=== PATIENT | female | born 1950 | race Caucasian/White ===

== ENCOUNTER → 2018-03-14 09:32 | Outpatient (CLI) | payer OTHER, SELFPAY ==
[2018-03-14 10:21] LABS: Blood Urea Nitrogen 21 mg/dL (7-17); Estimated Glomerular Filt Rate > 60.0 mL/min (>60); Glucose 134 mg/dL (80-110)
[2018-03-14 10:44] LABS: Hemoglobin A1C% w Est Avg Glu 6.3 % (4.0-6.0)
== END ==
PROVIDERS: Family Provider Family Medicine; PCP Family Medicine; Visit Provider Family Medicine
DX: E11.9 Type 2 diabetes mellitus without complications (principal)
CPT/HCPCS: 36415; 82565; 82947; 83036; 84520

== ENCOUNTER → 2018-04-02 08:53 | Outpatient (CLI) | payer OTHER, SELFPAY ==
--- NOTE | 2018-04-02 08:58 | DI.RAD.S_ITS ---
PROCEDURE: XR KNEE LT 3V INDICATIONS: pain and instability TECHNIQUE: 3 views of the knee were acquired. COMPARISON: [facility], CR, KNEE SERIES LT, 01/16/2016, 10:55. [facility], CR, KNEE 3V LEFT, 11/16/2015, 16:20. FINDINGS: Bones: No fractures or dislocations. No suspicious bony lesions. Scattered degenerative spurring. There is severe narrowing of the patellofemoral joint space with near [id number] appearance, which is slightly progressed since 01/16/16. Chronic ossicle projects adjacent to the lateral aspect of the patella Soft tissues: No joint effusion. Possible loose body projecting in the suprapatellar recess as before. IMPRESSION: Slight interval progression of severe left knee joint degeneration primarily involving the patellofemoral compartment. Suprapatellar loose body. Dictated by: Boris Phan M.D. on 04/02/2018 at 9:51 Approved by: Boris Phan M.D. on 04/02/2018 at 10:01
== END ==
PROVIDERS: PCP Family Medicine; Visit Provider Family Medicine
DX: M17.12 Unilateral primary osteoarthritis, left knee (principal); G35 Multiple sclerosis; M23.42 Loose body in knee, left knee
CPT/HCPCS: 73562

== ENCOUNTER → 2018-06-02 17:41 | Outpatient (CLI) | payer OTHER, SELFPAY ==
--- NOTE | 2018-06-02 17:46 | DI.MRI.S_ITS ---
PROCEDURE: MR KNEE LT WO CON INDICATIONS: ACUTE PAIN OF LEFT KNEE TECHNIQUE: Noncontrast sagittal PD fast spin echo and T2 fast spin echo with fat saturation, sagittal 3-D FLASH with fat saturation; coronal T1 spin echo and PD fast spin echo with fat saturation, and axial PD fast spin echo with fat saturation through the knee. COMPARISON: None. FINDINGS: Image quality: Excellent. Menisci: The medial and lateral menisci demonstrate normal morphology and internal signal. The meniscal root ligaments appear intact. Cruciate ligaments: Anterior cruciate ligament appears at least partially intact although there is prominent thickening intrasubstance signal change with striated appearance. There are also intraosseous ganglion cyst seen at the tibial eminence. Posterior cruciate ligament appears intact. Medial structures: The medial collateral ligament appears intact. The posterior oblique ligament, semimembranosus tendon insertions, oblique popliteal ligament, and meniscocapsular junction appear intact. Visualized portions of the pes anserinus tendons appear normal. No abnormal bursal fluid. Lateral structures: The lateral collateral ligament, long and short heads of the biceps femoris tendon appear intact. The popliteus tendon appears normal; the popliteofibular ligament appears intact. The posterosuperior and anteroinferior popliteomeniscal fascicles appear intact. The arcuate and fabellofibular ligaments appear intact, on either side of the lateral inferior geniculate artery. Iliotibial band appears normal. Anterior structures: The quadriceps and patellar tendons appear intact. Superficialinfrapatellar subcutaneous edema. Patellar alignment is normal. No femoral trochlear dysplasia or ventral trochlear prominence. No edema in the infrapatellar fat pad. Bones and cartilage: No bone marrow contusions or fractures. Within the medial compartment, there is diffuse partial thickness loss in intrasubstance signal change involving the femoral articular cartilage. The tibia cartilage appears grossly intact. Within the lateral compartment, articular cartilage appears grossly intact. Within the patellofemoral compartment, there is near full-thickness loss of the cartilage overlying the lateral patellar facet and lateral femoral trochlear, with subchondral cystic change and marrow edema. Joint space: No pathologic joint effusion or discrete Torres's cyst. Possible loose bodies measuring up to 1.6 x 0.1 cm on sagittal pulse sequences, seen at the lateral aspect of the suprapatellar recess for example image 127, series 11, versus heterotopic ossification. Additional similar focus present within the intercondylar notch image 73 series 11, image 17 series 10 measuring 7 mm IMPRESSION: Intrasubstance signal change and striated appearance of the anterior cruciate ligament suggestive of mucoid degeneration (versus low-grade age-indeterminate partial rupture.) Please correlate to clinical exam findings. Superficial infrapatellar subcutaneous edema. Degenerative joint disease as above, most pronounced within the patellofemoral compartment. Prominent loose bodies versus heterotopic ossification at the lateral aspect of the suprapatellar recess and within the intercondylar notch. Dictated by: Boris Phan M.D. on 06/03/2018 at 9:23 Approved by: Boris Phan M.D. on 06/03/2018 at 9:33
== END ==
PROVIDERS: PCP Family Medicine; Visit Provider Physician Assistant
DX: M25.562 Pain in left knee (principal); M17.12 Unilateral primary osteoarthritis, left knee; R60.0 Localized edema
CPT/HCPCS: 73721

== ENCOUNTER → 2018-06-22 09:33 | Outpatient (CLI) | payer OTHER, SELFPAY ==
--- NOTE | 2018-06-22 | DI.MG.S_ITS ---
BILATERAL DIGITAL SCREENING MAMMOGRAM 3D/2D WITH CAD: 06/22/2018 CLINICAL: Routine screening. Family history of breast cancer. Comparison is made to exams dated: 04/30/2017 mammogram, 07/17/2015 mammogram, and 06/20/2014 mammogram - [facility]. There are scattered fibroglandular elements in both breasts. Current study was also evaluated with a Computer Aided Detection (CAD) system. There is a mole marker on the right breast. There is a linear scar marker on the right breast. No significant masses, calcifications, or other findings are seen in either breast. There has been no significant interval change. IMPRESSION: NEGATIVE There is no mammographic evidence of malignancy. A 1 year screening mammogram is recommended. This exam was interpreted at Station ID: [id number]. NOTE: For mammograms, a report in lay terms will be sent to the patient. Approximately 15% of breast malignancies will not be visualized mammographically. In the management of a palpable breast mass, a negative mammogram must not discourage biopsy of a clinically suspicious lesion. Electronically Signed By: Severino Conklin M.D. ecl/:06/22/2018 18:43:58 copy to: Isaac Farmer letter sent: Normal Exam ACR BI-RADS Category 1: Negative 3341F
== END ==
PROVIDERS: PCP Family Medicine; Visit Provider Obstetrics & Gynecology
DX: Z12.31 Encounter for screening mammogram for malignant neoplasm of breast (principal); Z80.3 Family history of malignant neoplasm of breast
CPT/HCPCS: 77063; 77067

== ENCOUNTER → 2018-08-21 16:15 | Outpatient (CLI) | payer OTHER, SELFPAY ==
[2018-08-21 17:28] LABS: Blood Urea Nitrogen 21 mg/dL (7-17); Calcium 9.8 mg/dL (8.4-10.2); Carbon Dioxide 31 mmol/L (22-32); Chloride 102 mmol/L (98-107); Estimated Glomerular Filt Rate > 60.0 mL/min (>60); Glucose 157 mg/dL (80-110); HEMOLYSIS < 15 (0-50); Potassium 4.2 mmol/L (3.4-5.1); Sodium 141 mmol/L (137-145)
== END ==
PROVIDERS: PCP Family Medicine; Visit Provider Physician Assistant
DX: G35 Multiple sclerosis (principal)
CPT/HCPCS: 36415; 80048

== ENCOUNTER → 2018-09-19 08:34 | Outpatient (CLI) | payer OTHER, SELFPAY ==
[2018-09-19 09:14] LABS: Hemoglobin A1C% w Est Avg Glu 7.1 % (4.0-6.0)
[2018-09-19 09:31] LABS: Creatinine Urine Random 78.1 mg/dL
[2018-09-19 09:35] LABS: Glucose 169 mg/dL (80-110)
[2018-09-19 09:37] LABS: Microalbumi Creatinin Ratio Ur 7.6 ug/mg CR (<30); Microalbumin Urine Random < 0.6 mg/dL (0-1.6)
== END ==
PROVIDERS: PCP Family Medicine; Visit Provider Family Medicine
DX: E11.9 Type 2 diabetes mellitus without complications (principal)
CPT/HCPCS: 36415; 82043; 82570; 82947; 83036

== ENCOUNTER → 2018-10-09 10:49 | Outpatient (CLI) | payer OTHER, SELFPAY ==
[2018-10-09 12:42] LABS: Appearance Urine UA CLOUDY; Bilirubin Urine UA NEGATIVE (NEGATIVE); Color Urine UA YELLOW; Glucose Urine UA NEGATIVE (Negative); Ketones Urine UA NEGATIVE (NEGATIVE); Leukocyte Esterase Urine UA 2+ (NEGATIVE); Nitrite Urine UA NEGATIVE (Negative); Occult Blood Urine UA TRACE-LYSED (Negative); Protein Urine UA NEGATIVE (Negative); Urobilinogen Urine UA 0.2 E.U./dL (0.2)
[2018-10-09 12:51] LABS: Amorphous Sediment Urine 3+; Bacteria Urine Moderate (10-30); Culture Indicated Urine Cult Not Indicated; RBC Urine 1-5/HPF (0-5/HPF); Squamous Epithelial Cell Urine 10-30 /HPF (0-5/HPF); WBC Urine >100/HPF (0-5/HPF)
== END ==
PROVIDERS: PCP Family Medicine; Visit Provider Family Medicine
DX: R30.0 Dysuria (principal); R39.15 Urgency of urination
CPT/HCPCS: 81001

== ENCOUNTER → 2019-02-11 17:08 | Outpatient (CLI) | payer OTHER, SELFPAY ==
[2019-02-11 18:27] LABS: Bilirubin Urine UA NEGATIVE (NEGATIVE); Color Urine UA YELLOW; Glucose Urine UA NEGATIVE (Negative); Ketones Urine UA NEGATIVE (NEGATIVE); Leukocyte Esterase Urine UA 2+ (NEGATIVE); Nitrite Urine UA NEGATIVE (Negative); Occult Blood Urine UA 3+ (Negative); Protein Urine UA NEGATIVE (Negative); Specific Gravity Urine UA <=1.005 (1.000-1.035); Urobilinogen Urine UA 0.2 E.U./dL (0.2); pH Urine UA 7.5 (4.5-8.0)
[2019-02-11 18:29] LABS: Appearance Urine UA Slightly Cloudy
[2019-02-11 18:44] LABS: Amorphous Sediment Urine 1+; Bacteria Urine Few (2-10); RBC Urine 1-5/HPF (0-5/HPF); Squamous Epithelial Cell Urine 0-1 /HPF (0-5/HPF); WBC Urine 30-100/HPF (0-5/HPF)
== END ==
PROVIDERS: PCP Family Medicine; Visit Provider Family Medicine
DX: R30.0 Dysuria (principal); R32 Unspecified urinary incontinence
CPT/HCPCS: 81001; 87086

== ENCOUNTER → 2019-02-24 14:48 | Outpatient (CLI) | payer OTHER, SELFPAY ==
[2019-02-24 15:24] LABS: Appearance Urine UA CLOUDY; Bilirubin Urine UA NEGATIVE (NEGATIVE); Color Urine UA ORANGE; Glucose Urine UA 1+ g/dL (Negative); Ketones Urine UA TRACE (NEGATIVE); Leukocyte Esterase Urine UA 3+ (NEGATIVE); Nitrite Urine UA POSITIVE (Negative); Occult Blood Urine UA 2+ (Negative); Protein Urine UA 3+ (Negative); Specific Gravity Urine UA 1.015 (1.000-1.035); Urobilinogen Urine UA >=8.0 E.U./dL (0.2); pH Urine UA 6.5 (4.5-8.0)
[2019-02-24 15:36] LABS: Bacteria Urine Many (>30); RBC Urine 10-30/HPF (0-5/HPF); Renal Epithelial Cells Urine 0-1/HPF (0-1/HPF); Squamous Epithelial Cell Urine 1-5 /HPF (0-5/HPF); WBC Urine >100/HPF (0-5/HPF)
[2019-02-24 15:37] LABS: Culture Indicated Urine Specimen Cultured
== END ==
PROVIDERS: PCP Family Medicine; Visit Provider Family Medicine
DX: R30.0 Dysuria (principal)
CPT/HCPCS: 81003; 81015; 87077; 87086; 87186

== ENCOUNTER → 2019-03-05 09:41 | Outpatient (CLI) | payer OTHER, SELFPAY | PROVIDERS: PCP Family Medicine; Visit Provider Physician Assistant | DX: R30.0 Dysuria (principal) | CPT/HCPCS: 87077; 87086; 87186 ==

== ENCOUNTER → 2019-04-24 08:28 | Outpatient (CLI) | payer OTHER, SELFPAY | PROVIDERS: PCP Family Medicine; Visit Provider Family Medicine | DX: E11.9 Type 2 diabetes mellitus without complications (principal) | CPT/HCPCS: 36415; 83036 ==

== ENCOUNTER → 2019-06-25 11:21 | Outpatient (CLI) | payer OTHER, SELFPAY ==
--- NOTE | 2019-06-25 | DI.MG.S_ITS ---
BILATERAL DIGITAL SCREENING MAMMOGRAM 3D/2D WITH CAD: 06/25/2019 CLINICAL: Routine screening. Family history of breast cancer. Comparison is made to exams dated: 06/22/2018 mammogram, 04/30/2017 mammogram, and 07/17/2015 mammogram - [facility]. There are scattered fibroglandular elements in both breasts. Current study was also evaluated with a Computer Aided Detection (CAD) system. There is a mole marker on the right breast. No significant masses, calcifications, or other findings are seen in either breast. There has been no significant interval change. IMPRESSION: NEGATIVE There is no mammographic evidence of malignancy. A 1 year screening mammogram is recommended. This exam was interpreted at Station ID: [id number]. NOTE: For mammograms, a report in lay terms will be sent to the patient. Approximately 15% of breast malignancies will not be visualized mammographically. In the management of a palpable breast mass, a negative mammogram must not discourage biopsy of a clinically suspicious lesion. Electronically Signed By: Raoul whittaker/shamir:06/25/2019 12:23:58 copy to: Staci Bowman letter sent: Normal Exam ACR BI-RADS Category 1: Negative 3341F
== END ==
PROVIDERS: PCP Family Medicine; Referring Provider Obstetrics & Gynecology; Visit Provider Family Medicine
DX: Z12.31 Encounter for screening mammogram for malignant neoplasm of breast (principal); Z80.3 Family history of malignant neoplasm of breast
CPT/HCPCS: 77063; 77067

== ENCOUNTER → 2019-12-11 07:57 | Outpatient (CLI) | payer OTHER, SELFPAY ==
[2019-12-11 09:27] LABS: Add Manual Diff / Slide Review NO; Basophils Absolute Auto 100 /uL (0-100); Basophils Percent Auto 1.1 % (0-2); Eosinophils Absolute Auto 300 /uL (0-450); Hematocrit 42.6 % (36-46); Hemoglobin 14.4 g/dL (12.0-16.0); Lymphocytes Absolute Auto 2400 /uL (1100-4500); Lymphocytes Percent Auto 37.8 % (25-40); Mean Corpuscular HGB Conc 33.9 % (30-36); Mean Corpuscular Hemoglobin 30.3 PG (26-34); Mean Corpuscular Volume 89.5 fL (80-100); Monocytes Absolute Auto 600 /uL (0-900); Monocytes Percent Auto 9.7 % (3-14); Neutrophils Absolute Auto 3000 /uL (1500-7000); Neutrophils Percent Auto 47.4 % (50-75); Platelet Count 257 X10^3/uL (150-400); Red Blood Cell Count 4.76 X10^6/uL (4.0-5.2); Red Cell Distribution Width 13.4 % (11.6-14.8); White Blood Cell Count 6.3 X10^3/uL (4.5-11.0)
[2019-12-11 09:41] LABS: Creatinine Urine Random 96.7 mg/dL
[2019-12-11 09:43] LABS: Cholesterol 245 mg/dL (140-199); HDL Cholesterol 45 mg/dL (40-60); LDL Cholesterol Calculated 163 mg/dL (<100); Triglycerides 184 mg/dL (35-150)
[2019-12-11 09:47] LABS: Microalbumi Creatinin Ratio Ur 6.2 ug/mg CR (<30); Microalbumin Urine Random < 0.6 mg/dL (0-1.6)
[2019-12-11 10:12] LABS: TSH w/ Reflex to FT4 2.24 uIU/mL (0.47-4.68)
[2019-12-11 10:30] LABS: Vitamin B12 897 pg/mL (239-931)
== END ==
PROVIDERS: PCP Family Medicine; Referring Provider Family Medicine; Visit Provider Family Medicine
DX: E11.9 Type 2 diabetes mellitus without complications (principal); G35 Multiple sclerosis
CPT/HCPCS: 36415; 80061; 82043; 82570; 82607; 84443; 85025

== ENCOUNTER → 2019-12-18 08:22 | Outpatient (CLI) | payer OTHER, SELFPAY ==
[2019-12-18 10:43] LABS: Vitamin D 25 Hydroxy (D3) 67.2 ng/mL (30.0-100.0)
== END ==
PROVIDERS: PCP Family Medicine; Referring Provider Family Medicine; Visit Provider Family Medicine
DX: E11.9 Type 2 diabetes mellitus without complications (principal); G35 Multiple sclerosis; M85.89 Other specified disorders of bone density and structure, multiple sites
CPT/HCPCS: 36415; 82306; 83036

== ENCOUNTER → 2020-02-29 16:27 | Outpatient (CLI) | payer OTHER, SELFPAY ==
[2020-02-29 17:00] LABS: Miscellaneous to LabCorp KIT TEST
== END ==
PROVIDERS: PCP Family Medicine; Referring Provider Obstetrics & Gynecology; Visit Provider Obstetrics & Gynecology
DX: Z80.0 Family history of malignant neoplasm of digestive organs (principal); Z80.3 Family history of malignant neoplasm of breast
CPT/HCPCS: 36415

== ENCOUNTER 2020-03-10 10:23 | Emergency (ER) | payer OTHER, SELFPAY ==
[2020-03-10 10:38] VITALS: BP 171/77; PULSE 93; RESP 18; TEMP 36.6; O2SAT 99; BMI 27.0
--- NOTE | 2020-03-10 11:21 | ED.FALL ---
HPI - Fall <Nathalie Iraheta [employer] - Last Filed: 03/10/20 13:03> General Chief Complaint: Fall Stated Complaint: fell twice this week and hit head both times Time Seen by Provider: 03/10/20 11:07 Source: patient Mode of arrival: Family Vehicle Limitations: no limitations History of Present Illness HPI Narrative: The patient is a very pleasant 69-year-old female history of multiple sclerosis who presents with a chief complaint of multiple falls this week. She states that she has had 2 mechanical falls, 1 yesterday when her chair slipped out and she fell back and hit her head. She also, when she turned around too quickly and fell back hit her head. She is adamant that they were both mechanical falls. She did not feel lightheaded or dizzy or have any chest pain prior to falls. She states she is prone to falling due to her multiple sclerosis. She does complain of some nausea, no vomiting. She does not feel lightheaded or dizzy at this point time. She does complain of pain at the top of her neck on her C-spine. She was concerned about a little bit of bleeding initially, as she was wearing Yamil when she hit her head on Friday. She states that her tetanus is up-to-date. She denies any specific new numbness or tingling, but states it is hard to evaluate due to her multiple sclerosis. Related Data Home Medications Medication Instructions Recorded Confirmed CHOLECALCIFEROL (VITAMIN D3) 2,000 iu PO Q DAY #0 02/19/11 02/29/20 (Vitamin D) Calcium Carbonate/Vitamin D 1 sgl PO Q DAY #0 02/19/11 02/29/20 (#CALCIUM 1200 W/VITAMIN D 600 MG-100 IU) Cranberry (#CRANBERRY) 2,000 mg PO Q DAY #0 02/19/11 02/29/20 Fish Oil (#SUPER EPA 2000) 2,000 mg PO Q DAY #0 02/19/11 02/29/20 polyethylene glycol 3350 [Miralax] 17 gm PO QDAY #0 02/14/12 02/29/20 [Tumeric] #0 09/07/17 02/29/20 vitamin B complex 1 tab PO DAILY 02/10/19 02/29/20 Previous Rx's Medication Instructions Recorded blood sugar diagnostic See Rx Instructions .ROUTE 03/24/19 .COMPLEX #300 each baclofen 10 mg tablet 20 mg PO Q8H #600 tab 05/03/19 triamcinolone acetonide 0.1 % 0.1 % TOPICAL BID PRN #30 gram 05/03/19 topical cream estradiol 10 mcg vaginal tablet 10 mcg VAG 2XW #24 tab 05/31/19 metformin 500 mg tablet,extended 500 mg PO BID #180 tab 01/11/20 release 24 hr trospium 20 mg tablet 20 mg PO BID #200 tab 02/10/20 hydrocodone 5 mg-acetaminophen 325 1 tab PO Q6HP PRN #30 tab 02/22/20 mg tablet Allergies Allergy/AdvReac Type Severity Reaction Status Date / Time Sulfa (Sulfonamide Allergy Severe ANAPHYLAXIS Verified 03/10/20 10:49 Antibiotics) [SULFA (SULFONAMIDE ANTIBIOTICS)] adhesive Allergy Mild TAPE; Verified 03/10/20 10:49 TOPICAL DERMATITIS FOR LONG PERIODS diphenhydramine Allergy Mild HIVES Verified 03/10/20 10:49 [DIPHENHYDRAMINE] Review of Systems <RENE Everett - Last Filed: 03/10/20 13:03> Review of Systems Narrative: GENERAL: Denies chills, fatigue, malaise, fever, sweats. HEENT: Denies sinus pain, ear pain, sore throat, difficulty swallowing, dizziness. RESPIRATORY: Denies dyspnea, cough, wheezing, hemoptysis, sputum. CARDIOVASCULAR: Denies chest pain, palpitations, orthopnea, edema, GASTROINTESTINAL: Denies nausea, vomiting, abdominal pain, diarrhea, constipation, melena. : Denies dysuria, frequency, incontinence, hematuria, urinary retention. MUSCULOSKELETAL: See HPI SKIN: See HPI NEUROLOGIC: See HPI PSYCHIATRIC: No concerning psychosocial issues. 12 point review of systems is negative except for those stated above Patient History <RENE Everett - Last Filed: 03/10/20 13:03> Medical History Chicken pox (Resolved) Colon polyps (Resolved 2009) Fractures (Resolved ~2005) Measles (Resolved) Multiple sclerosis (Chronic 1991) Osteopenia (Chronic) Plantar warts (Resolved 2004) Surgical History Anesthesia (Resolved) History of shoulder surgery (Resolved 1973) History of third molar tooth extraction (Resolved 1970) Status post rotator cuff repair (Resolved 2011) Status post tubal ligation (Resolved 1979) Family History Brother Age: 63 Diabetes mellitus Hypertension High cholesterol Child Age: 24 Adopted Mother Heart disease Hypertension Stroke Father Alzheimer's disease Grandmother No problems noted. Social History marital status: Smoking Status: Never smoker alcohol intake: current (ON OCCASION ) substance use type: does not use Smoking Status: Never smoker alcohol intake frequency: 0-2 drinks per day Substance Use Type: does not use Exam <RENE Everett - Last Filed: 03/10/20 13:03> Narrative Exam Narrative: GENERAL: This is a well-nourished, well-developed patient, no acute distress HEAD: Atraumatic. Normocephalic. No temporal or scalp tenderness. EYES: Pupils equal round and reactive. Extraocular motions intact. No scleral icterus. No injection or drainage. No nystagmus noted. ENT: Nose without bleeding, purulent drainage or septal hematoma. Throat without erythema, tonsillar hypertrophy or exudate. Uvula midline. Airway patent. NECK: Trachea midline. No JVD or lymphadenopathy. Supple, nontender, no meningeal signs. CARDIOVASCULAR: Regular rate and rhythm RESPIRATORY: Clear to auscultation. Breath sounds equal bilaterally. No wheezes, rales, or rhonchi. No cough. No increased respiratory effort. No accessory muscle use. GASTROINTESTINAL: Abdomen soft, non-tender, nondistended. No hepato-splenomegaly, or palpable masses. No guarding. EXTREMITIES: No clubbing, cyanosis, or edema. No joint tenderness, effusion, or edema noted. BACK: T and L-spine are Nontender without deformity or crepitance. No flank tenderness. Pain to palpation of midline C-spine. NEURO: AOx3. SKIN: No rash or erythema on visible skin. No visible laceration or abrasion noted on back of head. Initial Vital Signs Initial Vital Signs: Vital Signs Temperature 97.9 F 03/10/20 10:38 Pulse Rate 93 H 03/10/20 10:38 Respiratory Rate 18 03/10/20 10:38 Blood Pressure 171/77 H 03/10/20 10:38 Pulse Oximetry 99 03/10/20 10:38 <Jorge Mansfield MD - Last Filed: 03/10/20 18:21> Initial Vital Signs Initial Vital Signs: Vital Signs Temperature 97.9 F 03/10/20 10:38 Pulse Rate 93 H 03/10/20 10:38 Respiratory Rate 18 03/10/20 10:38 Blood Pressure 171/77 H 03/10/20 10:38 Pulse Oximetry 99 03/10/20 10:38 Scores <RENE Everett - Last Filed: 03/10/20 13:03> GCS Jessy coma scale eye opening: Spontaneous Jessy coma scale verbal response: Orientated [place] coma scale motor response: Obey commands Jessy coma scale total score: 15 Course <RENE Everett - Last Filed: 03/10/20 13:03> Orders Ordered: ED Orders 03/10/20 11:20 CT head/brain wo con Stat 03/10/20 11:44 CT cervical spine wo con Stat Vital Signs Vital signs: Vital Signs - 8 hr 03/10/20 10:38 03/10/20 12:39 Temperature 97.9 F Pulse Rate 93 H 88 Respiratory Rate 18 Blood Pressure 171/77 H 149/70 H Pulse Oximetry 99 97 <Jorge Mansfield MD - Last Filed: 03/10/20 18:21> Orders Ordered: ED Orders 03/10/20 11:20 CT head/brain wo con Stat 03/10/20 11:44 CT cervical spine wo con Stat Vital Signs Vital signs: Vital Signs - 8 hr 03/10/20 10:38 03/10/20 12:39 Temperature 97.9 F Pulse Rate 93 H 88 Respiratory Rate 18 Blood Pressure 171/77 H 149/70 H Pulse Oximetry 99 97 MDM - Fall <RENE Everett - Last Filed: 03/10/20 13:03> Imaging Data CT - cervical spine: Radiologist's Impression: [address] [place] [id number] Scan Report Signed Patient: Harmeet Finn KMR#: [id number] : [id number]:[id number] Age/Sex: 69 / FDate of Service: 03/10/20 Loc: ED Accession Number: [id number] Procedure: CT cervical spine wo con Ordering Provider: Nathalie Iraheta-KAROL PROCEDURE: CT CERVICAL SPINE WO CON INDICATIONS: glf, c spine pain TECHNIQUE: Noncontrast 3 mm thick sections acquired from the skull base to the T4 level. Sagittal and coronal reformats were then constructed. For radiation dose reduction, the following was used: automated exposure control, adjustment of mA and/or kV according to patient size. COMPARISON: [facility], CT, CT HEAD/BRAIN WO CON, 03/10/2020, 11:42. [facility], MR, C-SPINE W&WO CONTRAST, 08/15/2017, 9:46. FINDINGS: Image quality: This examination is somewhat limited by quantum mottle artifact. Bones: No fractures or dislocations. Visualized superior ribs are intact. Degenerative changes are seen, with moderate to severe disc space narrowing at C4-C5. Posteriorly projected endplate osteophytes are seen. At least moderate disc space narrowing is seen at C5-C6. Posteriorly directed endplate osteophytes are seen at this level. At C6-C7, there is moderate loss of disc height. Grade 1 anterolisthesis is seen at this level. Soft tissues: Prevertebral soft tissues are normal in thickness. No paravertebral hematomas. No apical pneumothoraces. IMPRESSION: No acute fractures are seen. Moderate to severe cervical spine degenerative changes are seen. Dictated by: Aron Manning M.D. on 03/10/2020 at 11:11 Approved by: Aron Manning M.D. on 03/10/2020 at 11:13 CT scan - head: Radiologist's Impression: [place] [address] CT Scan Report Signed Patient: Harmeet Finn KMR#: [id number] : 1950cct:[id number] Age/Sex: 69 / FDate of Service: 03/10/20 Loc: ED Accession Number: [id number] Procedure: CT head/brain wo con Ordering Provider: Nathalie Iraheta PROCEDURE: CT HEAD/BRAIN WO CON INDICATIONS: glf, hit head, dizzy TECHNIQUE: Noncontrast 4.5 mm thick angled axial sections acquired from the foramen magnum to the vertex, with coronal and sagittal reformats. For radiation dose reduction, the following was used: automated exposure control, adjustment of mA and/or kV according to patient size. COMPARISON: [facility], CT, CT CERVICAL SPINE WO CON, 03/10/2020, 11:42. [facility], MR, BRAIN W&WO CONTRAST, 08/15/2017, 9:26. FINDINGS: Image quality: Diagnostic, with note made of motion artifact. CSF spaces: Basal cisterns are patent. No extra-axial fluid collections. The ventricles are symmetric in size and shape. Brain: No intracranial bleeds or masses. There is cerebral volume loss for age, with resultant ventricular and sulcal prominence. There are periventricular and deep white matter chronic small vessel ischemic changes. There is intracranial internal carotid artery atherosclerosis. Skull and face: Calvarium and visualized facial bones appear intact, without suspicious lesions. Incidental note is made of hyperostosis frontalis. This is not considered to be pathologic in a woman of this age. Sinuses: Visualized sinuses and mastoids are clear. IMPRESSION: No acute intracranial hemorrhage is seen. No acute intracranial process is seen. Dictated by: Aron Manning M.D. on 03/10/2020 at 11:07 Approved by: Aron Manning M.D. on 03/10/2020 at 11:11 [facility] Narrative Medical decision making narrative: The patient is a 69-year-old female who presents after to ground level falls in the past week. They were both mechanical, no lightheadedness or dizziness etcetera. Given the C-spine tenderness on exam, we did obtain a CT of her C-spine which came back with no acute findings. Given her age, nausea, multiple falls difficulty to assess neurological changes given her multiple sclerosis come we did obtain a CT of her head which came back with no acute findings as well. The patient was able to ambulate with a steady gait. I discussed at length brain rest, follow-up with primary care provider in the next few days. The patient declined any medications for pain or nausea. Patient has no questions or concerns upon discharge and states understanding return precautions as well as follow-up care. She has been GCS 15, alert and oriented throughout her stay in the emergency department. Discharge Plan Departure Patient Disposition: Home Clinical Impression: Fall from ground level, Acute neck pain Concussion Qualifiers: Encounter type: initial encounter Loss of consciousness presence/duration: without LOC Qualified Code(s): S06.0X0A - Concussion without loss of consciousness, initial encounter Discharge Date/Time: 03/10/20 13:19 Instructions: DI for Concussion, How to Prevent Falls, DI for Neck Pain Activity Restrictions/Additional Instructions: Thank you for trusting us with your care today As discussed this scans of your head and C-spine came back well As discussed, please try to rest your brain over the next few days. I have given you a work note in case it is needed. Please follow-up with primary care provider the next few days. Please come back to the emergency department for any acute concerns such as neurological changes, chest pain shortness of breath etcetera Prescriptions: No Action Fish Oil (#SUPER EPA 2000) 2,000 mg PO Q DAY Qty: 0 RF: 0 CHOLECALCIFEROL (VITAMIN D3) (Vitamin D) 2,000 iu PO Q DAY Qty: 0 RF: 0 Calcium Carbonate/Vitamin D (#CALCIUM 1200 W/VITAMIN D 600 MG-100 IU) 1 sgl PO Q DAY Qty: 0 RF: 0 Cranberry (#CRANBERRY) 2,000 mg PO Q DAY Qty: 0 RF: 0 polyethylene glycol 3350 [Miralax] 119 GM powder 17 gm PO QDAY Qty: 0 RF: 0 [Tumeric] Qty: 0 RF: 0 blood sugar diagnostic [Contour Next Test Strips] Strip See Rx Instructions .ROUTE .COMPLEX Qty: 300 RF: 3 triamcinolone acetonide [Triderm] 0.1 % cream 0.1 % Topical BID PRN (Reason: rash) Qty: 30 RF: 1 baclofen 10 mg tablet 20 mg PO Q8H Qty: 600 RF: 3 estradiol [Vagifem] 10 mcg tablet 10 mcg VAG 2XW Qty: 24 RF: 3 metformin 500 mg tablet extended release 24 hr 500 mg PO BID Qty: 180 RF: 1 trospium 20 mg tablet 20 mg PO BID Qty: 200 RF: 3 hydrocodone-acetaminophen 5-325 mg tablet 1 tab PO Q6HP PRN (Reason: pain) Qty: 30 RF: 0 vitamin B complex tablet 1 tab PO DAILY RF: 0 Referrals: Isaac Farmer MD [Primary Care Provider] - Stand Alone Forms: Work Release Note <Jorge Mansfield MD - Last Filed: 03/10/20 18:21> Cosign ED Attending Cosignature Attestation: I was immediately available in the department for consultation. This documentation has been reviewed and I agree with assessment and plan. Supervised by Jorge Mansfield MD
--- NOTE | 2020-03-10 11:44 | DI.CT.S_ITS ---
PROCEDURE: CT CERVICAL SPINE WO CON INDICATIONS: glf, c spine pain TECHNIQUE: Noncontrast 3 mm thick sections acquired from the skull base to the T4 level. Sagittal and coronal reformats were then constructed. For radiation dose reduction, the following was used: automated exposure control, adjustment of mA and/or kV according to patient size. COMPARISON: [facility], CT, CT HEAD/BRAIN WO CON, 03/10/2020, 11:42. [facility], MR, C-SPINE W&WO CONTRAST, 08/15/2017, 9:46. FINDINGS: Image quality: This examination is somewhat limited by quantum mottle artifact. Bones: No fractures or dislocations. Visualized superior ribs are intact. Degenerative changes are seen, with moderate to severe disc space narrowing at C4-C5. Posteriorly projected endplate osteophytes are seen. At least moderate disc space narrowing is seen at C5-C6. Posteriorly directed endplate osteophytes are seen at this level. At C6-C7, there is moderate loss of disc height. Grade 1 anterolisthesis is seen at this level. Soft tissues: Prevertebral soft tissues are normal in thickness. No paravertebral hematomas. No apical pneumothoraces. IMPRESSION: No acute fractures are seen. Moderate to severe cervical spine degenerative changes are seen. Dictated by: Aron Manning M.D. on 03/10/2020 at 11:11 Approved by: Aron Manning M.D. on 03/10/2020 at 11:13
[2020-03-10 12:39] VITALS: BP 149/70; PULSE 88; O2SAT 97
== END 2020-03-10 13:19 | disposition home or self-care (01) ==
PROVIDERS: Emergency Provider Nurse Practitioner Family; PCP Family Medicine
DX: S06.0X0A Concussion without loss of consciousness, initial encounter (principal); M54.2 Cervicalgia; W18.30XA Fall on same level, unspecified, initial encounter; R29.6 Repeated falls
CPT/HCPCS: 70450; 72125; 99284

== ENCOUNTER → 2020-06-28 11:53 | Outpatient (CLI) | payer OTHER, SELFPAY ==
--- NOTE | 2020-06-28 | DI.MG.S_ITS ---
BILATERAL DIGITAL SCREENING MAMMOGRAM 3D/2D WITH CAD: 06/28/2020 CLINICAL: Routine screening. Family history of breast cancer. Comparison is made to exams dated: 06/25/2019 mammogram, 06/22/2018 mammogram, and 04/30/2017 mammogram - [facility]. There are scattered fibroglandular elements in both breasts. Current study was also evaluated with a Computer Aided Detection (CAD) system. No significant masses, calcifications, or other findings are seen in either breast. There has been no significant interval change. IMPRESSION: NEGATIVE There is no mammographic evidence of malignancy. A 1 year screening mammogram is recommended. This exam was interpreted at Station ID: [id number]. NOTE: For mammograms, a report in lay terms will be sent to the patient. Approximately 15% of breast malignancies will not be visualized mammographically. In the management of a palpable breast mass, a negative mammogram must not discourage biopsy of a clinically suspicious lesion. Electronically Signed By: Devika may/shamir:06/28/2020 12:20:24 copy to: Staci Bowman letter sent: Normal Exam ACR BI-RADS Category 1: Negative 3341F
== END ==
PROVIDERS: PCP Family Medicine; Referring Provider Family Medicine; Visit Provider Family Medicine
DX: Z12.31 Encounter for screening mammogram for malignant neoplasm of breast (principal)
CPT/HCPCS: 77063; 77067

== ENCOUNTER → 2020-07-29 08:36 | Outpatient (CLI) | payer OTHER, SELFPAY ==
[2020-07-29 09:18] LABS: COVID19 -Nasal RAPID Negative (Negative)
== END ==
PROVIDERS: PCP Family Medicine; Visit Provider Physician Assistant
DX: R05 Cough (principal); R09.81 Nasal congestion; Z20.822 Contact with and (suspected) exposure to COVID-19
CPT/HCPCS: 87635

== ENCOUNTER → 2020-08-15 17:11 | Outpatient (CLI) | payer OTHER, SELFPAY ==
[2020-08-15 17:42] LABS: Appearance Urine UA CLOUDY; Bilirubin Urine UA 1+ (NEGATIVE); Color Urine UA YELLOW; Glucose Urine UA NEGATIVE (Negative); Ketones Urine UA TRACE (NEGATIVE); Leukocyte Esterase Urine UA 2+ (NEGATIVE); Nitrite Urine UA NEGATIVE (Negative); Occult Blood Urine UA 2+ (Negative); Protein Urine UA 2+ (Negative); Specific Gravity Urine UA 1.015 (1.000-1.035); Urobilinogen Urine UA 0.2 E.U./dL (0.2)
[2020-08-15 17:56] LABS: Amorphous Sediment Urine 1+; Bacteria Urine Many (>30); Mucus Urine 2+ (Negative); RBC Urine 1-5/HPF (0-5/HPF); Squamous Epithelial Cell Urine 0-1 /HPF (0-5/HPF); WBC Urine >100/HPF (0-5/HPF)
[2020-08-15 17:58] LABS: Culture Indicated Urine Specimen Cultured; Ictotest Urine Negative (Negative)
== END ==
PROVIDERS: PCP Family Medicine; Referring Provider Family Medicine; Visit Provider Family Medicine
DX: R30.0 Dysuria (principal)
CPT/HCPCS: 81003; 81015; 87077; 87086; 87186

== ENCOUNTER → 2020-08-17 15:55 | Outpatient (CLI) | payer OTHER, SELFPAY ==
[2020-08-17 17:08] LABS: Add Manual Diff / Slide Review NO; Basophils Absolute Auto 0 /uL (0-100); Basophils Percent Auto 0.3 % (0-2); Eosinophils Absolute Auto 200 /uL (0-450); Eosinophils Percent Auto 2.2 % (2-4); Hematocrit 37.5 % (36-46); Hemoglobin 12.8 g/dL (12.0-16.0); Lymphocytes Absolute Auto 1500 /uL (1100-4500); Lymphocytes Percent Auto 19.8 % (25-40); Mean Corpuscular HGB Conc 34.3 % (30-36); Mean Corpuscular Hemoglobin 30.3 PG (26-34); Mean Corpuscular Volume 88.5 fL (80-100); Monocytes Absolute Auto 900 /uL (0-900); Monocytes Percent Auto 11.8 % (3-14); Neutrophils Absolute Auto 5000 /uL (1500-7000); Neutrophils Percent Auto 65.9 % (50-75); Platelet Count 252 X10^3/uL (150-400); Red Blood Cell Count 4.23 X10^6/uL (4.0-5.2); Red Cell Distribution Width 13.9 % (11.6-14.8); White Blood Cell Count 7.6 X10^3/uL (4.5-11.0)
[2020-08-17 17:36] LABS: Alanine Aminotransferase 181 IU/L (<35); Albumin Globulin Ratio 1.3 (1.0-2.8); Alkaline Phosphatase 137 U/L (38-126); Aspartate Aminotransferase 60 IU/L (14-36); BUN Creatinine Ratio 24.6 (6-22); Bilirubin Total 0.6 mg/dL (0.2-1.3); Blood Urea Nitrogen 14 mg/dL (7-17); Calcium 9.4 mg/dL (8.4-10.2); Carbon Dioxide 30 mmol/L (22-32); Chloride 102 mmol/L (98-107); Estimated Glomerular Filt Rate > 60.0 mL/min (>60); Globulin 3.2 g/dL (1.7-4.1); Glucose 135 mg/dL (80-110); HEMOLYSIS < 15 (0-50); Potassium 3.5 mmol/L (3.4-5.1); Sodium 137 mmol/L (137-145); Total Protein 7.2 g/dL (6.3-8.2)
[2020-08-17 17:45] LABS: Procalcitonin 0.42 ng/mL (<0.5)
[2020-08-17 17:50] LABS: C-Reactive Protein Quant 16.3 mg/dL (<1.0)
[2020-08-17 20:04] LABS: Erythrocyte Sedimentation Rate 45 MM/HR (0-20)
== END ==
PROVIDERS: PCP Family Medicine; Referring Provider Family Medicine; Visit Provider Family Medicine
DX: R50.9 Fever, unspecified (principal)
CPT/HCPCS: 36415; 80053; 84145; 85025; 85651; 86140

== ENCOUNTER → 2020-09-14 15:59 | Outpatient (CLI) | payer OTHER, SELFPAY ==
[2020-09-14 16:22] LABS: Appearance Urine UA CLEAR; Bilirubin Urine UA NEGATIVE (NEGATIVE); Color Urine UA YELLOW; Glucose Urine UA NEGATIVE (Negative); Ketones Urine UA NEGATIVE (NEGATIVE); Leukocyte Esterase Urine UA 3+ (NEGATIVE); Nitrite Urine UA NEGATIVE (Negative); Occult Blood Urine UA 2+ (Negative); Protein Urine UA NEGATIVE (Negative); Specific Gravity Urine UA 1.015 (1.000-1.035); Urobilinogen Urine UA 0.2 E.U./dL (0.2)
[2020-09-14 16:55] LABS: pH Urine UA 7.5 (4.5-8.0)
[2020-09-14 16:56] LABS: Bacteria Urine Many (>30); RBC Urine 10-30/HPF (0-5/HPF); Renal Epithelial Cells Urine 0-1/HPF (0-1/HPF); Squamous Epithelial Cell Urine 0-1 /HPF (0-5/HPF); Transitional Epi Cells Urine 0-1/HPF (0-5/HPF); WBC Urine >100/HPF (0-5/HPF)
[2020-09-14 16:57] LABS: Culture Indicated Urine Specimen Cultured
== END ==
PROVIDERS: PCP Family Medicine; Referring Provider Family Medicine; Visit Provider Family Medicine
DX: R30.0 Dysuria (principal)
CPT/HCPCS: 81003; 81015; 87077; 87086; 87186

== ENCOUNTER → 2020-10-02 14:15 | Outpatient (CLI) | payer OTHER, SELFPAY ==
[2020-10-02 14:47] LABS: Appearance Urine UA SL CLOUDY; Bilirubin Urine UA NEGATIVE (NEGATIVE); Color Urine UA YELLOW; Glucose Urine UA NEGATIVE (Negative); Ketones Urine UA NEGATIVE (NEGATIVE); Leukocyte Esterase Urine UA 1+ (NEGATIVE); Nitrite Urine UA NEGATIVE (Negative); Occult Blood Urine UA 3+ (Negative); Protein Urine UA TRACE (Negative); Specific Gravity Urine UA 1.015 (1.000-1.035); Urobilinogen Urine UA 0.2 E.U./dL (0.2)
[2020-10-02 14:51] LABS: pH Urine UA 5.5 (4.5-8.0)
[2020-10-02 15:08] LABS: RBC Urine 10-30/HPF (0-5/HPF); Squamous Epithelial Cell Urine 1-5 /HPF (0-5/HPF); Transitional Epi Cells Urine 1-5/HPF (0-5/HPF); WBC Urine 10-30/HPF (0-5/HPF)
[2020-10-02 15:09] LABS: Bacteria Urine Moderate (10-30); Culture Indicated Urine Specimen Cultured
== END ==
PROVIDERS: PCP Family Medicine; Referring Provider Family Medicine; Visit Provider Family Medicine
DX: R30.0 Dysuria (principal)
CPT/HCPCS: 81003; 81015; 87077; 87086; 87186

== ENCOUNTER → 2020-10-13 09:45 | Outpatient (CLI) | payer OTHER, SELFPAY ==
[2020-10-13 11:00] LABS: Appearance Urine UA SL CLOUDY; Bilirubin Urine UA NEGATIVE (NEGATIVE); Color Urine UA YELLOW; Glucose Urine UA NEGATIVE (Negative); Ketones Urine UA NEGATIVE (NEGATIVE); Leukocyte Esterase Urine UA 2+ (NEGATIVE); Nitrite Urine UA POSITIVE (Negative); Occult Blood Urine UA TRACE-INTACT (Negative); Protein Urine UA TRACE (Negative); Urobilinogen Urine UA 0.2 E.U./dL (0.2)
[2020-10-13 11:45] LABS: Bacteria Urine Many (>30); RBC Urine 1-5/HPF (0-5/HPF); Squamous Epithelial Cell Urine 1-5 /HPF (0-5/HPF); WBC Urine >100/HPF (0-5/HPF)
[2020-10-13 11:46] LABS: Culture Indicated Urine Specimen Cultured
== END ==
PROVIDERS: PCP Family Medicine; Referring Provider Family Medicine; Visit Provider Family Medicine
DX: R30.0 Dysuria (principal); R32 Unspecified urinary incontinence; R39.15 Urgency of urination
CPT/HCPCS: 81001; 87077; 87086; 87186

== ENCOUNTER → 2020-10-23 09:34 | Outpatient (CLI) | payer OTHER, SELFPAY ==
[2020-10-23 10:50] LABS: RBC Urine None Seen (0-5/HPF)
[2020-10-23 11:56] LABS: Appearance Urine UA SL CLOUDY; Bilirubin Urine UA NEGATIVE (NEGATIVE); Color Urine UA YELLOW; Glucose Urine UA NEGATIVE (Negative); Ketones Urine UA NEGATIVE (NEGATIVE); Leukocyte Esterase Urine UA 1+ (NEGATIVE); Nitrite Urine UA NEGATIVE (Negative); Occult Blood Urine UA NEGATIVE (Negative); Protein Urine UA NEGATIVE (Negative); Urobilinogen Urine UA 0.2 E.U./dL (0.2)
[2020-10-23 12:10] LABS: Squamous Epithelial Cell Urine 10-30 /HPF (0-5/HPF); WBC Urine 1-5/HPF (0-5/HPF)
[2020-10-23 12:11] LABS: Bacteria Urine Few (2-10)
== END ==
PROVIDERS: PCP Family Medicine; Referring Provider Family Medicine; Visit Provider Family Medicine
DX: N39.0 Urinary tract infection, site not specified (principal)
CPT/HCPCS: 81001

== ENCOUNTER 2020-11-11 13:07 | Observation (INO) | payer OTHER, SELFPAY ==
[2020-11-11] VITALS (9 sets, daily range): BP systolic 122–150; BP diastolic 69–87; PULSE 87–108; RESP 12–23; TEMP 36.8–37.3; O2SAT 97–99; BMI 26.4; BMI 26.9
[2020-11-11 14:46] LABS: Add Manual Diff / Slide Review NO; Basophils Absolute Auto 0 /uL (0-100); Basophils Percent Auto 0.1 % (0-2); Eosinophils Absolute Auto 200 /uL (0-450); Eosinophils Percent Auto 1.4 % (2-4); Hematocrit 38.6 % (36-46); Lymphocytes Absolute Auto 1300 /uL (1100-4500); Lymphocytes Percent Auto 9.5 % (25-40); Mean Corpuscular HGB Conc 33.5 % (30-36); Mean Corpuscular Hemoglobin 30.2 PG (26-34); Monocytes Absolute Auto 1200 /uL (0-900); Monocytes Percent Auto 8.4 % (3-14); Neutrophils Absolute Auto 11100 /uL (1500-7000); Neutrophils Percent Auto 80.6 % (50-75); Platelet Count 253 X10^3/uL (150-400); Red Blood Cell Count 4.29 X10^6/uL (4.0-5.2); Red Cell Distribution Width 13.4 % (11.6-14.8); White Blood Cell Count 13.7 X10^3/uL (4.5-11.0)
[2020-11-11 14:50] LABS: Prothrombin Time 11.5 SECONDS (10.1-12.7)
--- NOTE | 2020-11-11 14:51 | ED.ABDPAIN ---
HPI - Abdominal Pain General Chief Complaint: Abdominal Pain Stated Complaint: ABD PAIN, FEVER. SINCE FRIDAY Time Seen by Provider: 11/11/20 14:50 Source: patient Mode of arrival: Ambulatory Limitations: no limitations History of Present Illness HPI narrative: Patient is a 70-year-old female with history of MS and diabetes with recurrent UTIs presenting with abdominal pain and fever ongoing for the last 4 days. She initially saw her primary care provider who thought she might be constipated because she frequently has bouts of constipation she was started on magnesium citrate. She has taken half a bottle for 5 times and has had some diarrhea. She initially had severe ?diaphragm ?pain which woke her 4 days ago around 3:00 a.m. it has progressed into her lower abdomen since. She had fever today stay prior to her arrival of 101. She says this does not feel like her UTIs. MD complaint: abdominal pain Onset (ago): day(s) (4) Pain Consistency: constant Location: RLQ Severity: moderate Quality: cramping Radiation: none Related Data Home Medications Medication Instructions Recorded Confirmed CHOLECALCIFEROL (VITAMIN D3) 2,000 iu PO Q DAY #0 02/19/11 08/17/20 (Vitamin D) Calcium Carbonate/Vitamin D 1 sgl PO Q DAY #0 02/19/11 08/17/20 (#CALCIUM 1200 W/VITAMIN D 600 MG-100 IU) Cranberry (#CRANBERRY) 2,000 mg PO Q DAY #0 02/19/11 08/17/20 Fish Oil (#SUPER EPA 2000) 2,000 mg PO Q DAY #0 02/19/11 08/17/20 polyethylene glycol 3350 [Miralax] 17 gm PO QDAY #0 02/14/12 11/11/20 [Tumeric] #0 09/07/17 08/17/20 vitamin B complex 1 tab PO DAILY 02/10/19 08/17/20 baclofen See Rx Instructions .ROUTE .COMPLEX 11/11/20 11/11/20 hydrocodone-acetaminophen 1 tab PO BEDTIME PRN 11/11/20 11/11/20 Previous Rx's Medication Instructions Recorded trospium 20 mg tablet 20 mg PO BID #200 tab 02/10/20 estradiol 10 mcg vaginal tablet 10 mcg VAG 2XW #24 tab 04/14/20 Blood glucose meter kit #1 ea 04/24/20 Disabled Parking Permit #1 each 05/09/20 metformin 500 mg tablet,extended 500 mg PO BID #180 tab 07/03/20 release 24 hr ciprofloxacin HCl 500 mg tablet 500 mg PO BID #10 tab 10/02/20 phenazopyridine 200 mg tablet 200 mg PO TID PRN #6 tab 10/02/20 triamcinolone acetonide 0.1 % 1 applic TOPICAL BID PRN #30 g 10/02/20 topical cream nitrofurantoin 100 mg PO BID #14 cap 10/13/20 monohydrate/macrocrystals 100 mg capsule magnesium citrate 300 ml PO DAILY PRN #296 ml 11/08/20 Allergies Allergy/AdvReac Type Severity Reaction Status Date / Time Sulfa (Sulfonamide Allergy Severe ANAPHYLAXIS Verified 08/17/20 11:54 Antibiotics) [SULFA (SULFONAMIDE ANTIBIOTICS)] adhesive Allergy Mild TAPE; Verified 08/17/20 11:54 TOPICAL DERMATITIS FOR LONG PERIODS diphenhydramine Allergy Mild HIVES Verified 08/17/20 11:54 [DIPHENHYDRAMINE] Review of Systems Review of Systems ROS Unobtainable: All systems reviewed & are unremarkable except as noted in HPI and below Constitutional Constitutional: Denies chills, Reports fever(s), Denies frequent falls, Reports headache(s) (Resolve with Tylenol) and Denies weakness ENT Ears, Nose, Mouth, and Throat: Denies change in voice, Denies dizziness, Reports headache(s) (Resolve with Tylenol), Denies neck pain and Denies sore throat Cardiovascular Cardiovascular: Denies chest pain, Denies irregular heart rhythm, Denies lightheadedness, Denies palpitations, Denies dyspnea, Denies dyspnea on exertion and Denies orthopnea Respiratory Respiratory: Denies cough, Denies dyspnea, Denies dyspnea on exertion and Denies wheezing Gastrointestinal Gastrointestinal: Reports as per HPI, Reports abdominal pain, Reports constipation, Denies nausea and Denies vomiting Genitourinary Genitourinary: Denies urinary hesitancy, Denies urinary incontinence and Denies urinary urgency Genitourinary: Denies urinary incontinence, Denies urinary hesitancy and Denies urinary urgency Musculoskeletal Musculoskeletal: Denies back pain, Denies neck pain and Denies numbness Integumentary/Breasts Skin/Breast: Denies pruritus, Denies erythema, Denies rash and Denies wounds Neurologic Neurologic: Denies behavioral changes, Denies confusion, Denies dizziness, Denies frequent falls, Reports headache(s) (Resolve with Tylenol), Denies numbness and Denies weakness Psychiatric Psychiatric: Denies behavioral changes and Denies confusion Endocrine Endocrine: Denies palpitations Allergic/Immunologic Allergic/Immunologic: Denies wheezing Patient History Medical History (Updated 11/11/20 @ 17:13 by Fabiana Mathews DO) Chicken pox Colon polyps (2009) Fractures (~2005) Measles Multiple sclerosis (1991) Osteopenia Plantar warts (2004) Surgical History Anesthesia History of shoulder surgery (1973) History of third molar tooth extraction (1970) Status post rotator cuff repair (2011) Status post tubal ligation (1979) Family History Brother Age: 63 Diabetes mellitus Hypertension High cholesterol Child Age: 24 Adopted Mother Heart disease Hypertension Stroke Father Alzheimer's disease Grandmother No problems noted. Social History marital status: Smoking Status: Never smoker alcohol intake: current (ON OCCASION ) substance use type: does not use Smoking Status: Never smoker alcohol intake frequency: 0-2 drinks per day Substance Use Type: does not use Exam Initial Vital Signs Initial Vital Signs: Vital Signs Temperature 98.3 F 11/11/20 13:14 Pulse Rate 108 H 11/11/20 13:14 Respiratory Rate 16 11/11/20 13:14 Blood Pressure 139/75 11/11/20 13:14 Pulse Oximetry 97 11/11/20 13:14 GENERAL: Alert pleasant 70-year-old and in no acute distress. HEENT: Head atraumatic,EOMI, pupils reactive, face symmetric, moist mucous membranes CARDIOVASCULAR: Regular rate and rhythm without murmurs, rubs or gallops. RESPIRATORY: Breath sounds equal bilaterally, no wheezes rales or rhonchi. ABDOMEN: Soft, tender in right lower quadrant greater than left lower quadrant mild right upper quadrant pain no guarding or rebound negative Ayala sign EXTREMITIES: Normal range of motion, no clubbing or edema. Neurovascularly intact NEUROLOGICAL: Alert and oriented x4.Normal gait and speech. Cranial nerves II through XII grossly intact. SKIN: Warm, dry, no laceration, no petechiae, no rashes or lesions. Course Orders Ordered: ED Orders 11/11/20 13:24 EKG-12 Lead Stat 11/11/20 14:19 Complete Blood Count AUTO DIFF Stat Comprehensive Metabolic Panel Stat Lactate (Lactic Acid) Stat Lipase Stat Magnesium Stat Partial Thromboplastin Time Stat Prothrombin Time INR Stat Troponin & CK Cardiac Panel Stat 11/11/20 15:00 CT abdomen pelvis w con Stat 11/11/20 15:05 Urine Microscopic Stat 11/11/20 15:16 US abdomen limited Stat 11/11/20 15:20 Blood Culture Stat 11/11/20 16:40 COVID19 - ADMIT (CONSTRUCTION PROJECT MGR swab/PCR) Stat Piperacillin Sod/Tazobactam (Sod 4.5 gm/ Sodium Chloride) 100 mls @ 25 mls/hr IV Q8H AZALEA Last Infusion: 11/11/20 17:51 Dose: 25 mls/hr Documented by: Admin: 11/11/20 16:41 Dose: 25 mls/hr Documented by: ANTOINETTE Sodium Chloride (Normal Saline 0.9%) 1,000 mls @ 125 mls/hr IV CONT AZALEA Last Infusion: 11/11/20 17:51 Dose: 125 mls/hr Documented by: Admin: 11/11/20 17:00 Dose: 125 mls/hr Documented by: ANTOINETTE Ondansetron HCl (Ondansetron 4 Mg/2 Ml Inj) 4 mg IV Q6HR PRN PRN Reason: Nausea And Vomiting Discontinued Medications Sodium Chloride (Normal Saline 0.9%) 1,000 mls @ 1,000 mls/hr IV BOLUS ONE Stop: 11/11/20 15:59 Last Infusion: 11/11/20 17:06 Dose: 0 mls/hr Documented by: Admin: 11/11/20 16:00 Dose: 1,000 mls/hr Documented by: ANTOINETTE Morphine Sulfate (Morphine 2 Mg/Ml Inj) 2 mg IV NOW ONE Stop: 11/11/20 16:52 Last Admin: 11/11/20 17:52 Dose: Not Given Documented by: ANTOINETTE Vital Signs Vital signs: Vital Signs - 8 hr 11/11/20 13:14 11/11/20 15:51 11/11/20 15:56 Temperature 98.3 F Pulse Rate 108 H 96 H 92 H Respiratory Rate 16 16 Blood Pressure 139/75 136/76 Pulse Oximetry 97 99 99 11/11/20 16:00 Temperature Pulse Rate 87 Respiratory Rate 12 Blood Pressure 122/69 Pulse Oximetry 99 MDM - Abdominal Pain Lab Data Attestation: I reviewed the patient's lab results. Result diagrams: 11/11/20 14:19 11/11/20 14:19 Labs: Lab Results 11/11/20 11/11/20 11/11/20 Range/Units 14:19 14:19 14:19 WBC 13.7 H (4.5-11.0) X10^3/uL RBC 4.29 (4.0-5.2) X10^6/uL Hgb 13.0 (12.0-16.0) g/dL Hct 38.6 (36-46) % MCV 90.0 (80-100) fL MCH 30.2 (26-34) PG MCHC 33.5 (30-36) % RDW 13.4 (11.6-14.8) % Plt Count 253 (150-400) X10^3/uL Neut % (Auto) 80.6 H (50-75) % Lymph % (Auto) 9.5 L (25-40) % Robertson % (Auto) 8.4 (3-14) % Eos % (Auto) 1.4 L (2-4) % Baso % (Auto) 0.1 (0-2) % Neut # (Auto) 67158 H (7552-7668) /uL Lymph # (Auto) 1300 (7884-4812) /uL Robertson # (Auto) 1200 H (0-900) /uL Eos # (Auto) 200 (0-450) /uL Baso # (Auto) 0 (0-100) /uL PT 11.5 (10.1-12.7) SECONDS INR 1.0 (0.9-1.3) APTT 31 (26.4-36.2) SECONDS Sodium 136 L (137-145) mmol/L Potassium 4.0 (3.4-5.1) mmol/L Chloride 103 (98-107) mmol/L Carbon Dioxide 25 (22-32) mmol/L BUN 13 (7-17) mg/dL Creatinine 0.55 (0.52-1.04) mg/dL Estimated GFR > 60.0 (>60) mL/min BUN/Creatinine Ratio 23.6 H (6-22) Glucose 163 H (80-110) mg/dL Lactate (0.7-2.1) mmol/L Calcium 9.8 (8.4-10.2) mg/dL Magnesium (1.6-2.3) mg/dL Total Bilirubin 1.4 H (0.2-1.3) mg/dL AST 65 H (14-36) IU/L ALT 157 H (<35) IU/L Alkaline Phosphatase 104 (38-126) U/L Total Creatine Kinase (30-135) U/L CK-MB (CK-2) CK-MB (CK-2) Rel Index Troponin I (0.01-0.034) ng/mL Total Protein 7.3 (6.3-8.2) g/dL Albumin 4.0 (3.5-5.0) g/dL Globulin 3.3 (1.7-4.1) g/dL Albumin/Globulin Ratio 1.2 (1.0-2.8) Lipase 64 (23-300) U/L Urine RBC (0-5/HPF) Urine WBC (0-5/HPF) Ur Squamous Epith Cells (0-5/HPF) Urine Bacteria (None) Urine Mucus (Negative) Ur Culture Indicated? 11/11/20 11/11/20 11/11/20 Range/Units 14:19 14:19 15:05 WBC (4.5-11.0) X10^3/uL RBC (4.0-5.2) X10^6/uL Hgb (12.0-16.0) g/dL Hct (36-46) % MCV (80-100) fL MCH (26-34) PG MCHC (30-36) % RDW (11.6-14.8) % Plt Count (150-400) X10^3/uL Neut % (Auto) (50-75) % Lymph % (Auto) (25-40) % Robertson % (Auto) (3-14) % Eos % (Auto) (2-4) % Baso % (Auto) (0-2) % Neut # (Auto) (6891-1840) /uL Lymph # (Auto) (8576-4250) /uL Robertson # (Auto) (0-900) /uL Eos # (Auto) (0-450) /uL Baso # (Auto) (0-100) /uL PT (10.1-12.7) SECONDS INR (0.9-1.3) APTT (26.4-36.2) SECONDS Sodium (137-145) mmol/L Potassium (3.4-5.1) mmol/L Chloride (98-107) mmol/L Carbon Dioxide (22-32) mmol/L BUN (7-17) mg/dL Creatinine (0.52-1.04) mg/dL Estimated GFR (>60) mL/min BUN/Creatinine Ratio (6-22) Glucose (80-110) mg/dL Lactate 1.3 (0.7-2.1) mmol/L Calcium (8.4-10.2) mg/dL Magnesium 1.9 (1.6-2.3) mg/dL Total Bilirubin (0.2-1.3) mg/dL AST (14-36) IU/L ALT (<35) IU/L Alkaline Phosphatase (38-126) U/L Total Creatine Kinase 96 (30-135) U/L CK-MB (CK-2) TNP CK-MB (CK-2) Rel Index TNP Troponin I < 0.012 (0.01-0.034) ng/mL Total Protein (6.3-8.2) g/dL Albumin (3.5-5.0) g/dL Globulin (1.7-4.1) g/dL Albumin/Globulin Ratio (1.0-2.8) Lipase (23-300) U/L Urine RBC 0-1/hpf (0-5/HPF) Urine WBC 0-1/hpf (0-5/HPF) Ur Squamous Epith Cells 0-1 /hpf D (0-5/HPF) Urine Bacteria None seen (None) Urine Mucus 1+ H (Negative) Ur Culture Indicated? Cult not indicated Point of care testing: Urine Dip Bedside Urine Glucose Negative Bedside Urine Bilirubin - Negative Bedside Urine Ketone - Negative Urine Specific Atwood 1.015 Bedside Urine Occult Blood - Negative Bedside Urine pH 6.5 Bedside Urine Protein +/- 15 Bedside Urine Urobilinogen - Negative Bedside Urine Nitrite - Negative Bedside Urine Leukocytes - Negative Esterase Imaging Data CT scan - abdomen/pelvis: Radiologist's Impression: PROCEDURE: CT ABDOMEN PELVIS W CON INDICATIONS: RLQ pain fever TECHNIQUE: After the administration of intravenous contrast, 5 mm thick sections acquired from the diaphragm to the symphysis. 5 mm coronal and sagittal reformats were acquired. For radiation dose reduction, the following was used: automated exposure control, adjustment of mA and/or kV according to patient size. COMPARISON: None. FINDINGS: Image quality: Excellent. ABDOMEN: Lung bases: Lung bases are clear. Heart size is normal. Solid organs: Liver is normal in size and enhancement. Biliary system is non dilated. Pancreas enhances normally. Spleen is normal in size and enhancement. No adrenal nodules. Cortical irregularity of the right kidney likely representing cycle of remote trauma or infection. There is moderate left-sided hydronephrosis. The ureters normal in course and caliber. No evidence of urinary tract stones. The gallbladder is distended. There is diffuse wall thickening with surrounding inflammation. The wall is heterogeneous in attenuation. Air is noted within the gallbladder lumen. No air is noted within the wall. No radiopaque gallstones. There may be noted within radiolucent gallstones. Peritoneum and bowel: Stomach is unremarkable. There is increased enhancement of the proximal duodenal wall with mild wall thickening likely due to adjacent inflammation from the gallbladder. The rest of the small bowel is unremarkable in appearance without evidence of obstruction. Appendix is normal. There is mild wall thickening of the adjacent right colon adjacent to the gallbladder with inflammation likely secondary to the above process. Nodes and vessels: No retroperitoneal or mesenteric adenopathy by size criteria. Aorta and inferior vena cava are normal in size. Miscellaneous: No ventral hernias. PELVIS: Genitourinary: Bladder wall thickness is normal. Miscellaneous: Bilateral fat and fluid containing inguinal hernias. Calcification is noted within the right inguinal hernia. Bones: Transitional type anatomy at the lumbosacral junction. There is compression deformity of the L1 vertebral body encompassing approximately 50 percent of the vertebral body height. In addition there is a shallow superior endplate compression deformity of L4 encompassing less than 25 percent of the vertebral body height. There is no adjacent soft tissue inflammation. There is anterolisthesis of L5 on S1. Multiple levels of vacuum disc phenomenon.. IMPRESSION: Findings most consistent with acute cholecystitis. Heterogeneity of the gallbladder wall concerning for gangrenous cholecystitis. Recommend emergent General surgery consultation. There is adjacent wall thickening inflammation of the adjacent bowel likely secondary to above process. Moderate left-sided hydronephrosis . Cortical irregularity likely representing cycle of remote trauma or infection of the right kidney. Bilateral fat and fluid containing inguinal hernias. Compression deformities of L1 and L4. The L1 vertebral body comes approximately 25 percent of the vertebral body height. There is no adjacent soft tissue inflammation to suggest an acute process. This is likely chronic. Findings discussed with the ER at approximately 1515 hours on 11/11/[address] Marv Arnold over the telephone. Dictated by: Marv Arnold D.O. on 11/11/2020 at 15:05 US - abdomen: Radiologist's Impression: PROCEDURE: US ABDOMEN LIMITED INDICATIONS: ruq TECHNIQUE: Real-time scanning was performed of the abdominal and retroperitoneal organs, with image documentation. COMPARISON: [facility], CT, CT ABDOMEN PELVIS W CON, 11/11/2020, 15:11. FINDINGS: Liver: Liver is normal in size and homogeneous in echotexture. Portal vein is patent measuring 1.2 centimeters. Gallbladder: The gallbladder is distended. There is wall thickening measuring 3.7 millimeters. There are multiple echogenic gallstones with shadowing. There is mild pericholecystic fluid. Negative sonographic Ayala sign reported by the technologist. Biliary ducts: Intrahepatic bile ducts are non-dilated. Extrahepatic bile duct caliber measures 4.8 mm. Normal is 6-7 mm or less in diameter, or 10 mm or less post-cholecystectomy. Pancreas: Visualized portions of the pancreas are sonographically normal. IMPRESSION: Gallstones with wall thickening and mild pericholecystic fluid concerning for acute cholecystitis. Recommend General surgery consultation. Dictated by: Marv Arnold D.O. on 11/11/2020 at 15:47 ECG Data Attestation: I personally reviewed and interpreted this ECG as follows: Prior ECG tracings: not available for review Interpretation: Normal sinus rhythm rate 96 p.r. interval 132 QRS [address] changes or T-wave inversions MDM Narrative Medical decision making narrative: Patient appears well mild leukocytosis of 13 with normal lactate mild elevation bilirubin and LFTs. She tender in her right upper quadrant and right lower quadrant. CT shows a gangrenous gallbladder and ultrasound also confirms acute cholecystitis. He actually does not need anything for pain and appears well despite the acuity of her gallbladder. 1600 Dr. Hills, surgery updated on CT results including gangrenous gallbladder and patient's symptoms at this time agrees with Jared for antibiotics will likely go to surgery tomorrow. 1615 Dr. Beauchamp updated patient's symptoms test results surgery recommendations is and will see patient Discharge Plan Departure Patient Disposition: Admitted As Inpatient Clinical Impression: Acute cholecystitis Admit Date/Time: 11/11/20 16:41 Admit Provider: Sarah Beth Beauchamp
[2020-11-11 14:52] LABS: PTT Partial Thromboplastin Tim 31 SECONDS (26.4-36.2)
[2020-11-11 14:53] LABS: Lactate (Lactic Acid) 1.3 mmol/L (0.7-2.1)
[2020-11-11 14:54] LABS: Alanine Aminotransferase 157 IU/L (<35); Albumin Globulin Ratio 1.2 (1.0-2.8); Alkaline Phosphatase 104 U/L (38-126); Aspartate Aminotransferase 65 IU/L (14-36); BUN Creatinine Ratio 23.6 (6-22); Bilirubin Total 1.4 mg/dL (0.2-1.3); Blood Urea Nitrogen 13 mg/dL (7-17); Calcium 9.8 mg/dL (8.4-10.2); Carbon Dioxide 25 mmol/L (22-32); Chloride 103 mmol/L (98-107); Estimated Glomerular Filt Rate > 60.0 mL/min (>60); Globulin 3.3 g/dL (1.7-4.1); Glucose 163 mg/dL (80-110); HEMOLYSIS < 15 (0-50); Lipase 64 U/L (23-300); Sodium 136 mmol/L (137-145); Total Protein 7.3 g/dL (6.3-8.2)
--- NOTE | 2020-11-11 15:00 | DI.CT.S_ITS ---
PROCEDURE: CT ABDOMEN PELVIS W CON INDICATIONS: RLQ pain fever TECHNIQUE: After the administration of intravenous contrast, 5 mm thick sections acquired from the diaphragm to the symphysis. 5 mm coronal and sagittal reformats were acquired. For radiation dose reduction, the following was used: automated exposure control, adjustment of mA and/or kV according to patient size. COMPARISON: None. FINDINGS: Image quality: Excellent. ABDOMEN: Lung bases: Lung bases are clear. Heart size is normal. Solid organs: Liver is normal in size and enhancement. Biliary system is non dilated. Pancreas enhances normally. Spleen is normal in size and enhancement. No adrenal nodules. Cortical irregularity of the right kidney likely representing cycle of remote trauma or infection. There is moderate left-sided hydronephrosis. The ureters normal in course and caliber. No evidence of urinary tract stones. The gallbladder is distended. There is diffuse wall thickening with surrounding inflammation. The wall is heterogeneous in attenuation. Air is noted within the gallbladder lumen. No air is noted within the wall. No radiopaque gallstones. There may be noted within radiolucent gallstones. Peritoneum and bowel: Stomach is unremarkable. There is increased enhancement of the proximal duodenal wall with mild wall thickening likely due to adjacent inflammation from the gallbladder. The rest of the small bowel is unremarkable in appearance without evidence of obstruction. Appendix is normal. There is mild wall thickening of the adjacent right colon adjacent to the gallbladder with inflammation likely secondary to the above process. Nodes and vessels: No retroperitoneal or mesenteric adenopathy by size criteria. Aorta and inferior vena cava are normal in size. Miscellaneous: No ventral hernias. PELVIS: Genitourinary: Bladder wall thickness is normal. Miscellaneous: Bilateral fat and fluid containing inguinal hernias. Calcification is noted within the right inguinal hernia. Bones: Transitional type anatomy at the lumbosacral junction. There is compression deformity of the L1 vertebral body encompassing approximately 50 percent of the vertebral body height. In addition there is a shallow superior endplate compression deformity of L4 encompassing less than 25 percent of the vertebral body height. There is no adjacent soft tissue inflammation. There is anterolisthesis of L5 on S1. Multiple levels of vacuum disc phenomenon.. IMPRESSION: Findings most consistent with acute cholecystitis. Heterogeneity of the gallbladder wall concerning for gangrenous cholecystitis. Recommend emergent General surgery consultation. There is adjacent wall thickening inflammation of the adjacent bowel likely secondary to above process. Moderate left-sided hydronephrosis . Cortical irregularity likely representing cycle of remote trauma or infection of the right kidney. Bilateral fat and fluid containing inguinal hernias. Compression deformities of L1 and L4. The L1 vertebral body comes approximately 25 percent of the vertebral body height. There is no adjacent soft tissue inflammation to suggest an acute process. This is likely chronic. Findings discussed with the ER at approximately 1515 hours on 11/11/[address] Marv Arnold over the telephone. Dictated by: Marv Arnold D.O. on 11/11/2020 at 15:05 Approved by: Marv Arnold D.O. on 11/11/2020 at 15:19
[2020-11-11 15:16] LABS: Creatine Kinase 96 U/L (30-135); Magnesium 1.9 mg/dL (1.6-2.3)
--- NOTE | 2020-11-11 15:16 | DI.US.S_ITS ---
PROCEDURE: US ABDOMEN LIMITED INDICATIONS: ruq TECHNIQUE: Real-time scanning was performed of the abdominal and retroperitoneal organs, with image documentation. COMPARISON: [facility], CT, CT ABDOMEN PELVIS W CON, 11/11/2020, 15:11. FINDINGS: Liver: Liver is normal in size and homogeneous in echotexture. Portal vein is patent measuring 1.2 centimeters. Gallbladder: The gallbladder is distended. There is wall thickening measuring 3.7 millimeters. There are multiple echogenic gallstones with shadowing. There is mild pericholecystic fluid. Negative sonographic Ayala sign reported by the technologist. Biliary ducts: Intrahepatic bile ducts are non-dilated. Extrahepatic bile duct caliber measures 4.8 mm. Normal is 6-7 mm or less in diameter, or 10 mm or less post-cholecystectomy. Pancreas: Visualized portions of the pancreas are sonographically normal. IMPRESSION: Gallstones with wall thickening and mild pericholecystic fluid concerning for acute cholecystitis. Recommend General surgery consultation. Dictated by: Marv Arnold D.O. on 11/11/2020 at 15:47 Approved by: Marv Arnold D.O. on 11/11/2020 at 15:51
[2020-11-11 15:28] LABS: Troponin I < 0.012 ng/mL (0.01-0.034)
[2020-11-11 15:34] LABS: Bacteria Urine None Seen
[2020-11-11] MEDS: SODIUM CHLORIDE 0.9% 1,000 ML 1000 ML IV (16:00)
[2020-11-11 16:14] LABS: Culture Indicated Urine Cult Not Indicated; Mucus Urine 1+ (Negative); RBC Urine 0-1/HPF (0-5/HPF); Squamous Epithelial Cell Urine 0-1 /HPF (0-5/HPF); WBC Urine 0-1/HPF (0-5/HPF)
[2020-11-11] MEDS: PIPERACILLIN/TAZO 4.5 GM in SODIUM CHLORIDE 0.9% 100 ML 25 ML IV (16:41)
[2020-11-11] MEDS: SODIUM CHLORIDE 0.9% 1,000 ML 125 ML IV (17:00)
[2020-11-11 18:08] LABS: COVID19 - ADMIT (NP swab/PCR) Negative (Negative)
--- NOTE | 2020-11-11 18:11 | P.HP_ITS ---
History of Present Illness History of Present Illness Date Patient Seen: 11/11/20 Time Patient Seen: 18:11 Date of Onset of Symptoms: 11/08/20 Chief complaint: ABD PAIN, FEVER. SINCE FRIDAY Narrative: This is a very pleasant 70-year-old female who is followed by Dr. Hernandez. The patient presents to emergency department with complaints of a fever since 11/08/2020 and persistent abdominal pain. She was evaluated in the ER and found to have mild liver function test elevations including a mild elevation in her bilirubin and evidence of possible gangrenous, stone filled gallbladder consistent with cholelithiasis with acute cholecystitis. She is admitted to the hospital for further treatment and definitive care. Surgery was consulted and wanted her to receive IV antibiotics in hopes to decrease infection and plan for cholecystectomy possibly 11/12/2020. The patient has a history of constipation as well as recurrent UTIs and a hist ory of MS. She had been having worsening symptoms of constipation for which she regularly takes MiraLax. She then on personal attendant 11/08/2020 was awakened with severe upper abdominal pain. She did have a bowel movement and her symptoms improved. She saw Dr. Farmer and exam was unremarkable and it was felt that this was persistent constipation. The patient subsequent to that developed a fever a nd had persistent pain and that prompted her to seek attention in the emergency department. Past medical history: 1. Type 2 diabetes on low-dose metformin 2. MS follows with Neurology 3. Osteopenia 4. History of chickenpox 5. Recurrent UTI 6. Colonic polyps, last colonoscopy 2016 Allergies: Sulfa causes anaphylaxis Benadryl causes hives Past surgical history: 1. Shoulder surgery 2. Two thousand twelve rotator cuff repair 3. Bilateral tubal ligation Family history: Brother has type 2 diabetes, hypertension, hyperlipidemia Father from Alzheimer's Mother is and had hypertension, CVA, heart disease Social history: Patient is but currently from her who lives in [facility]. He is her durable power of spring upholsterer but she plans to switch this to her son Christian. Her son lives in [place] Patient lives in [facility] alone. 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 There is no blood. There was no mucus. Stools are diarrheal. Prior to this patient was constipated. Patient did have her COVID shot x2 in July 2020 Patient did have recurrent UTI x4 just finished antibiotics 2 weeks ago Patient History Medical History Chicken pox Colon polyps (2009) Fractures (~2005) Measles Multiple sclerosis (1991) Osteopenia Plantar warts (2004) Surgical History Anesthesia History of shoulder surgery (1973) History of third molar tooth extraction (1970) Status post rotator cuff repair (2011) Status post tubal ligation (1979) Family & Social History Family History Brother Age: 63 Diabetes mellitus Hypertension High cholesterol Child Age: 24 Adopted Mother Heart disease Hypertension Stroke Father Alzheimer's disease Grandmother No problems noted. Social History: household members none Prior Living Arrangements House Safety & Behavioral: Feels Safe in Current Yes Environment Been Physically Hurt or No Threatened By a Person Suicidal Ideation Description None Suicide Plan Description No Plan Tobacco & Substance use: Smoking Status Never smoker alcohol intake current alcohol intake frequency holiday/special occasion Substance Use Type does not use Meds Home Medications and Allergies Home Medications Medication Instructions Recorded Confirmed Type CHOLECALCIFEROL (VITAMIN D3) 2,000 iu PO Q DAY #0 02/19/11 08/17/20 History (Vitamin D) Calcium Carbonate/Vitamin D 1 sgl PO Q DAY #0 02/19/11 08/17/20 History (#CALCIUM 1200 W/VITAMIN D 600 MG-100 IU) Cranberry (#CRANBERRY) 2,000 mg PO Q DAY #0 02/19/11 08/17/20 History Fish Oil (#SUPER EPA 2000) 2,000 mg PO Q DAY #0 02/19/11 08/17/20 History polyethylene glycol 3350 [Miralax] 17 gm PO QDAY #0 02/14/12 11/11/20 History [Tumeric] #0 09/07/17 08/17/20 History vitamin B complex 1 tab PO DAILY 02/10/19 08/17/20 History trospium 20 mg tablet 20 mg PO BID #200 tab 02/10/20 11/11/20 Rx estradiol 10 mcg vaginal tablet 10 mcg VAG 2XW #24 tab 04/14/20 08/17/20 Rx Blood glucose meter kit #1 ea 04/24/20 08/17/20 Rx Disabled Parking Permit #1 each 05/09/20 08/17/20 Rx metformin 500 mg tablet,extended 500 mg PO BID #180 tab 07/03/20 11/11/20 Rx release 24 hr ciprofloxacin HCl 500 mg tablet 500 mg PO BID #10 tab 10/02/20 Rx phenazopyridine 200 mg tablet 200 mg PO TID PRN #6 tab 10/02/20 Rx triamcinolone acetonide 0.1 % 1 applic TOPICAL BID PRN #30 g 10/02/20 Rx topical cream nitrofurantoin 100 mg PO BID #14 cap 10/13/20 Rx monohydrate/macrocrystals 100 mg capsule magnesium citrate 300 ml PO DAILY PRN #296 ml 11/08/20 11/08/20 Rx baclofen See Rx Instructions .ROUTE .COMPLEX 11/11/20 11/11/20 History hydrocodone-acetaminophen 1 tab PO BEDTIME PRN 11/11/20 11/11/20 History Allergies Allergy/AdvReac Type Severity Reaction Status Date / Time Sulfa (Sulfonamide Allergy Severe ANAPHYLAXIS Verified 08/17/20 11:54 Antibiotics) [SULFA (SULFONAMIDE ANTIBIOTICS)] adhesive Allergy Mild TAPE; Verified 08/17/20 11:54 TOPICAL DERMATITIS FOR LONG PERIODS diphenhydramine Allergy Mild HIVES Verified 08/17/20 11:54 [DIPHENHYDRAMINE] Review of Systems Review of Systems Narrative: Negative other than HPI Exam Vital Signs (past 8 hours): - 11/11/20 13:14 11/11/20 15:51 11/11/20 15:56 Temperature 98.3 F Pulse Rate 108 H 96 H 92 H Respiratory Rate 16 16 Blood Pressure 139/75 136/76 Pulse Oximetry 97 99 99 11/11/20 16:00 11/11/20 16:48 11/11/20 17:00 Temperature Pulse Rate 87 99 H 96 H Respiratory Rate 12 23 Blood Pressure 122/69 125/70 Pulse Oximetry 99 98 11/11/20 17:45 Temperature 99.1 F Pulse Rate 101 H Respiratory Rate 18 Blood Pressure 150/87 H Pulse Oximetry 98 Oxygen Delivery Method Room Air Narrative Exam Narrative: Current temperature is 99.1? Heart rate 100 Patient is alert and oriented x3 an excellent historian. She is in no apparent distress, vital signs stable HEENT: Unremarkable mucous membranes moist and pink. No lesions Neck: Supple without adenopathy or thyromegaly Chest: Clear to auscultation without wheezes rhonchi or crackles Cor: Regular rate and rhythm Abdomen: Positive bowel sounds, abdomen distended, bowel sounds present but slightly hypoactive. Patient is minimally tender in her right upper quadrant but inferior to this and lateral as were her main tenderness is she is slightly tender over her bladder and in the right lower quadrant. There is no guarding there is no rebound tenderness Extremity no edema pulses intact Skin shows no icterus or rashes and normal skin turgor Objective Labs Result Diagrams: 11/11/20 14:19 11/11/20 14:19 Labs: Laboratory Results - last 24 hr 11/11/20 11/11/20 11/11/20 14:19 14:19 14:19 WBC 13.7 H RBC 4.29 Hgb 13.0 Hct 38.6 MCV 90.0 MCH 30.2 MCHC 33.5 RDW 13.4 Plt Count 253 Neut % (Auto) 80.6 H Lymph % (Auto) 9.5 L Iroquois % (Auto) 8.4 Eos % (Auto) 1.4 L Baso % (Auto) 0.1 Neut # (Auto) 80774 H Lymph # (Auto) 1300 [place]quois # (Auto) 1200 H Eos # (Auto) 200 Baso # (Auto) 0 PT 11.5 INR 1.0 APTT 31 Sodium 136 L Potassium 4.0 Chloride 103 Carbon Dioxide 25 BUN 13 Creatinine 0.55 Estimated GFR > 60.0 BUN/Creatinine Ratio 23.6 H Glucose 163 H Lactate Calcium 9.8 Magnesium Total Bilirubin 1.4 H AST 65 H ALT 157 H Alkaline Phosphatase 104 Total Creatine Kinase CK-MB (CK-2) CK-MB (CK-2) Rel Index Troponin I Total Protein 7.3 Albumin 4.0 Globulin 3.3 Albumin/Globulin Ratio 1.2 Lipase 64 Urine RBC Urine WBC Ur Squamous Epith Cells Urine Bacteria Urine Mucus Ur Culture Indicated? SARS-CoV-2 (PCR) 11/11/20 11/11/20 11/11/20 14:19 14:19 15:05 WBC RBC Hgb Hct MCV MCH MCHC RDW Plt Count Neut % (Auto) Lymph % (Auto) [place]roquois % (Auto) Eos % (Auto) Baso % (Auto) Neut # (Auto) Lymph # (Auto) [place]roquois # (Auto) Eos # (Auto) Baso # (Auto) PT INR APTT Sodium Potassium Chloride Carbon Dioxide BUN Creatinine Estimated GFR BUN/Creatinine Ratio Glucose Lactate 1.3 Calcium Magnesium 1.9 Total Bilirubin AST ALT Alkaline Phosphatase Total Creatine Kinase 96 CK-MB (CK-2) TNP CK-MB (CK-2) Rel Index TNP Troponin I < 0.012 Total Protein Albumin Globulin Albumin/Globulin Ratio Lipase Urine RBC 0-1/hpf Urine WBC 0-1/hpf Ur Squamous Epith Cells 0-1 /hpf D Urine Bacteria None seen Urine Mucus 1+ H Ur Culture Indicated? Cult not indicated SARS-CoV-2 (PCR) 11/11/20 16:40 WBC RBC Hgb Hct MCV MCH MCHC RDW Plt Count Neut % (Auto) Lymph % (Auto) [place]quois % (Auto) Eos % (Auto) Baso % (Auto) Neut # (Auto) Lymph # (Auto) [place]quois # (Auto) Eos # (Auto) Baso # (Auto) PT INR APTT Sodium Potassium Chloride Carbon Dioxide BUN Creatinine Estimated GFR BUN/Creatinine Ratio Glucose Lactate Calcium Magnesium Total Bilirubin AST ALT Alkaline Phosphatase Total Creatine Kinase CK-MB (CK-2) CK-MB (CK-2) Rel Index Troponin I Total Protein Albumin Globulin Albumin/Globulin Ratio Lipase Urine RBC Urine WBC Ur Squamous Epith Cells Urine Bacteria Urine Mucus Ur Culture Indicated? SARS-CoV-2 (PCR) Negative Assessment & Plan Assessment & Plan narrative: 70-year-old female admitted with acute cystitis and cholelithiasis Assessment 1. Acute cholecystitis and cholelithiasis Plan: Per surgery Presumably patient will be NPO except for Tylenol and back often Will continue with IV Zosyn Will give IV fluids Will repeat labs in a.m. Assessment 2. Type 2 diabetes Plan: Will do CBGS q.a.c. and q.h.s. Will do low algorithm sliding-scale insulin Will hold metformin until postop Assessment 3. MS Plan: Will continue baclofen at this time Patient also takes hydrocodone at night and so will provide this as well. This helps with leg symptoms from her MS Assessment 4. Thickening of 1st part of duodenum and right-sided: I think is related to the acute cholecystitis Plan: Will continue to monitor Assessment 5. Compression fractures old Plan: No treatment indicated Code status is DNR 60 minutes spent with patient in reviewing chart, discussing with ER physician, meeting with patient and documentation
[2020-11-11] MEDS: ACETAMINOPHEN 325 MG TABLET 650 MG PO (19:25)
[2020-11-11] MEDS: BACLOFEN 10 MG TABLET 20 MG PO (21:49)
[2020-11-11] MEDS: INSULIN LISPRO 100 UNIT/ML 3ML VIAL SUBCUT (22:01)
[2020-11-12] VITALS (15 sets, daily range): BP systolic 110–137; BP diastolic 62–85; PULSE 85–106; RESP 13–149; TEMP 36.3–38; O2SAT 93–97
--- NOTE | 2020-11-12 | PATH_ITS ---
[facility] Accession Number: [id number] . 01 Material submitted: . gallbladder - GALLBLADDER AND CONTENTS . 02 Diagnosis: Gallbladder, Cholecystectomy: Acute necrotizing cholecystitis with cholelithiasis. Negative for dysplasia and malignancy. MRV 11/17/2020 1345 Local . 02 Electronically signed: . Keely Soares MD, Pathologist NPI- [id number] . 01 Gross description: . The specimen is received in formalin, labeled gallbladder and contents and consists of a 9.5 x 4.5 x 4.2 cm previously disrupted gallbladder with a 0.2 cm in diameter cystic duct. The serosa is castellon-pink to pink-purple, focally hemorrhagic and smooth with fibrinous adhesions. Opening reveals green viscous bile with three castellon-green multifaceted choleliths measuring 4.5 x 4.5 x 2.5 cm in aggregate and ranging from 1.6-2.0 cm. The mucosa is castellon-pink to castellon-green and velvety, and the wall thickness measures 0.5 cm. In Classroom Tutor sections are submitted to include the en face cystic duct margin (blue) in cassette A1. (EA:[id number]) /MRV 11/14/2020 1114 Local . 02 Pathologist provided ICD-10: K80.60 . 02 CPT . 747857 Performed at: 01 [facility] [address] [id number] MD Macario Durham MD Phone: [phone] Performed at: 02 [facility] [place] [id number] [place], [place] [id number] MD Keely Soares MD Phone: [phone]
[2020-11-12] MEDS: PIPERACILLIN/TAZO 4.5 GM in SODIUM CHLORIDE 0.9% 100 ML 25 ML IV (00:38)
[2020-11-12] MEDS: HYDROCODONE/ACET 5/325 TABLET 1 TAB PO ×4 (00:38→21:05)
[2020-11-12 05:22] LABS: Add Manual Diff / Slide Review NO; Basophils Absolute Auto 0 /uL (0-100); Basophils Percent Auto 0.2 % (0-2); Eosinophils Absolute Auto 200 /uL (0-450); Hematocrit 35.2 % (36-46); Hemoglobin 11.9 g/dL (12.0-16.0); Lymphocytes Absolute Auto 1700 /uL (1100-4500); Lymphocytes Percent Auto 11.2 % (25-40); Mean Corpuscular HGB Conc 33.8 % (30-36); Mean Corpuscular Hemoglobin 30.2 PG (26-34); Mean Corpuscular Volume 89.5 fL (80-100); Monocytes Absolute Auto 1500 /uL (0-900); Monocytes Percent Auto 9.7 % (3-14); Neutrophils Absolute Auto 12100 /uL (1500-7000); Neutrophils Percent Auto 77.9 % (50-75); Platelet Count 246 X10^3/uL (150-400); Red Blood Cell Count 3.93 X10^6/uL (4.0-5.2); Red Cell Distribution Width 13.5 % (11.6-14.8); White Blood Cell Count 15.6 X10^3/uL (4.5-11.0)
[2020-11-12 05:27] LABS: Alanine Aminotransferase 119 IU/L (<35); Albumin 3.4 g/dL (3.5-5.0); Albumin Globulin Ratio 1.1 (1.0-2.8); Alkaline Phosphatase 102 U/L (38-126); Aspartate Aminotransferase 48 IU/L (14-36); BUN Creatinine Ratio 13.7 (6-22); Bilirubin Total 1.7 mg/dL (0.2-1.3); Blood Urea Nitrogen 10 mg/dL (7-17); Carbon Dioxide 24 mmol/L (22-32); Chloride 105 mmol/L (98-107); Estimated Glomerular Filt Rate > 60.0 mL/min (>60); Glucose 151 mg/dL (80-110); HEMOLYSIS < 15 (0-50); Potassium 4.1 mmol/L (3.4-5.1); Sodium 138 mmol/L (137-145); Total Protein 6.4 g/dL (6.3-8.2)
[2020-11-12] MEDS: ACETAMINOPHEN 325 MG TABLET 650 MG PO (06:57)
[2020-11-12] MEDS: BACLOFEN 10 MG TABLET 15 MG PO ×2 (06:58→14:24)
--- NOTE | 2020-11-12 07:29 | PM.CN ---
History of Present Illness Consult details Date Patient Seen: 11/12/20 Time Patient Seen: 07:30 Chief complaint: ABD PAIN, FEVER. SINCE FRIDAY Reason for consult: gangrenous gall bladder Requesting provider: Fabiana Mathews Narrative: RUQ pain, indigestion. Positive fevers. No diarrhea. Workup in ED shows bump in LFT's, and WBC. CT and US confirm cholecystititis likely gangreous. No prior episodes. Has advanced MS, but still mobile. Covid negative. Meds Home Medications and Allergies Home Medications Medication Instructions Recorded Confirmed Type CHOLECALCIFEROL (VITAMIN D3) 2,000 iu PO Q DAY #0 02/19/11 08/17/20 History (Vitamin D) Calcium Carbonate/Vitamin D 1 sgl PO Q DAY #0 02/19/11 08/17/20 History (#CALCIUM 1200 W/VITAMIN D 600 MG-100 IU) Cranberry (#CRANBERRY) 2,000 mg PO Q DAY #0 02/19/11 08/17/20 History Fish Oil (#SUPER EPA 2000) 2,000 mg PO Q DAY #0 02/19/11 08/17/20 History polyethylene glycol 3350 [Miralax] 17 gm PO QDAY #0 02/14/12 11/11/20 History [Tumeric] #0 09/07/17 08/17/20 History vitamin B complex 1 tab PO DAILY 02/10/19 08/17/20 History trospium 20 mg tablet 20 mg PO BID #200 tab 02/10/20 11/11/20 Rx estradiol 10 mcg vaginal tablet 10 mcg VAG 2XW #24 tab 04/14/20 08/17/20 Rx Blood glucose meter kit #1 ea 04/24/20 08/17/20 Rx Disabled Parking Permit #1 each 05/09/20 08/17/20 Rx metformin 500 mg tablet,extended 500 mg PO BID #180 tab 07/03/20 11/11/20 Rx release 24 hr ciprofloxacin HCl 500 mg tablet 500 mg PO BID #10 tab 10/02/20 Rx phenazopyridine 200 mg tablet 200 mg PO TID PRN #6 tab 10/02/20 Rx triamcinolone acetonide 0.1 % 1 applic TOPICAL BID PRN #30 g 10/02/20 Rx topical cream nitrofurantoin 100 mg PO BID #14 cap 10/13/20 Rx monohydrate/macrocrystals 100 mg capsule magnesium citrate 300 ml PO DAILY PRN #296 ml 11/08/20 11/08/20 Rx baclofen See Rx Instructions .ROUTE .COMPLEX 11/11/20 11/11/20 History hydrocodone-acetaminophen 1 tab PO BEDTIME PRN 11/11/20 11/11/20 History Allergies Allergy/AdvReac Type Severity Reaction Status Date / Time Sulfa (Sulfonamide Allergy Severe ANAPHYLAXIS Verified 08/17/20 11:54 Antibiotics) [SULFA (SULFONAMIDE ANTIBIOTICS)] adhesive Allergy Mild TAPE; Verified 08/17/20 11:54 TOPICAL DERMATITIS FOR LONG PERIODS diphenhydramine Allergy Mild HIVES Verified 08/17/20 11:54 [DIPHENHYDRAMINE] Review of Systems Review of Systems ROS: Yes All systems reviewed with the patient and are negative except as otherwise documented Exam Vital Signs (past 8 hours): - 11/11/20 23:48 11/12/20 06:57 Temperature 98.6 F 97.9 F Pulse Rate 104 H Respiratory Rate 18 Blood Pressure 150/83 H Pulse Oximetry 98 Oxygen Delivery Method Room Air Oxygen Flow Rate 0 Const General: cooperative and well developed HENAZ Head: normal to inspection Nose: external nose normal Mouth: oral mucosae normal Eyes Sclera: sclerae normal Neck Neck: trachea midline Chest Chest: normal inspection of the chest Resp Effort & Inspection: normal respiratory effort and able to speak in complete sentences Cardio Rate: regular rate Rhythm: regular rhythm GI Palpation: soft and tender (RUQ) Skin General: no rashes or lesions noted Trauma: no lacerations or abrasions Neuro General: patient oriented x3 Gait: gait assisted Method: walker and walking stick Extrem General: normal to inspection Psych Affect: normal affect Thought Content: normal Judgment: judgment good Objective Labs Result Diagrams: 11/12/20 04:54 11/12/20 04:54 Labs: Laboratory Results - last 24 hr 11/11/20 11/11/20 11/11/20 14:19 14:19 14:19 WBC 13.7 H RBC 4.29 Hgb 13.0 Hct 38.6 MCV 90.0 MCH 30.2 MCHC 33.5 RDW 13.4 Plt Count 253 Neut % (Auto) 80.6 H Lymph % (Auto) 9.5 L Arthur % (Auto) 8.4 Eos % (Auto) 1.4 L Baso % (Auto) 0.1 Neut # (Auto) 64105 H Lymph # (Auto) 1300 Arthur # (Auto) 1200 H Eos # (Auto) 200 Baso # (Auto) 0 PT 11.5 INR 1.0 APTT 31 Sodium 136 L Potassium 4.0 Chloride 103 Carbon Dioxide 25 BUN 13 Creatinine 0.55 Estimated GFR > 60.0 BUN/Creatinine Ratio 23.6 H Glucose 163 H Lactate Calcium 9.8 Magnesium Total Bilirubin 1.4 H AST 65 H ALT 157 H Alkaline Phosphatase 104 Total Creatine Kinase CK-MB (CK-2) CK-MB (CK-2) Rel Index Troponin I Total Protein 7.3 Albumin 4.0 Globulin 3.3 Albumin/Globulin Ratio 1.2 Lipase 64 Urine RBC Urine WBC Ur Squamous Epith Cells Urine Bacteria Urine Mucus Ur Culture Indicated? SARS-CoV-2 (PCR) 11/11/20 11/11/20 11/11/20 14:19 14:19 15:05 WBC RBC Hgb Hct MCV MCH MCHC RDW Plt Count Neut % (Auto) Lymph % (Auto) Arthur % (Auto) Eos % (Auto) Baso % (Auto) Neut # (Auto) Lymph # (Auto) Arthur # (Auto) Eos # (Auto) Baso # (Auto) PT INR APTT Sodium Potassium Chloride Carbon Dioxide BUN Creatinine Estimated GFR BUN/Creatinine Ratio Glucose Lactate 1.3 Calcium Magnesium 1.9 Total Bilirubin AST ALT Alkaline Phosphatase Total Creatine Kinase 96 CK-MB (CK-2) TNP CK-MB (CK-2) Rel Index TNP Troponin I < 0.012 Total Protein Albumin Globulin Albumin/Globulin Ratio Lipase Urine RBC 0-1/hpf Urine WBC 0-1/hpf Ur Squamous Epith Cells 0-1 /hpf D Urine Bacteria None seen Urine Mucus 1+ H Ur Culture Indicated? Cult not indicated SARS-CoV-2 (PCR) 11/11/20 11/12/20 11/12/20 16:40 04:54 04:54 WBC 15.6 H RBC 3.93 L Hgb 11.9 L Hct 35.2 L MCV 89.5 MCH 30.2 MCHC 33.8 RDW 13.5 Plt Count 246 Neut % (Auto) 77.9 H Lymph % (Auto) 11.2 L Arthur % (Auto) 9.7 Eos % (Auto) 1.0 L Baso % (Auto) 0.2 Neut # (Auto) 91501 H Lymph # (Auto) 1700 Arthur # (Auto) 1500 H Eos # (Auto) 200 Baso # (Auto) 0 PT INR APTT Sodium 138 Potassium 4.1 Chloride 105 Carbon Dioxide 24 BUN 10 Creatinine 0.73 Estimated GFR > 60.0 BUN/Creatinine Ratio 13.7 Glucose 151 H Lactate Calcium 9.0 Magnesium Total Bilirubin 1.7 H AST 48 H ALT 119 H Alkaline Phosphatase 102 Total Creatine Kinase CK-MB (CK-2) CK-MB (CK-2) Rel Index Troponin I Total Protein 6.4 Albumin 3.4 L Globulin 3.0 Albumin/Globulin Ratio 1.1 Lipase Urine RBC Urine WBC Ur Squamous Epith Cells Urine Bacteria Urine Mucus Ur Culture Indicated? SARS-CoV-2 (PCR) Negative Assessment & Plan Assessment & Plan narrative: Gangrenous cholecystitis in a 70 yo with . Plan: lap jennifer. discussed the possibility of subtotal cholecystectomy and drain placement as well as bile leak and need for postoperative ERCP that will require transfer to a different fascility. She understands and is willing to proceed COVID-19 COVID-19 status: Negative Time Spent With Patient Time with patient: 25 - 35 minutes
--- NOTE | 2020-11-12 07:48 | PC.NURSE ---
Addendum entered by Deonna Sibley R.N. 11/12/20 09:57: 0955: Received patient from PACU by Sary CASTRO, awake and alert, VSS, 95% on RA. SCDs placed upon arrival. Call light within reach. Original Note: Day shift note: Patient up OOB to BR, off floor to OR by Sary CASTRO. Awake, alert, and pleasantly cooperative.
[2020-11-12] MEDS: LACTATED RINGERS 1,000 ML 42 ML IV (08:05)
[2020-11-12] MEDS: PIPERACILLIN/TAZO 3.375 GM in SODIUM CHLORIDE 0.9% 100 ML 25 ML IV (08:06)
--- NOTE | 2020-11-12 08:08 | SUR.HOLD ---
Patient to holding area for surgery. GCS 15; patent IV noted; LR hung and infusing; Surgeon and Anesthesiology at bedside.
[2020-11-12] MEDS: BUPIVACAINE 0.5% W/ EPI (PF) 30 ML VIAL INJ (08:55)
--- NOTE | 2020-11-12 09:20 | P.OP_ITS ---
Operative Date/Time/Diagnoses Date of procedure: 11/12/20 Time of procedure: 09:21 Pre-op diagnosis: gangrenous cholecystitis Post-op diagnosis: same Procedure & Clinicians Procedure: lap jennifer Same procedure as scheduled: Yes Indications: gangrenous jennifer Surgeon: Karime Hills Click Yes if Unassisted: No Anesthesia Type: General Operative Notes Findings: gangrenous gallbladder Specimen(s): other (gall bladder) Estimated Blood Loss (mL): 30 Blood products transfused: none Procedure in detail: Preop diagnosis: Gangrenous cholecystitis Postop diagnosis: Same Operative procedure: Laparoscopic cholecystectomy Findings: Gangrenous gallbladder Surgeon: Yuly Hills MD Anesthesiology: Tej Melendez MD Procedure: Patient is placed in a supine position. Prepped and draped in sterile fashion to expose her abdomen. Infraumbilical port site was placed usin g an open technique and a 12 mm port. Insufflation began all other ports were placed under direct vision including a 10 mm port in the midepigastrium and 2 5 mm ports in the right lateral abdomen. Gallbladder was decompressed having unroofed it from a small bowel and omentum. I then grabbed it and pushed cephalad for exposure. Cystic duct identified clipped once distally, twice proximally and transected. Cystic artery was identified clipped once distally, twice proximally and transected. Gallbladder is then removed from the fossa with electrocautery and blunt dissection. Gallbladder is placed into an Endo-Catch bag and pulled through the infraumbilical port site intact with no spillage intra-abdominal. There was spillage of bile intra-abdominal due to the decompression. Abdomen was irrigated to remove bile. The suction to remove blood clots. We had a good operative bed and 2 sheets of Surgicel was placed into the operative bed for improved hemostasis. Infraumbilical port site was closed using a fascial closure of interrupted 0 Vicryl. Skin was closed a running 4-0 Monocryl. Steri-Strips and sterile dressings were placed. Patient was awakened, extubated, taken to recovery in stable condition. Needle, instrument, sponge counts were correct. Blood loss: 30 mL Specimen: Gallbladder
--- NOTE | 2020-11-12 11:16 | PC.NURSE ---
Day shift note: Called Dr. Hills regarding Post OP orders. Obtained order for PO pain control, no further orders for IVF/Abx. Encouraging PO fluid intake. Will monitor I/O closely.
--- NOTE | 2020-11-12 14:01 | P.PN_ITS ---
Subjective Subjective Date Patient Seen: 11/12/20 Time Patient Seen: 14:01 Interval history: Met with patient and her son, Christian today. Patient had laparoscopic cholecystectomy this morning. There were no complications. Surgery stopped her antibiotics and felt that she could go home as soon as she is tolerating p.o. and pain is well managed. Patient does live alone and does have MS. Her son Christian is planning to stay with her when she does go home. Her pain is controlled with hydrocodone currently. She is having symptoms of dysuria and urinary frequency and has had a history of recurrent UTI most recently. She denies other complaints. Her abdominal pain seems to be improved though she does have incisional pain. No flatus since surgery. Last bowel movement yesterday. Tolerated clears without nausea or increased abdominal pain. Exam Vital Signs (past 8 hours): - 11/12/20 06:57 11/12/20 09:18 11/12/20 09:23 Temperature 97.9 F 100.4 F H Pulse Rate 106 H 100 H Respiratory Rate 149 H 18 Blood Pressure 120/73 124/71 Pulse Oximetry 93 95 11/12/20 09:28 11/12/20 09:33 11/12/20 09:38 Temperature Pulse Rate 103 H 100 H 100 H Respiratory Rate 17 15 13 Blood Pressure 126/81 130/65 137/81 Pulse Oximetry 94 93 94 11/12/20 10:08 11/12/20 10:09 11/12/20 10:25 Temperature 99.8 F H 98.3 F Pulse Rate 97 H 99 H Respiratory Rate 16 16 Blood Pressure 133/81 133/85 Pulse Oximetry 93 95 97 11/12/20 10:55 11/12/20 12:32 Temperature 98.3 F 98.5 F Pulse Rate 97 H 91 H Respiratory Rate 16 16 Blood Pressure 128/78 133/68 Pulse Oximetry 94 97 Oxygen Delivery Method Room Air Oxygen Flow Rate 0 Narrative Exam Narrative: T-max this morning was 100.4. Otherwise vital signs are stable with heart rate in the upper 90s She is alert and oriented no apparent distress. Appears tired HEENT is unremarkable Chest: Clear to auscultation without wheezes rhonchi or crackles Cor: Regular rate and rhythm with distant S1-S2 Abdomen: Distended slightly tender over right upper quadrant right lower quadrant but no guarding or rebound. Bowel sounds present but hypoactive Extremities trace edema. Pulses intact Objective Labs Result Diagrams: 11/12/20 04:54 11/12/20 04:54 Labs: Laboratory Results - last 24 hr 11/11/20 11/11/20 11/11/20 14:19 14:19 14:19 WBC 13.7 H RBC 4.29 Hgb 13.0 Hct 38.6 MCV 90.0 MCH 30.2 MCHC 33.5 RDW 13.4 Plt Count 253 Neut % (Auto) 80.6 H Lymph % (Auto) 9.5 L [place] % (Auto) 8.4 Eos % (Auto) 1.4 L Baso % (Auto) 0.1 Neut # (Auto) 64108 H Lymph # (Auto) 1300 [place] # (Auto) 1200 H Eos # (Auto) 200 Baso # (Auto) 0 PT 11.5 INR 1.0 APTT 31 Sodium 136 L Potassium 4.0 Chloride 103 Carbon Dioxide 25 BUN 13 Creatinine 0.55 Estimated GFR > 60.0 BUN/Creatinine Ratio 23.6 H Glucose 163 H Lactate Calcium 9.8 Magnesium Total Bilirubin 1.4 H AST 65 H ALT 157 H Alkaline Phosphatase 104 Total Creatine Kinase CK-MB (CK-2) CK-MB (CK-2) Rel Index Troponin I Total Protein 7.3 Albumin 4.0 Globulin 3.3 Albumin/Globulin Ratio 1.2 Lipase 64 Urine RBC Urine WBC Ur Squamous Epith Cells Urine Bacteria Urine Mucus Ur Culture Indicated? SARS-CoV-2 (PCR) 11/11/20 11/11/20 11/11/20 14:19 14:19 15:05 WBC RBC Hgb Hct MCV MCH MCHC RDW Plt Count Neut % (Auto) Lymph % (Auto) [place] % (Auto) Eos % (Auto) Baso % (Auto) Neut # (Auto) Lymph # (Auto) [place] # (Auto) Eos # (Auto) Baso # (Auto) PT INR APTT Sodium Potassium Chloride Carbon Dioxide BUN Creatinine Estimated GFR BUN/Creatinine Ratio Glucose Lactate 1.3 Calcium Magnesium 1.9 Total Bilirubin AST ALT Alkaline Phosphatase Total Creatine Kinase 96 CK-MB (CK-2) TNP CK-MB (CK-2) Rel Index TNP Troponin I < 0.012 Total Protein Albumin Globulin Albumin/Globulin Ratio Lipase Urine RBC 0-1/hpf Urine WBC 0-1/hpf Ur Squamous Epith Cells 0-1 /hpf D Urine Bacteria None seen Urine Mucus 1+ H Ur Culture Indicated? Cult not indicated SARS-CoV-2 (PCR) 11/11/20 11/12/20 11/12/20 16:40 04:54 04:54 WBC 15.6 H RBC 3.93 L Hgb 11.9 L Hct 35.2 L MCV 89.5 MCH 30.2 MCHC 33.8 RDW 13.5 Plt Count 246 Neut % (Auto) 77.9 H Lymph % (Auto) 11.2 L [place] % (Auto) 9.7 Eos % (Auto) 1.0 L Baso % (Auto) 0.2 Neut # (Auto) 36847 H Lymph # (Auto) 1700 [place] # (Auto) 1500 H Eos # (Auto) 200 Baso # (Auto) 0 PT INR APTT Sodium 138 Potassium 4.1 Chloride 105 Carbon Dioxide 24 BUN 10 Creatinine 0.73 Estimated GFR > 60.0 BUN/Creatinine Ratio 13.7 Glucose 151 H Lactate Calcium 9.0 Magnesium Total Bilirubin 1.7 H AST 48 H ALT 119 H Alkaline Phosphatase 102 Total Creatine Kinase CK-MB (CK-2) CK-MB (CK-2) Rel Index Troponin I Total Protein 6.4 Albumin 3.4 L Globulin 3.0 Albumin/Globulin Ratio 1.1 Lipase Urine RBC Urine WBC Ur Squamous Epith Cells Urine Bacteria Urine Mucus Ur Culture Indicated? SARS-CoV-2 (PCR) Negative [facility] Medical History Chicken pox Colon polyps (2009) Fractures (~2005) Measles Multiple sclerosis (1991) Osteopenia Plantar warts (2004) Surgical History Anesthesia History of shoulder surgery (1973) History of third molar tooth extraction (1970) Status post rotator cuff repair (2011) Status post tubal ligation (1979) Family History Brother Age: 63 Diabetes mellitus Hypertension High cholesterol Child Age: 24 Adopted Mother Heart disease Hypertension Stroke Father Alzheimer's disease Grandmother No problems noted. Social History marital status: household members: none Smoking Status: Never smoker alcohol intake: current substance use type: does not use Assessment & Plan Assessment & Plan narrative: 70-year-old female with acute cholecystitis Assessment 1. Status post laparoscopic cholecystectomy Plan: Continue per surgery. Will advance diet as tolerated. Will continue off antibiotics per surgery. Will re-evaluate labs in a.m. as well as how patient is doing. Anticipate discharge in a.m.. Continue with oral hydrocodone for pain. 2. Elevated liver function tests suspect secondary to acute cholecystitis Plan: Will recheck in the morning. Labs are improved today. Assessment 3. Leukocytosis suspect related to acute cholecystitis and anticipate will be improved status post cholecystectomy and 24 hours of Zosyn which is now discontinued Plan: Will reassess in a.m. Assessment 3. MS Plan: Continue outpatient baclofen Patient is very motivated to move. I do not think physical therapy will be beneficial while in the hospital. She sees Lorenzo Verde as an outpatient for physical therapy on a weekly basis and she will continue with that With postoperative restrictions. Will continue on trospium Assessment 4. Recent recurrent UTI now with symptoms. Doubt that she would develop a bacterial acute cystitis while on Zosyn Plan: Will check a urine culture Will hold off on antibiotics for now Assessment 5. Chronic constipation without current symptoms Plan: Will follow
--- NOTE | 2020-11-12 16:02 | CM.DANOTE ---
Discharge Planning/Care Management DCP: case received and discussed in Team Rounds. At that time pt had been taken down to surgery by consulting Surgeon Dr. Hills: outcome: lap jennifer. Met now with pt and introduced self and role. Pt is a 70 year old female who admitted last evening to care of Dr. Beauchamp. PCP: Dr. Farmer. Consulting: [facility] :Dr. 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 She said Dr. Beauchamp told her she was keeping her overnight out of an abundance of caution and that Dr. Farmer would see her in the morning with expected d/c at that time. No needs at d/c are identified. 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 Advanced directive, confirm from FAMILY Start: 11/11/20 18:09 Freq: Q24H Status: Active Protocol: Document 11/12/20 07:00 EM (Rec: 11/12/20 08:17 EM [id number]) Advance Directive, confirm on record Time 07:00 Person contacted pt/self Copy received No CM Discharge Assessment Start: 11/12/20 16:00 Freq: Status: Active Protocol: Document 11/12/20 16:01 ITV (Rec: 11/12/20 16:02 ITV [id number]) Discharge Planning Assessment Advance Directives? Yes Advance Directives on File No History Provided By Patient,Medical Record Has Patient been admitted in last 30 No days? Prior Living Arrangements House Household Members none Independent with ADL's Yes Is patient alert and oriented? Yes Caregiver for Another No Discharge Plan Home Community Services Physical Therapy Review Status In Process
[2020-11-12] MEDS: INSULIN LISPRO 100 UNIT/ML 3ML VIAL SUBCUT (17:08)
[2020-11-12] MEDS: BACLOFEN 10 MG TABLET 20 MG PO (21:06)
[2020-11-12] MEDS: SODIUM CHLORIDE 0.9% FLUSH 10 ML IV (21:13)
[2020-11-13] MEDS: HYDROCODONE/ACET 5/325 TABLET 1 TAB PO ×2 (01:11→08:18)
[2020-11-13 05:10] LABS: Add Manual Diff / Slide Review NO; Basophils Absolute Auto 100 /uL (0-100); Basophils Percent Auto 0.5 % (0-2); Eosinophils Absolute Auto 300 /uL (0-450); Eosinophils Percent Auto 2.5 % (2-4); Hematocrit 33.5 % (36-46); Hemoglobin 11.3 g/dL (12.0-16.0); Lymphocytes Absolute Auto 2600 /uL (1100-4500); Lymphocytes Percent Auto 23.9 % (25-40); Mean Corpuscular HGB Conc 33.7 % (30-36); Mean Corpuscular Hemoglobin 30.4 PG (26-34); Mean Corpuscular Volume 90.1 fL (80-100); Monocytes Absolute Auto 1000 /uL (0-900); Monocytes Percent Auto 9.1 % (3-14); Neutrophils Absolute Auto 6900 /uL (1500-7000); Platelet Count 250 X10^3/uL (150-400); Red Blood Cell Count 3.72 X10^6/uL (4.0-5.2); Red Cell Distribution Width 13.6 % (11.6-14.8); White Blood Cell Count 10.8 X10^3/uL (4.5-11.0)
[2020-11-13 05:16] LABS: Alanine Aminotransferase 129 IU/L (<35); Albumin 3.4 g/dL (3.5-5.0); Albumin Globulin Ratio 1.1 (1.0-2.8); Alkaline Phosphatase 129 U/L (38-126); Aspartate Aminotransferase 66 IU/L (14-36); BUN Creatinine Ratio 18.3 (6-22); Bilirubin Total 0.8 mg/dL (0.2-1.3); Blood Urea Nitrogen 11 mg/dL (7-17); Carbon Dioxide 24 mmol/L (22-32); Chloride 106 mmol/L (98-107); Estimated Glomerular Filt Rate > 60.0 mL/min (>60); Glucose 159 mg/dL (80-110); HEMOLYSIS < 15 (0-50); Sodium 137 mmol/L (137-145); Total Protein 6.4 g/dL (6.3-8.2)
[2020-11-13 07:00] VITALS: O2SAT 98
[2020-11-13] MEDS: BACLOFEN 10 MG TABLET 15 MG PO (07:01)
--- NOTE | 2020-11-13 07:09 | P.PN_ITS ---
Subjective Subjective Date Patient Seen: 11/13/20 Time Patient Seen: 07:09 Interval history: Patient in bathroom. labs are as expected Exam Vital Signs (past 8 hours): - 11/12/20 23:27 Temperature 97.3 F L Pulse Rate 98 H Respiratory Rate 20 Blood Pressure 110/62 Pulse Oximetry 93 Oxygen Delivery Method Room Air Oxygen Flow Rate 0 Objective Labs Result Diagrams: 11/13/20 04:41 11/13/20 04:41 Labs: Laboratory Results - last 24 hr 11/13/20 11/13/20 04:41 04:41 WBC 10.8 RBC 3.72 L Hgb 11.3 L Hct 33.5 L MCV 90.1 MCH 30.4 MCHC 33.7 RDW 13.6 Plt Count 250 Neut % (Auto) 64.0 Lymph % (Auto) 23.9 L [place] % (Auto) 9.1 Eos % (Auto) 2.5 Baso % (Auto) 0.5 Neut # (Auto) 6900 Lymph # (Auto) 2600 [place] # (Auto) 1000 H Eos # (Auto) 300 Baso # (Auto) 100 Sodium 137 Potassium 4.0 Chloride 106 Carbon Dioxide 24 BUN 11 Creatinine 0.60 Estimated GFR > 60.0 BUN/Creatinine Ratio 18.3 Glucose 159 H Calcium 9.0 Total Bilirubin 0.8 AST 66 H ALT 129 H Alkaline Phosphatase 129 H Total Protein 6.4 Albumin 3.4 L Globulin 3.0 Albumin/Globulin Ratio 1.1 [facility] Medical History Chicken pox Colon polyps (2009) Fractures (~2005) Measles Multiple sclerosis (1991) Osteopenia Plantar warts (2004) Surgical History Anesthesia History of shoulder surgery (1973) History of third molar tooth extraction (1970) Status post rotator cuff repair (2011) Status post tubal ligation (1979) Family History Brother Age: 63 Diabetes mellitus Hypertension High cholesterol Child Age: 24 Adopted Mother Heart disease Hypertension Stroke Father Alzheimer's disease Grandmother No problems noted. Social History marital status: household members: none Smoking Status: Never smoker alcohol intake: current substance use type: does not use Assessment & Plan Assessment & Plan narrative: ok to discharge home from a surgical standpoint. post op check in 4-6 weeks with [facility]
[2020-11-13 08:00] VITALS: BP 137/79; PULSE 98; RESP 16; TEMP 37.2; O2SAT 95
--- NOTE | 2020-11-13 08:01 | PM.DS.1 ---
History of Present Illness History of Present Illness Chief complaint: ABD PAIN, FEVER. SINCE FRIDAY Discharge Providers Provider Date of admission: 11/11/20 16:41 Discharge Date: 11/13/20 Primary care physician: Isaac Farmer MD Discharge provider: Isaac Farmer MD Summary Hospital Course Discharge Diagnosis: Acute cholecystitis Status post cholecystectomy Multiple sclerosis Hospital Course: Patient was admitted to the hospital with fever elevated white blood cell count abnormal liver enzymes and abdominal pain. CT scan and ultrasound revealed acute cholecystitis. Patient was admitted the hospital and underwent laparoscopic cholecystectomy. During her hospital course and postoperative lately patient was given antibiotics. These were stopped 24 hours after the procedure. Patient the following day after surgery was eating and ambulating and had minimal pain controlled with oral pain medication. Because of her MS uncomfortableness and infection patient was kept 24 more hours at in the hospital. At the time of discharge she was afebrile for 24 hours her white blood cell count was normal her liver enzymes were stable but not back to normal. Patient was tolerating her diet ambulating with assistance with the cane due to her MS. Patient's son is with her at the time of discharge discharge instructions were provided and patient will follow-up in 1 week. Time Spent with Patient Time spent: Less than 30 minutes Exam Vital Signs (past 8 hours): Oxygen Delivery Method Room Air Oxygen Flow Rate 0 Objective Labs Result Diagrams: 11/13/20 04:41 11/13/20 04:41 Labs: Laboratory Results - last 24 hr 11/13/20 11/13/20 04:41 04:41 WBC 10.8 RBC 3.72 L Hgb 11.3 L Hct 33.5 L MCV 90.1 MCH 30.4 MCHC 33.7 RDW 13.6 Plt Count 250 Neut % (Auto) 64.0 Lymph % (Auto) 23.9 L [place] % (Auto) 9.1 Eos % (Auto) 2.5 Baso % (Auto) 0.5 Neut # (Auto) 6900 Lymph # (Auto) 2600 [place] # (Auto) 1000 H Eos # (Auto) 300 Baso # (Auto) 100 Sodium 137 Potassium 4.0 Chloride 106 Carbon Dioxide 24 BUN 11 Creatinine 0.60 Estimated GFR > 60.0 BUN/Creatinine Ratio 18.3 Glucose 159 H Calcium 9.0 Total Bilirubin 0.8 AST 66 H ALT 129 H Alkaline Phosphatase 129 H Total Protein 6.4 Albumin 3.4 L Globulin 3.0 Albumin/Globulin Ratio 1.1 [facility] Medical History Chicken pox Colon polyps (2009) Fractures (~2005) Measles Multiple sclerosis (1991) Osteopenia Plantar warts (2004) Surgical History Anesthesia History of shoulder surgery (1973) History of third molar tooth extraction (1970) Status post rotator cuff repair (2011) Status post tubal ligation (1979) Family History Brother Age: 63 Diabetes mellitus Hypertension High cholesterol Child Age: 24 Adopted Mother Heart disease Hypertension Stroke Father Alzheimer's disease Grandmother No problems noted. Social History marital status: household members: none Smoking Status: Never smoker alcohol intake: current substance use type: does not use Discharge Plan Discharge Plan Patient Disposition: Home Discharge orders & Medications Prescriptions: Continued Fish Oil (#SUPER EPA 2000) 2,000 mg PO Q DAY Qty: 0 RF: 0 CHOLECALCIFEROL (VITAMIN D3) (Vitamin D) 2,000 iu PO Q DAY Qty: 0 RF: 0 Calcium Carbonate/Vitamin D (#CALCIUM 1200 W/VITAMIN D 600 MG-100 IU) 1 sgl PO Q DAY Qty: 0 RF: 0 Cranberry (#CRANBERRY) 2,000 mg PO Q DAY Qty: 0 RF: 0 polyethylene glycol 3350 [Miralax] 119 GM powder 17 gm PO QDAY Qty: 0 RF: 0 [Tumeric] Qty: 0 RF: 0 trospium 20 mg tablet 20 mg PO BID Qty: 200 RF: 3 estradiol [Vagifem] 10 mcg tablet 10 mcg VAG 2XW Qty: 24 RF: 3 (DME) Blood glucose meter kit Qty: 1 RF: 0 (DME) Disabled Parking Permit Qty: 1 RF: 0 metformin 500 mg tablet extended release 24 hr 500 mg PO BID Qty: 180 RF: 3 phenazopyridine [Pyridium] 200 mg tablet 200 mg PO TID PRN (Reason: pain) Qty: 6 RF: 0 triamcinolone acetonide [Triderm] 0.1 % cream 1 applic Topical BID PRN (Reason: rash) Qty: 30 RF: 1 vitamin B complex tablet 1 tab PO DAILY RF: 0 baclofen 10 mg tablet See Rx Instructions .ROUTE .COMPLEX RF: 0 hydrocodone-acetaminophen 5-325 mg tablet 1 tab PO BEDTIME PRN (Reason: Pain (Scale Score 1-3)) RF: 0 Discontinued magnesium citrate Solution 300 ml PO DAILY PRN (Reason: constipation) Qty: 296 RF: 1 ciprofloxacin HCl 500 mg tablet 500 mg PO BID Qty: 10 RF: 0 nitrofurantoin monohyd/m-cryst 100 mg capsule 100 mg PO BID Qty: 14 RF: 0 Follow up/Referrals: Isaac Farmer MD [Primary Care Provider] - Visit Report/Discharge Packet Instructions: DI for Laparoscopy, [facility]: Wound Care Visit Report Forms: Patient Portal/API, Stroke Signs & Symptoms Discharge Data Primary Care Provider: Isaac Farmer Attending Provider: Isaac Farmer Admit Date/Time: 11/11/20 16:41
[2020-11-13] MEDS: INSULIN LISPRO 100 UNIT/ML 3ML VIAL SUBCUT (08:20)
--- NOTE | 2020-11-13 09:36 | PC.NURSE ---
Patient A/O x 4, dressings CDI, patient is prepared to D/C home today. Reports moderate abdominal pain, tender with movement, PRN medication administered. Patient denies N/V. Passing flatus. Tolerating diet. Ambulating to restroom with FWW. Discharge instructions given regarding f/u appointment, pain control, activity restrictions and medications. Patient verbalized understanding. Patient's home medication retrieved from pharmacy. IV removed. Patient discharged via wheelchair and aide assist.
== END 2020-11-13 09:39 | disposition home or self-care (01) ==
LOC: ED 14:50 → AC 17:12
PROVIDERS: Emergency Medicine; Surgery; Admitting Provider Family Medicine; Emergency Provider Emergency Medicine; PCP Family Medicine; Referring Provider Emergency Medicine; Visit Provider Family Medicine
PROC: 0FT44ZZ Resection of Gallbladder, Percutaneous Endoscopic Approach (ICD-10-PCS; CPT 47562; principal; 2020-11-12 08:00)
DX: K81.0 Acute cholecystitis (principal); K82.A1 Gangrene of gallbladder in cholecystitis; G35 Multiple sclerosis; E11.9 Type 2 diabetes mellitus without complications; Z87.440 Personal history of urinary (tract) infections; Z79.84 Long term (current) use of oral hypoglycemic drugs; Z20.822 Contact with and (suspected) exposure to COVID-19
CPT/HCPCS: 47562; 36415; 74177; 76705; 80053; 81003; 81015; 82550; 82962; 83605; 83690; 83735; 84484; 85025; 85610; 85730; 87040; 87086; 87635; 93005; 93010; 96360; 96361; 96372; 99284; C9803; G0378; J1815; J2405; J2543; J2704; J3010; Q9967

== ENCOUNTER → 2020-12-14 09:31 | Outpatient (CLI) | payer OTHER, SELFPAY ==
[2020-11-11 17:49] VITALS: BMI 26.9
[2020-12-14 12:00] LABS: Appearance Urine UA CLOUDY; Bilirubin Urine UA NEGATIVE (NEGATIVE); Color Urine UA YELLOW; Glucose Urine UA NEGATIVE (Negative); Ketones Urine UA NEGATIVE (NEGATIVE); Leukocyte Esterase Urine UA 3+ (NEGATIVE); Nitrite Urine UA POSITIVE (Negative); Occult Blood Urine UA 1+ (Negative); Protein Urine UA TRACE (Negative); Urobilinogen Urine UA 0.2 E.U./dL (0.2)
[2020-12-14 12:11] LABS: RBC Urine 1-5/HPF (0-5/HPF); WBC Urine >100/HPF (0-5/HPF)
[2020-12-14 12:12] LABS: Bacteria Urine Many (>30); Culture Indicated Urine Cult Not Indicated; Squamous Epithelial Cell Urine 10-30 /HPF (0-5/HPF)
== END ==
PROVIDERS: PCP Family Medicine; Referring Provider Family Medicine; Visit Provider Family Medicine
DX: N39.0 Urinary tract infection, site not specified (principal)
CPT/HCPCS: 81001

== ENCOUNTER → 2021-01-09 13:01 | Outpatient (CLI) | payer OTHER, SELFPAY ==
[2020-11-11 17:49] VITALS: BMI 26.9
[2021-01-09 13:46] LABS: Appearance Urine UA CLOUDY; Bilirubin Urine UA NEGATIVE (NEGATIVE); Color Urine UA YELLOW; Glucose Urine UA NEGATIVE (Negative); Ketones Urine UA NEGATIVE (NEGATIVE); Leukocyte Esterase Urine UA 3+ (NEGATIVE); Nitrite Urine UA POSITIVE (Negative); Occult Blood Urine UA 2+ (Negative); Protein Urine UA 1+ (Negative); Urobilinogen Urine UA 0.2 E.U./dL (0.2)
[2021-01-09 13:58] LABS: Bacteria Urine Many (>30); Culture Indicated Urine Specimen Cultured; RBC Urine 5-10/HPF (0-5/HPF); Squamous Epithelial Cell Urine 0-1 /HPF (0-5/HPF); WBC Urine >100/HPF (0-5/HPF)
== END ==
PROVIDERS: PCP Family Medicine; Referring Provider Family Medicine; Visit Provider Family Medicine
DX: N39.0 Urinary tract infection, site not specified (principal)
CPT/HCPCS: 81001; 87077; 87086; 87186

== ENCOUNTER → 2021-01-18 08:25 | Outpatient (CLI) | payer OTHER, SELFPAY ==
[2020-11-11 17:49] VITALS: BMI 26.9
[2021-01-18 09:15] LABS: Hemoglobin A1C% w Est Avg Glu 6.4 % (4.0-6.0)
[2021-01-18 09:21] LABS: Blood Urea Nitrogen 15 mg/dL (7-17); Calcium 9.9 mg/dL (8.4-10.2); Carbon Dioxide 31 mmol/L (22-32); Chloride 103 mmol/L (98-107); Estimated Glomerular Filt Rate > 60.0 mL/min (>60); Glucose 156 mg/dL (80-110); HEMOLYSIS < 15 (0-50); Potassium 4.4 mmol/L (3.4-5.1); Sodium 140 mmol/L (137-145)
== END ==
PROVIDERS: Urology; PCP Family Medicine; Referring Provider Family Medicine; Visit Provider Family Medicine
DX: E11.9 Type 2 diabetes mellitus without complications (principal); G35 Multiple sclerosis; N39.0 Urinary tract infection, site not specified
CPT/HCPCS: 36415; 80048; 83036

== ENCOUNTER → 2021-01-19 14:07 | Outpatient (CLI) | payer OTHER, SELFPAY ==
[2020-11-11 17:49] VITALS: BMI 26.9
--- NOTE | 2021-01-19 14:27 | DI.CT.S_ITS ---
PROCEDURE: CT ABDOMEN PELVIS WO/W CON INDICATIONS: Urinary tract infection, site not specified TECHNIQUE: After the administration of oral contrast, 5 mm thick sections acquired from the diaphragms to the iliac crests. After the administration of intravenous contrast, 5 mm thick sections acquired from the diaphragms to the symphysis. 5 mm thick coronal and sagittal reformats were acquired. For radiation dose reduction, the following was used: automated exposure control, adjustment of mA and/or kV according to patient size. COMPARISON: None. FINDINGS: Image quality: Excellent. ABDOMEN: Lung bases: Lung bases are clear. Heart size is normal. Solid organs: Liver is normal in size and enhancement. Gallbladder has been resected . Biliary system is non-dilated. Pancreas enhances normally. Spleen is normal in size and enhancement. No adrenal nodules. Both kidneys are normal in size but there is a single 1.5 mm calculus that is nonobstructive at the anterolateral lower 3rd collecting system, with mild focal renal cortical thinning immediately adjacent (stone seen on series 2, image 31 and focal thinning seen centered on series 2, image 30). . No hydronephrosis or nephrolithiasis on the left but there is finding of several small peripelvic cysts at the lower half of the left renal sinus region. Bowel and peritoneum: Stomach, small and large bowel loops are normal in caliber and wall thickness. No free fluid or air. Nodes and vessels: No retroperitoneal or mesenteric adenopathy by size criteria. Aorta and inferior vena are normal in caliber. Miscellaneous: No ventral hernias. PELVIS: Genitourinary: Bladder wall thickness is normal. Miscellaneous: No inguinal hernias or adenopathy. There are several pelvic phleboliths, but no bladder calculus. Bones: No suspicious bony lesions. No vertebral body compression fractures. IMPRESSION: 1.5 mm nonobstructive right lower renal collecting system stone, with immediate adjacent mild focal renal cortical thinning that may indicate episodic urinary tract infections in that area as a result. Several small lower 3rd renal sinus region left peripelvic cysts are incidentally noted. In the bladder region no calculus is seen and no CT evidence of urethral diverticulum is found. Several scattered pelvic phleboliths incidentally noted. Dictated by: Nii Hernandez M.D. on 01/19/2021 at 16:45 Approved by: Nii Hernandez M.D. on 01/19/2021 at 16:51
== END ==
PROVIDERS: PCP Family Medicine; Referring Provider Specialist; Visit Provider Specialist
DX: N39.0 Urinary tract infection, site not specified (principal); N20.0 Calculus of kidney
CPT/HCPCS: 74178; Q9967

== ENCOUNTER → 2021-02-13 09:18 | Outpatient (CLI) | payer OTHER, SELFPAY ==
[2020-11-11 17:49] VITALS: BMI 26.9
== END ==
PROVIDERS: PCP Family Medicine; Visit Provider Urology
DX: N39.0 Urinary tract infection, site not specified (principal); N28.1 Cyst of kidney, acquired; N13.30 Unspecified hydronephrosis; N95.2 Postmenopausal atrophic vaginitis; K59.04 Chronic idiopathic constipation
CPT/HCPCS: 51798; 81002; 87086; 99213

== ENCOUNTER → 2021-03-03 10:15 | Outpatient (CLI) | payer OTHER, SELFPAY ==
[2020-11-11 17:49] VITALS: BMI 26.9
[2021-03-03 11:29] LABS: Appearance Urine UA SL CLOUDY; Bilirubin Urine UA NEGATIVE (NEGATIVE); Color Urine UA YELLOW; Glucose Urine UA TRACE g/dL (Negative); Ketones Urine UA NEGATIVE (NEGATIVE); Leukocyte Esterase Urine UA 2+ (NEGATIVE); Nitrite Urine UA POSITIVE (Negative); Occult Blood Urine UA TRACE-INTACT (Negative); Protein Urine UA NEGATIVE (Negative); Specific Gravity Urine UA <=1.005 (1.000-1.035); Urobilinogen Urine UA 0.2 E.U./dL (0.2)
[2021-03-03 11:47] LABS: pH Urine UA 7.5 (4.5-8.0)
[2021-03-03 11:48] LABS: Bacteria Urine Few (2-10); Culture Indicated Urine Specimen Cultured; RBC Urine 0-1/HPF (0-5/HPF); Squamous Epithelial Cell Urine 0-1 /HPF (0-5/HPF); WBC Urine 10-30/HPF (0-5/HPF)
== END ==
PROVIDERS: PCP Family Medicine; Referring Provider Urology; Visit Provider Urology
DX: N39.0 Urinary tract infection, site not specified (principal)
CPT/HCPCS: 81001; 87077; 87086; 87186

== ENCOUNTER → 2021-03-27 11:14 | Outpatient (CLI) | payer OTHER, SELFPAY ==
[2020-11-11 17:49] VITALS: BMI 26.9
--- NOTE | 2021-03-27 11:18 | DI.RAD.S_ITS ---
PROCEDURE: XR KNEE RT 3V INDICATIONS: fall, R knee swelling, feeling unstable TECHNIQUE: 3 views of the knee were acquired. COMPARISON: [facility], , KNEE 3V RIGHT, 01/30/2011, 12:26. FINDINGS: Bones: No fractures or dislocations. No suspicious bony lesions. Mild to moderate lateral medial compartment osteoarthritis with marginal osteophytosis and subchondral sclerosis. Moderate patellofemoral compartment osteoarthritis with marginal osteophytosis, subchondral sclerosis and joint space narrowing. Soft tissues: No joint effusion. No suspicious soft tissue calcifications. IMPRESSION: 1. Tricompartment osteoarthritis. 2. No fracture. No acute osseous lesion. If symptoms and/or clinical suspicion for pathology persists, further assessment with repeat radiographs (7-10 days) or advanced imaging (e.g. CT, MRI or bone scan) should be considered. Dictated by: Michelle Morrison MD, PhD on 03/27/2021 at 12:45 Approved by: Michelle Morrison MD, PhD on 03/27/2021 at 12:46
== END ==
PROVIDERS: PCP Family Medicine; Referring Provider Physician Assistant; Visit Provider Physician Assistant
DX: S89.91XA Unspecified injury of right lower leg, initial encounter (principal); M25.561 Pain in right knee; M17.11 Unilateral primary osteoarthritis, right knee; X58.XXXA Exposure to other specified factors, initial encounter
CPT/HCPCS: 73562

== ENCOUNTER → 2021-05-09 15:55 | Outpatient (CLI) | payer OTHER, SELFPAY ==
[2020-11-11 17:49] VITALS: BMI 26.9
--- NOTE | 2021-05-09 16:00 | DI.RAD.S_ITS ---
PROCEDURE: XR RIBS LT MIN 3V W CXR1V INDICATIONS: L posterior rib pain s/p fall, ecchymosis, pain w deep breat TECHNIQUE: 2 views of the left ribs were acquired, along with a single view chest. COMPARISON: [facility], CHEST 2 VIEW, 01/23/2016, 11:39. [facility], CHEST 2 VIEW, 02/13/2016, 8:31. FINDINGS: Surgical changes and devices: None. Bones and chest wall: There is a displaced fracture involving the posterior aspect of the right 10th rib. No suspicious bony lesions. Overlying soft tissues appear unremarkable. Lungs and pleura: Small left pleural effusion with left basilar atelectasis. No pneumothorax. Lungs appear clear. Mediastinum: Mediastinal contours appear normal. Heart size is normal. IMPRESSION: 1. Displaced right 10th rib fracture. 2. Small left pleural effusion with left basilar atelectasis. Dictated by: Trisha Sanchez M.D. on 05/09/2021 at 16:20 Approved by: Trisha Sanchez M.D. on 05/09/2021 at 16:25
== END ==
PROVIDERS: PCP Family Medicine; Referring Provider Physician Assistant; Visit Provider Physician Assistant
DX: S22.32XA Fracture of one rib, left side, initial encounter for closed fracture (principal); R07.81 Pleurodynia; J90 Pleural effusion, not elsewhere classified; J98.11 Atelectasis; X58.XXXA Exposure to other specified factors, initial encounter
CPT/HCPCS: 71101

== ENCOUNTER → 2021-06-21 16:42 | Outpatient (CLI) | payer OTHER, SELFPAY ==
[2020-11-11 17:49] VITALS: BMI 26.9
--- NOTE | 2021-06-21 | DI.MRI.S_ITS ---
PROCEDURE: MR KNEE RT WO CON INDICATIONS: RT KNEE PAIN TECHNIQUE: Noncontrast sagittal PD fast spin echo and T2 fast spin echo with fat saturation, sagittal 3-D FLASH with fat saturation; coronal T1 spin echo and PD fast spin echo with fat saturation, and axial PD fast spin echo with fat saturation through the knee. COMPARISON: [facility], MR, LOWER EXTREM. JNT WO CONTRAST, 06/06/2011, 7:16. [facility], MR, MR KNEE LT WO CON, 06/02/2018, 17:53. FINDINGS: Image quality: Excellent. Menisci: The medial and lateral menisci demonstrate no surfacing signal. The meniscal root ligaments appear intact. Cruciate ligaments: The anterior and posterior cruciate ligaments appear intact. Medial structures: The medial collateral ligament appears intact. The visualized portions of the pes anserinus tendons appear normal. No abnormal bursal fluid. Lateral structures: The lateral collateral ligament complexes intact. The popliteus tendon appears normal. The iliotibial band appears normal. Small focus of subchondral edema in the lateral patellar facet. Thickening of the lateral patellar retinaculum with apparent defect at the attachment site, which may reflect chronic injury (6-10). Anterior structures: The quadriceps and patellar tendons appear intact. Patellar alignment is normal. No femoral trochlear dysplasia or ventral trochlear prominence. No edema in the infrapatellar fat pad. Bones and cartilage: No bone marrow contusions or fractures. Tricompartment osteophytosis. 1.1 x 0.8 cm T2 hyperintense focus is seen underlying the tibial spines, most consistent with fibrocystic change or an intra osseous ganglion. Signal heterogeneity and thinning of the tricompartment hyaline cartilage. Joint space: Trace knee joint fluid. Trace Torres's cyst. IMPRESSION: 1. Thickening of the lateral patellar retinaculum with apparent defect at the attachment site, which may reflect chronic injury. Dictated by: Giles Soto M.D. on 06/24/2021 at 22:05 Approved by: Giles Soto M.D. on 06/24/2021 at 22:17
== END ==
PROVIDERS: PCP Family Medicine; Referring Provider Orthopaedic Surgery; Visit Provider Orthopaedic Surgery
DX: M17.11 Unilateral primary osteoarthritis, right knee (principal); M25.561 Pain in right knee
CPT/HCPCS: 73721

== ENCOUNTER → 2021-07-02 07:29 | Outpatient (CLI) | payer OTHER, SELFPAY ==
[2020-11-11 17:49] VITALS: BMI 26.9
[2021-07-02 09:19] LABS: Creatinine Urine Random 93.9 mg/dL
[2021-07-02 09:22] LABS: Alanine Aminotransferase 22 IU/L (<35); Albumin 4.3 g/dL (3.5-5.0); Albumin Globulin Ratio 1.5 (1.0-2.8); Alkaline Phosphatase 56 U/L (38-126); Aspartate Aminotransferase 26 IU/L (14-36); BUN Creatinine Ratio 22.1 (6-22); Bilirubin Total 0.5 mg/dL (0.2-1.3); Blood Urea Nitrogen 15 mg/dL (7-17); Calcium 9.5 mg/dL (8.4-10.2); Carbon Dioxide 33 mmol/L (22-32); Chloride 105 mmol/L (98-107); Cholesterol 227 mg/dL (140-199); Estimated Glomerular Filt Rate > 60.0 mL/min (>60); Globulin 2.9 g/dL (1.7-4.1); Glucose 146 mg/dL (80-110); HDL Cholesterol 55 mg/dL (40-60); HEMOLYSIS < 15 (0-50); LDL Cholesterol Calculated 140 mg/dL (<100); Potassium 3.6 mmol/L (3.4-5.1); Sodium 142 mmol/L (137-145); Total Protein 7.2 g/dL (6.3-8.2); Triglycerides 161 mg/dL (35-150)
[2021-07-02 09:26] LABS: Microalbumi Creatinin Ratio Ur 8.5 ug/mg CR (<30); Microalbumin Urine Random 0.8 mg/dL (0-1.6)
[2021-07-02 09:28] LABS: Add Manual Diff / Slide Review NO; Basophils Absolute Auto 100 /uL (0-100); Eosinophils Absolute Auto 300 /uL (0-450); Eosinophils Percent Auto 4.7 % (2-4); Hematocrit 40.9 % (36-46); Lymphocytes Absolute Auto 2800 /uL (1100-4500); Lymphocytes Percent Auto 39.3 % (25-40); Mean Corpuscular HGB Conc 34.1 % (30-36); Mean Corpuscular Hemoglobin 30.2 PG (26-34); Mean Corpuscular Volume 88.4 fL (80-100); Monocytes Absolute Auto 600 /uL (0-900); Monocytes Percent Auto 7.8 % (3-14); Neutrophils Absolute Auto 3400 /uL (1500-7000); Neutrophils Percent Auto 47.2 % (50-75); Platelet Count 270 X10^3/uL (150-400); Red Blood Cell Count 4.63 X10^6/uL (4.0-5.2); Red Cell Distribution Width 13.1 % (11.6-14.8); White Blood Cell Count 7.2 X10^3/uL (4.5-11.0)
[2021-07-02 09:33] LABS: Hemoglobin A1C% w Est Avg Glu 6.9 % (4.0-6.0)
[2021-07-02 09:38] LABS: Vitamin D 25 Hydroxy (D3) 96.7 ng/mL (30.0-100.0)
== END ==
PROVIDERS: PCP Family Medicine; Referring Provider Physician Assistant; Visit Provider Physician Assistant
DX: E11.9 Type 2 diabetes mellitus without complications (principal); E78.5 Hyperlipidemia, unspecified; G35 Multiple sclerosis; M85.89 Other specified disorders of bone density and structure, multiple sites
CPT/HCPCS: 36415; 80053; 80061; 82043; 82306; 82570; 83036; 84443; 85025

== ENCOUNTER → 2021-08-20 15:40 | Outpatient (CLI) | payer OTHER, SELFPAY ==
[2020-11-11 17:49] VITALS: BMI 26.9
--- NOTE | 2021-08-20 15:41 | DI.MG.S_ITS ---
BILATERAL DIGITAL SCREENING MAMMOGRAM 3D/2D WITH CAD: 08/20/2021 CLINICAL: Routine screening. Family history of breast cancer. Comparison is made to exams dated: 06/28/2020 mammogram, 06/25/2019 mammogram, and 06/22/2018 mammogram - [facility]. There are scattered fibroglandular elements in both breasts. Current study was also evaluated with a Computer Aided Detection (CAD) system. No significant masses, calcifications, or other findings are seen in either breast. There has been no significant interval change. IMPRESSION: NEGATIVE There is no mammographic evidence of malignancy. A 1 year screening mammogram is recommended. This exam was interpreted at Station ID: [id number]. NOTE: For mammograms, a report in lay terms will be sent to the patient. Approximately 15% of breast malignancies will not be visualized mammographically. In the management of a palpable breast mass, a negative mammogram must not discourage biopsy of a clinically suspicious lesion. Electronically Signed By: Raoul whittaker/shamir:08/21/2021 09:38:43 letter sent: Normal Exam ACR BI-RADS Category 1: Negative [id number]
== END ==
PROVIDERS: PCP Family Medicine; Referring Provider Family Medicine; Visit Provider Family Medicine
DX: Z12.31 Encounter for screening mammogram for malignant neoplasm of breast (principal); Z80.3 Family history of malignant neoplasm of breast
CPT/HCPCS: 77063; 77067

== ENCOUNTER → 2021-09-19 10:30 | Outpatient (CLI) | payer OTHER, SELFPAY ==
[2020-11-11 17:49] VITALS: BMI 26.9
== END ==
PROVIDERS: PCP Family Medicine; Referring Provider Obstetrics & Gynecology; Visit Provider Obstetrics & Gynecology
DX: Z13.820 Encounter for screening for osteoporosis (principal); Z78.0 Asymptomatic menopausal state; M81.0 Age-related osteoporosis without current pathological fracture
CPT/HCPCS: 77080

== ENCOUNTER → 2021-12-27 09:14 | Outpatient (CLI) | payer OTHER, SELFPAY ==
[2021-10-01 16:44] VITALS: BMI 26.9
[2021-12-27 10:40] LABS: Hemoglobin A1C% w Est Avg Glu 7.3 % (4.0-6.0)
[2021-12-27 10:58] LABS: Cholesterol 131 mg/dL (140-199); HDL Cholesterol 60 mg/dL (40-60); LDL Cholesterol Calculated 46 mg/dL (<100); Triglycerides 127 mg/dL (35-150)
[2021-12-27 11:42] LABS: Creatinine Urine Random 82.5 mg/dL
[2021-12-27 11:46] LABS: Microalbumi Creatinin Ratio Ur 10.9 ug/mg CR (<30); Microalbumin Urine Random 0.9 mg/dL (0-1.6)
== END ==
PROVIDERS: PCP Family Medicine; Referring Provider Family Medicine; Visit Provider Family Medicine
DX: E11.9 Type 2 diabetes mellitus without complications (principal)
CPT/HCPCS: 36415; 80061; 82043; 82570; 83036

== ENCOUNTER → 2022-02-18 11:34 | Outpatient (CLI) | payer OTHER, SELFPAY ==
[2021-10-01 16:44] VITALS: BMI 26.9
== END ==
PROVIDERS: PCP Family Medicine; Visit Provider Family Medicine
DX: R30.0 Dysuria (principal)
CPT/HCPCS: 87077; 87086; 87186

== ENCOUNTER → 2022-03-05 18:28 | Outpatient (CLI) | payer OTHER, SELFPAY ==
[2021-10-01 16:44] VITALS: BMI 26.9
--- NOTE | 2022-03-05 18:31 | DI.RAD.S_ITS ---
PROCEDURE: XR HIP W PEL IF DONE LT 2V INDICATIONS: left hip injury TECHNIQUE: 2 views of the hip were acquired. COMPARISON: [facility], CR, [id number] W PEL IF PERFORMED, 08/30/2015, 20:25. FINDINGS: Bones: No fractures or dislocations. No suspicious bony lesions. The visualized pelvic ring appears intact. Moderate bilateral hip joint space narrowing with subchondral sclerosis present. Mild degenerative changes lower lumbar spine Soft tissues: No suspicious soft tissue calcifications or masses. IMPRESSION: Moderate bilateral hip osteoarthritis. No fracture Approved by: Shane Dowd M.D. on 03/05/2022 at 18:21
== END ==
PROVIDERS: PCP Family Medicine; Referring Provider Registered Nurse; Visit Provider Registered Nurse
DX: M25.552 Pain in left hip (principal); M16.0 Bilateral primary osteoarthritis of hip
CPT/HCPCS: 73502

== ENCOUNTER → 2022-03-22 14:12 | Outpatient (CLI) | payer OTHER, SELFPAY ==
[2021-10-01 16:44] VITALS: BMI 26.9
[2022-03-22 17:06] LABS: Appearance Urine UA CLOUDY; Bilirubin Urine UA NEGATIVE (NEGATIVE); Color Urine UA YELLOW; Glucose Urine UA NEGATIVE (Negative); Ketones Urine UA NEGATIVE (NEGATIVE); Leukocyte Esterase Urine UA 3+ (NEGATIVE); Nitrite Urine UA NEGATIVE (Negative); Occult Blood Urine UA 1+ (Negative); Protein Urine UA TRACE (Negative); Specific Gravity Urine UA 1.015 (1.000-1.035); Urobilinogen Urine UA 0.2 E.U./dL (0.2)
[2022-03-22 17:15] LABS: Bacteria Urine Many (>30); Culture Indicated Urine Specimen Cultured; RBC Urine None Seen (0-5/HPF); WBC Urine >100/HPF (0-5/HPF)
== END ==
PROVIDERS: PCP Family Medicine; Referring Provider Family Medicine; Visit Provider Family Medicine
DX: N30.00 Acute cystitis without hematuria (principal); R30.9 Painful micturition, unspecified
CPT/HCPCS: 81001; 87077; 87086; 87186

== ENCOUNTER → 2022-04-01 08:15 | Outpatient (CLI) | payer OTHER, SELFPAY ==
[2021-10-01 16:44] VITALS: BMI 26.9
[2022-04-01 08:48] LABS: Appearance Urine UA CLEAR; Bilirubin Urine UA NEGATIVE (NEGATIVE); Color Urine UA YELLOW; Glucose Urine UA NEGATIVE (Negative); Ketones Urine UA NEGATIVE (NEGATIVE); Leukocyte Esterase Urine UA TRACE (NEGATIVE); Nitrite Urine UA NEGATIVE (Negative); Occult Blood Urine UA NEGATIVE (Negative); Protein Urine UA NEGATIVE (Negative); Urobilinogen Urine UA 0.2 E.U./dL (0.2)
[2022-04-01 08:54] LABS: RBC Urine None Seen (0-5/HPF); Squamous Epithelial Cell Urine 1-5 /HPF (0-5/HPF); WBC Urine 1-5/HPF (0-5/HPF)
[2022-04-01 08:55] LABS: Bacteria Urine Occasional (0-1); Culture Indicated Urine Specimen Cultured
== END ==
PROVIDERS: PCP Family Medicine; Referring Provider Family Medicine; Visit Provider Family Medicine
DX: N30.00 Acute cystitis without hematuria (principal)
CPT/HCPCS: 81001; 87086

== ENCOUNTER → 2022-05-06 18:54 | Outpatient (ROUT) | payer OTHER, SELFPAY ==
[2021-10-01 16:44] VITALS: BMI 26.9
[2022-05-06 19:09] LABS: Appearance Urine UA CLOUDY; Bilirubin Urine UA NEGATIVE (NEGATIVE); Color Urine UA YELLOW; Glucose Urine UA NEGATIVE (Negative); Ketones Urine UA NEGATIVE (NEGATIVE); Leukocyte Esterase Urine UA 3+ (NEGATIVE); Nitrite Urine UA POSITIVE (Negative); Occult Blood Urine UA 1+ (Negative); Protein Urine UA 2+ (Negative); Specific Gravity Urine UA 1.015 (1.000-1.035); Urobilinogen Urine UA 0.2 E.U./dL (0.2)
[2022-05-06 19:22] LABS: Amorphous Sediment Urine 2+; Bacteria Urine Moderate (10-30); Culture Indicated Urine Specimen Cultured; RBC Urine 0-1/HPF (0-5/HPF); Renal Epithelial Cells Urine 1-5/HPF (0-1/HPF); Squamous Epithelial Cell Urine 5-10 /HPF (0-5/HPF); WBC Urine 10-30/HPF (0-5/HPF)
== END ==
PROVIDERS: PCP Family Medicine; Visit Provider Physician Assistant
DX: R30.0 Dysuria (principal); R50.9 Fever, unspecified
CPT/HCPCS: 81001; 87077; 87086; 87186

== ENCOUNTER → 2022-05-08 08:29 | Outpatient (CLI) | payer OTHER, SELFPAY ==
[2021-10-01 16:44] VITALS: BMI 26.9
[2022-05-08 10:19] LABS: Hemoglobin A1C% w Est Avg Glu 8.1 % (4.0-6.0)
== END ==
PROVIDERS: PCP Family Medicine; Referring Provider Family Medicine; Visit Provider Family Medicine
DX: E11.9 Type 2 diabetes mellitus without complications (principal)
CPT/HCPCS: 36415; 83036

== ENCOUNTER → 2022-05-31 14:22 | Outpatient (CLI) | payer OTHER, SELFPAY ==
[2021-10-01 16:44] VITALS: BMI 26.9
--- NOTE | 2022-05-31 14:23 | DI.US.S_ITS ---
PROCEDURE: US RENAL COMPLETE INDICATIONS: frequent UTI TECHNIQUE: Real-time scanning was performed of the kidneys and bladder, with image documentation. COMPARISON: None. FINDINGS: Kidneys: Kidneys are normal in size. Right kidney measures 9.2 cm long; left kidney measures 9.8 cm long. Right renal cortical thickness is 1.1 cm; left renal cortical thickness is 1.1 cm. Renal cortical echotexture is normal. No hydronephrosis or nephrolithiasis. No suspicious solid mass lesions. Bladder: Pre-void bladder volume is 25 mL. Post-void residual is 24 mL. Pre-void images demonstrate no intraluminal masses or stones. Miscellaneous: No free pelvic fluid. IMPRESSION: Normal renal ultrasound. Dictated by: Juan Salinas M.D. on 05/31/2022 at 16:19 Approved by: Juan Salinas M.D. on 05/31/2022 at 16:21
== END ==
PROVIDERS: PCP Family Medicine; Referring Provider Family Medicine; Visit Provider Family Medicine
DX: N39.0 Urinary tract infection, site not specified (principal)
CPT/HCPCS: 76770

== ENCOUNTER → 2022-07-23 15:35 | Outpatient (CLI) | payer OTHER, SELFPAY ==
[2021-10-01 16:44] VITALS: BMI 26.9
--- NOTE | 2022-08-07 12:03 | DIAB.MNT ---
Initial Diabetes Medical Nutrition Therapy Assessment Name: Harmeet Finn Date: 07/23/22 Time: 340-5p Dx: Type II Diabetes Provider: Darian/Fer Harmeet presents for initial diabetes visit. PMh of DM for 5+ years per report. Original DM ed in [place]. Reports she is interested in meal planning with easy prep and weekly planning. HgA1c 8.1% in 04/2022, steadily increasing since Jun of last year. +FHof DM with brother. States she has noticed decreased FBG with improved hydration. Sometimes will wait too long to eat and this results in frequent snacks. Diet Recall: 8a: 2 kath mini donuts with half banana or half banana with nuts 11a: one fruit 1230p: home made cookie or fruit sn: nothing or fruit 630p: low carb pasta with lobster bisque and coleslaw OR salmon with veggies and 0-0.5c brown rice sn: half cup ice cream or one cup berries +/- cream Beverages; 32oz water, sometimes 8oz mocha, flavored water or sweetened tea x 4-8oz Anthropometrics: Ht: 5' Wt: 138# reported Physical Activity: 45 min exercise per day Self-Monitoring Blood Glucose: States her FBG over the holidays were in the 120s. now in the 140s. No log or meter. Diabetes Medications: 1000mg Metformin BID Pertinent Labs: HgA1c 04/2022: 8.1% 11/2021: 7.3% 06/2021: 6.9% Past Medical History: (Last Reviewed 03/05/22 @ 18:25 by LINDA Gutierrez) Atrophic vaginitis Chicken pox Kid Chronic lower urinary tract infection Colon polyps (2009) Constipation Fractures (~2005) Hydronephrosis of left kidney Measles Kid Multiple sclerosis (1991) Osteopenia Parapelvic renal cyst Plantar warts (2004) Pyuria Recurrent urinary tract infection Nutrition Rx: Carbohydrates: Meal:30-45g Snack: 15-30g Nutrition Diagnosis: - Excessive CHO intake r/t nutrition knowledge deficit and stage of change aeb diet recall of sweetened beverages and pastries - Inconsistent energy intake r/t periods of low intake earlier in the day aeb diet recall - Inconsistent protein intake r/t nutr knowledge deficit aeb diet recall Intervention: This participant was very receptive. Provided appropriate educational handouts. Discussed the following topics: Completed intake assessment. Discussed barriers to care. Plate Method, impact of macronutrients on blood sugar, meal timing, carbohydrate counting, pairing macronutrients and spreading out carbohydrates for better blood glucose management Recommended servings for carbohydrates at meals and snacks Brainstormed appropriate meal plan based on food preferences Role of physical activity and following provider guidelines for safety Recs for fluid intake Cooking for one Created SMART goals for patient self-care and success. Goals: Freeze grains in single servings try protein meal planning calendar Aim for 32oz+ water (avoiding sweetened beverages) Follow-up: SHANNAN BLACKWELL follow-up in 4 weeks Clau Cerna RDN, PATYES Certified Diabetes Care and Solar Installer Pv P: [phone] Thank you for this referral
== END ==
PROVIDERS: PCP Family Medicine; Referring Provider Family Medicine; Visit Provider Family Medicine
DX: E11.9 Type 2 diabetes mellitus without complications (principal); Z79.84 Long term (current) use of oral hypoglycemic drugs; Z71.3 Dietary counseling and surveillance
CPT/HCPCS: 97802

== ENCOUNTER → 2022-08-12 08:36 | Outpatient (CLI) | payer OTHER, SELFPAY ==
[2021-10-01 16:44] VITALS: BMI 26.9
[2022-08-12 09:14] LABS: Hemoglobin A1C% w Est Avg Glu 7.1 % (4.0-6.0)
== END ==
PROVIDERS: PCP Family Medicine; Referring Provider Family Medicine; Visit Provider Family Medicine
DX: E11.9 Type 2 diabetes mellitus without complications (principal)
CPT/HCPCS: 36415; 83036

== ENCOUNTER → 2022-08-22 09:28 | Outpatient (CLI) | payer OTHER, SELFPAY ==
[2021-10-01 16:44] VITALS: BMI 26.9
--- NOTE | 2022-09-04 13:42 | DIAB.MNTFU ---
Follow-up Diabetes Medical Nutrition Therapy Assessment Name: Harmeet Finn Date: 08/22/22 Time: [id number] Dx: Type II Diabetes Harmeet presents for Dm follow-up. Reports being more consensus?about home menu/prep but could be better. Eating more in the morning with added mid morning snack, ie orange and cheese.? Continues to work on water intake. Breakfast often low in protein and mostly carb based. Today she is wondering why BG high after exercise.? Recent HgA1c reduced to 7.1% from 8.1% reflecting diet changes she has made. Diet Recall: B: (8 am) piece of cinnamon roll, 1/2 banana OR 2 small donuts, 1/2 banana.? S: (10:30 am) orange and cheese.? L/D: (2 pm) bigger meal - corn crab chowder and piece of fruit.? S: (7:30-8 pm) 1/2 apple and cheese.? Veggies: carrots and PB, torres peppers.? Fluid: max 32 oz water.? Anthropometrics: Ht: 60 Wt: no new wt today Physical Activity: 45 min exercise daily Self-Monitoring Blood Glucose: Forgot her meter/log today. Reports FBG has reduced from 150s to 130-140s. 134mg/dl this morning. States sometimes BG increased after exercise. Diabetes Medications: 1000mg Metformin BID Pertinent Labs: HgA1c 07/2022: 7.1% 04/2022: 8.1% 11/2021: 7.3% 06/2021: 6.9% Past Medical History: (Last Reviewed 03/05/22 @ 18:25 by LINDA Gutierrez) Atrophic vaginitis Chicken pox Kid Chronic lower urinary tract infection Colon polyps (2009) Constipation Fractures (~2005) Hydronephrosis of left kidney Measles Kid Multiple sclerosis (1991) Osteopenia Parapelvic renal cyst Plantar warts (2004) Pyuria Recurrent urinary tract infection Nutrition Rx: Carbohydrates: Meal:30-45g Snack: 15-30g Nutrition Diagnosis: - Excessive CHO intake r/t nutrition knowledge deficit and stage of change aeb diet recall of sweetened beverages and pastries- improved - Inconsistent energy intake r/t periods of low intake earlier in the day aeb diet recall- improved - Inconsistent protein intake r/t nutr knowledge deficit aeb diet recall - in progress Intervention: This participant was very receptive. Provided appropriate educational handouts. Discussed the following topics: Blood sugar review and trends. Impact of food, hormones, and exercise on results. Meal planning strategies Fluid recs Protein recs and pairing macros Created SMART goals for patient self-care and success. Goals: Freeze grains in single servings- in progress try protein meal planning calendar- in progress Aim for 32oz+ water (avoiding sweetened beverages)- met Drink additional 8oz water at lunch and 8-16oz with snack- new Add egg to breakfast- new Follow-up: SHANNAN BLACKWELL follow-up in 3-4 weeks Clau Cerna RDN, ROSAL[place] Certified Diabetes Care and Supervisor Statement Clerks P: [phone] Thank you for this referral
== END ==
PROVIDERS: PCP Family Medicine; Referring Provider Family Medicine; Visit Provider Family Medicine
DX: E11.9 Type 2 diabetes mellitus without complications (principal); Z71.3 Dietary counseling and surveillance; Z79.84 Long term (current) use of oral hypoglycemic drugs
CPT/HCPCS: 97803

== ENCOUNTER → 2022-09-19 09:28 | Outpatient (CLI) | payer OTHER, SELFPAY ==
[2021-10-01 16:44] VITALS: BMI 26.9
--- NOTE | 2022-09-19 10:06 | DIAB.MNTFU ---
Follow-up Diabetes Medical Nutrition Therapy Assessment Name: Harmeet Finn Date: 09/19/22 Time: 133-067q Dx: Type II Diabetes Harmeet presents for follow-up DM visit. Reports she feels she is doing very well managing her DM. Has reduced sweets intake. Incorporating more protein, ie at breakfst and with snacks. Hydration continues to be a challenge, but states overall increasing intake and has added more water in the morning as discussed last visit. Would like to review hgA1c hx and have a copy of labs. Anthropometrics: Ht: 60 Wt: no new wt today Physical Activity: 45-60 min exercise daily. Has increased elliptical to 15-20 mins daily. Self-Monitoring Blood Glucose: Reports FBG continue 140s or less. Reports some HS readings, also often in the 140s, perhaps 180 is consumed sweets in evening. Diabetes Medications: 1000mg Metformin BID Pertinent Labs: HgA1c 07/2022: 7.1% 04/2022: 8.1% 11/2021: 7.3% 06/2021: 6.9% Past Medical History: (Last Reviewed 03/05/22 @ 18:25 by LINDA Gutierrez) Atrophic vaginitis Chicken pox Kid Chronic lower urinary tract infection Colon polyps (2009) Constipation Fractures (~2005) Hydronephrosis of left kidney Measles Kid Multiple sclerosis (1991) Osteopenia Parapelvic renal cyst Plantar warts (2004) Pyuria Recurrent urinary tract infection Nutrition Rx: Carbohydrates: Meal:30-45g Snack: 15-30g Nutrition Diagnosis: - Inconsistent protein intake r/t nutr knowledge deficit aeb diet recall - improved - Predicted inadequate fluid intake r/t timing of fluids and urination frequency/time aeb pt report and diet recall - in progress Intervention: This participant was very receptive. Provided appropriate educational handouts. Discussed the following topics: Blood sugar review and trends. HgA1c goals and trends Benefit of well managed BG/HgA1c Fluid intake and progress Physical activity plan and progress Created SMART goals for patient self-care and success. Goals: Drink additional 8oz water at lunch and 8-16oz with snack- 50% met Add egg to breakfast- met Follow-up: RDN CDCES follow-up prn. Harmeet seems to be managing her DM well and has made lifestyle changes to help sustain management. No PCP visit on the schedule yet. Discussed potential for new Dm labs and f/u with provider in October. Encouraged Harmeet to contact me with any DM questions, concerns, or follow-up needs. she agreed to this plan. Clau Cerna RDN, [facility] Certified Diabetes Care and Senior Designer P: [phone] Thank you for this referral
== END ==
PROVIDERS: PCP Family Medicine; Referring Provider Family Medicine; Visit Provider Family Medicine
DX: E11.9 Type 2 diabetes mellitus without complications (principal); Z71.3 Dietary counseling and surveillance; Z79.84 Long term (current) use of oral hypoglycemic drugs
CPT/HCPCS: 97803

== ENCOUNTER → 2022-10-03 15:56 | Outpatient (CLI) | payer OTHER, SELFPAY ==
[2021-10-01 16:44] VITALS: BMI 26.9
--- NOTE | 2022-10-03 | DI.MG.S_ITS ---
BILATERAL DIGITAL SCREENING MAMMOGRAM 3D/2D WITH CAD: 10/03/2022 CLINICAL: Routine screening. Family history of breast cancer. Comparison is made to exams dated: 08/20/2021 mammogram, 06/28/2020 mammogram, and 06/25/2019 mammogram - [facility]. There are scattered areas of fibroglandular density in both breasts (category b / 25%-50% glandular tissue). Current study was also evaluated with a Computer Aided Detection (CAD) system. No significant masses, calcifications, or other findings are seen in either breast. There has been no significant interval change. IMPRESSION: NEGATIVE There is no mammographic evidence of malignancy. A 1 year screening mammogram is recommended. Based on the Tyrer Cuzick model (a risk assessment model) the patient's lifetime risk is 3.6% and her 10 year risk is 2.7%. According to the ACR, ACS, and NCCN guidelines, an annual breast MRI exam along with mammogram is recommended if the patient's lifetime risk is 20% or greater. This exam was interpreted at Station ID: [id number]. NOTE: For mammograms, a report in lay terms will be sent to the patient. Approximately 15% of breast malignancies will not be visualized mammographically. In the management of a palpable breast mass, a negative mammogram must not discourage biopsy of a clinically suspicious lesion. Electronically Signed By: Keven tiwari/shamir:10/04/2022 10:11:01 letter sent: Normal Exam ACR BI-RADS Category 1: Negative 3341F
== END ==
PROVIDERS: PCP Family Medicine; Referring Provider Family Medicine; Visit Provider Obstetrics & Gynecology
DX: Z12.31 Encounter for screening mammogram for malignant neoplasm of breast (principal); Z80.3 Family history of malignant neoplasm of breast
CPT/HCPCS: 77063; 77067

== ENCOUNTER → 2022-10-09 15:49 | Outpatient (CLI) | payer OTHER, SELFPAY ==
[2021-10-01 16:44] VITALS: BMI 26.9
--- NOTE | 2022-10-09 15:49 | DI.CT.S_ITS ---
PROCEDURE: CT HEAD/BRAIN WO CON INDICATIONS: head injury TECHNIQUE: Noncontrast 4.5 mm thick angled axial sections acquired from the foramen magnum to the vertex, with coronal and sagittal reformats. For radiation dose reduction, the following was used: automated exposure control, adjustment of mA and/or kV according to patient size. COMPARISON: [facility], CT, CT HEAD/BRAIN WO CON, 03/10/2020, 11:42. FINDINGS: Image quality: Excellent. CSF spaces: Basal cisterns are patent. No extra-axial fluid collections. The ventricles are symmetric in size and shape. Brain: No intracranial bleeds or masses. There is cerebral volume loss for age, with resultant ventricular and sulcal prominence. There are periventricular and deep white matter chronic small vessel ischemic changes. There is intracranial internal carotid artery atherosclerosis. Skull and face: Calvarium and visualized facial bones appear intact, without suspicious lesions. Mild hyperostosis frontalis is again incidentally noted. Sinuses: Visualized sinuses and mastoids are clear. IMPRESSION: No acute intracranial hemorrhage or other acute intracranial abnormality can be seen. Dictated by: Aron Manning M.D. on 10/09/2022 at 15:56 Approved by: Aron Manning M.D. on 10/09/2022 at 15:57
== END ==
PROVIDERS: PCP Family Medicine; Referring Provider Physician Assistant; Visit Provider Physician Assistant
DX: S09.90XA Unspecified injury of head, initial encounter (principal); M85.2 Hyperostosis of skull; I65.29 Occlusion and stenosis of unspecified carotid artery; W19.XXXA Unspecified fall, initial encounter
CPT/HCPCS: 70450

== ENCOUNTER → 2022-12-06 18:36 | Outpatient (CLI) | payer OTHER, SELFPAY ==
[2021-10-01 16:44] VITALS: BMI 26.9
== END ==
PROVIDERS: PCP Family Medicine; Visit Provider Nurse Practitioner Family
DX: R30.0 Dysuria (principal)
CPT/HCPCS: 87086

== ENCOUNTER → 2022-12-17 14:16 | Outpatient (CLI) | payer OTHER, SELFPAY ==
[2021-10-01 16:44] VITALS: BMI 26.9
[2022-12-18 11:16] LABS: x Labcorp Estim. Avg Glu (eAG) 154 mg/dL (.)
== END ==
PROVIDERS: PCP Family Medicine; Referring Provider Family Medicine; Visit Provider Family Medicine
DX: E11.9 Type 2 diabetes mellitus without complications (principal); R89.9 Unspecified abnormal finding in specimens from other organs, systems and tissues
CPT/HCPCS: 36415; 83036

== ENCOUNTER → 2023-01-28 08:35 | Outpatient (CLI) | payer OTHER, SELFPAY ==
[2021-10-01 16:44] VITALS: BMI 26.9
[2023-01-28 12:12] LABS: Add Manual Diff / Slide Review NO; Basophils Absolute Auto 100 /uL (0-100); Eosinophils Absolute Auto 200 /uL (0-450); Eosinophils Percent Auto 3.2 % (2-4); Hematocrit 39.5 % (36-46); Hemoglobin 13.6 g/dL (12.0-16.0); Lymphocytes Absolute Auto 2100 /uL (1100-4500); Lymphocytes Percent Auto 29.8 % (25-40); Mean Corpuscular HGB Conc 34.5 % (30-36); Mean Corpuscular Hemoglobin 30.3 PG (26-34); Mean Corpuscular Volume 87.9 fL (80-100); Monocytes Absolute Auto 600 /uL (0-900); Monocytes Percent Auto 8.7 % (3-14); Neutrophils Absolute Auto 4000 /uL (1500-7000); Neutrophils Percent Auto 57.3 % (50-75); Platelet Count 266 X10^3/uL (150-400); Red Cell Distribution Width 13.3 % (11.6-14.8); White Blood Cell Count 7.1 X10^3/uL (4.5-11.0)
[2023-01-28 13:08] LABS: Microalbumin Urine Random 1.1 mg/dL (0-1.6)
[2023-01-28 13:13] LABS: Creatinine Urine Random 79.2 mg/dL; Microalbumi Creatinin Ratio Ur 13.8 ug/mg CR (<30)
[2023-01-28 13:22] LABS: Alanine Aminotransferase 21 IU/L (<35); Albumin 4.2 g/dL (3.5-5.0); Albumin Globulin Ratio 1.6 (1.0-2.8); Alkaline Phosphatase 61 U/L (38-126); Aspartate Aminotransferase 24 IU/L (14-36); BUN Creatinine Ratio 17.8 (6-22); Bilirubin Total 0.5 mg/dL (0.2-1.3); Blood Urea Nitrogen 13 mg/dL (7-17); Calcium 9.3 mg/dL (8.4-10.2); Chloride 101 mmol/L (98-107); Cholesterol 134 mg/dL (140-199); Estimated Glomerular Filt Rate > 60 mL/min (>60); Globulin 2.7 g/dL (1.7-4.1); Glucose 145 mg/dL (80-110); HDL Cholesterol 60 mg/dL (40-60); HEMOLYSIS < 15 (0-50); LDL Cholesterol Calculated 44 mg/dL (<100); Potassium 4.2 mmol/L (3.4-5.1); Sodium 139 mmol/L (137-145); Total Protein 6.9 g/dL (6.3-8.2); Triglycerides 149 mg/dL (35-150)
[2023-01-28 13:39] LABS: Carbon Dioxide 31 mmol/L (22-32)
[2023-01-28 18:22] LABS: TSH w/ Reflex to FT4 2.68 uIU/mL (0.47-4.68)
[2023-01-30 05:52] LABS: x Labcorp Estim. Avg Glu (eAG) 154 mg/dL (.)
== END ==
PROVIDERS: PCP Family Medicine; Referring Provider Physician Assistant; Visit Provider Physician Assistant
DX: E11.9 Type 2 diabetes mellitus without complications (principal); E78.5 Hyperlipidemia, unspecified; R60.9 Edema, unspecified
CPT/HCPCS: 36415; 80053; 80061; 82043; 82570; 83036; 84443; 85025

== ENCOUNTER → 2023-02-06 10:13 | Outpatient (CLI) | payer OTHER, SELFPAY ==
[2021-10-01 16:44] VITALS: BMI 26.9
[2023-02-06 13:03] LABS: Appearance Urine UA CLOUDY; Bilirubin Urine UA NEGATIVE (NEGATIVE); Color Urine UA YELLOW; Glucose Urine UA NEGATIVE (Negative); Ketones Urine UA NEGATIVE (NEGATIVE); Leukocyte Esterase Urine UA 3+ (NEGATIVE); Nitrite Urine UA NEGATIVE (Negative); Occult Blood Urine UA TRACE-INTACT (Negative); Protein Urine UA NEGATIVE (Negative); Specific Gravity Urine UA 1.015 (1.000-1.035); Urobilinogen Urine UA 0.2 E.U./dL (0.2)
[2023-02-06 13:11] LABS: Amorphous Sediment Urine 3+; Bacteria Urine None Seen; Culture Indicated Urine Specimen Cultured; RBC Urine None Seen (0-5/HPF); Squamous Epithelial Cell Urine 1-5 /HPF (0-5/HPF); WBC Urine 30-100/HPF (0-5/HPF)
== END ==
PROVIDERS: PCP Family Medicine; Referring Provider Family Medicine; Visit Provider Family Medicine
DX: R30.0 Dysuria (principal)
CPT/HCPCS: 81003; 81015; 87077; 87086

== ENCOUNTER → 2023-07-14 13:48 | Outpatient (CLI) | payer OTHER, SELFPAY ==
[2021-10-01 16:44] VITALS: BMI 26.9
--- NOTE | 2023-07-14 13:49 | DI.RAD.S_ITS ---
PROCEDURE: XR ABDOMEN MIN 2V INDICATIONS: Constipation x 1 month TECHNIQUE: 2 views of the abdomen were acquired. COMPARISON: None. FINDINGS: Surgical changes and devices: Cholecystectomy clips are noted. Bowel: No pneumoperitoneum. The bowel gas pattern is nonobstructive. There is a large amount of stool in colon. Soft tissues: No masses; visualized solid organ contours appear normal in size. No suspicious abdominal calcifications. Bones: No suspicious bony abnormalities. Scoliosis and degenerative changes in lumbar spine. IMPRESSION: Nonobstructive bowel gas pattern with a large amount of stool in colon. Dictated by: Trisha Sanchez M.D. on 07/14/2023 at 16:46 Approved by: Trisha Sanchez M.D. on 07/14/2023 at 16:47
== END ==
PROVIDERS: PCP Family Medicine; Referring Provider Physician Assistant; Visit Provider Physician Assistant
DX: K59.00 Constipation, unspecified (principal)
CPT/HCPCS: 74019

== ENCOUNTER → 2023-08-29 17:38 | Outpatient (CLI) | payer OTHER, SELFPAY ==
[2021-10-01 16:44] VITALS: BMI 26.9
--- NOTE | 2023-08-29 17:40 | DI.RAD.S_ITS ---
PROCEDURE: XR WRIST RT MIN 3V INDICATIONS: wrist injury TECHNIQUE: 4 views of the wrist were acquired. COMPARISON: None. FINDINGS: Bones: No fractures or dislocations. No suspicious bony lesions. Soft tissues: No suspicious soft tissue calcifications. IMPRESSION: No acute bony abnormality. Dictated by: Keo Richter M.D. on 08/29/2023 at 19:44 Approved by: Keo Richter M.D. on 08/29/2023 at 19:44
== END ==
LOC: RAD 17:39
PROVIDERS: PCP Family Medicine; Referring Provider Nurse Practitioner Family; Visit Provider Nurse Practitioner Family
DX: S69.91XA Unspecified injury of right wrist, hand and finger(s), initial encounter (principal); X58.XXXA Exposure to other specified factors, initial encounter
CPT/HCPCS: 73110

== ENCOUNTER → 2023-10-07 17:06 | Outpatient (CLI) | payer OTHER, SELFPAY ==
[2021-10-01 16:44] VITALS: BMI 26.9
--- NOTE | 2023-10-07 | DI.MG.S_ITS ---
BILATERAL DIGITAL SCREENING MAMMOGRAM 3D/2D WITH CAD: 10/07/2023 CLINICAL: Routine screening. Comparison is made to exams dated: 10/03/2022 mammogram, 08/20/2021 mammogram, and 06/28/2020 mammogram - [facility]. There are scattered areas of fibroglandular density in both breasts (category b / 25%-50% glandular tissue). Current study was also evaluated with a Computer Aided Detection (CAD) system. There are benign calcifications in both breasts. No significant masses, calcifications, or other findings are seen in either breast. There has been no significant interval change. IMPRESSION: BENIGN There is no mammographic evidence of malignancy. A 1 year screening mammogram is recommended. Based on the Tyrer Cuzick model (a risk assessment model) the patient's lifetime risk is 3.4% and her 10 year risk is 2.7%. According to the ACR, ACS, and NCCN guidelines, an annual breast MRI exam along with mammogram is recommended if the patient's lifetime risk is 20% or greater. This exam was interpreted at Station ID: [id number]. NOTE: For mammograms, a report in lay terms will be sent to the patient. Approximately 15% of breast malignancies will not be visualized mammographically. In the management of a palpable breast mass, a negative mammogram must not discourage biopsy of a clinically suspicious lesion. Electronically Signed By: Gladys ott/shamir:10/08/2023 16:58:35 copy to: Staci Bowman letter sent: Normal Exam ACR BI-RADS Category 2: Benign Finding(s) 3342F
== END ==
PROVIDERS: PCP Family Medicine; Referring Provider Family Medicine; Visit Provider Family Medicine
DX: Z12.31 Encounter for screening mammogram for malignant neoplasm of breast (principal); R92.323 Mammographic fibroglandular density, bilateral breasts
CPT/HCPCS: 77063; 77067

== ENCOUNTER → 2023-12-16 11:10 | Outpatient (CLI) | payer OTHER, SELFPAY ==
[2021-10-01 16:44] VITALS: BMI 26.9
[2023-12-16 12:15] LABS: Hemoglobin A1C% w Est Avg Glu 7.7 % (4.0-6.0)
== END ==
LOC: LAB 11:11
PROVIDERS: PCP Family Medicine; Referring Provider Family Medicine; Visit Provider Family Medicine
DX: E11.9 Type 2 diabetes mellitus without complications (principal)
CPT/HCPCS: 83036

== ENCOUNTER → 2023-12-22 12:28 | Outpatient (CLI) | payer OTHER, SELFPAY ==
[2021-10-01 16:44] VITALS: BMI 26.9
[2023-12-22 13:43] LABS: BUN Creatinine Ratio 23.7 (6-22); Blood Urea Nitrogen 14 mg/dL (7-17); Calcium 9.2 mg/dL (8.4-10.2); Carbon Dioxide 30 mmol/L (22-32); Chloride 103 mmol/L (98-107); Estimated Glomerular Filt Rate > 60 mL/min (>60); Glucose 204 mg/dL (80-110); HEMOLYSIS < 15 (0-50); Potassium 4.2 mmol/L (3.4-5.1); Sodium 139 mmol/L (137-145)
[2023-12-22 17:45] LABS: Bilirubin Urine UA NEGATIVE (NEGATIVE); Color Urine UA YELLOW; Glucose Urine UA NEGATIVE (Negative); Ketones Urine UA NEGATIVE (NEGATIVE); Leukocyte Esterase Urine UA 2+ (NEGATIVE); Nitrite Urine UA NEGATIVE (Negative); Occult Blood Urine UA TRACE-INTACT (Negative); Protein Urine UA NEGATIVE (Negative); Urobilinogen Urine UA 0.2 E.U./dL (0.2)
[2023-12-22 17:49] LABS: Appearance Urine UA Slightly Cloudy
[2023-12-22 17:51] LABS: Bacteria Urine Few (2-10); Culture Indicated Urine Specimen Cultured; RBC Urine 1-5/HPF (0-5/HPF); Squamous Epithelial Cell Urine 5-10 /HPF (0-5/HPF); Urine Volume 10mL (spun); WBC Urine 10-30/HPF (0-5/HPF)
== END ==
PROVIDERS: PCP Family Medicine; Referring Provider Family Medicine; Visit Provider Family Medicine
DX: N13.30 Unspecified hydronephrosis (principal)
CPT/HCPCS: 36415; 80048; 81001; 87086

== ENCOUNTER → 2024-01-22 13:29 | Outpatient (CLI) | payer OTHER, SELFPAY ==
[2021-10-01 16:44] VITALS: BMI 26.9
[2024-01-22 14:43] LABS: Appearance Urine UA CLEAR; Bilirubin Urine UA NEGATIVE (NEGATIVE); Color Urine UA YELLOW; Glucose Urine UA NEGATIVE (Negative); Ketones Urine UA NEGATIVE (NEGATIVE); Leukocyte Esterase Urine UA TRACE (NEGATIVE); Nitrite Urine UA NEGATIVE (Negative); Occult Blood Urine UA TRACE-INTACT (Negative); Protein Urine UA NEGATIVE (Negative); Urobilinogen Urine UA 0.2 E.U./dL (0.2)
[2024-01-22 14:44] LABS: pH Urine UA 6.5 (4.5-8.0)
[2024-01-22 14:59] LABS: Bacteria Urine None Seen; Culture Indicated Urine Cult Not Indicated; RBC Urine 1-5/HPF (0-5/HPF); Squamous Epithelial Cell Urine 1-5 /HPF (0-5/HPF); Urine Volume 10mL (spun); WBC Urine 1-5/HPF (0-5/HPF)
== END ==
PROVIDERS: PCP Family Medicine; Referring Provider Family Medicine; Visit Provider Family Medicine
DX: N39.0 Urinary tract infection, site not specified (principal)
CPT/HCPCS: 81001

== ENCOUNTER → 2024-02-06 16:53 | Outpatient (CLI) | payer OTHER, SELFPAY ==
[2021-10-01 16:44] VITALS: BMI 26.9
== END ==
PROVIDERS: PCP Family Medicine; Visit Provider Physician Assistant Surgical
DX: R30.0 Dysuria (principal)
CPT/HCPCS: 87086

== ENCOUNTER → 2024-02-09 11:22 | Outpatient (CLI) | payer OTHER, SELFPAY ==
[2021-10-01 16:44] VITALS: BMI 26.9
[2024-02-09 12:31] LABS: Appearance Urine UA CLEAR; Bilirubin Urine UA NEGATIVE (NEGATIVE); Color Urine UA YELLOW; Glucose Urine UA NEGATIVE (Negative); Ketones Urine UA NEGATIVE (NEGATIVE); Leukocyte Esterase Urine UA TRACE (NEGATIVE); Nitrite Urine UA POSITIVE (Negative); Occult Blood Urine UA NEGATIVE (Negative); Protein Urine UA TRACE (Negative)
[2024-02-09 12:32] LABS: Urine Volume 10mL (spun)
[2024-02-09 12:34] LABS: Bacteria Urine None Seen; Culture Indicated Urine Specimen Cultured; RBC Urine None Seen (0-5/HPF); Squamous Epithelial Cell Urine None Seen (0-5/HPF); WBC Urine 1-5/HPF (0-5/HPF)
== END ==
PROVIDERS: PCP Family Medicine; Referring Provider Family Medicine; Visit Provider Family Medicine
DX: N39.0 Urinary tract infection, site not specified (principal)
CPT/HCPCS: 81001; 87086

== ENCOUNTER → 2024-02-20 17:25 | Outpatient (CLI) | payer OTHER, SELFPAY ==
[2021-10-01 16:44] VITALS: BMI 26.9
[2024-02-20 17:40] LABS: Appearance Urine UA SL CLOUDY; Bilirubin Urine UA NEGATIVE (NEGATIVE); Color Urine UA YELLOW; Glucose Urine UA NEGATIVE (Negative); Ketones Urine UA NEGATIVE (NEGATIVE); Leukocyte Esterase Urine UA 2+ (NEGATIVE); Nitrite Urine UA NEGATIVE (Negative); Occult Blood Urine UA 1+ (Negative); Protein Urine UA NEGATIVE (Negative); Urobilinogen Urine UA 0.2 E.U./dL (0.2)
[2024-02-20 17:46] LABS: Bacteria Urine Moderate (10-30); Culture Indicated Urine Specimen Cultured; RBC Urine 1-5/HPF (0-5/HPF); Squamous Epithelial Cell Urine 1-5 /HPF (0-5/HPF); Urine Volume 10mL (spun); WBC Urine 30-100/HPF (0-5/HPF)
== END ==
PROVIDERS: PCP Family Medicine; Referring Provider Physician Assistant; Visit Provider Physician Assistant
DX: R39.9 Unspecified symptoms and signs involving the genitourinary system (principal)
CPT/HCPCS: 81001; 87086

== ENCOUNTER → 2024-03-18 16:15 | Outpatient (CLI) | payer OTHER, SELFPAY ==
[2021-10-01 16:44] VITALS: BMI 26.9
== END ==
LOC: LAB 16:18
PROVIDERS: PCP Family Medicine; Visit Provider Physician Assistant Medical
DX: R31.9 Hematuria, unspecified (principal)
CPT/HCPCS: 87086

== ENCOUNTER 2024-03-24 10:46 | Observation (INO) | payer OTHER, MEDICARE, SELFPAY ==
[2021-10-01 16:44] VITALS: BMI 26.9
[2024-03-24] VITALS (11 sets, daily range): BP systolic 134–167; BP diastolic 68–89; PULSE 84–108; RESP 10–20; TEMP 36.5–36.9; O2SAT 92–98; BMI 26.7
--- NOTE | 2024-03-24 11:41 | ED.NAVMDI ---
HPI - Nausea/Vomiting/Diarrhea General Chief complaint: Nausea/Vomiting/Diarrhea Stated complaint: UTI, Diarrhea Time Seen by Provider: 03/24/24 11:24 Mode of arrival: Ambulatory History of Present Illness HPI Narrative: 73-year-old woman with a history of hypertension, hyperlipidemia, MS recurrent urinary tract infections currently on vaginal estradiol and ciprofloxacin for a recent Enterococcus UTI presents with diarrhea and abdominal discomfort. She describes diarrhea starting approximately 48 hours ago, yesterday between the frequent urination and frequent stools she spent much of the day in the bathroom. She describes her abdomen is significantly bloated however her MS does interfere slightly with her pain sensation. She notes that over the last 4 days she has had a temperature up to 100.5. When temperatures are typically above 99 she will have muscle spasm in her legs secondary to MS and she has had 3 mild falls in that timeframe. She is not vomiting, no fevers. No chest pain or dyspnea. There has been no blood in the stool. Related Data Home Medications Medication Instructions Recorded Confirmed CHOLECALCIFEROL (VITAMIN D3) 2,000 iu PO Q DAY ##0 02/19/11 03/22/24 (Vitamin D) Calcium Carbonate/Vitamin D 1 sgl PO Q DAY ##0 02/19/11 03/22/24 (#CALCIUM 1200 W/VITAMIN D 600 MG-100 IU) Cranberry (#CRANBERRY) 2,000 mg PO Q DAY ##0 02/19/11 03/22/24 Fish Oil (#SUPER EPA 2000) 2,000 mg PO Q DAY ##0 02/19/11 03/22/24 [Tumeric] ##0 09/07/17 03/22/24 vitamin B complex 1 tab PO DAILY 02/10/19 03/22/24 psyllium husk 2.6 gram/4.1 gram 1 tbsp PO DAILY 12/22/23 03/22/24 oral powder blood sugar diagnostic (OneTouch #10 ea 02/18/24 03/22/24 Verio test strips) Previous Rx's Medication Instructions Recorded Disabled Parking Permit #1 ea 05/09/20 One Touch Verio Glucose Monitor #1 ea 01/07/23 amlodipine 5 mg tablet 5 mg PO DAILY #90 tabs 02/10/23 One Touch Verio test strips and #300 ea 03/26/23 lancets baclofen 10 mg tablet See Rx Instructions .Route 04/11/23 .COMPLEX #600 tabs atorvastatin 10 mg tablet 10 mg PO DAILY #90 tabs 09/15/23 metformin 500 mg tablet,extended 1,000 mg (2 x 500 mg) PO BID #360 10/30/23 release 24 hr tabs magnesium citrate (OneLAX 300 ml PO DAILY PRN constipation 12/22/23 Magnesium Citrate oral solution) #296 mL phenazopyridine 100 mg tablet 100 mg PO TID PRN pain #6 tabs 02/06/24 (Pyridium) trospium 20 mg tablet 20 mg PO BID #200 tabs 02/09/24 polyethylene glycol 3350 17 68 g PO QDAY #850 grams 02/19/24 gram/dose oral powder (Miralax) estradiol 10 mcg vaginal tablet 10 mcg vaginal 2XW #24 tabs 02/24/24 (Yuvafem) ciprofloxacin HCl 250 mg tablet 250 mg PO Q12H 7 days #14 tabs 03/21/24 Disabled Parking Permit See Rx Instructions .Route 03/22/24 .COMPLEX #1 ea Hand controls #1 ea 03/22/24 hydrocodone 5 mg-acetaminophen 325 1 tab PO Q8H PRN Pain (Scale Score 03/22/24 mg tablet 1-3) #30 tabs Allergies Allergy/AdvReac Type Severity Reaction Status Date / Time Sulfa (Sulfonamide Allergy Severe ANAPHYLAXIS Verified 03/22/24 08:52 Antibiotics) [SULFA (SULFONAMIDE ANTIBIOTICS)] adhesive Allergy Mild TAPE; Verified 03/22/24 08:52 TOPICAL DERMATITIS FOR LONG PERIODS diphenhydramine Allergy Mild HIVES Verified 03/22/24 08:52 [DIPHENHYDRAMINE] Review of Systems Review of Systems Narrative: Pertinent positive and negative findings as per HPI Patient History Medical History Pyuria Parapelvic renal cyst Constipation Atrophic vaginitis Hydronephrosis of left kidney Chronic lower urinary tract infection Recurrent urinary tract infection Colon polyps (2009) Chicken pox Measles Plantar warts (2004) Fractures (~2005) Osteopenia Multiple sclerosis (1991) Surgical History History of tubal ligation History of cholecystectomy Anesthesia History of shoulder surgery (1973) Status post rotator cuff repair (2011) History of third molar tooth extraction (1970) Status post tubal ligation (1979) Family History Brother Age: 67 Diabetes mellitus Hypertension High cholesterol Child Age: 28 Adopted Mother Heart disease Hypertension Stroke Cancer Father Alzheimer's disease Grandmother No problems noted. Social History marital status: number of children: 1 household members: none occupational status: employed Smoking Status: Never smoker alcohol intake: current substance use type: does not use caffeine: Yes (tea-occasional ) Type(s) of exercise: other frequency: 5-6 times per week Smoking Status: Never smoker alcohol intake frequency: holidays/special occasions only Substance Use Type: does not use Exam Initial Vital Signs Initial Vital Signs: Vital Signs Temperature 98.3 F 03/24/24 11:00 Pulse Rate 108 H 03/24/24 11:00 Respiratory Rate 17 03/24/24 11:00 Blood Pressure 150/81 H 03/24/24 11:00 Pulse Oximetry 98 03/24/24 11:00 Oxygen Delivery Method Room Air 03/24/24 11:00 General: Healthy appearing, in no acute distress. Able to give a complete and coherent history. Well-nourished well-developed HEENT: Moist mucous membranes, normal sclera with reactive pupils, Respiratory: Lungs are clear to auscultation, no wheezing no rales no rhonchi. Full and symmetrical air movement Cardiac: Regular rate and rhythm no murmurs no bruits Abdomen: Soft, mild distention, mild diffuse tenderness without rebound or guarding, hyperactive bowel tones, no flank pain Skin: Warm and dry, no rashes Neurologic: Grossly neurologically intact with no obvious asymmetries or abnormalities Extremities: No trauma, well perfused, no lower extremity edema Psych: Cooperative, appropriate insight and affect Course Orders Ordered: ED Orders 03/24/24 11:21 GI Panel (Film Array) Stat 03/24/24 11:27 Urine Culture Stat Urine Microscopic Stat 03/24/24 11:36 Complete Blood Count AUTO DIFF Stat Comprehensive Metabolic Panel Stat Lipase Stat 03/24/24 11:54 CT abdomen pelvis w con Stat Ondansetron HCl (Ondansetron 4 Mg/2 Ml Inj) 4 mg IV NOW PRN PRN Reason: Nausea And Vomiting Ondansetron HCl (Ondansetron 4 Mg Odt) 4 mg PO NOW PRN PRN Reason: Nausea And Vomiting Discontinued Medications Sodium Chloride (Normal Saline 0.9%) 1,000 mls @ 1,000 mls/hr IV BOLUS ONE Stop: 03/24/24 15:27 Last Admin: 03/24/24 14:52 Dose: 1,000 mls/hr Documented By: NIRANJAN Vital Signs Vital signs: Vital Signs - 8 hr 03/24/24 11:00 Temperature 98.3 F Pulse Rate 108 H Respiratory Rate 17 Blood Pressure 150/81 H Pulse Oximetry 98 Oxygen Delivery Method Room Air MDM - Nausea/Vomiting/Diarrhea Lab Data 03/24/24 11:36 03/24/24 11:36 Labs: Lab Results 03/24/24 03/24/24 Range/Units 11:27 11:36 WBC 8.0 (4.5-11.0) X10^3/uL RBC 4.22 (4.0-5.2) X10^6/uL Hgb 12.5 (12.0-16.0) g/dL Hct 36.7 (36-46) % MCV 87.1 (80-100) fL MCH 29.6 (26-34) PG MCHC 33.9 (30-36) % RDW 12.7 (11.6-14.8) % Plt Count 361 (150-400) X10^3/uL Neut % (Auto) 64.3 (50-75) % Lymph % (Auto) 24.7 L (25-40) % [place] % (Auto) 7.6 (3-14) % Eos % (Auto) 2.2 (2-4) % Baso % (Auto) 1.2 (0-2) % Neut # (Auto) 5200 (9902-2115) /uL Lymph # (Auto) 2000 (9984-6235) /uL [place] # (Auto) 600 (0-900) /uL Eos # (Auto) 200 (0-450) /uL Baso # (Auto) 100 (0-100) /uL Sodium 136 L (137-145) mmol/L Potassium 4.0 (3.4-5.1) mmol/L Chloride 103 (98-107) mmol/L Carbon Dioxide 24 (22-32) mmol/L BUN 9 (7-17) mg/dL Creatinine 0.55 (0.52-1.04) mg/dL Estimated GFR > 60 (>60) mL/min BUN/Creatinine Ratio 16.4 (6-22) Glucose 208 H (80-110) mg/dL Calcium 9.2 (8.4-10.2) mg/dL Total Bilirubin 0.7 (0.2-1.3) mg/dL AST 27 (14-36) IU/L ALT 39 H (<35) IU/L Alkaline Phosphatase 88 (38-126) U/L Total Protein 7.1 (6.3-8.2) g/dL Albumin 3.9 (3.5-5.0) g/dL Globulin 3.2 (1.7-4.1) g/dL Albumin/Globulin Ratio 1.2 (1.0-2.8) Lipase 78 (23-300) U/L Urine RBC 1-5/hpf (0-5/HPF) Urine WBC 30-100/hpf H (0-5/HPF) Ur Squamous Epith Cells 1-5 /hpf (0-5/HPF) Urine Bacteria Few (2-10) H (None) Ur Culture Indicated? Specimen cultured Vol Urine Centrifuged 10ml (spun) Point of Care Testing Glucose POC 220 Urine Dip Bedside Urine Glucose Negative Bedside Urine Bilirubin - Negative Bedside Urine Ketone - Negative Urine Specific Graham 1.015 Bedside Urine Occult Blood +/- Bedside Urine pH 6.0 Bedside Urine Protein - Negative Bedside Urine Urobilinogen - Negative Bedside Urine Nitrite - Negative Bedside Urine Leukocytes ++ [address] scan - abdomen/pelvis: Radiologist's Impression: PROCEDURE: CT ABDOMEN PELVIS W CON INDICATIONS: abdominal pain with diarrhea TECHNIQUE: After the administration of intravenous contrast, axial sections acquired from the lung bases to the pubic symphysis. Coronal and sagittal reformats were performed. For radiation dose reduction, the following was used: automated exposure control, adjustment of mA and/or kV according to patient size. COMPARISON: [facility], CT, CT ABDOMEN PELVIS W CON, 11/11/2020, 15:11. FINDINGS: Image quality: Diagnostic. Lower Chest: No significant findings. ABDOMEN: Liver: No solid mass. Gallbladder: Surgically absent Biliary ducts: No biliary dilation. Pancreas: No ductal dilation. Spleen: Size is within normal limits. Adrenal Glands: No adrenal nodules. Kidneys and Ureters: There is a 7 mm stone which obstructs the proximal left ureter just beyond the UPJ, resulting in moderate left hydronephrosis. There is a nonobstructing lower pole stone on the left measuring 7 mm as well. The right kidney and ureter are unremarkable. Stomach and Bowel: Normal colonic caliber, without significant wall thickening. Diverticulosis without evidence of acute diverticulitis. Small bowel is unremarkable. Peritoneum: No abnormal intraperitoneal fluid. No free air. Ventral Wall: No significant ventral hernia. Abdominal Nodes: No retroperitoneal or mesenteric adenopathy by size criteria. Vessels: Aorta and inferior vena cava are normal in size. PELVIS: Pelvic Organs: Unremarkable. Bladder: No bladder wall thickening, accounting for underdistention. Pelvic Nodes: No enlarged lymph nodes. Miscellaneous: Right inguinal hernia containing a calcification, as before. Bones: No aggressive osseous abnormality. S-shaped scoliotic curvature, old compression fractures, degenerative change. IMPRESSION: A 7 mm stone obstructs the proximal left ureter resulting in moderate left hydronephrosis. There is also a nonobstructing left lower pole 7 mm stone. Diverticulosis without evidence of acute diverticulitis. Interval cholecystectomy. Old compression fractures. Dictated by: Homer Villatoro M.D. 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 She has not significantly dehydrated Lab Test results independently reviewed as above. Pertinent findings: CBC is reassuring with no leukocytosis or anemia Chemistries are reassuring with normal creatinine. Glucose is slightly elevated at 208. Imaging studies independently reviewed:CT abd shows A 7 mm stone obstructs the proximal left ureter resulting in moderate left hydronephrosis. Consultations: Care is reviewed with , urology. Given the recent diagnosis, the switch to Cipro for effective treatment of the Enterococcus only 48 hours ago this does need to be treated as an infected stone/pyelonephritis. Patient will need ureteral stent. Treatments: As patient did take her ciprofloxacin this morning additional antibiotics are not given, Zofran has been helpful in controlling nausea Re-evaluations: Prior to transfer to the OR, fingerstick blood sugar is over 500. In reviewing multiple prior chemistries sugars have consistently been in the 150-200 range. She does take metformin. From an emergency department standpoint I would simply recheck this tomorrow. Will communicate with anesthesia to see if they want any more direct intervention. Discussion: 73-year-old woman with a history of chronic UTIs currently on Cipro started 48 hours ago for Enterococcus UTI symptoms. Still has some white cells in her urine. Presents with abdominal pain and vomiting. CT scan reveals a 7 mm proximal obstructing ureteral stone. We are still waiting to obtain a stool sample to make sure there isn't evidence for C diff or other infectious diarrhea. Care is reviewed with Urology and given the timing in the infection she does need a stent placed. There is no evidence of sepsis at this time. Findings, recommendations and plans reviewed with the patient. Discharge Plan Departure Patient Disposition: Admitted to Surgery Clinical Impression: Left ureteral calculus, Acute UTI Admit Date/Time: 03/24/24 15:16 Admit Provider: Brian Denis
[2024-03-24 11:45] LABS: Add Manual Diff / Slide Review NO; Basophils Absolute Auto 100 /uL (0-100); Basophils Percent Auto 1.2 % (0-2); Eosinophils Absolute Auto 200 /uL (0-450); Eosinophils Percent Auto 2.2 % (2-4); Hematocrit 36.7 % (36-46); Hemoglobin 12.5 g/dL (12.0-16.0); Lymphocytes Absolute Auto 2000 /uL (1100-4500); Lymphocytes Percent Auto 24.7 % (25-40); Mean Corpuscular HGB Conc 33.9 % (30-36); Mean Corpuscular Hemoglobin 29.6 PG (26-34); Mean Corpuscular Volume 87.1 fL (80-100); Monocytes Absolute Auto 600 /uL (0-900); Monocytes Percent Auto 7.6 % (3-14); Neutrophils Absolute Auto 5200 /uL (1500-7000); Neutrophils Percent Auto 64.3 % (50-75); Platelet Count 361 X10^3/uL (150-400); Red Blood Cell Count 4.22 X10^6/uL (4.0-5.2); Red Cell Distribution Width 12.7 % (11.6-14.8)
[2024-03-24 11:47] LABS: Urine Volume 10mL (spun)
--- NOTE | 2024-03-24 11:47 | PC.NURSE ---
patient has been dealing with diarrhea and constipation for a several months and does not associate it with meal time or anything else. She has been seen by her PCP for this and has been trying miralax. She has been having more severe diarrhea after a recent abx change. She had her gallbladder removed a few years ago but does not state that her diarrhea became worse after the removal.
[2024-03-24 11:50] LABS: Bacteria Urine Few (2-10); Culture Indicated Urine Specimen Cultured; RBC Urine 1-5/HPF (0-5/HPF); Squamous Epithelial Cell Urine 1-5 /HPF (0-5/HPF); WBC Urine 30-100/HPF (0-5/HPF)
--- NOTE | 2024-03-24 11:54 | DI.CT.S_ITS ---
PROCEDURE: CT ABDOMEN PELVIS W CON INDICATIONS: abdominal pain with diarrhea TECHNIQUE: After the administration of intravenous contrast, axial sections acquired from the lung bases to the pubic symphysis. Coronal and sagittal reformats were performed. For radiation dose reduction, the following was used: automated exposure control, adjustment of mA and/or kV according to patient size. COMPARISON: [facility], CT, CT ABDOMEN PELVIS W CON, 11/11/2020, 15:11. FINDINGS: Image quality: Diagnostic. Lower Chest: No significant findings. ABDOMEN: Liver: No solid mass. Gallbladder: Surgically absent Biliary ducts: No biliary dilation. Pancreas: No ductal dilation. Spleen: Size is within normal limits. Adrenal Glands: No adrenal nodules. Kidneys and Ureters: There is a 7 mm stone which obstructs the proximal left ureter just beyond the UPJ, resulting in moderate left hydronephrosis. There is a nonobstructing lower pole stone on the left measuring 7 mm as well. The right kidney and ureter are unremarkable. Stomach and Bowel: Normal colonic caliber, without significant wall thickening. Diverticulosis without evidence of acute diverticulitis. Small bowel is unremarkable. Peritoneum: No abnormal intraperitoneal fluid. No free air. Ventral Wall: No significant ventral hernia. Abdominal Nodes: No retroperitoneal or mesenteric adenopathy by size criteria. Vessels: Aorta and inferior vena cava are normal in size. PELVIS: Pelvic Organs: Unremarkable. Bladder: No bladder wall thickening, accounting for underdistention. Pelvic Nodes: No enlarged lymph nodes. Miscellaneous: Right inguinal hernia containing a calcification, as before. Bones: No aggressive osseous abnormality. S-shaped scoliotic curvature, old compression fractures, degenerative change. IMPRESSION: A 7 mm stone obstructs the proximal left ureter resulting in moderate left hydronephrosis. There is also a nonobstructing left lower pole 7 mm stone. Diverticulosis without evidence of acute diverticulitis. Interval cholecystectomy. Old compression fractures. Dictated by: Homer Villatoro M.D. on 03/24/2024 at 13:13 Approved by: Homer Villatoro M.D. on 03/24/2024 at 13:17
[2024-03-24 12:01] LABS: Alanine Aminotransferase 39 IU/L (<35); Albumin 3.9 g/dL (3.5-5.0); Albumin Globulin Ratio 1.2 (1.0-2.8); Alkaline Phosphatase 88 U/L (38-126); Aspartate Aminotransferase 27 IU/L (14-36); BUN Creatinine Ratio 16.4 (6-22); Bilirubin Total 0.7 mg/dL (0.2-1.3); Blood Urea Nitrogen 9 mg/dL (7-17); Calcium 9.2 mg/dL (8.4-10.2); Carbon Dioxide 24 mmol/L (22-32); Chloride 103 mmol/L (98-107); Estimated Glomerular Filt Rate > 60 mL/min (>60); Globulin 3.2 g/dL (1.7-4.1); Glucose 208 mg/dL (80-110); HEMOLYSIS 50 (0-50); Lipase 78 U/L (23-300); Sodium 136 mmol/L (137-145); Total Protein 7.1 g/dL (6.3-8.2)
[2024-03-24] MEDS: SODIUM CHLORIDE 0.9% 1,000 ML 1000 ML IV (14:52)
--- NOTE | 2024-03-24 15:18 | P.CONS_ITS ---
History of Present Illness Consult details Date Patient Seen: 03/24/24 Time Patient Seen: 15:00 Chief complaint: UTI, Diarrhea Reason for consult: Left ureteral stone Narrative: 73 y/o F presented to ED for evaluation of abdominal pain and diarrhea. Briefly, she was diagnosed with a urinary tract infection nearly 6 days ago now. She was contacted over the weekend and her antibiotics were changed based upon her urine culture results. She no longer has any dysuria or urinary frequency/urgency (outside of her baseline urinary symptoms, these were worsened with her UTI). She has been taking Ciprofloxacin since 21 Mar 2024. Of note, she does admit to intermittent temperature spikes up to 100.5 F at home over the last few days. Her evaluation in the ED was notable for a WBC of 8.0, sCr of 0.55 and a UA concerning for ongoing urinary tract infection. She had a CT Abd/Pel performed that was notable for a 7mm left proximal ureterolith with resultant upstream moderate hydroureteronephrosis and an additional 7mm left lower pole calculus. Urology was consulted regarding the ureteral stone in the setting of a UTI. Meds Home Medications and Allergies Home Medications Medication Instructions Recorded Confirmed Type CHOLECALCIFEROL (VITAMIN D3) 2,000 iu PO Q DAY ##0 02/19/11 03/22/24 History (Vitamin D) Calcium Carbonate/Vitamin D 1 sgl PO Q DAY ##0 02/19/11 03/22/24 History (#CALCIUM 1200 W/VITAMIN D 600 MG-100 IU) Cranberry (#CRANBERRY) 2,000 mg PO Q DAY ##0 02/19/11 03/22/24 History Fish Oil (#SUPER EPA 2000) 2,000 mg PO Q DAY ##0 02/19/11 03/22/24 History [Tumeric] ##0 09/07/17 03/22/24 History vitamin B complex 1 tab PO DAILY 02/10/19 03/22/24 History Disabled Parking Permit #1 ea 05/09/20 03/22/24 Rx One Touch Verio Glucose Monitor #1 ea 01/07/23 03/22/24 Rx amlodipine 5 mg tablet 5 mg PO DAILY #90 tabs 02/10/23 03/22/24 Rx One Touch Verio test strips and #300 ea 03/26/23 03/22/24 Rx lancets baclofen 10 mg tablet See Rx Instructions .Route 10/13/23 09/23/24 Rx .COMPLEX #600 tabs atorvastatin 10 mg tablet 10 mg PO DAILY #90 tabs 09/15/23 03/22/24 Rx metformin 500 mg tablet,extended 1,000 mg (2 x 500 mg) PO BID #360 10/30/23 03/22/24 Rx release 24 hr tabs magnesium citrate (OneLAX 300 ml PO DAILY PRN constipation 12/22/23 03/22/24 Rx Magnesium Citrate oral solution) #296 mL psyllium husk 2.6 gram/4.1 gram 1 tbsp PO DAILY 12/22/23 03/22/24 History oral powder phenazopyridine 100 mg tablet 100 mg PO TID PRN pain #6 tabs 02/06/24 03/22/24 Rx (Pyridium) trospium 20 mg tablet 20 mg PO BID #200 tabs 02/09/24 03/22/24 Rx blood sugar diagnostic (OneTouch #10 ea 02/18/24 03/22/24 History Verio test strips) polyethylene glycol 3350 17 68 g PO QDAY #850 grams 02/19/24 03/22/24 Rx gram/dose oral powder (Miralax) estradiol 10 mcg vaginal tablet 10 mcg vaginal 2XW #24 tabs 02/24/24 03/22/24 Rx (Yuvafem) ciprofloxacin HCl 250 mg tablet 250 mg PO Q12H 7 days #14 tabs 03/21/24 03/22/24 Rx Disabled Parking Permit See Rx Instructions .Route 03/22/24 03/22/24 Rx .COMPLEX #1 ea Hand controls #1 ea 03/22/24 03/22/24 Rx hydrocodone 5 mg-acetaminophen 325 1 tab PO Q8H PRN Pain (Scale Score 03/22/24 03/22/24 Rx mg tablet 1-3) #30 tabs Allergies Allergy/AdvReac Type Severity Reaction Status Date / Time Sulfa (Sulfonamide Allergy Severe ANAPHYLAXIS Verified 03/22/24 08:52 Antibiotics) [SULFA (SULFONAMIDE ANTIBIOTICS)] adhesive Allergy Mild TAPE; Verified 03/22/24 08:52 TOPICAL DERMATITIS FOR LONG PERIODS diphenhydramine Allergy Mild HIVES Verified 03/22/24 08:52 [DIPHENHYDRAMINE] Review of Systems Review of Systems Narrative: CONSTITUTIONAL: Denies weight loss, fevers, chills. HEENT: Denies change in vision, hearing. RESP: Denies SOB, cough. CV: Denies palpations, CP. GI: Denies abodminal pain, nausea, vomiting, diarrhea. : Denies dysuria, hematuria, inability to void. MSK: Denies myalgia, joint pain. SKIN: Denies rash, pruritus. NEURO: Denies headache, syncope. PSYCH: Denies recent change in mood, anxiety, depression. Exam Vital Signs (past 8 hours): - 03/24/24 11:00 Temperature 98.3 F Pulse Rate 108 H Respiratory Rate 17 Blood Pressure 150/81 H Pulse Oximetry 98 Oxygen Delivery Method Room Air Oxygen Delivery Method Room Air Narrative Exam Narrative: GEN: Alert and oriented X3. No acute distress. Well-nourished. EYES: PERRLA, EOMI. HENT: Moist mucus membranes, no scleral icterus, normal neck ROM. RESP: Unlabored breathing, equal rise and fall of chest bilaterally, no cyanosis appreciated. CV: No peripheral edema, unremarkable heart rate. ABD: Soft, non-tender, non-distended, no palpable masses. EXT: No edema, clubbing or cyanosis. SKIN: No rashes or lesions. NEURO: No focal neurologic deficits, CN II-XII grossly intact. PSYCH: Cooperative, appropriate mood and affect. Objective Labs 03/24/24 11:36 03/24/24 11:36 Labs: Laboratory Results - last 24 hr 03/24/24 03/24/24 11:27 11:36 WBC 8.0 RBC 4.22 Hgb 12.5 Hct 36.7 MCV 87.1 MCH 29.6 MCHC 33.9 RDW 12.7 Plt Count 361 Neut % (Auto) 64.3 Lymph % (Auto) 24.7 L [place] % (Auto) 7.6 Eos % (Auto) 2.2 Baso % (Auto) 1.2 Neut # (Auto) 5200 Lymph # (Auto) 2000 [place] # (Auto) 600 Eos # (Auto) 200 Baso # (Auto) 100 Sodium 136 L Potassium 4.0 Chloride 103 Carbon Dioxide 24 BUN 9 Creatinine 0.55 Estimated GFR > 60 BUN/Creatinine Ratio 16.4 Glucose 208 H Calcium 9.2 Total Bilirubin 0.7 AST 27 ALT 39 H Alkaline Phosphatase 88 Total Protein 7.1 Albumin 3.9 Globulin 3.2 Albumin/Globulin Ratio 1.2 Lipase 78 Urine RBC 1-5/hpf Urine WBC 30-100/hpf H Ur Squamous Epith Cells 1-5 /hpf Urine Bacteria Few (2-10) H Ur Culture Indicated? Specimen cultured Vol Urine Centrifuged 10ml (spun) [facility] Medical History Pyuria Parapelvic renal cyst Constipation Atrophic vaginitis Hydronephrosis of left kidney Chronic lower urinary tract infection Recurrent urinary tract infection Colon polyps (2009) Chicken pox Measles Plantar warts (2004) Fractures (~2005) Osteopenia Multiple sclerosis (1991) Surgical History History of tubal ligation History of cholecystectomy Anesthesia History of shoulder surgery (1973) Status post rotator cuff repair (2011) History of third molar tooth extraction (1970) Status post tubal ligation (1979) Family History Brother Age: 67 Diabetes mellitus Hypertension High cholesterol Child Age: 28 Adopted Mother Heart disease Hypertension Stroke Cancer Father Alzheimer's disease Grandmother No problems noted. Social History marital status: number of children: 1 household members: none occupational status: employed Tobacco & Substance Use Smoking Status: Never smoker alcohol intake: current substance use type: does not use Diet and Exercise caffeine: Yes (tea-occasional ) Type(s) of exercise: other frequency: 5-6 times per week Assessment & Plan Assessment and plan (1) Ureteral calculus, left: Status: Acute Plan: 73 y/o F noted to have a 7mm left proximal ureterolith with resultant upstream moderate hydroureteronephrosis in the setting of a urinary tract infection. Discussed the need for an urgent cystoscopy and left ureteral stent placement. Discussed treatment options to include continued medical expulsion therapy (not recommended in the setting of a UTI) vs cystoscopy with left ureteral stent placement. Discussed risks of the procedure to include pain, bleeding, infection, injury to urethra/bladder/ureter, inability to access the ureter requiring discussion with Interventional Radiology regarding a possible ureteral stent placement in an antegrade fashion vs a possible nephroureteral stent and/or percutaneous nephrostomy tube, urinary tract infection, need for emergent open repair of bladder and/or ureter. She indicated understanding and all of her questions were answered to her satisfaction. Time-Based Coding :: [TOTAL MINUTES] spent with patient and on the chart (including review of chart, obtaining history, exam, reviewing outside data, placing orders, documenting exam and treatment plan, and counseling patient) on [DATE]. PROFEE Charge Codes Inpatient or Observation consultation: [id number]
--- NOTE | 2024-03-24 15:41 | PC.NURSE ---
Patient's blood sugar was elevated and anesthesia was consulted prior to the patient going to the OR. Provider opted to treat the BS in the pre anesthesia area.
[2024-03-24] MEDS: LACTATED RINGERS 1,000 ML 42 ML IV (16:23)
[2024-03-24] MEDS: CEFAZOLIN 2 GM/100 ML PREMIX 100 ML IV (17:00)
--- NOTE | 2024-03-24 17:05 | SUR.OPER ---
Lithotomy on padded OR bed, head on pillow, arms secured on padded arm boards at <90 degrees abduction. Legs secured in padded yellow fins stirrups.
--- NOTE | 2024-03-24 17:39 | PM.OP.1 ---
Procedure & Clinicians Procedure: Cystoscopy Left retrograde ureteropyelogram Left ureteral stent placement Intraoperative interpretation of fluoroscopic images, total time < 1 hour, all images saved to PACS Same procedure as scheduled: Yes Indications: 73 y/o F noted to have a 7mm left proximal ureterolith with resultant upstream moderate hydroureteronephrosis in the setting of a urinary tract infection. Discussed the need for an urgent cystoscopy and left ureteral stent placement. Surgeon: Brian Denis Click Yes if Unassisted: Yes Anesthesia Type: General Operative Notes Findings: Left moderate hydronephrosis Closure Type: not applicable Specimen(s): none sent Estimated Blood Loss (mL): 3 Blood products transfused: none Procedure in detail: Patient was identified in the preoperative holding area and consent confirmed. She was then brought to the operating room where general anesthesia was induced.? She was then placed in the low lithotomy position. She was then prepped and draped in the usual sterile fashion. A surgical timeout was conducted and all were in agreement. Access to the bladder was obtained via a 21Fr cystoscope.? Cloudy urine was immediately noted within the bladder.? The left ureteral orifice was easily visualized and a 0.035 sensor tip ureteral guidewire was advanced through the 5Fr ureteral catheter and into the left renal collecting system.? The ureteral guidewire was removed and a retrograde pyelogram was performed which noted moderate left hydronephrosis.? The ureteral guidewire was readvanced through the ureteral catheter and into the left renal pelvis.? The ureteral catheter was then removed.? A 6Fr multi-length JJ ureteral stent without strings was then advanced over the ureteral guidewire and into the left renal collecting system.? Upon removal of the ureteral guidewire, a good curl was appreciated within the left renal pelvis upon fluoroscopy and visually within the bladder.? The bladder was then drained and the cystoscope was removed.? Anesthesia was reversed, she was extubated in the OR and transferred to the PACU in stable condition for recovery. Complications: none Post-operative Condition: stable Disposition: PACU Plan for aftercare: Discharge home from PACU. Will have her return to clinic for her preoperative appointment prior to a planned left ureteroscopy, laser lithotripsy and left ureteral stent exchange within the next few weeks.
[2024-03-24] MEDS: ACETAMINOPHEN 325 MG TABLET 650 MG PO (17:46)
[2024-03-24] MEDS: OXYCODONE IR 5 MG TABLET PO (17:50)
[2024-03-24] MEDS: BENZOCAINE/MENTHOL 1 LOZ PKT 1 EACH PO (18:05)
== END 2024-03-24 18:38 | disposition home or self-care (01) | DRG 661 ==
LOC: ED 15:12 → AC 15:31
PROVIDERS: Admitting Provider Urology; Emergency Provider Emergency Medicine; PCP Family Medicine; Referring Provider Emergency Medicine; Visit Provider Urology
PROC: (CPT 52332; principal; 2024-03-24 16:30)
DX: N13.1 Hydronephrosis with ureteral stricture, not elsewhere classified (principal); N20.1 Calculus of ureter; N39.0 Urinary tract infection, site not specified; G35 Multiple sclerosis
CPT/HCPCS: 52332; 36415; 74177; 76000; 80053; 81003; 81015; 82962; 83690; 85025; 87077; 87086; 99222; 99284; 99285; G0378; J0330; J0690; J2405; J2704; J3010; Q9967

== ENCOUNTER → 2024-04-06 11:36 | Outpatient (CLI) | payer OTHER, SELFPAY ==
[2021-10-01 16:44] VITALS: BMI 26.9
[2024-04-06 13:02] LABS: Appearance Urine UA CLOUDY; Color Urine UA Yellow
[2024-04-06 13:03] LABS: Glucose Urine UA NEGATIVE (Negative); Ketones Urine UA NEGATIVE (NEGATIVE); Protein Urine UA 3+ (Negative)
[2024-04-06 13:04] LABS: Bilirubin Urine UA NEGATIVE (NEGATIVE); Leukocyte Esterase Urine UA 3+ (NEGATIVE); Nitrite Urine UA NEGATIVE (Negative); Occult Blood Urine UA 4+ (Negative); Urobilinogen Urine UA Normal E.U./dL (0.2)
[2024-04-06 13:11] LABS: Bacteria Urine Moderate (10-30); Culture Indicated Urine Specimen Cultured; Mucus Urine 1+ (Negative); RBC Urine 10-30/HPF (0-5/HPF); Squamous Epithelial Cell Urine 0-1 /HPF (0-5/HPF); Urine Volume 10mL (spun); WBC Urine >100/HPF (0-5/HPF)
== END ==
PROVIDERS: PCP Family Medicine; Referring Provider Urology; Visit Provider Urology
DX: N39.0 Urinary tract infection, site not specified (principal)
CPT/HCPCS: 81001; 87077; 87086

== ENCOUNTER 2024-04-18 12:32 | Emergency (ER) | payer OTHER, SELFPAY ==
[2021-10-01 16:44] VITALS: BMI 26.9
[2024-04-18] VITALS (11 sets, daily range): BP systolic 140–178; BP diastolic 60–82; PULSE 90–117; RESP 12–29; TEMP 36.8; O2SAT 94–100; BMI 25.0
[2024-04-18 13:23] LABS: Add Manual Diff / Slide Review NO; Basophils Absolute Auto 100 /uL (0-100); Basophils Percent Auto 0.6 % (0-2); Eosinophils Absolute Auto 300 /uL (0-450); Eosinophils Percent Auto 2.5 % (2-4); Hematocrit 35.3 % (36-46); Lymphocytes Absolute Auto 1800 /uL (1100-4500); Lymphocytes Percent Auto 15.2 % (25-40); Mean Corpuscular HGB Conc 33.9 % (30-36); Mean Corpuscular Volume 85.6 fL (80-100); Monocytes Absolute Auto 1000 /uL (0-900); Monocytes Percent Auto 8.3 % (3-14); Neutrophils Absolute Auto 8600 /uL (1500-7000); Neutrophils Percent Auto 73.4 % (50-75); Platelet Count 368 X10^3/uL (150-400); Red Blood Cell Count 4.12 X10^6/uL (4.0-5.2); Red Cell Distribution Width 13.1 % (11.6-14.8); White Blood Cell Count 11.7 X10^3/uL (4.5-11.0)
[2024-04-18 13:34] LABS: Lactate (Lactic Acid) 1.5 mmol/L (0.7-2.1)
[2024-04-18 13:36] LABS: Alanine Aminotransferase 76 IU/L (<35); Albumin 4.1 g/dL (3.5-5.0); Albumin Globulin Ratio 1.2 (1.0-2.8); Alkaline Phosphatase 155 U/L (38-126); Aspartate Aminotransferase 38 IU/L (14-36); Bilirubin Total 0.8 mg/dL (0.2-1.3); Blood Urea Nitrogen 12 mg/dL (7-17); Calcium 9.3 mg/dL (8.4-10.2); Carbon Dioxide 26 mmol/L (22-32); Chloride 101 mmol/L (98-107); Estimated Glomerular Filt Rate > 60 mL/min (>60); Globulin 3.3 g/dL (1.7-4.1); Glucose 234 mg/dL (80-110); HEMOLYSIS < 15 (0-50); Potassium 3.5 mmol/L (3.4-5.1); Sodium 137 mmol/L (137-145); Total Protein 7.4 g/dL (6.3-8.2)
[2024-04-18 13:52] LABS: Procalcitonin 2.53 ng/mL (<0.5)
--- NOTE | 2024-04-18 14:38 | ED.FEMALEGU ---
HPI - Female Genitourinary General Chief complaint: Urogenital-Female Stated complaint: poss UTI, fever Time Seen by Provider: 04/18/24 13:07 Source: patient Mode of arrival: Family Vehicle History of Present Illness HPI Narrative: Patient is a 73-year-old female history of hypertension, hyperlipidemia, MS, recurrent urinary tract infections currently on vaginal estradiol, had recent ureteral stent placed 03/24/2024 for 7 mm obstructing stone with current UTI. She presents today persistent UTI. She was started on Cipro for urine culture 03/18/2024 for Enterococcus faecialis. She had stents placed on the . Then she was switched over to Macrobid. She reports that she finished Macrobid about a week ago and started having UTI symptoms again. She has had ongoing diarrhea with this which has never been addressed. She has no abdominal pain nausea or vomiting. She has technical fever. However she says that her temperature rises to 99.6 and with her MS her legs become rigid she is unable to walk and she has a fall risk. She has not fallen She had a 2nd urine culture on April 06 which is when she was started on the Macrobid and it showed the exact same. Related Data Home Medications Medication Instructions Recorded Confirmed CHOLECALCIFEROL (VITAMIN D3) 2,000 iu PO Q DAY ##0 02/19/11 03/26/24 (Vitamin D) Calcium Carbonate/Vitamin D 1 sgl PO Q DAY ##0 02/19/11 03/26/24 (#CALCIUM 1200 W/VITAMIN D 600 MG-100 IU) Cranberry (#CRANBERRY) 2,000 mg PO Q DAY ##0 02/19/11 03/26/24 Fish Oil (#SUPER EPA 2000) 2,000 mg PO Q DAY ##0 02/19/11 03/26/24 [Tumeric] ##0 09/07/17 03/26/24 vitamin B complex 1 tab PO DAILY 02/10/19 03/26/24 psyllium husk 2.6 gram/4.1 gram 1 tbsp PO DAILY 12/22/23 03/26/24 oral powder blood sugar diagnostic (OneTouch #10 ea 02/18/24 03/26/24 Verio test strips) baclofen 10 mg tablet 15 mg PO TID 03/24/24 03/26/24 Previous Rx's Medication Instructions Recorded Disabled Parking Permit #1 ea 05/09/20 One Touch Verio Glucose Monitor #1 ea 01/07/23 amlodipine 5 mg tablet 5 mg PO DAILY #90 tabs 02/10/23 One Touch Verio test strips and #300 ea 03/26/23 lancets atorvastatin 10 mg tablet 10 mg PO DAILY #90 tabs 09/15/23 metformin 500 mg tablet,extended 1,000 mg (2 x 500 mg) PO BID #360 10/30/23 release 24 hr tabs magnesium citrate (OneLAX 300 ml PO DAILY PRN constipation 12/22/23 Magnesium Citrate oral solution) #296 mL phenazopyridine 100 mg tablet 100 mg PO TID PRN pain #6 tabs 02/06/24 (Pyridium) trospium 20 mg tablet 20 mg PO BID #200 tabs 02/09/24 polyethylene glycol 3350 17 68 g PO QDAY #850 grams 02/19/24 gram/dose oral powder (Miralax) estradiol 10 mcg vaginal tablet 10 mcg vaginal 2XW #24 tabs 02/24/24 (Yuvafem) Disabled Parking Permit See Rx Instructions .Route 03/22/24 .COMPLEX #1 ea Hand controls #1 ea 03/22/24 hydrocodone 5 mg-acetaminophen 325 1 tab PO Q8H PRN Pain (Scale Score 03/22/24 mg tablet 1-3) #30 tabs mirabegron 50 mg tablet,extended 50 mg PO DAILY #30 tabs 03/26/24 release 24 hr nitrofurantoin 100 mg PO BID #10 caps 04/09/24 monohydrate/macrocrystals 100 mg capsule levofloxacin 750 mg tablet 750 mg PO DAILY 7 days #7 tabs 04/18/24 Allergies Allergy/AdvReac Type Severity Reaction Status Date / Time Sulfa (Sulfonamide Allergy Severe ANAPHYLAXIS Verified 04/18/24 12:53 Antibiotics) [SULFA (SULFONAMIDE ANTIBIOTICS)] adhesive Allergy Mild TAPE; Verified 04/18/24 12:53 TOPICAL DERMATITIS FOR LONG PERIODS diphenhydramine Allergy Mild HIVES Verified 04/18/24 12:53 [DIPHENHYDRAMINE] Patient History Medical History Pyuria Parapelvic renal cyst Constipation Atrophic vaginitis Hydronephrosis of left kidney Chronic lower urinary tract infection Recurrent urinary tract infection Colon polyps (2009) Chicken pox Measles Plantar warts (2004) Fractures (~2005) Osteopenia Multiple sclerosis (1991) Surgical History History of tubal ligation History of cholecystectomy Anesthesia History of shoulder surgery (1973) Status post rotator cuff repair (2011) History of third molar tooth extraction (1970) Status post tubal ligation (1979) Family History Brother Age: 67 Diabetes mellitus Hypertension High cholesterol Child Age: 28 Adopted Mother Heart disease Hypertension Stroke Cancer Father Alzheimer's disease Grandmother No problems noted. alcohol intake frequency: holidays/special occasions only Substance Use Type: does not use Exam Initial Vital Signs Initial Vital Signs: Vital Signs Temperature 98.2 F 04/18/24 12:49 Pulse Rate 107 H 04/18/24 12:49 Respiratory Rate 16 04/18/24 12:49 Blood Pressure 144/67 H 04/18/24 12:49 Pulse Oximetry 98 04/18/24 12:49 Oxygen Delivery Method Room Air 04/18/24 12:49 GENERAL: [Well-appearing, well-nourished] and in [no acute] distress. HEENT: Head atraumatic,EOMI, pupils reactive, face symmetric, [moist] mucous membranes [EARS:] [Tympanic membranes visualized, no erythema or bulging, no hemotympanum] [PHARYNX:] [No erythema, no tonsillar exudate, no cervical lymphadenopathy] CARDIOVASCULAR: Regular rate and rhythm without murmurs, rubs or gallops. RESPIRATORY: Breath sounds equal bilaterally, no wheezes rales or rhonchi. ABDOMEN: Soft, nontender. Normoactive bowel sounds all 4 quadrants. No guarding or rebound. [RECTAL:] [Hemoccult-positive, no hemorrhoids, nontender] : No CVA tenderness EXTREMITIES: Normal range of motion, no clubbing or edema. Neurovascularly intact NEUROLOGICAL: Alert and oriented x4.Normal gait and speech. Cranial nerves II through XII grossly intact. SKIN: Warm, dry, no laceration, no petechiae, no rashes or lesions. Course Orders Ordered: ED Orders 04/18/24 13:16 CBC Auto Diff [Complete Blood Count AUTO DIFF] Stat CMP [Comprehensive Metabolic Panel] Stat Lactate (Lactic Acid) Stat Procalcitonin Stat 04/18/24 13:33 Blood Culture Stat 04/18/24 14:31 UA Complete [Urinalysis and Microscopic] Stat Urine Culture Stat 04/18/24 14:54 CT abdomen pelvis w con Stat Discontinued Medications Levofloxacin (Levofloxacin 250 Mg Tablet) 750 mg PO NOW ONE Stop: 04/18/24 16:33 Last Admin: 04/18/24 16:39 Dose: 750 mg Documented By: LAURENT Vital Signs Vital signs: Vital Signs - 8 hr 04/18/24 12:49 04/18/24 13:07 04/18/24 13:17 Temperature 98.2 F Pulse Rate 107 H 117 H 110 H Respiratory Rate 16 18 Blood Pressure 144/67 H Pulse Oximetry 98 96 Oxygen Delivery Method Room Air 04/18/24 13:17 04/18/24 13:30 04/18/24 13:33 Temperature Pulse Rate 109 H Respiratory Rate 13 Blood Pressure 140/60 155/72 H Pulse Oximetry 97 Oxygen Delivery Method 04/18/24 13:33 04/18/24 14:00 04/18/24 14:00 Temperature Pulse Rate 109 H 105 H Respiratory Rate 12 18 Blood Pressure 147/73 H Pulse Oximetry 97 94 Oxygen Delivery Method 04/18/24 14:34 04/18/24 15:00 04/18/24 15:00 Temperature Pulse Rate 117 H 110 H Respiratory Rate 19 29 H Blood Pressure 164/70 H Pulse Oximetry 100 96 Oxygen Delivery Method 04/18/24 15:16 04/18/24 15:16 04/18/24 15:30 Temperature Pulse Rate 107 H Respiratory Rate 14 Blood Pressure 178/74 H 150/82 H Pulse Oximetry 98 Oxygen Delivery Method 04/18/24 15:30 Temperature Pulse Rate 107 H Respiratory Rate 19 Blood Pressure Pulse Oximetry 96 Oxygen Delivery Method MDM - Female Genitourinary Lab Data 04/18/24 13:16 04/18/24 13:16 Labs: Lab Results 04/18/24 04/18/24 Range/Units 13:16 14:31 WBC 11.7 H (4.5-11.0) X10^3/uL RBC 4.12 (4.0-5.2) X10^6/uL Hgb 12.0 (12.0-16.0) g/dL Hct 35.3 L (36-46) % MCV 85.6 (80-100) fL MCH 29.0 (26-34) PG MCHC 33.9 (30-36) % RDW 13.1 (11.6-14.8) % Plt Count 368 (150-400) X10^3/uL Neut % (Auto) 73.4 (50-75) % Lymph % (Auto) 15.2 L (25-40) % [place] % (Auto) 8.3 (3-14) % Eos % (Auto) 2.5 (2-4) % Baso % (Auto) 0.6 (0-2) % Neut # (Auto) 8600 H (5318-0785) /uL Lymph # (Auto) 1800 (9155-5286) /uL [place] # (Auto) 1000 H (0-900) /uL Eos # (Auto) 300 (0-450) /uL Baso # (Auto) 100 (0-100) /uL Sodium 137 (137-145) mmol/L Potassium 3.5 (3.4-5.1) mmol/L Chloride 101 (98-107) mmol/L Carbon Dioxide 26 (22-32) mmol/L BUN 12 (7-17) mg/dL Creatinine 0.63 (0.52-1.04) mg/dL Estimated GFR > 60 (>60) mL/min BUN/Creatinine Ratio 19.0 (6-22) Glucose 234 H (80-110) mg/dL Lactate 1.5 (0.7-2.1) mmol/L Calcium 9.3 (8.4-10.2) mg/dL Total Bilirubin 0.8 (0.2-1.3) mg/dL AST 38 H (14-36) IU/L ALT 76 H (<35) IU/L Alkaline Phosphatase 155 H (38-126) U/L Total Protein 7.4 (6.3-8.2) g/dL Albumin 4.1 (3.5-5.0) g/dL Globulin 3.3 (1.7-4.1) g/dL Albumin/Globulin Ratio 1.2 (1.0-2.8) Procalcitonin 2.53 H (<0.5) ng/mL Urine Color [place] Urine Appearance Turbid Urine pH 5.5 (4.5-8.0) Ur Specific [place] 1.015 (1.000-1.035) Urine Protein 2+ H (Negative) Urine Glucose (UA) Negative (Negative) g/dL Urine Ketones 1+ H (NEGATIVE) Urine Occult Blood 3+ H (Negative) Urine Nitrate Positive H (Negative) Urine Bilirubin Negative (NEGATIVE) Urine Urobilinogen 1.0 (0.2) E.U./dL Ur Leukocyte Esterase 3+ H (NEGATIVE) Urine RBC 30-100/hpf H (0-5/HPF) Urine WBC >100/hpf H (0-5/HPF) Ur Squamous Epith Cells 0-1 /hpf (0-5/HPF) Urine Bacteria Many (>30) H (None) Urine Yeast 10-30/hpf H (None) Ur Culture Indicated? Specimen cultured Vol Urine Centrifuged 10ml (spun) Imaging Data CT scan - abdomen/pelvis: Radiologist's Impression: PROCEDURE: CT ABDOMEN PELVIS W CON INDICATIONS: persistant uti with ureteral stents TECHNIQUE: After the administration of intravenous contrast, axial sections acquired from the lung bases to the pubic symphysis. Coronal and sagittal reformats were performed. For radiation dose reduction, the following was used: automated exposure control, adjustment of mA and/or kV according to patient size. COMPARISON: [facility], CT, CT ABDOMEN PELVIS W CON, 03/24/2024, 12:41. FINDINGS: Lower thorax: The lung bases are clear. Heart size normal. No hiatal hernia. Liver: Normal in size and attenuation. No contour deformity present. Biliary system: Cholecystectomy. No intra or extrahepatic bile duct dilation. Pancreas: Unremarkable without mass or inflammation evident. Spleen: Normal in size and density. Adrenals: Normal morphology and density. Reproductive system: Unremarkable as visualized. Urinary system: Moderate left hydronephrosis and hydroureter. Left ureteral stent appears to be in good position. Nonobstructing 4 mm calculus present in the lower pole right renal collecting system. There is wedge-shaped hypoperfusion of the kidney in the lower pole. Right kidney unremarkable without hydronephrosis Gastrointestinal system: The bowel is unremarkable without evidence of bowel obstruction or inflammation. The stomach appears unremarkable. Appendix: No findings to suggest acute appendicitis. Peritoneal spaces: No mesenteric or retroperitoneal adenopathy. No free air. No free fluid. Vasculature: Aortic atherosclerotic vascular calcification noted without evidence of aneurysm. Abdominal wall: Right inguinal hernia(s) contain fat and small calcified node without bowel involvement, similar to the prior exam. 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 Scoliosis. Generalized decreased osseous mineralization noted. IMPRESSION: Persistent moderate left hydronephrosis status post well-positioned ureteral stent. Stable calculus in the proximal left ureter and nonobstructing calculus left renal collecting system Wedge-shaped hypoperfusion of the left kidney raise the possibility of pyelonephritis. Differential would be generalized hypoperfusion related to persistent hydronephrosis. Degenerative disc disease and arthropathy associated with compression fractures and dextroscoliosis, stable. Approved by: Shane Dowd M.D. on 04/18/2024 at 15:05 [facility] Narrative Medical decision making narrative: MDM CC: Painful frequent urination Complicating co-morbidities: MS, osteoarthritis urinary incontinence hyperlipidemia Medical records reviewed: 03/24/24 ED visit on cipro, found to have 7 mm left ureteral stone. Urology intervened with ureteral stents on the same day. 04/06/24 Enterococcus Faecalis, resistant to tetracycline Differential considered: Sepsis septic stone Exam documented above, pertinent findings include: Patient overall appears well abdomen is soft nontender no significant flank pain no difficulty breathing Lab Test results independently reviewed as above. Pertinent findings: WBC 11.7 Lactic acid 1.5 Procalcitonin 2.3 Bilirubin 0.8 AST 38 ALT 76 alk-phos 150, all of these are slightly elevated than previously Imaging studies independently reviewed: Mild left hydronephrosis and hydroureter with left ureteral stent in good position. Cholecystectomy no ductal dilatation No evidence of appendicitis Consultations: 1615 Adeel nitrtes positive from azo. Unclear if she truly has urinary incontinence versus another UTI. Recommended doing another 7 day course of antibiotics. He is going to schedule her this week for her procedure. Does not need emergent or urgent procedure no need for admission or IV antibiotics Treatments: Levaquin Re-evaluations: Patient ambulated to the restroom to have a bowel movement. She has also been complaining of some diarrhea however her bowel movement was formed unable to send down. She is at risk for C diff multiple antibiotics however she still having formed stools so unlikely at this time Discussion: 73-year-old female who has MS urinary incontinence left ureteral stent for left ureteral stone. Recurrent UTI on vaginal estrogen presenting today with similar symptoms. She overall appears well nontoxic her abdominal exam is benign. CT confirms good position of left stent. She is mild leukocytosis of 11.7 today she is elevated procalcitonin so I do suspect some bacteria infection. However she has no sign of severe sepsis. She has a normal lactic acid of 1.5. She does remain minimally tachycardic here in the emergency department without any evidence of hypotension. She is drinking fluids easily without issue. No need for IV fluids at this time Discharge Plan Departure Patient Disposition: Home Clinical Impression: Acute UTI Instructions: DI for Urinary Tract Infection (UTI) Activity Restrictions/Additional Instructions: *You have been diagnosed with uti *What to do: You will likely have surgery on Friday but urology office or call you tomorrow. He you may need to call and check with them as well. *Continue to take medications as directed Levaquin 750 mg once a day for 7 days *Follow up with your primary care provider in 2-3 days or call [phone] Dr. Harry urology *Return to ER if you should have increasing pain confusion falls nausea vomiting abdominal pain or any new, worsening or concerning symptoms Prescriptions: New levofloxacin 750 mg tablet 750 mg PO DAILY 7 Days Qty: 7 0RF No Action amlodipine 5 mg tablet 5 mg PO DAILY Qty: 90 3RF Patient Comments: no ttaking now phenazopyridine [Pyridium] 100 mg tablet 100 mg PO TID PRN (Reason: pain) Qty: 6 0RF (DME) OneTouch Verio test strips Strip See Rx Instructions .ROUTE .MEDSUPPLY Qty: 10 Rx Instructions: As directed Fish Oil (#SUPER EPA 2000) 2,000 mg PO Q DAY Qty: 0 CHOLECALCIFEROL (VITAMIN D3) (Vitamin D) 2,000 iu PO Q DAY Qty: 0 Calcium Carbonate/Vitamin D (#CALCIUM 1200 W/VITAMIN D 600 MG-100 IU) 1 sgl PO Q DAY Qty: 0 Cranberry (#CRANBERRY) 2,000 mg PO Q DAY Qty: 0 [Tumeric] Qty: 0 (DME) Disabled Parking Permit Qty: 1 0RF Rx Instructions: I find this person to be disabled (DME) One Touch Verio Glucose Monitor See Rx Instructions .Route .MEDSUPPLY Qty: 1 0RF Rx Instructions: As directed twice daily for glucose monitoring (DME) One Touch Verio test strips and lancets See Rx Instructions .Route .MEDSUPPLY Qty: 300 3RF Rx Instructions: As directed three times daily for blood glucose monitoring atorvastatin 10 mg tablet 10 mg PO DAILY Qty: 90 3RF metformin 500 mg tablet extended release 24 hr 1,000 mg PO BID Qty: 360 1RF trospium 20 mg tablet 20 mg PO BID Qty: 200 3RF polyethylene glycol 3350 [Miralax] 17 gram/dose powder 68 g PO QDAY Qty: 850 3RF estradiol [Yuvafem] 10 mcg tablet 10 mcg vaginal 2XW Qty: 24 3RF nitrofurantoin monohyd/m-cryst 100 mg capsule 100 mg PO BID Qty: 10 0RF Rx Instructions: must administer with a meal/food vitamin B complex tablet 1 tab PO DAILY psyllium husk 2.6 gram/4.1 gram powder 1 tbsp PO DAILY Rx Instructions: mix into at least 8 oz of water or juice before administering magnesium citrate [OneLAX Magnesium Citrate] Solution 300 ml PO DAILY PRN (Reason: constipation) Qty: 296 1RF Disabled Parking Permit See Rx Instructions .ROUTE .COMPLEX Qty: 1 0RF Rx Instructions: I find this patient to be medically disabled and qualified for Disabled Parking as indicated, and signed, on the accompanying Disabled Parking Application for Individuals ; hydrocodone-acetaminophen 5-325 mg tablet 1 tab PO Q8H PRN (Reason: Pain (Scale Score 1-3)) Qty: 30 0RF (DME) Hand controls See Rx Instructions .Route .MEDSUPPLY Qty: 1 0RF Rx Instructions: Use for driving baclofen 10 mg tablet 15 mg PO TID Rx Instructions: Take 2 tablets (20 mg) by mouth every 8 hours mirabegron 50 mg tablet extended release 24 hr 50 mg PO DAILY Qty: 30 0RF Referrals: Isaac Farmer MD [Primary Care Provider] - Stand Alone Forms: Patient Portal/API
[2024-04-18 14:41] LABS: Appearance Urine UA TURBID; Bilirubin Urine UA NEGATIVE (NEGATIVE); Glucose Urine UA NEGATIVE (Negative); Ketones Urine UA 1+ (NEGATIVE); Leukocyte Esterase Urine UA 3+ (NEGATIVE); Nitrite Urine UA POSITIVE (Negative); Occult Blood Urine UA 3+ (Negative); Protein Urine UA 2+ (Negative); Specific Gravity Urine UA 1.015 (1.000-1.035)
[2024-04-18 14:43] LABS: pH Urine UA 5.5 (4.5-8.0)
[2024-04-18 14:44] LABS: Color Urine UA ORANGE
[2024-04-18 14:48] LABS: Bacteria Urine Many (>30); RBC Urine 30-100/HPF (0-5/HPF); Squamous Epithelial Cell Urine 0-1 /HPF (0-5/HPF); Urine Volume 10mL (spun); WBC Urine >100/HPF (0-5/HPF)
[2024-04-18 14:49] LABS: Culture Indicated Urine Specimen Cultured
--- NOTE | 2024-04-18 14:54 | DI.CT.S_ITS ---
PROCEDURE: CT ABDOMEN PELVIS W CON INDICATIONS: persistant uti with ureteral stents TECHNIQUE: After the administration of intravenous contrast, axial sections acquired from the lung bases to the pubic symphysis. Coronal and sagittal reformats were performed. For radiation dose reduction, the following was used: automated exposure control, adjustment of mA and/or kV according to patient size. COMPARISON: [facility], CT, CT ABDOMEN PELVIS W CON, 03/24/2024, 12:41. FINDINGS: Lower thorax: The lung bases are clear. Heart size normal. No hiatal hernia. Liver: Normal in size and attenuation. No contour deformity present. Biliary system: Cholecystectomy. No intra or extrahepatic bile duct dilation. Pancreas: Unremarkable without mass or inflammation evident. Spleen: Normal in size and density. Adrenals: Normal morphology and density. Reproductive system: Unremarkable as visualized. Urinary system: Moderate left hydronephrosis and hydroureter. Left ureteral stent appears to be in good position. Nonobstructing 4 mm calculus present in the lower pole right renal collecting system. There is wedge-shaped hypoperfusion of the kidney in the lower pole. Right kidney unremarkable without hydronephrosis Gastrointestinal system: The bowel is unremarkable without evidence of bowel obstruction or inflammation. The stomach appears unremarkable. Appendix: No findings to suggest acute appendicitis. Peritoneal spaces: No mesenteric or retroperitoneal adenopathy. No free air. No free fluid. Vasculature: Aortic atherosclerotic vascular calcification noted without evidence of aneurysm. Abdominal wall: Right inguinal hernia(s) contain fat and small calcified node without bowel involvement, similar to the prior exam. 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 Scoliosis. Generalized decreased osseous mineralization noted. IMPRESSION: Persistent moderate left hydronephrosis status post well-positioned ureteral stent. Stable calculus in the proximal left ureter and nonobstructing calculus left renal collecting system Wedge-shaped hypoperfusion of the left kidney raise the possibility of pyelonephritis. Differential would be generalized hypoperfusion related to persistent hydronephrosis. Degenerative disc disease and arthropathy associated with compression fractures and dextroscoliosis, stable. Approved by: Shane Dowd M.D. on 04/18/2024 at 15:05
[2024-04-18] MEDS: levoFLOXacin 250 MG TABLET 750 MG PO (16:39)
== END 2024-04-18 17:10 | disposition home or self-care (01) ==
PROVIDERS: Emergency Provider Emergency Medicine; PCP Family Medicine
DX: N39.0 Urinary tract infection, site not specified (principal); R30.0 Dysuria; R50.9 Fever, unspecified; D72.829 Elevated white blood cell count, unspecified; R00.0 Tachycardia, unspecified; Z79.899 Other long term (current) drug therapy; Z96.0 Presence of urogenital implants
CPT/HCPCS: 36415; 74177; 80053; 81001; 83605; 84145; 85025; 87040; 87077; 87086; 87186; 99284

== ENCOUNTER 2024-04-20 20:20 | Inpatient (IN) | payer OTHER, MEDICARE, SELFPAY ==
[2021-10-01 16:44] VITALS: BMI 26.9
[2024-04-20 20:23] VITALS: BP 135/64; PULSE 112; RESP 14; TEMP 36.8; O2SAT 97; BMI 25.0
[2024-04-20 20:32] VITALS: BP 133/65; PULSE 109; O2SAT 96
[2024-04-20 21:00] VITALS: BP 136/73; PULSE 104; O2SAT 96
[2024-04-20 21:14] LABS: Add Manual Diff / Slide Review NO; Basophils Absolute Auto 100 /uL (0-100); Basophils Percent Auto 0.4 % (0-2); Eosinophils Absolute Auto 300 /uL (0-450); Eosinophils Percent Auto 2.2 % (2-4); Hematocrit 32.5 % (36-46); Hemoglobin 10.9 g/dL (12.0-16.0); Lymphocytes Absolute Auto 1600 /uL (1100-4500); Lymphocytes Percent Auto 12.9 % (25-40); Mean Corpuscular HGB Conc 33.7 % (30-36); Mean Corpuscular Hemoglobin 29.3 PG (26-34); Monocytes Absolute Auto 1500 /uL (0-900); Monocytes Percent Auto 11.8 % (3-14); Neutrophils Absolute Auto 9200 /uL (1500-7000); Neutrophils Percent Auto 72.7 % (50-75); Platelet Count 403 X10^3/uL (150-400); Red Blood Cell Count 3.73 X10^6/uL (4.0-5.2); White Blood Cell Count 12.6 X10^3/uL (4.5-11.0)
--- NOTE | 2024-04-20 21:23 | ED.GENADULT ---
HPI - General Adult General Chief complaint: Weakness Stated complaint: Weakness Time Seen by Provider: 04/20/24 20:29 Source: patient, family and EMS Mode of arrival: EMS Limitations: no limitations History of Present Illness HPI narrative: Patient is a 73-year-old female. Has a history of chronic urinary tract infections. Approximately 1 month ago had a urologic procedure where she had a left-sided ureteral stent placed. Has been on multiple antibiotics over the past several weeks. Most recently was started on Cipro on Friday (3 days ago) after she was seen here in the emergency department for generalized fatigue and UTI like symptoms and urinary frequency. She was scheduled to follow-up with urology of the end of this week to discuss potential lithotripsy for a residual left-sided ureteral stone. She states that over the past 3 days she was become more weak, fatigued, body aches and has had an increase in her urinary urgency and hesitancy causing her to have episodes of incontinence. She denies chest pain or shortness of breath. No URI like symptoms. Some mild lower abdominal discomfort. No skin rashes. Has been taking all of her medications as directed. Related Data Home Medications Medication Instructions Recorded Confirmed CHOLECALCIFEROL (VITAMIN D3) 2,000 iu PO Q DAY ##0 02/19/11 03/26/24 (Vitamin D) Calcium Carbonate/Vitamin D 1 sgl PO Q DAY ##0 02/19/11 03/26/24 (#CALCIUM 1200 W/VITAMIN D 600 MG-100 IU) Cranberry (#CRANBERRY) 2,000 mg PO Q DAY ##0 02/19/11 03/26/24 Fish Oil (#SUPER EPA 2000) 2,000 mg PO Q DAY ##0 02/19/11 03/26/24 [Tumeric] ##0 09/07/17 03/26/24 vitamin B complex 1 tab PO DAILY 02/10/19 03/26/24 psyllium husk 2.6 gram/4.1 gram 1 tbsp PO DAILY 12/22/23 03/26/24 oral powder baclofen 10 mg tablet 15 mg PO TID 03/24/24 03/26/24 Previous Rx's Medication Instructions Recorded Disabled Parking Permit #1 ea 05/09/20 One Touch Verio Glucose Monitor #1 ea 01/07/23 amlodipine 5 mg tablet 5 mg PO DAILY #90 tabs 02/10/23 One Touch Verio test strips and #300 ea 03/26/23 lancets atorvastatin 10 mg tablet 10 mg PO DAILY #90 tabs 09/15/23 metformin 500 mg tablet,extended 1,000 mg (2 x 500 mg) PO BID #360 10/30/23 release 24 hr tabs magnesium citrate (OneLAX 300 ml PO DAILY PRN constipation 12/22/23 Magnesium Citrate oral solution) #296 mL phenazopyridine 100 mg tablet 100 mg PO TID PRN pain #6 tabs 02/06/24 (Pyridium) trospium 20 mg tablet 20 mg PO BID #200 tabs 02/09/24 polyethylene glycol 3350 17 68 g PO QDAY #850 grams 02/19/24 gram/dose oral powder (Miralax) estradiol 10 mcg vaginal tablet 10 mcg vaginal 2XW #24 tabs 02/24/24 (Yuvafem) Disabled Parking Permit See Rx Instructions .Route 03/22/24 .COMPLEX #1 ea Hand controls #1 ea 03/22/24 hydrocodone 5 mg-acetaminophen 325 1 tab PO Q8H PRN Pain (Scale Score 03/22/24 mg tablet 1-3) #30 tabs mirabegron 50 mg tablet,extended 50 mg PO DAILY #30 tabs 03/26/24 release 24 hr nitrofurantoin 100 mg PO BID #10 caps 04/09/24 monohydrate/macrocrystals 100 mg capsule levofloxacin 750 mg tablet 750 mg PO DAILY 7 days #7 tabs 04/18/24 blood sugar diagnostic (OneTouch #300 ea 04/19/24 Verio test strips) Allergies Allergy/AdvReac Type Severity Reaction Status Date / Time Sulfa (Sulfonamide Allergy Severe ANAPHYLAXIS Verified 04/18/24 12:53 Antibiotics) [SULFA (SULFONAMIDE ANTIBIOTICS)] adhesive Allergy Mild TAPE; Verified 04/18/24 12:53 TOPICAL DERMATITIS FOR LONG PERIODS diphenhydramine Allergy Mild HIVES Verified 04/18/24 12:53 [DIPHENHYDRAMINE] Review of Systems Review of Systems ROS Unobtainable: All systems reviewed & are unremarkable except as noted in HPI and below Patient History Medical History Pyuria Parapelvic renal cyst Constipation Atrophic vaginitis Hydronephrosis of left kidney Chronic lower urinary tract infection Recurrent urinary tract infection Colon polyps (2009) Chicken pox Measles Plantar warts (2005) Fractures (~2006) Osteopenia Multiple sclerosis (1991) Surgical History History of tubal ligation History of cholecystectomy Anesthesia History of shoulder surgery (1973) Status post rotator cuff repair (2011) History of third molar tooth extraction (1970) Status post tubal ligation (1979) Family History Brother Age: 67 Diabetes mellitus Hypertension High cholesterol Child Age: 28 Adopted Mother Heart disease Hypertension Stroke Cancer Father Alzheimer's disease Grandmother No problems noted. Social History marital status: number of children: 1 household members: friend(s) occupational status: employed Smoking Status: Never smoker alcohol intake: current substance use type: does not use caffeine: Yes (tea-occasional ) Type(s) of exercise: other frequency: 5-6 times per week Smoking Status: Never smoker alcohol intake frequency: holidays/special occasions only Substance Use Type: does not use and heroin Exam Initial Vital Signs Initial Vital Signs: Vital Signs Temperature 98.2 F 04/20/24 20:23 Pulse Rate 112 H 04/20/24 20:23 Respiratory Rate 14 04/20/24 20:23 Blood Pressure 135/64 04/20/24 20:23 Pulse Oximetry 97 04/20/24 20:23 Oxygen Delivery Method Room Air 04/20/24 20:23 Const General: cooperative, comfortable and No ill appearing HENDE Head: normal to inspection Resp Effort & Inspection: normal respiratory effort Auscultation: clear to auscultation bilaterally Cardio Rate: tachycardic Rhythm: regular rhythm GI Inspection: normal to inspection and non-distended Palpation: No firm, No guarding and tender (Mild lower abdominal tenderness) Skin General: no rashes or lesions noted Neuro General: patient alert, patient awake, patient oriented x3 and moves all extremities Scores GCS Jessy coma scale eye opening: Spontaneous [place] coma scale verbal response: Orientated [place] coma scale motor response: Obey commands [place] coma scale total score: 15 Course Orders Ordered: ED Orders 04/20/24 20:55 Urinalysis and Microscopic Stat Urine Culture Stat 04/20/24 21:05 Complete Blood Count AUTO DIFF Stat Comprehensive Metabolic Panel Stat Lactate (Lactic Acid) Stat Lipase Stat Procalcitonin Stat 04/20/24 22:09 Consult to Urology Stat 04/20/24 22:10 Consult to Urology Stat 04/20/24 22:11 Consult to Physician Stat Acetaminophen (Acetaminophen 325 Mg Tablet) 650 mg PO Q6H PRN PRN Reason: Fever/Mild Pain (1-3) Hydrocodone Bitart/Acetaminophen (Hydrocodone/Acet 5/325 Tablet) 1 tab PO Q8H PRN PRN Reason: Pain (Scale Score 1-3) Al Hydrox/Mg Hydrox/Simethicone (Mag Hydrox/Alum/Simeth 30 Ml Udc) 30 ml PO Q6HR PRN PRN Reason: Dyspepsia Atorvastatin Calcium (Atorvastatin 20 Mg Tablet) 10 mg PO BEDTIME [place]ALEA Baclofen (Baclofen 10 Mg Tablet) 15 mg PO TID [facility] Enoxaparin Sodium (Enoxaparin 40 Mg/0.4 Ml Syringe) 40 mg SUBCUT DAILY [facility] Dextrose (D10w) 100 mls @ 999 mls/hr IV PRN PRN PRN Reason: Hypoglycemia Ceftriaxone Sodium 2,000 mg/ (Sodium Chloride) 100 mls @ 200 mls/hr IV Q24H [facility] Insulin Human Lispro (Insulin Lispro 100 Unit/Ml 3ml Vial) 0 unit SUBCUT ACHS AZALEA; Protocol Magnesium Citrate (Magnesium Citrate 300 Ml Solution) 300 ml PO DAILY PRN PRN Reason: constipation Magnesium Hydroxide (Magnesium Hydroxide 30 Ml Udc) 30 ml PO DAILY PRN PRN Reason: Constipation Metformin HCl (Metformin Xr 500 Mg Tablet) 1,000 mg PO BID [facility] Naloxone HCl (Naloxone 0.4 Mg/Ml Vial) 0.2 mg IV Q2MIN PRN PRN Reason: Opiate Reversal Non-Formulary Medication (Estradiol [Yuvafem]) 10 mcg VAG 2XW [place]ALEA Ondansetron HCl (Ondansetron 4 Mg/2 Ml Inj) 4 mg IV Q8HR PRN PRN Reason: Nausea And Vomiting Oxybutynin Chloride (Oxybutynin 5 Mg Er Tab) 5 mg PO DAILY [facility] Polyethylene Glycol (Polyethylene Glycol 3350 17 Gm Powd.Pack) 68 gm PO QDAY [facility] Psyllium Hydrophilic Mucilloid (Psyllium Husk 1 Packet) 1 packet PO DAILY [place]ALEA Discontinued Medications Ceftriaxone Sodium 1,000 mg/ (Sodium Chloride) 100 mls @ 200 mls/hr IV NOW ONE Stop: 04/20/24 22:24 Last Infusion: 04/20/24 23:04 Dose: Infused Documented By: Admin: 04/20/24 22:26 Dose: 200 mls/hr Documented By: SHARAD Non-Formulary Medication (Atorvastatin) 10 mg PO DAILY [place]ALEA Non-Formulary Medication (Psyllium Husk) 1 tbsp PO DAILY [place]ALEA Non-Formulary Medication (Trospium) 20 mg PO BID [place]ALEA Vital Signs Vital signs: Vital Signs - 8 hr 04/20/24 20:23 04/20/24 20:32 04/20/24 20:32 Temperature 98.2 F Pulse Rate 112 H 109 H Respiratory Rate 14 Blood Pressure 135/64 133/65 Pulse Oximetry 97 96 Oxygen Delivery Method Room Air 04/20/24 21:00 04/20/24 21:00 Temperature Pulse Rate 104 H Respiratory Rate Blood Pressure 136/73 Pulse Oximetry 96 Oxygen Delivery Method Room Air Medical Decision Making Medical Records Medical records reviewed: Yes I reviewed the patient's medical records. Lab Data Lab results reviewed: Yes I reviewed the patient's lab results. 04/20/24 21:05 04/20/24 21:05 Labs: Lab Results 04/20/24 04/20/24 Range/Units 20:55 21:05 WBC 12.6 H (4.5-11.0) X10^3/uL RBC 3.73 L (4.0-5.2) X10^6/uL Hgb 10.9 L (12.0-16.0) g/dL Hct 32.5 L (36-46) % MCV 87.0 (80-100) fL MCH 29.3 (26-34) PG MCHC 33.7 (30-36) % RDW 13.0 (11.6-14.8) % Plt Count 403 H (150-400) X10^3/uL Neut % (Auto) 72.7 (50-75) % Lymph % (Auto) 12.9 L (25-40) % [place] % (Auto) 11.8 (3-14) % Eos % (Auto) 2.2 (2-4) % Baso % (Auto) 0.4 (0-2) % Neut # (Auto) 9200 H (0145-4218) /uL Lymph # (Auto) 1600 (3485-8874) /uL [place] # (Auto) 1500 H (0-900) /uL Eos # (Auto) 300 (0-450) /uL Baso # (Auto) 100 (0-100) /uL Sodium 135 L (137-145) mmol/L Potassium 3.7 (3.4-5.1) mmol/L Chloride 100 (98-107) mmol/L Carbon Dioxide 27 (22-32) mmol/L BUN 16 (7-17) mg/dL Creatinine 0.89 (0.52-1.04) mg/dL Estimated GFR > 60 (>60) mL/min BUN/Creatinine Ratio 18.0 (6-22) Glucose 231 H (80-110) mg/dL Lactate 2.0 (0.7-2.1) mmol/L Calcium 9.2 (8.4-10.2) mg/dL Total Bilirubin 0.5 (0.2-1.3) mg/dL AST 57 H (14-36) IU/L ALT 75 H (<35) IU/L Alkaline Phosphatase 178 H (38-126) U/L Total Protein 7.3 (6.3-8.2) g/dL Albumin 3.7 (3.5-5.0) g/dL Globulin 3.6 (1.7-4.1) g/dL Albumin/Globulin Ratio 1.0 (1.0-2.8) Lipase 89 (23-300) U/L Procalcitonin 0.773 H (<0.5) ng/mL Urine Color [place] Urine Appearance Cloudy Urine pH Not Reportable Ur Specific [place] Not Reportable Urine Protein Not Reportable Urine Glucose (UA) Not Reportable Urine Ketones Not Reportable Urine Occult Blood Not Reportable Urine Nitrate Not Reportable Urine Bilirubin Not Reportable Urine Urobilinogen Not Reportable Ur Leukocyte Esterase Not Reportable Urine RBC 5-10/hpf H (0-5/HPF) Urine WBC >100/hpf H (0-5/HPF) Ur Squamous Epith Cells 0-1 /hpf (0-5/HPF) Urine Bacteria Few (2-10) H (None) Urine Mucus 1+ H (Negative) Urine Yeast 1-5/hpf H (None) Vol Urine Centrifuged 10ml (spun) MDM Narrative Medical decision making narrative: Patient is had worsening/not improved symptoms over the past 3 days despite being on antibiotics. Review of the medical record shows that today her leukocytosis is slightly worse than Friday. Her creatinine is unremarkable. Her cultures obtained from Friday do show bacterial growth in the urine but no identification has a of yet. She has had Enterococcus in the past that is susceptible to Cipro. Patient is afebrile. CT scan from Friday shows concerns for pyelonephritis and that the left-sided ureteral stent is in place and the 4 mm proximal left-sided stone is still present as well. I did discuss the case with Dr. Dixon on-call for General surgery who agreed that the patient should be admitted for IV antibiotics. He did not feel that an emergent urologic procedure was needed. I discussed the case with Dr. Ford he was on-call for the patient's primary doctor who will admit. Discussed the need for admission with the patient who expressed understanding and agreement with plan. Discharge Plan Departure Patient Disposition: Admitted As Inpatient Clinical Impression: Acute UTI Admit Date/Time: 04/20/24 22:23 Admit Provider: Terrence Ford
[2024-04-20 21:24] LABS: Appearance Urine UA CLOUDY; Color Urine UA ORANGE
[2024-04-20 21:25] LABS: Alanine Aminotransferase 75 IU/L (<35); Albumin 3.7 g/dL (3.5-5.0); Alkaline Phosphatase 178 U/L (38-126); Aspartate Aminotransferase 57 IU/L (14-36); Bilirubin Total 0.5 mg/dL (0.2-1.3); Blood Urea Nitrogen 16 mg/dL (7-17); Calcium 9.2 mg/dL (8.4-10.2); Carbon Dioxide 27 mmol/L (22-32); Chloride 100 mmol/L (98-107); Estimated Glomerular Filt Rate > 60 mL/min (>60); Globulin 3.6 g/dL (1.7-4.1); Glucose 231 mg/dL (80-110); HEMOLYSIS 21 (0-50); Lipase 89 U/L (23-300); Potassium 3.7 mmol/L (3.4-5.1); Sodium 135 mmol/L (137-145); Total Protein 7.3 g/dL (6.3-8.2)
[2024-04-20 21:25] LABS: Bacteria Urine Few (2-10); Mucus Urine 1+ (Negative); RBC Urine 5-10/HPF (0-5/HPF); Squamous Epithelial Cell Urine 0-1 /HPF (0-5/HPF); Urine Volume 10mL (spun); WBC Urine >100/HPF (0-5/HPF)
[2024-04-20 21:41] LABS: Procalcitonin 0.773 ng/mL (<0.5)
[2024-04-20] MEDS: cefTRIAXone 1,000 MG in SODIUM CHLORIDE 0.9% 100 ML 200 MG IV (22:26)
[2024-04-20 23:26] VITALS: BMI 25.0
[2024-04-20 23:29] VITALS: BP 132/63; PULSE 105; RESP 18; TEMP 36.2; O2SAT 98
[2024-04-20] MEDS: HYDROCODONE/ACET 5/325 TABLET 1 TAB PO (23:45)
[2024-04-21] MEDS: BACLOFEN 10 MG TABLET 15 MG PO (01:38)
[2024-04-21 04:54] LABS: Add Manual Diff / Slide Review NO; Basophils Absolute Auto 100 /uL (0-100); Basophils Percent Auto 0.8 % (0-2); Eosinophils Absolute Auto 200 /uL (0-450); Eosinophils Percent Auto 1.7 % (2-4); Hematocrit 34.1 % (36-46); Hemoglobin 11.2 g/dL (12.0-16.0); Lymphocytes Absolute Auto 1900 /uL (1100-4500); Lymphocytes Percent Auto 15.4 % (25-40); Mean Corpuscular HGB Conc 32.9 % (30-36); Mean Corpuscular Hemoglobin 28.4 PG (26-34); Mean Corpuscular Volume 86.2 fL (80-100); Monocytes Absolute Auto 1200 /uL (0-900); Monocytes Percent Auto 10.2 % (3-14); Neutrophils Absolute Auto 8700 /uL (1500-7000); Neutrophils Percent Auto 71.9 % (50-75); Platelet Count 401 X10^3/uL (150-400); Red Blood Cell Count 3.95 X10^6/uL (4.0-5.2); Red Cell Distribution Width 13.3 % (11.6-14.8)
[2024-04-21 05:12] LABS: Alanine Aminotransferase 69 IU/L (<35); Albumin 3.8 g/dL (3.5-5.0); Albumin Globulin Ratio 1.2 (1.0-2.8); Alkaline Phosphatase 202 U/L (38-126); Aspartate Aminotransferase 48 IU/L (14-36); BUN Creatinine Ratio 13.9 (6-22); Bilirubin Total 0.7 mg/dL (0.2-1.3); Blood Urea Nitrogen 11 mg/dL (7-17); Calcium 9.4 mg/dL (8.4-10.2); Carbon Dioxide 26 mmol/L (22-32); Chloride 103 mmol/L (98-107); Estimated Glomerular Filt Rate > 60 mL/min (>60); Globulin 3.2 g/dL (1.7-4.1); Glucose 226 mg/dL (80-110); HEMOLYSIS < 15 (0-50); Potassium 3.7 mmol/L (3.4-5.1); Sodium 138 mmol/L (137-145)
[2024-04-21 07:00] VITALS: O2SAT 96
[2024-04-21] MEDS: HYDROCODONE/ACET 5/325 TABLET 1 TAB PO ×2 (07:29→21:30)
--- NOTE | 2024-04-21 08:11 | PM.HP.1 ---
History of Present Illness History of Present Illness Date Patient Seen: 04/21/24 Time Patient Seen: 08:11 Chief complaint: Weakness Narrative: 73-year-old female past medical history of MS type 2 diabetes osteoarthritis hyperlipidemia recent kidney stone with multiple urinary tract infection self catheterizes. Patient was found to have a kidney stone 1 month ago in her left kidney had a stent placed. She has had some problems on and off with infection. And has been on a number of antibiotics. She was in the emergency department on Friday because of concerns about urinary tract infection and was started on ciprofloxacin. She said she took 3 doses of the antibiotics she thinks the antibiotic made her worse. She said her MS got worse and the fact that she became more and more weak. Could not walk. Had difficulty with her balance and walking. She did not have any chest pain or shortness of breath. She felt a little flushed fevers and chilled. She was concerned enough by her increasing weakness and difficulty with movement that she came back to the emergency department. In the emergency department patient had repeat laboratory testing done which showed elevation white blood cell count elevation of her liver enzymes. She also had a repeat CT scan which showed stent in her left kidney with left kidney stone present and right kidney stone present. Her left kidney shows wedge-shaped hypoperfusion in the left kidney which raised the possibility of pyelonephritis or hypoperfusion. Patient's kidney function has remained stable throughout. Patient's glucose was also elevated. [facility] Medical History Pyuria Parapelvic renal cyst Constipation Atrophic vaginitis Hydronephrosis of left kidney Chronic lower urinary tract infection Recurrent urinary tract infection Colon polyps (2009) Chicken pox Measles Plantar warts (2004) Fractures (~2005) Osteopenia Multiple sclerosis (1991) Surgical History History of tubal ligation History of cholecystectomy Anesthesia History of shoulder surgery (1973) Status post rotator cuff repair (2011) History of third molar tooth extraction (1970) Status post tubal ligation (1979) Family History Brother Age: 67 Diabetes mellitus Hypertension High cholesterol Child Age: 28 Adopted Mother Heart disease Hypertension Stroke Cancer Father Alzheimer's disease Grandmother No problems noted. Social History marital status: number of children: 1 household members: friend(s) occupational status: employed Smoking Status: Never smoker alcohol intake: current substance use type: does not use caffeine: Yes (tea-occasional ) Type(s) of exercise: other frequency: 5-6 times per week Meds Home Medications and Allergies Home Medications Medication Instructions Recorded Confirmed Type CHOLECALCIFEROL (VITAMIN D3) 2,000 iu PO Q DAY ##0 02/19/11 04/20/24 History (Vitamin D) Calcium Carbonate/Vitamin D 1 sgl PO Q DAY ##0 02/19/11 04/20/24 History (#CALCIUM 1200 W/VITAMIN D 600 MG-100 IU) Cranberry (#CRANBERRY) 2,000 mg PO Q DAY ##0 02/19/11 04/20/24 History Fish Oil (#SUPER EPA 2000) 2,000 mg PO Q DAY ##0 02/19/11 04/20/24 History vitamin B complex 1 tab PO DAILY 02/10/19 04/20/24 History Disabled Parking Permit #1 ea 05/09/20 04/21/24 Rx One Touch Verio Glucose Monitor #1 ea 01/07/23 04/21/24 Rx amlodipine 5 mg tablet 5 mg PO DAILY #90 tabs 02/10/23 04/20/24 Rx One Touch Verio test strips and #300 ea 03/26/23 04/21/24 Rx lancets atorvastatin 10 mg tablet 10 mg PO DAILY #90 tabs 09/15/23 04/20/24 Rx metformin 500 mg tablet,extended 1,000 mg (2 x 500 mg) PO BID #360 10/30/23 04/20/24 Rx release 24 hr tabs magnesium citrate (OneLAX 300 ml PO DAILY PRN constipation 12/22/23 04/20/24 Rx Magnesium Citrate oral solution) #296 mL psyllium husk 2.6 gram/4.1 gram 1 tbsp PO DAILY 12/22/23 04/20/24 History oral powder phenazopyridine 100 mg tablet 100 mg PO TID PRN pain #6 tabs 02/06/24 04/20/24 Rx (Pyridium) trospium 20 mg tablet 20 mg PO BID #200 tabs 02/09/24 04/20/24 Rx estradiol 10 mcg vaginal tablet 10 mcg vaginal 2XW #24 tabs 02/24/24 04/20/24 Rx (Yuvafem) Disabled Parking Permit See Rx Instructions .Route 03/22/24 04/20/24 Rx .COMPLEX #1 ea Hand controls #1 ea 03/22/24 04/21/24 Rx hydrocodone 5 mg-acetaminophen 325 1 tab PO Q8H PRN Pain (Scale Score 03/22/24 04/20/24 Rx mg tablet 1-3) #30 tabs baclofen 10 mg tablet 15 mg PO TID 03/24/24 04/20/24 History mirabegron 50 mg tablet,extended 50 mg PO DAILY #30 tabs 03/26/24 04/20/24 Rx release 24 hr nitrofurantoin 100 mg PO BID #10 caps 04/09/24 04/20/24 Rx monohydrate/macrocrystals 100 mg capsule levofloxacin 750 mg tablet 750 mg PO DAILY 7 days #7 tabs 04/18/24 04/20/24 Rx blood sugar diagnostic (OneTouch #300 ea 04/19/24 04/21/24 Rx Verio test strips) Allergies Allergy/AdvReac Type Severity Reaction Status Date / Time Sulfa (Sulfonamide Allergy Severe ANAPHYLAXIS Verified 04/18/24 12:53 Antibiotics) [SULFA (SULFONAMIDE ANTIBIOTICS)] adhesive Allergy Mild TAPE; Verified 04/18/24 12:53 TOPICAL DERMATITIS FOR LONG PERIODS diphenhydramine Allergy Mild HIVES Verified 04/18/24 12:53 [DIPHENHYDRAMINE] Exam Vital Signs (past 8 hours): Oxygen Delivery Method Room Air Oxygen Flow Rate 0 Narrative Exam Narrative: Gen.: Patient is alert complaining of weakness good historian HEENT: Pupils equal round and reactive or mucosa is moist neck is supple Cardio: S1-S2 systolic murmur present Respiratory: Lungs are clear no wheezes or crackles Abdomen: Abdomen soft nontender no rebound or guarding Extremities: Full range of motion warm dry perfused no significant anemia Neurologic: No focal neurological deficits Objective Labs 04/21/24 04:24 04/21/24 04:24 Labs: Laboratory Results - last 24 hr 04/20/24 04/20/24 04/21/24 20:55 21:05 04:24 WBC 12.6 H 12.0 H RBC 3.73 L 3.95 L Hgb 10.9 L 11.2 L Hct 32.5 L 34.1 L MCV 87.0 86.2 MCH 29.3 28.4 MCHC 33.7 32.9 RDW 13.0 13.3 Plt Count 403 H 401 H Neut % (Auto) 72.7 71.9 Lymph % (Auto) 12.9 L 15.4 L [place] % (Auto) 11.8 10.2 Eos % (Auto) 2.2 1.7 L Baso % (Auto) 0.4 0.8 Neut # (Auto) 9200 H 8700 H Lymph # (Auto) 1600 1900 [place] # (Auto) 1500 H 1200 H Eos # (Auto) 300 200 Baso # (Auto) 100 100 Sodium 135 L 138 Potassium 3.7 3.7 Chloride 100 103 Carbon Dioxide 27 26 BUN 16 11 Creatinine 0.89 0.79 Estimated GFR > 60 > 60 BUN/Creatinine Ratio 18.0 13.9 Glucose 231 H 226 H Lactate 2.0 Calcium 9.2 9.4 Total Bilirubin 0.5 0.7 AST 57 H 48 H ALT 75 H 69 H Alkaline Phosphatase 178 H 202 H Total Protein 7.3 7.0 Albumin 3.7 3.8 Globulin 3.6 3.2 Albumin/Globulin Ratio 1.0 1.2 Lipase 89 Procalcitonin 0.773 H Urine Color [place] Urine Appearance Cloudy Urine pH Not Reportable Ur Specific [place] Not Reportable Urine Protein Not Reportable Urine Glucose (UA) Not Reportable Urine Ketones Not Reportable Urine Occult Blood Not Reportable Urine Nitrate Not Reportable Urine Bilirubin Not Reportable Urine Urobilinogen Not Reportable Ur Leukocyte Esterase Not Reportable Urine RBC 5-10/hpf H Urine WBC >100/hpf H Ur Squamous Epith Cells 0-1 /hpf Urine Bacteria Few (2-10) H Urine Mucus 1+ H Urine Yeast 1-5/hpf H Vol Urine Centrifuged 10ml (spun) Assessment & Plan Assessment and plan (1) Pyelonephritis: Status: Acute Plan Left Pyelonephritis. Patient with elevated white blood cell count elevated procalcitonin urinalysis consistent with infection. Patient's CT scan shows area of hypo perfusion versus pyelonephritis. Patient has a left ureteral stent in place. Patient's recent urine culture grew out Enterococcus. Patient was admitted to the hospital for further treatment of this infection. She will please placed on ceftriaxone IV she is normal tensive at this point will hold off on IV fluids as she has normal kidney function due to the IV fluids shortage. We will encourage oral hydration she is tolerating her diet. Will continue with IV antibiotics monitoring her white blood cell count. Patient also feels that she may have had a reaction to the ciprofloxacin which exacerbated symptoms of weakness. We will consult her urologist for his opinion. Kidney stone left with ureteral stent. As per Urology. Currently in place patient states she has an appointment on Friday to have it removed. Multiple sclerosis. Patient has many year history of MS. Currently symptoms she feels like her exacerbated due to her underlying medical conditions. Not significant enough that I think we need to treat with steroids at this point. Will continue with physical therapy and her baclofen at her request. Physical therapy referral Type 2 diabetes patient's blood sugars are elevated due to infection. She has normal kidney function I am not anticipating any further scans. Will continue with her metformin and provide insulin sliding scale coverage with the long-acting insulin at night. Monitor blood sugars in the morning and before each meals diabetic diet. Hyperlipidemia. Patient will be placed back on her statin medication. Osteoarthritis chronic and stable DVT prophylaxis with Lovenox Code status full code Time-Based Coding :: [TOTAL MINUTES] spent with patient and on the chart (including review of chart, obtaining history, exam, reviewing outside data, placing orders, documenting exam and treatment plan, and counseling patient) on [DATE].
[2024-04-21] MEDS: OXYBUTYNIN 5 MG ER TAB PO (08:41)
[2024-04-21] MEDS: polyethylene glycoL 3350 17 GM POWD.PACK PO (08:41)
[2024-04-21] MEDS: PSYLLIUM HUSK 1 PACKET PO (08:41)
[2024-04-21] MEDS: ENOXAPARIN 40 MG/0.4 ML SYRINGE SUBCUT (08:41)
[2024-04-21] MEDS: METFORMIN XR 500 MG TABLET 1000 MG PO ×2 (08:41→21:30)
--- NOTE | 2024-04-21 09:12 | PM.CN ---
History of Present Illness Consult details Date Patient Seen: 04/21/24 Time Patient Seen: 09:12 Chief complaint: Weakness Narrative: 73 y/o F w/ h/o nephrolithiasis presented to ED on 20 Apr 2024 for evaluation of worsening urinary urgency/frequency, suprapubic pain, dysuria and subjective fevers/chills at home. Briefly, she was noted to have a urinary tract infection in the setting of a 7mm left proximal ureterolith in Feb and was treated with antibiotics and a cystoscopy with left ureteral stent placement. She developed the aforementioned symptoms over the weekend and noted that her typical MS symptoms were flaring up. Therefore, she was evaluated in the ED and treated for a urinary tract infection with Levaquin. Unfortunately, she noted continued symptoms and then developed weakness that she believed was secondary to the antibiotics and returned to the ED on 20 Apr 2024. Her evaluation was notable for a WBC of ~12, UA consistent with a stent and concern for yeast, and a CT Abd/Pel that demonstrated proper positioning of her left ureteral stent. She was subsequently admitted for management of pyelonephritis. Meds Home Medications and Allergies Home Medications Medication Instructions Recorded Confirmed Type CHOLECALCIFEROL (VITAMIN D3) 2,000 iu PO Q DAY ##0 02/19/11 04/20/24 History (Vitamin D) Calcium Carbonate/Vitamin D 1 sgl PO Q DAY ##0 02/19/11 04/20/24 History (#CALCIUM 1200 W/VITAMIN D 600 MG-100 IU) Cranberry (#CRANBERRY) 2,000 mg PO Q DAY ##0 02/19/11 04/20/24 History Fish Oil (#SUPER EPA 2000) 2,000 mg PO Q DAY ##0 02/19/11 04/20/24 History vitamin B complex 1 tab PO DAILY 02/10/19 04/20/24 History Disabled Parking Permit #1 ea 05/09/20 04/21/24 Rx One Touch Verio Glucose Monitor #1 ea 01/07/23 04/21/24 Rx amlodipine 5 mg tablet 5 mg PO DAILY #90 tabs 02/10/23 04/20/24 Rx One Touch Verio test strips and #300 ea 03/26/23 04/21/24 Rx lancets atorvastatin 10 mg tablet 10 mg PO DAILY #90 tabs 09/15/23 04/20/24 Rx metformin 500 mg tablet,extended 1,000 mg (2 x 500 mg) PO BID #360 10/30/23 04/20/24 Rx release 24 hr tabs magnesium citrate (OneLAX 300 ml PO DAILY PRN constipation 12/22/23 04/20/24 Rx Magnesium Citrate oral solution) #296 mL psyllium husk 2.6 gram/4.1 gram 1 tbsp PO DAILY 12/22/23 04/20/24 History oral powder phenazopyridine 100 mg tablet 100 mg PO TID PRN pain #6 tabs 02/06/24 04/20/24 Rx (Pyridium) trospium 20 mg tablet 20 mg PO BID #200 tabs 02/09/24 04/20/24 Rx estradiol 10 mcg vaginal tablet 10 mcg vaginal 2XW #24 tabs 02/24/24 04/20/24 Rx (Yuvafem) Disabled Parking Permit See Rx Instructions .Route 03/22/24 04/20/24 Rx .COMPLEX #1 ea Hand controls #1 ea 03/22/24 04/21/24 Rx hydrocodone 5 mg-acetaminophen 325 1 tab PO Q8H PRN Pain (Scale Score 03/22/24 04/20/24 Rx mg tablet 1-3) #30 tabs baclofen 10 mg tablet 15 mg PO TID 03/24/24 04/20/24 History mirabegron 50 mg tablet,extended 50 mg PO DAILY #30 tabs 03/26/24 04/20/24 Rx release 24 hr nitrofurantoin 100 mg PO BID #10 caps 04/09/24 04/20/24 Rx monohydrate/macrocrystals 100 mg capsule levofloxacin 750 mg tablet 750 mg PO DAILY 7 days #7 tabs 04/18/24 04/20/24 Rx blood sugar diagnostic (OneTouch #300 ea 04/19/24 04/21/24 Rx Verio test strips) Allergies Allergy/AdvReac Type Severity Reaction Status Date / Time Sulfa (Sulfonamide Allergy Severe ANAPHYLAXIS Verified 04/18/24 12:53 Antibiotics) [SULFA (SULFONAMIDE ANTIBIOTICS)] adhesive Allergy Mild TAPE; Verified 04/18/24 12:53 TOPICAL DERMATITIS FOR LONG PERIODS diphenhydramine Allergy Mild HIVES Verified 04/18/24 12:53 [DIPHENHYDRAMINE] Review of Systems Review of Systems Narrative: CONSTITUTIONAL: Denies weight loss, fevers, chills. HEENT: Denies change in vision, hearing. RESP: Denies SOB, cough. CV: Denies palpations, CP. GI: Denies abdominal pain, nausea, vomiting, diarrhea. : Denies hematuria, inability to void. MSK: Denies myalgia, joint pain. SKIN: Denies rash, pruritus. NEURO: Denies headache, syncope. PSYCH: Denies recent change in mood, anxiety, depression. Exam Vital Signs (past 8 hours): Oxygen Delivery Method Room Air Oxygen Flow Rate 0 Narrative Exam Narrative: GEN: Alert and oriented X3. No acute distress. Well-nourished. EYES: PERRLA, EOMI. HENT: Moist mucus membranes, no scleral icterus, normal neck ROM. RESP: Unlabored breathing, equal rise and fall of chest bilaterally, no cyanosis appreciated. CV: No peripheral edema, unremarkable heart rate. ABD: Soft, non-tender, non-distended, no palpable masses. EXT: No edema, clubbing or cyanosis. SKIN: No rashes or lesions. NEURO: No focal neurologic deficits, CN II-XII grossly intact. PSYCH: Cooperative, appropriate mood and affect. Objective Labs 04/21/24 04:24 04/21/24 04:24 Labs: Laboratory Results - last 24 hr 04/20/24 04/20/24 04/21/24 20:55 21:05 04:24 WBC 12.6 H 12.0 H RBC 3.73 L 3.95 L Hgb 10.9 L 11.2 L Hct 32.5 L 34.1 L MCV 87.0 86.2 MCH 29.3 28.4 MCHC 33.7 32.9 RDW 13.0 13.3 Plt Count 403 H 401 H Neut % (Auto) 72.7 71.9 Lymph % (Auto) 12.9 L 15.4 L Hart % (Auto) 11.8 10.2 Eos % (Auto) 2.2 1.7 L Baso % (Auto) 0.4 0.8 Neut # (Auto) 9200 H 8700 H Lymph # (Auto) 1600 1900 Hart # (Auto) 1500 H 1200 H Eos # (Auto) 300 200 Baso # (Auto) 100 100 Sodium 135 L 138 Potassium 3.7 3.7 Chloride 100 103 Carbon Dioxide 27 26 BUN 16 11 Creatinine 0.89 0.79 Estimated GFR > 60 > 60 BUN/Creatinine Ratio 18.0 13.9 Glucose 231 H 226 H Lactate 2.0 Calcium 9.2 9.4 Total Bilirubin 0.5 0.7 AST 57 H 48 H ALT 75 H 69 H Alkaline Phosphatase 178 H 202 H Total Protein 7.3 7.0 Albumin 3.7 3.8 Globulin 3.6 3.2 Albumin/Globulin Ratio 1.0 1.2 Lipase 89 Procalcitonin 0.773 H Urine Color [place] Urine Appearance Cloudy Urine pH Not Reportable Ur Specific [place] Not Reportable Urine Protein Not Reportable Urine Glucose (UA) Not Reportable Urine Ketones Not Reportable Urine Occult Blood Not Reportable Urine Nitrate Not Reportable Urine Bilirubin Not Reportable Urine Urobilinogen Not Reportable Ur Leukocyte Esterase Not Reportable Urine RBC 5-10/hpf H Urine WBC >100/hpf H Ur Squamous Epith Cells 0-1 /hpf Urine Bacteria Few (2-10) H Urine Mucus 1+ H Urine Yeast 1-5/hpf H Vol Urine Centrifuged 10ml (spun) [facility] Medical History Pyuria Parapelvic renal cyst Constipation Atrophic vaginitis Hydronephrosis of left kidney Chronic lower urinary tract infection Recurrent urinary tract infection Colon polyps (2009) Chicken pox Measles Plantar warts (2004) Fractures (~2005) Osteopenia Multiple sclerosis (1991) Surgical History History of tubal ligation History of cholecystectomy Anesthesia History of shoulder surgery (1973) Status post rotator cuff repair (2011) History of third molar tooth extraction (1970) Status post tubal ligation (1979) Family History Brother Age: 67 Diabetes mellitus Hypertension High cholesterol Child Age: 28 Adopted Mother Heart disease Hypertension Stroke Cancer Father Alzheimer's disease Grandmother No problems noted. Social History marital status: number of children: 1 household members: friend(s) occupational status: employed Tobacco & Substance Use Smoking Status: Never smoker alcohol intake: current substance use type: does not use Diet and Exercise caffeine: Yes (tea-occasional ) Type(s) of exercise: other frequency: 5-6 times per week Assessment & Plan Assessment and plan (1) Pyelonephritis: Status: Acute Plan: 73 y/o F s/p a cystoscopy with left ureteral stent placement for management of a 7mm left proximal ureterolith in the setting of a UTI in Feb. She was noted to develop signs/symptoms concerning for a UTI over the weekend that persisted despite Levofloxacin. Her UA is difficult to interpret as it appears consistent with a ureteral stent, yet does have yeast present. Her UCx from a few days ago is positive for GPC and yeast with sensitivities and speciation pending. Therefore, will defer antibiotic selection and management to her primary team, however, would recommend addition of Fluconazole 400mg daily for the next two weeks. Discussed that her CT Abd/Pel demonstrates proper positioning of her left ureteral stent and that no urgent Urologic intervention is necessary at this point. She was previously scheduled for left ureteroscopy with laser lithotripsy on 23 Apr 2024, however, will move her procedure to 30 Apr 2024. Will complete her preoperative evaluation and consent while she is in the hospital. (2) Ureteral calculus: Status: Acute Plan: Please see above. Time-Based Coding :: [TOTAL MINUTES] spent with patient and on the chart (including review of chart, obtaining history, exam, reviewing outside data, placing orders, documenting exam and treatment plan, and counseling patient) on [DATE]. PROFEE Charge Codes Inpatient or Observation consultation: [id number]
[2024-04-21] MEDS: INSULIN LISPRO 100 UNIT/ML 3ML VIAL SUBCUT ×3 (09:33→17:35)
[2024-04-21] MEDS: BACLOFEN 10 MG TABLET PO ×3 (09:34→21:43)
[2024-04-21] MEDS: FLUCONAZOLE 400 MG/200 ML PIGGYBACK 100 MG IV (10:50)
--- NOTE | 2024-04-21 12:05 | PT.IIE ---
Current Diagnoses Tubulo-interstitial nephritis, not specified as acute or chronic (04/20/24) Calculus of ureter (04/20/24) Surgical History (Last Reviewed 04/21/24 @ 09:16 by Brian Denis DO) Anesthesia History of cholecystectomy History of shoulder surgery (1973) History of third molar tooth extraction (1970) History of tubal ligation Status post rotator cuff repair (2011) Status post tubal ligation (1979) Medical History (Last Reviewed 04/21/24 @ 09:16 by Brian Denis DO) Atrophic vaginitis Chicken pox Chronic lower urinary tract infection Colon polyps (2009) Constipation Fractures (~2005) Hydronephrosis of left kidney Measles Multiple sclerosis (1991) Osteopenia Parapelvic renal cyst Plantar warts (2004) Pyuria Recurrent urinary tract infection Physical Therapy Inpatient Evaluation/Re-Eval M1 PT/OT-IP Prior Functional Status Start: 04/21/24 14:09 Freq: NEEDED Status: Active Protocol: Document 04/21/24 12:05 AB (Rec: 04/21/24 14:24 [id number]) Medical Review Prior Functional Status Medical History Reviewed Yes Communication able to make needs known Mobility and Gait pt stated that she was modified independent with all mobilities and ambulation using 2 walking sticks/4WW but with h/o falls Social History Household Members friend(s) Living Arrangements House Number of Floors (Floors) One Floor Number of Stairs To Enter/Railing? has 5 steps B rails to enter the house Home Environment Standard Height Toilet,Walk in Shower Home Equipment Four Wheel Walker,Raised Toilet Seat w/Armrests,Hand Held Shower,Grab Bars Near Toilet Additional Social History Comment pt lives with her house mate and stated that her housemate will be able to assist her has 2 walking sticks pt has an adjustable bed with R rail M2 PT-IP Current Condition Start: 04/21/24 14:09 Freq: NEEDED Status: Active Protocol: Document 04/21/24 12:05 AB (Rec: 04/21/24 14:24 AB [id number]) Physical Therapy Current Condition Current Condition Evaluation Date 04/21/24 Treatment Diagnosis UTI; pyelonephritis; MS; difficulty in walking Onset Date 04/20/24 M3 PT-IP Subjective Start: 04/21/24 14:09 Freq: NEEDED Status: Active Protocol: Document 04/21/24 12:05 AB (Rec: 04/21/24 14:24 AB [id number]) Subjective Physical Therapy Visit Type Type Initial Evaluation Visit Start Time 12:05 Visit Stop Time 12:45 Number of CORPORATE INTERN Visits 0 Physical Therapy Visit Comments Patient Comments agreeable to do PT M4 PT-IP Mobility and Gait Start: 04/21/24 14:09 Freq: NEEDED Status: Active Protocol: Document 04/21/24 12:05 AB (Rec: 04/21/24 14:24 AB [id number]) PT-Bed Mobility Assessment Supine to Sit Supine to Sit Maximum Assistance,Head of Bed Elevated,Bedrails Scooting Scooting to Edge of Bed Maximum Assistance,Dependent PT-Transfer Assessment Sit to and From Stand Sit to and from Stand Maximum Assistance,1 Person Assistance,2 Person Assistance ,Use of Upper Extremities Equipment Transfer Assistive Device Gait Belt,Front Wheeled Walker Orthotic/Prosthetic Devices or Brace: No Transfers Transfer Destination Chair Transfer Technique Stand Step Pivot Transfer Ability Level of Assist Maximum Assistance,2 Person Assistance,Use of Upper Extremities Comments Mobility Comments pt supine in bed and agreeable to do PT. obtained PLOF and home set up. BP: 147/68 pt completed supine to sit max A and max cues. pt used bed rail to assist. HOB elevated. pt able to sit on EOB mod A for balance. increase posterior trunk lean and lateral leaning to the L. max A for scooting to EOB. completed sit to stand from EOB max A x 1-2 and max cues and able to walk ~ 2 ft using FWW max A x 1-2 and max cues. pt with unsteady gait needing max A for weight shifting and moving LLE forward. also needed asssit for maneuvering FWW. pt with freezing episode with increase posterior leaning needing for PT to provide total A to be able to safely sit back on EOB. total A x 2 for scooting back onto the bed. chair positioned next to pt. completed sit to stand from EOB max A x 2 and max cues. step transfer to chair using fWW max A x 2 to total A x 2 and max cues. positioned pt on the chair. call light and table placed within reach. nurse in room during standing and transfers. Gait Assessment Gait Gait Assistance Required: Maximum Assistance,1 Person Assist,2 Person Assist Distance (Feet) 2 Able to Maintain Weight Bearing Status Yes During Gait Assistive Devices Assistive Device Gait Belt,Front Wheeled Walker Orthotic/Prosthetic Devices or Brace: No Gait Deviations General Gait Pattern Antalgic,Ataxic,Decreased Stride Length,Decreased Feet Clearance,Lateral Trunk Lean, Step-to Gait Factors Limiting Gait Function Factors Limiting Gait Function Decreased Activity Tolerance, Decreased Sensation,Decreased Strength,Difficulty Following Directions,Incoordination,Pain ,Poor Balance,Poor Safety Awareness PT-Balance Assessment Sitting Balance and Reactions Static Sitting Balance Ability Fair Dynamic Sitting Balance Ability Poor Standing Balance and Reactions Static Standing Balance Ability Poor Dynamic Standing Balance Ability Poor Device Used FWW M5 PT-IP Objective Assessments Start: 04/21/24 14:09 Freq: NEEDED Status: Active Protocol: Document 04/21/24 12:05 AB (Rec: 04/21/24 14:24 AB [id number]) Orientation Orientation/Cognition Level of Alertness Alert Orientation Name,Place,Situation Language Function Ability No Deficits Noted Safety Awareness Decreased Safety Awareness Memory Description No Deficits Noted Gross Range of Motion Lower Extremity ROM Impairments BLE increase tone/ spasticity mild Strength Lower Extremity Strength Assessment Bilaterally Impaired Hip 3-/5 Knee 3+/5 Ankle 3+/5 Coordination Assessment Gross Coordination Gross Coordination Impaired Sensation Assessment Sensation Gross Sensation Right UE Impaired,Left UE Impaired,Right LE Impaired, Left LE Impaired Sensation Description Numbness M6 PT-IP Treatment Start: 04/21/24 14:09 Freq: NEEDED Status: Active Protocol: Document 04/21/24 12:05 AB (Rec: 04/21/24 14:24 AB [id number]) Physical Therapy Treatment Education Education Provided Safety M7 PT-IP Assessment and Plan Start: 04/21/24 14:09 Freq: NEEDED Status: Active Protocol: Document 04/21/24 12:05 AB (Rec: 04/21/24 14:24 AB [id number]) PT Summary Assessment and Plan Potential Rehabilitation Potential Fair Status of Condition at Evaluation Evolving Summary Impairments Pain,ROM,Strength,Balance, Coordination,Sensation,Tone, Cognition,Bed Mobility, Transfers,Gait,Activity Tolerance Assessment Summary pt is a 73 y/o F who is admitted for UTI; pyelonephritis. pt also has MS contributing to current mobility level. pt requiring max A x 2 to total A x 2 with mobility using FWW. recommending mechanical lift transfers with nursing staff. pt will require SNF rehab to improve strength and mobility. Goals Bed Mobility Goal Minimal Assistance Transfer Goal Minimal Assistance,Front Wheeled Walker Gait Goal Minimal Assistance,Front Wheel Walker Gait Distance 20 Other Goals improve bed mobility, transfers, ambulation using FWW ~ 50 ft SBA up/down 5 steps B rails CGA Days to Meet Goals 10 Frequency of Treatment Frequency Of Treatment Once a Day Treatment Plan Physical Therapy Treatment Plan Bed Mobility Training,Transfer Training,Gait Training, Therapeutic Exercise,Balance Retraining,Discharge Planning, Hot or Cold Pack,Neuromuscular Re-ed,Coordination Retraining ,Manual Therapy Precautions Other Precautions falls Recommendations To Nursing Amount of Assist Needed Mechanical Lift Discharge Recommendations PT Discharge Recommendations SNF Rehab Transportation Needs at Discharge Wheelchair/Cabulance
--- NOTE | 2024-04-21 12:05 | DIET.CONS ---
Dietary Consultation Note Admission Date: 04/20/2024 22:23 Assessment: 73 y F presenting with weakness, found to have pyelonephritis. PMH of diabetes with A1c% of 7.7% on 12/16/23. Nutrition consulted for weight loss. Met with pt at bedside. Reports decrease appetite for last 6 weeks with 10 lb weight loss she contributes to overall not feeling well with UTIs and some incidences of diarrhea. Current diet recall: D-soup Usually would have 2 full meals per day before this past 6 wks. Reports she ate half her breakfast. DFM reviewed for meal composition. Nutrition focused physical exam performed: No significant results. Assessed temples, clavicle region, interosseous, buccal and orbital fat pads Ht: 152.4 cm Wt: 60 kg BMI: 25.8 UBW: 64.54 kg per pt 6 weeks ago (7% weight loss within 6 weeks, non-severe); per EMR 63.5 kg on 02/06/24 (-5.5% loss in 2 months, non-severe), 62.823 kg on 02/10/23 Last BM: 04/18/24 (04/20/24 23:26) MNA: 11 Twin Score: 19 Diet: 04/21/24 Breakfast Carbohydrate Consistent Diet Diet Modifications: Carbohydrate level: Medium (3 CHO) Bedtime snack: Yes Reflex DM orders: No Food Texture: Level 7 - Regular Liquid Consistency: Level 0 - Thin Labs: RBC 3.95 X10^6/uL (4.0-5.2) L 04/21/24 04:24 Hgb 11.2 g/dL (12.0-16.0) L 04/21/24 04:24 Hct 34.1 % (36-46) L 04/21/24 04:24 Creatinine 0.79 mg/dL (0.52-1.04) 04/21/24 04:24 Lactate 2.0 mmol/L (0.7-2.1) 04/20/24 21:05 Nutrition Diagnosis: Unintentional weight loss r/t inadequate oral intakes aeb <50% estimated energy intake for 6 weeks, 5-7% weight loss in 6 weeks, non-severe Interventions: -protein-energy supplement once-a-day to support po intakes with decreased appetite EER: 1500 kcals (25 kcals/kg per BMI) 60 g protein (1 g/kg per age) Monitoring/Evaluations: monitor po intakes and BG Electronically Signed by: Sofía Lee 04/21/24 12:05 Clinical Dietitian [address] [address]
[2024-04-21 16:31] VITALS: BP 144/79; PULSE 120; RESP 20; TEMP 36.9; O2SAT 96
--- NOTE | 2024-04-21 16:43 | EKG_ITS ---
[facility] [address] [place] [address] Test Date: 2024-04-21 Pat Name: Harmeet Finn Department: [facility] Room: 222 Gender: Female Neck Pinner: GLENN : 1950 Requested By: Order Number: [id number] Reading MD: Stevie Santos Measurements Intervals [place] Rate: 119 P: 28 HI: 130 QRS: -14 QRSD: 72 T: 35 QT: 288 QTc: 405 Interpretive Statements Sinus tachycardia Minimal voltage criteria for LVH, may be normal variant ( R in aVL ) Electronically Signed On 04-22-2024 8:27:30 PDT by Stevie Santos
--- NOTE | 2024-04-21 16:45 | CM.DANOTE ---
B DCP Assessment note Pt is a 73yo F here with urosepsis. PMH of MS. Recent left ureteral stent placed at 03/24/[address] Denis. scheduled for left ureteroscopy with laser lithotripsy on 23 Apr 2024 when she became weaker/had episodes of incontinence and decided to come to the ED. Procedure rescheduled for Nov . Currently being followed by PCP and urology PCP [facility] and Medicare A only PUBLICATIONS EDITOR reviewed EMR. Lives in [place], alone??/with friends? emergency contacts are listed at son Christian, , who also lives in [place]. per chart review, unsure if pt's weakness is due to medications/exacerbation of her MS/her urology concerns. Per chart, pt uses walking sticks/walker at baseline, max assist with PT, PT rec SNF at this time. PUBLICATIONS EDITOR unable to meet with pt today due to triaging needs. If SNF, referrals/auth request/PASRR needed. CM team will follow for preferences/additional DCP needs. FIGUEROA Wilson Discharge Planning/Care Management Advanced directive, confirm from FAMILY Start: 04/20/24 23:30 Freq: Q24H Status: Active Protocol: Document 04/21/24 00:01 AT (Rec: 04/21/24 00:01 AT [id number]) Advance Directive, confirm on record Time 00:01 Person contacted self Copy received No CM Discharge Assessment Start: 04/21/24 16:44 Freq: Status: Active Protocol: Document 04/21/24 16:44 (Rec: 04/21/24 16:45 SL [id number]) Discharge Planning Assessment Assigned Waste Removalist FIGUEROA Chapin Advance Directives? Yes Advance Directives on File No History Provided By Patient,Medical Record Prior Living Arrangements House Household Members friend(s) Type of transporation used prior to Drives own vehicle admit Discharge Plan Home Additional Comment PT=SNF, referrals needed Review Status In Process Please Provide Date Initial DC 04/21/24 Assessment Was Performed Next Review Type Continued Stay Review
[2024-04-21 16:51] VITALS: BP 149/79; PULSE 117; RESP 16; TEMP 36.4; O2SAT 97
--- NOTE | 2024-04-21 18:14 | PC.NURSE ---
Patient with tachycardia. Noted 100's this a.m. Upon afternoon assessment patient HR 120. BP 144/79. She has about 300 cc output in purewick drainage collection, and x1 large incontinent brief today.MD notified, received order for EKG 12 lead at bedside. Results or normal sinus tachycardia. Encouraged patient to drink po liquids.
[2024-04-21 20:00] VITALS: BP 133/77; PULSE 100; RESP 18; TEMP 36.7; O2SAT 93
[2024-04-21] MEDS: cefTRIAXone 2,000 MG in SODIUM CHLORIDE 0.9% 100 ML 200 MG IV (21:41)
[2024-04-21] MEDS: ATORVASTATIN 20 MG TABLET 10 MG PO (21:42)
[2024-04-21] MEDS: INSULIN GLARGINE 100 UNIT/ML 3ML PEN 20 UNIT SUBCUT (22:11)
[2024-04-22] VITALS (8 sets, daily range): BP systolic 122–136; BP diastolic 66–82; PULSE 101–122; RESP 16–18; TEMP 36.6–38; O2SAT 94–97
[2024-04-22 05:06] LABS: Add Manual Diff / Slide Review NO; Basophils Absolute Auto 100 /uL (0-100); Basophils Percent Auto 0.3 % (0-2); Eosinophils Absolute Auto 100 /uL (0-450); Eosinophils Percent Auto 0.8 % (2-4); Hematocrit 32.7 % (36-46); Hemoglobin 10.8 g/dL (12.0-16.0); Lymphocytes Absolute Auto 1500 /uL (1100-4500); Lymphocytes Percent Auto 8.5 % (25-40); Mean Corpuscular HGB Conc 32.9 % (30-36); Mean Corpuscular Hemoglobin 28.4 PG (26-34); Mean Corpuscular Volume 86.4 fL (80-100); Monocytes Absolute Auto 1700 /uL (0-900); Monocytes Percent Auto 9.1 % (3-14); Neutrophils Absolute Auto 14700 /uL (1500-7000); Neutrophils Percent Auto 81.3 % (50-75); Platelet Count 411 X10^3/uL (150-400); Red Blood Cell Count 3.79 X10^6/uL (4.0-5.2); Red Cell Distribution Width 13.3 % (11.6-14.8)
[2024-04-22 05:22] LABS: Alanine Aminotransferase 71 IU/L (<35); Albumin 3.3 g/dL (3.5-5.0); Albumin Globulin Ratio 1.1 (1.0-2.8); Alkaline Phosphatase 231 U/L (38-126); Aspartate Aminotransferase 54 IU/L (14-36); BUN Creatinine Ratio 13.7 (6-22); Bilirubin Total 0.8 mg/dL (0.2-1.3); Blood Urea Nitrogen 16 mg/dL (7-17); Calcium 8.9 mg/dL (8.4-10.2); Carbon Dioxide 24 mmol/L (22-32); Chloride 102 mmol/L (98-107); Estimated Glomerular Filt Rate 49 mL/min (>60); Globulin 3.1 g/dL (1.7-4.1); Glucose 175 mg/dL (80-110); HEMOLYSIS < 15 (0-50); Potassium 3.8 mmol/L (3.4-5.1); Sodium 134 mmol/L (137-145); Total Protein 6.4 g/dL (6.3-8.2)
[2024-04-22] MEDS: AMPICILLIN 2,000 MG in SODIUM CHLORIDE 0.9% 100 ML 200 MG IV ×2 (08:19→16:28)
[2024-04-22] MEDS: ENOXAPARIN 40 MG/0.4 ML SYRINGE SUBCUT (08:39)
[2024-04-22] MEDS: METFORMIN XR 500 MG TABLET 1000 MG PO ×2 (08:39→21:25)
[2024-04-22] MEDS: OXYBUTYNIN 5 MG ER TAB PO (08:39)
[2024-04-22] MEDS: BACLOFEN 10 MG TABLET PO ×3 (08:39→21:25)
--- NOTE | 2024-04-22 08:43 | P.PN_ITS ---
Subjective Subjective Date Patient Seen: 04/22/24 Time Patient Seen: 08:44 Interval history: Patient seen and examined this morning she is still complaining of weakness. Not much appetite. She was able to get up and walk with a walker. And support. Appreciate urology consultation yesterday. Patient is tachycardic. Her white blood cell count is elevated all consistent with progressing infection despite being on IV antibiotics and IV antifungals at the recommendation of Urology. Patient states he slept better last night just because she was not in the emergency department but still feeling weak. She is eating well does not have much of an appetite has current urine output. Patient has not been hypotensive patient has not not had a significant fever. Most recent blood sugars have been 177 186. Exam Vital Signs (past 8 hours): Oxygen Delivery Method Room Air Oxygen Flow Rate 0 Narrative Exam Narrative: Gen.: Alert good historian HEENT: Pupils equal round and reactive or mucosa is moist neck is supple Cardio: S1-S2 regular rate and rhythm slight systolic murmur Respiratory: Normal respiratory effort some mild decreased breath sounds at bases Abdomen: Soft nontender mild distention no rebound or guarding Extremities: Warm dry perfused no edema Objective Labs 04/22/24 04:49 04/22/24 04:49 Labs: Laboratory Results - last 24 hr 04/22/24 04:49 WBC 18.0 H RBC 3.79 L Hgb 10.8 L Hct 32.7 L MCV 86.4 MCH 28.4 MCHC 32.9 RDW 13.3 Plt Count 411 H Neut % (Auto) 81.3 H Lymph % (Auto) 8.5 L [place] % (Auto) 9.1 Eos % (Auto) 0.8 L Baso % (Auto) 0.3 Neut # (Auto) 57270 H Lymph # (Auto) 1500 [place] # (Auto) 1700 H Eos # (Auto) 100 Baso # (Auto) 100 Sodium 134 L Potassium 3.8 Chloride 102 Carbon Dioxide 24 BUN 16 Creatinine 1.17 H Estimated GFR 49 L BUN/Creatinine Ratio 13.7 Glucose 175 H Calcium 8.9 Total Bilirubin 0.8 AST 54 H ALT 71 H Alkaline Phosphatase 231 H Total Protein 6.4 Albumin 3.3 L Globulin 3.1 Albumin/Globulin Ratio 1.1 PFSH Medical History Pyuria Parapelvic renal cyst Constipation Atrophic vaginitis Hydronephrosis of left kidney Chronic lower urinary tract infection Recurrent urinary tract infection Colon polyps (2009) Chicken pox Measles Plantar warts (2004) Fractures (~2005) Osteopenia Multiple sclerosis (1991) Surgical History History of tubal ligation History of cholecystectomy Anesthesia History of shoulder surgery (1973) Status post rotator cuff repair (2011) History of third molar tooth extraction (1970) Status post tubal ligation (1979) Family History Brother Age: 67 Diabetes mellitus Hypertension High cholesterol Child Age: 28 Adopted Mother Heart disease Hypertension Stroke Cancer Father Alzheimer's disease Grandmother No problems noted. Social History marital status: number of children: 1 household members: friend(s) occupational status: employed Smoking Status: Never smoker alcohol intake: current substance use type: does not use caffeine: Yes (tea-occasional ) Type(s) of exercise: other frequency: 5-6 times per week Assessment & Plan Assessment and plan (1) Pyelonephritis: Status: Acute Plan Sepsis patient meets criteria for sepsis due to elevated white blood cell count tachycardia kidney injury and transaminitis. Source of sepsis is urine. Left Pyelonephritis. Patient with ureteral stent with pyelonephritis. Patient previous urine culture results from the 18 of April show Marylou albicans and Enterococcus faecalis patient's sensitivity is back. Enterococcus is susceptible to ampicillin. Patient was started on ceftriaxone in the emergency department this was continued ampicillin was added because patient's white blood cell count has worsened and she is tachycardic. Still has ongoing source of infection. Patient has Marylou albicans. She was started on IV fluconazole 400 mg yesterday and this will be continued as well Kidney stone left with ureteral stent. Stent in place with stone in place. Patient has an upcoming procedure for removal. Question whether this needs to be removed sooner than later. Due to ongoing source of infection. Transaminitis patient has elevation of liver enzymes. Potentially due to ongoing infection versus medication reaction. We will continue trend liver enzymes. Hopefully this will improve as infection improves and possible offending medications are stopped. Multiple sclerosis. Patient has many year history of MS. Currently symptoms she feels like her exacerbated due to her underlying medical conditions. Not significant enough that I think we need to treat with steroids at this point. Will continue with physical therapy and her baclofen at her request. Physical therapy referral Diabetes type 2. Patient generally has well controlled blood sugars. In the hospital she has been placed on metformin she is on insulin which is new for her getting 20 units. Her blood sugars are still in the 170s to 180s but much better controlled. Will increase her Lantus insulin to 30. Hyperlipidemia. Continue her current Lipitor Osteoarthritis chronic and stable DVT prophylaxis with Lovenox Code status full code Disposition and plan anticipate additional days of hospitalization discharge plan is home. Time-Based Coding :: [TOTAL MINUTES] spent with patient and on the chart (including review of chart, obtaining history, exam, reviewing outside data, placing orders, documenting exam and treatment plan, and counseling patient) on [DATE].
[2024-04-22] MEDS: INSULIN LISPRO 100 UNIT/ML 3ML VIAL SUBCUT ×3 (08:46→16:42)
[2024-04-22] MEDS: SODIUM CHLORIDE 0.9% 1,000 ML 125 ML IV ×2 (09:40→22:05)
[2024-04-22] MEDS: FLUCONAZOLE 200 MG/100 ML PIGGYBACK 100 MG IV (09:43)
--- NOTE | 2024-04-22 11:10 | PT.IPTN ---
Current Diagnoses Tubulo-interstitial nephritis, not specified as acute or chronic (04/20/24) Calculus of ureter (04/20/24) Physical Therapy Treatment Note M2 PT-IP Current Condition Start: 04/21/24 14:09 Freq: NEEDED Status: Active Protocol: Document 04/21/24 12:05 AB (Rec: 04/21/24 14:24 AB [id number]) Physical Therapy Current Condition Current Condition Evaluation Date 04/21/24 Treatment Diagnosis UTI; pyelonephritis; MS; difficulty in walking Onset Date 04/20/24 M3 PT-IP Subjective Start: 04/21/24 14:09 Freq: NEEDED Status: Active Protocol: Document 04/22/24 11:56 TS (Rec: 04/22/24 12:05 TS [id number]) Subjective Physical Therapy Visit Type Type Treatment Note Visit Start Time 11:10 Visit Stop Time 11:35 Number of CELERY PACKER Visits 1 Physical Therapy Visit Comments Patient Comments Pt found resting in the bed, she is agreeable to PT. M4 PT-IP Mobility and Gait Start: 04/21/24 14:09 Freq: NEEDED Status: Active Protocol: Document 04/22/24 11:56 TS (Rec: 04/22/24 12:05 TS [id number]) PT-Bed Mobility Assessment Supine to Sit Supine to Sit Maximum Assistance,Head of Bed Elevated,Bedrails Scooting Scooting to Edge of Bed Maximum Assistance,Dependent PT-Transfer Assessment Sit to and From Stand Sit to and from Stand Maximum Assistance,1 Person Assistance,Use of Upper Extremities Equipment Transfer Assistive Device Gait Belt,Front Wheeled Walker Orthotic/Prosthetic Devices or Brace: No Transfers Transfer Destination Chair Transfer Technique Stand Step Pivot Transfer Ability Level of Assist Maximum Assistance,2 Person Assistance,Use of Upper Extremities Comments Mobility Comments Pt performs heel slides, quad sets and ankle pumps. Supine to sit MaxA for uprighting trunk and LE assistance to EOB . STS with FWW MaxA x1, pt retroleans, requests to use 4WW, does not like FWW. Stand step pivot to the chair MaxA x2 with 4WW, pt laterally leans into PT on R side, weakness R>L. Pt sat in the chair, nrusing in the room to assist pt. Gait Assessment Gait Gait Assistance Required: Maximum Assistance,2 Person Assist Assistive Devices Assistive Device Gait Belt,Front Wheeled Walker Orthotic/Prosthetic Devices or Brace: No Gait Deviations General Gait Pattern Antalgic,Ataxic,Decreased Stride Length,Decreased Feet Clearance,Lateral Trunk Lean, Step-to Gait Factors Limiting Gait Function Factors Limiting Gait Function Decreased Activity Tolerance, Decreased Sensation,Decreased Strength,Difficulty Following Directions,Incoordination,Pain ,Poor Balance,Poor Safety Awareness PT-Balance Assessment Sitting Balance and Reactions Static Sitting Balance Ability Poor Dynamic Sitting Balance Ability Poor Standing Balance and Reactions Static Standing Balance Ability Poor Dynamic Standing Balance Ability Poor Device Used 4WW M5 PT-IP Objective Assessments Start: 04/21/24 14:09 Freq: NEEDED Status: Active Protocol: Document 04/21/24 12:05 AB (Rec: 04/21/24 14:24 AB [id number]) Orientation Orientation/Cognition Level of Alertness Alert Orientation Name,Place,Situation Language Function Ability No Deficits Noted Safety Awareness Decreased Safety Awareness Memory Description No Deficits Noted Gross Range of Motion Lower Extremity ROM Impairments BLE increase tone/ spasticity mild Strength Lower Extremity Strength Assessment Bilaterally Impaired Hip 3-/5 Knee 3+/5 Ankle 3+/5 Coordination Assessment Gross Coordination Gross Coordination Impaired Sensation Assessment Sensation Gross Sensation Right UE Impaired,Left UE Impaired,Right LE Impaired, Left LE Impaired Sensation Description Numbness M6 PT-IP Treatment Start: 04/21/24 14:09 Freq: NEEDED Status: Active Protocol: Document 04/22/24 11:56 TS (Rec: 04/22/24 12:05 TS [id number]) Physical Therapy Treatment Education Education Provided Safety M7 PT-IP Assessment and Plan Start: 04/21/24 14:09 Freq: NEEDED Status: Active Protocol: Document 04/22/24 11:56 TS (Rec: 04/22/24 12:05 TS [id number]) PT Summary Assessment and Plan Potential Rehabilitation Potential Fair Summary Impairments Pain,ROM,Strength,Balance, Coordination,Sensation,Tone, Cognition,Bed Mobility, Transfers,Gait,Activity Tolerance Assessment Summary Harmeet is making slow progress with her mobility. She continues to require MaxA for all mobility with 1-2PA. She is very weak and has difficulty performing leg exercises in the bed. PT continues to recommend SNF to improve strenght and functional mobility. Goals Bed Mobility Goal Minimal Assistance Transfer Goal Minimal Assistance,Front Wheeled Walker Gait Goal Minimal Assistance,Front Wheel Walker Gait Distance 20 Other Goals improve bed mobility, transfers, ambulation using FWW ~ 50 ft SBA up/down 5 steps B rails CGA Days to Meet Goals 10 Frequency of Treatment Frequency Of Treatment Once a Day Treatment Plan Physical Therapy Treatment Plan Bed Mobility Training,Transfer Training,Gait Training, Therapeutic Exercise,Balance Retraining,Discharge Planning, Hot or Cold Pack,Neuromuscular Re-ed,Coordination Retraining ,Manual Therapy Precautions Other Precautions falls Recommendations To Nursing Amount of Assist Needed Mechanical Lift Discharge Recommendations PT Discharge Recommendations SNF Rehab Transportation Needs at Discharge Wheelchair/Cabulance
--- NOTE | 2024-04-22 13:01 | P.CONS_ITS ---
History of Present Illness Consult details Date Patient Seen: 04/22/24 Time Patient Seen: 13:02 Chief complaint: Weakness Narrative: 73 y/o F w/ h/o nephrolithiasis presented to ED on 20 Apr 2024 for evaluation of worsening urinary urgency/frequency, suprapubic pain, dysuria and subjective fevers/chills at home. Briefly, she was noted to have a urinary tract infection in the setting of a 7mm left proximal ureterolith in Feb and was treated with antibiotics and a cystoscopy with left ureteral stent placement. She developed the aforementioned symptoms over the weekend and noted that her typical MS symptoms were flaring up. Therefore, she was evaluated in the ED and treated for a urinary tract infection with Levaquin. Unfortunately, she noted continued symptoms and then developed weakness that she believed was secondary to the antibiotics and returned to the ED on 20 Apr 2024. Her evaluation was notable for a WBC of ~12, UA consistent with a stent and concern for yeast, and a CT Abd/Pel that demonstrated proper positioning of her left ureteral stent. She was subsequently admitted for management of pyelonephritis. Her WBC was noted to increase to 18 overnight with a slight bump in her sCr, likely related to dehydration as she admits she has not been consuming much food or water. That being said, she admits she does not feel quite as lousy as she did yesterday. Meds Home Medications and Allergies Home Medications Medication Instructions Recorded Confirmed Type CHOLECALCIFEROL (VITAMIN D3) 2,000 iu PO Q DAY ##0 02/19/11 04/20/24 History (Vitamin D) Calcium Carbonate/Vitamin D 1 sgl PO Q DAY ##0 02/19/11 04/20/24 History (#CALCIUM 1200 W/VITAMIN D 600 MG-100 IU) Cranberry (#CRANBERRY) 2,000 mg PO Q DAY ##0 02/19/11 04/20/24 History Fish Oil (#SUPER EPA 2000) 2,000 mg PO Q DAY ##0 02/19/11 04/20/24 History vitamin B complex 1 tab PO DAILY 02/10/19 04/20/24 History Disabled Parking Permit #1 ea 05/09/20 04/21/24 Rx One Touch Verio Glucose Monitor #1 ea 01/07/23 04/21/24 Rx amlodipine 5 mg tablet 5 mg PO DAILY #90 tabs 02/10/23 04/20/24 Rx One Touch Verio test strips and #300 ea 03/26/23 04/21/24 Rx lancets atorvastatin 10 mg tablet 10 mg PO DAILY #90 tabs 09/15/23 04/20/24 Rx metformin 500 mg tablet,extended 1,000 mg (2 x 500 mg) PO BID #360 10/30/23 04/20/24 Rx release 24 hr tabs magnesium citrate (OneLAX 300 ml PO DAILY PRN constipation 12/22/23 04/20/24 Rx Magnesium Citrate oral solution) #296 mL psyllium husk 2.6 gram/4.1 gram 1 tbsp PO DAILY 12/22/23 04/20/24 History oral powder phenazopyridine 100 mg tablet 100 mg PO TID PRN pain #6 tabs 02/06/24 04/20/24 Rx (Pyridium) trospium 20 mg tablet 20 mg PO BID #200 tabs 02/09/24 04/20/24 Rx estradiol 10 mcg vaginal tablet 10 mcg vaginal 2XW #24 tabs 02/24/24 04/20/24 Rx (Yuvafem) Disabled Parking Permit See Rx Instructions .Route 03/22/24 04/20/24 Rx .COMPLEX #1 ea Hand controls #1 ea 03/22/24 04/21/24 Rx hydrocodone 5 mg-acetaminophen 325 1 tab PO Q8H PRN Pain (Scale Score 03/22/24 04/20/24 Rx mg tablet 1-3) #30 tabs baclofen 10 mg tablet 15 mg PO TID 03/24/24 04/20/24 History mirabegron 50 mg tablet,extended 50 mg PO DAILY #30 tabs 03/26/24 04/20/24 Rx release 24 hr nitrofurantoin 100 mg PO BID #10 caps 04/09/24 04/20/24 Rx monohydrate/macrocrystals 100 mg capsule levofloxacin 750 mg tablet 750 mg PO DAILY 7 days #7 tabs 04/18/24 04/20/24 Rx blood sugar diagnostic (OneTouch #300 ea 04/19/24 04/21/24 Rx Verio test strips) Allergies Allergy/AdvReac Type Severity Reaction Status Date / Time Sulfa (Sulfonamide Allergy Severe ANAPHYLAXIS Verified 04/18/24 12:53 Antibiotics) [SULFA (SULFONAMIDE ANTIBIOTICS)] adhesive Allergy Mild TAPE; Verified 04/18/24 12:53 TOPICAL DERMATITIS FOR LONG PERIODS diphenhydramine Allergy Mild HIVES Verified 04/18/24 12:53 [DIPHENHYDRAMINE] Exam Vital Signs (past 8 hours): - 04/22/24 07:00 04/22/24 08:00 Temperature 98.3 F Pulse Rate 121 H Respiratory Rate 16 Blood Pressure 126/67 Pulse Oximetry 95 97 Oxygen Delivery Method Room Air Oxygen Flow Rate 0 Oxygen Delivery Method Room Air Oxygen Flow Rate 0 Objective Labs 04/22/24 04:49 04/22/24 04:49 Labs: Laboratory Results - last 24 hr 04/22/24 04:49 WBC 18.0 H RBC 3.79 L Hgb 10.8 L Hct 32.7 L MCV 86.4 MCH 28.4 MCHC 32.9 RDW 13.3 Plt Count 411 H Neut % (Auto) 81.3 H Lymph % (Auto) 8.5 L [place] % (Auto) 9.1 Eos % (Auto) 0.8 L Baso % (Auto) 0.3 Neut # (Auto) 79448 H Lymph # (Auto) 1500 [place] # (Auto) 1700 H Eos # (Auto) 100 Baso # (Auto) 100 Sodium 134 L Potassium 3.8 Chloride 102 Carbon Dioxide 24 BUN 16 Creatinine 1.17 H Estimated GFR 49 L BUN/Creatinine Ratio 13.7 Glucose 175 H Calcium 8.9 Total Bilirubin 0.8 AST 54 H ALT 71 H Alkaline Phosphatase 231 H Total Protein 6.4 Albumin 3.3 L Globulin 3.1 Albumin/Globulin Ratio 1.1 PFSH Medical History Pyuria Parapelvic renal cyst Constipation Atrophic vaginitis Hydronephrosis of left kidney Chronic lower urinary tract infection Recurrent urinary tract infection Colon polyps (2009) Chicken pox Measles Plantar warts (2004) Fractures (~2005) Osteopenia Multiple sclerosis (1991) Surgical History History of tubal ligation History of cholecystectomy Anesthesia History of shoulder surgery (1973) Status post rotator cuff repair (2011) History of third molar tooth extraction (1970) Status post tubal ligation (1979) Family History Brother Age: 67 Diabetes mellitus Hypertension High cholesterol Child Age: 28 Adopted Mother Heart disease Hypertension Stroke Cancer Father Alzheimer's disease Grandmother No problems noted. Social History marital status: number of children: 1 household members: friend(s) occupational status: employed Tobacco & Substance Use Smoking Status: Never smoker alcohol intake: current substance use type: does not use Diet and Exercise caffeine: Yes (tea-occasional ) Type(s) of exercise: other frequency: 5-6 times per week Assessment & Plan Assessment and plan (1) Ureteral calculus: Status: Acute Plan: 73 y/o F s/p a cystoscopy with left ureteral stent placement for management of a 7mm left proximal ureterolith in the setting of a UTI in Feb. She was noted to develop signs/symptoms concerning for a UTI over the weekend that persisted despite Levofloxacin. Her UA is difficult to interpret as it appears consistent with a ureteral stent, yet does have yeast present. Her UCx from a few days ago is positive for Marylou Albicans and Enterococcus Faecalis (resistant only to Tetracycline). Recommend culture directed antibiotics per her primary team with the addition of Fluconazole 400mg daily for the next two weeks. Discussed that her CT Abd/Pel demonstrates proper positioning of her left ureteral stent and that no urgent Urologic intervention is necessary at this point. She was previously scheduled for left ureteroscopy with laser lithotripsy on 23 Apr 2024, however, will move her procedure to 30 Apr 2024. Will complete her preoperative evaluation and consent while she is in the hospital. (2) Pyelonephritis: Status: Acute Plan: Please see above Time-Based Coding :: [TOTAL MINUTES] spent with patient and on the chart (including review of chart, obtaining history, exam, reviewing outside data, placing orders, documenting exam and treatment plan, and counseling patient) on [DATE]. PROFEE Charge Codes Inpatient or Observation consultation: [id number]
--- NOTE | 2024-04-22 15:56 | CM.DPNOTE ---
DCP Cont Met w/patient to review discharge plan. Therapies are recommending SNF. Patient agrees, as of right now, she could not go home safely. [facility]. Explained SNF auth request process through [facility] and patient states understanding. Referral discussed with [facility]; female beds are limited, [facility] will review and may be able to get patient admitted Friday or Friday. Discussed need for SNF with [place] [facility] [phone]; faxed updated clinical and PT notes to F [phone]. Arelis requests a call tomorrow 04/23 to discuss further after her review. OT orders placed per Arelis's request (OT notes will strengthen the case for skilled needs). PASRR completed in anticipation of SNF upon discharge. If patient improves functionally= home w/friends and HH. JW
[2024-04-22] MEDS: HYDROCODONE/ACET 5/325 TABLET 1 TAB PO (21:22)
[2024-04-22] MEDS: ACETAMINOPHEN 325 MG TABLET 650 MG PO (21:23)
[2024-04-22] MEDS: cefTRIAXone 2,000 MG in SODIUM CHLORIDE 0.9% 100 ML 200 MG IV (21:24)
[2024-04-22] MEDS: INSULIN GLARGINE 100 UNIT/ML 3ML PEN 30 UNIT SUBCUT (21:26)
[2024-04-22] MEDS: ATORVASTATIN 20 MG TABLET 10 MG PO (21:26)
[2024-04-22] MEDS: SODIUM CHLORIDE 0.9% FLUSH 10 ML IV (21:30)
[2024-04-23] MEDS: AMPICILLIN 2,000 MG in SODIUM CHLORIDE 0.9% 100 ML 200 MG IV ×4 (00:11→22:54)
[2024-04-23 04:00] VITALS: BP 146/83; PULSE 100; RESP 18; TEMP 36.2; O2SAT 95
[2024-04-23 06:55] LABS: Add Manual Diff / Slide Review NO; Basophils Absolute Auto 100 /uL (0-100); Basophils Percent Auto 0.3 % (0-2); Eosinophils Absolute Auto 400 /uL (0-450); Eosinophils Percent Auto 2.2 % (2-4); Hematocrit 29.4 % (36-46); Hemoglobin 9.9 g/dL (12.0-16.0); Lymphocytes Absolute Auto 1800 /uL (1100-4500); Lymphocytes Percent Auto 10.2 % (25-40); Mean Corpuscular HGB Conc 33.7 % (30-36); Mean Corpuscular Hemoglobin 29.5 PG (26-34); Mean Corpuscular Volume 87.7 fL (80-100); Monocytes Absolute Auto 1100 /uL (0-900); Monocytes Percent Auto 6.1 % (3-14); Neutrophils Absolute Auto 14100 /uL (1500-7000); Neutrophils Percent Auto 81.2 % (50-75); Platelet Count 404 X10^3/uL (150-400); Red Blood Cell Count 3.35 X10^6/uL (4.0-5.2); Red Cell Distribution Width 13.7 % (11.6-14.8); White Blood Cell Count 17.3 X10^3/uL (4.5-11.0)
[2024-04-23 07:00] VITALS: O2SAT 93
[2024-04-23 07:02] LABS: Alanine Aminotransferase 54 IU/L (<35); Alkaline Phosphatase 212 U/L (38-126); Aspartate Aminotransferase 45 IU/L (14-36); BUN Creatinine Ratio 17.9 (6-22); Bilirubin Total 0.5 mg/dL (0.2-1.3); Blood Urea Nitrogen 17 mg/dL (7-17); Calcium 8.6 mg/dL (8.4-10.2); Carbon Dioxide 26 mmol/L (22-32); Chloride 106 mmol/L (98-107); Estimated Glomerular Filt Rate > 60 mL/min (>60); Glucose 127 mg/dL (80-110); HEMOLYSIS < 15 (0-50); Potassium 3.8 mmol/L (3.4-5.1); Sodium 138 mmol/L (137-145)
--- NOTE | 2024-04-23 08:19 | PM.PN.1 ---
Subjective Subjective Date Patient Seen: 04/23/24 Time Patient Seen: 08:19 Interval history: Patient seen and evaluated this morning she says she feels about the same a little bit uncomfortable. She is walked with a walker but needs some assistance to get out of bed. She is still feeling very weak. No significant abdominal pain had to place a Luo catheter last night. Had 600 cc in her bladder. She has previously not had to do self catheterization due to her MS. No fevers. Still little bit tachycardic. Eating a little bit but stating she has a dry mouth. Exam Vital Signs (past 8 hours): - 04/23/24 04:00 Temperature 97.2 F L Pulse Rate 100 H Respiratory Rate 18 Blood Pressure 146/83 H Pulse Oximetry 95 Oxygen Flow Rate 0 Oxygen Delivery Method Room Air Oxygen Flow Rate 0 Narrative Exam Narrative: Gen.: Alert good historian HEENT: Pupils equal round and reactive or mucosa is moist Cardio: S1-S2 tachycardic Respiratory: Normal respiratory effort no wheezes Abdomen: Soft mild distention no rebound or guarding Extremities: Warm dry perfused Objective Labs 04/23/24 06:03 04/23/24 06:03 Labs: Laboratory Results - last 24 hr 04/23/24 06:03 WBC 17.3 H RBC 3.35 L Hgb 9.9 L Hct 29.4 L MCV 87.7 MCH 29.5 MCHC 33.7 RDW 13.7 Plt Count 404 H Neut % (Auto) 81.2 H Lymph % (Auto) 10.2 L [place] % (Auto) 6.1 Eos % (Auto) 2.2 Baso % (Auto) 0.3 Neut # (Auto) 22984 H Lymph # (Auto) 1800 [place] # (Auto) 1100 H Eos # (Auto) 400 Baso # (Auto) 100 Sodium 138 Potassium 3.8 Chloride 106 Carbon Dioxide 26 BUN 17 Creatinine 0.95 Estimated GFR > 60 BUN/Creatinine Ratio 17.9 Glucose 127 H Calcium 8.6 Total Bilirubin 0.5 AST 45 H ALT 54 H Alkaline Phosphatase 212 H Total Protein 6.0 L Albumin 3.0 L Globulin 3.0 Albumin/Globulin Ratio 1.0 PFSH Medical History Pyuria Parapelvic renal cyst Constipation Atrophic vaginitis Hydronephrosis of left kidney Chronic lower urinary tract infection Recurrent urinary tract infection Colon polyps (2009) Chicken pox Measles Plantar warts (2005) Fractures (~2006) Osteopenia Multiple sclerosis (1991) Surgical History History of tubal ligation History of cholecystectomy Anesthesia History of shoulder surgery (1973) Status post rotator cuff repair (2011) History of third molar tooth extraction (1970) Status post tubal ligation (1979) Family History Brother Age: 67 Diabetes mellitus Hypertension High cholesterol Child Age: 28 Adopted Mother Heart disease Hypertension Stroke Cancer Father Alzheimer's disease Grandmother No problems noted. Social History marital status: number of children: 1 household members: friend(s) occupational status: employed Smoking Status: Never smoker alcohol intake: current substance use type: does not use caffeine: Yes (tea-occasional ) Type(s) of exercise: other frequency: 5-6 times per week Assessment & Plan Assessment and plan (1) Ureteral calculus: Status: Acute Plan Sepsis patient with elevated white blood cell count tachycardic source of infection is urine. Patient on ampicillin ceftriaxone and fluconazole. Patient is no longer febrile. Still tachycardic white blood cell decreased for the 1st time today. Patient clinically is we can not significantly better. Left Pyelonephritis. Patient with CT scan showing probable pyelonephritis due to ongoing stent and infection in her urine. Continue with antibiotics. Patient is not a significant pain and has no fever. ANUPAM patient kidney function is better today after IV fluid yesterday. Her creatinine is down 2.9 5. Which is good news. Again catheter placed last night as she had obstructive symptoms. Kidney stone left with ureteral stent. Appreciate neurology's consultation. Patient has stent removal scheduled Transaminitis elevation of liver enzymes due to possible underlying infection versus medication versus antibiotic. Liver enzymes are stable. Surgically absent gallbladder. No history of cirrhosis of the liver. Multiple sclerosis. Without acute flare. Patient has some ongoing neurological complaints of weakness etc.. Diabetes type 2. Blood sugars are better today after increasing Lantus insulin to 30 continue with metformin and insulin sliding scale. Hyperlipidemia. On statin Osteoarthritis chronic and stable DVT prophylaxis with Lovenox Code status full code Disposition and plan. Unfortunately due to MS patients they weakness and ongoing infection she is requiring significant amount of assistance with ambulation and getting out of bed. Patient may need skilled rehabilitation for week or so. Time-Based Coding :: [TOTAL MINUTES] spent with patient and on the chart (including review of chart, obtaining history, exam, reviewing outside data, placing orders, documenting exam and treatment plan, and counseling patient) on [DATE].
[2024-04-23] MEDS: HYDROCODONE/ACET 5/325 TABLET 1 TAB PO ×2 (08:42→20:32)
[2024-04-23] MEDS: BACLOFEN 10 MG TABLET PO ×3 (08:42→20:33)
[2024-04-23 08:44] VITALS: BP 126/70; PULSE 108; RESP 21; TEMP 36.5; O2SAT 93
[2024-04-23] MEDS: OXYBUTYNIN 5 MG ER TAB PO (08:46)
[2024-04-23] MEDS: METFORMIN XR 500 MG TABLET 1000 MG PO ×2 (08:46→20:33)
[2024-04-23] MEDS: PSYLLIUM HUSK 1 PACKET PO (09:57)
[2024-04-23] MEDS: ENOXAPARIN 40 MG/0.4 ML SYRINGE SUBCUT (09:57)
[2024-04-23] MEDS: SODIUM CHLORIDE 0.9% FLUSH 10 ML IV ×2 (09:58→20:35)
[2024-04-23] MEDS: FLUCONAZOLE 200 MG/100 ML PIGGYBACK 100 MG IV (10:47)
--- NOTE | 2024-04-23 11:05 | PT.IPTN ---
Current Diagnoses Tubulo-interstitial nephritis, not specified as acute or chronic (04/20/24) Calculus of ureter (04/20/24) Physical Therapy Treatment Note M2 PT-IP Current Condition Start: 04/21/24 14:09 Freq: NEEDED Status: Active Protocol: Document 04/21/24 12:05 AB (Rec: 04/21/24 14:24 AB [id number]) Physical Therapy Current Condition Current Condition Evaluation Date 04/21/24 Treatment Diagnosis UTI; pyelonephritis; MS; difficulty in walking Onset Date 04/20/24 M3 PT-IP Subjective Start: 04/21/24 14:09 Freq: NEEDED Status: Active Protocol: Document 04/23/24 11:05 AB (Rec: 04/23/24 11:54 AB [id number]) Subjective Physical Therapy Visit Type Type Treatment Note Visit Start Time 11:05 Visit Stop Time 11:40 Number of AUTOMOTIVE SERVICE WRITER Visits 0 Physical Therapy Visit Comments Patient Comments agreeable to do PT Therapy Pain Assessment Location Abdomen Scale Used with mobility; pain scale not stated Pain Management Techniques Distraction,Modification of Treatment,Timing of Activity with Medications M4 PT-IP Mobility and Gait Start: 04/21/24 14:09 Freq: NEEDED Status: Active Protocol: Document 04/23/24 11:05 AB (Rec: 04/23/24 11:54 AB [id number]) PT-Bed Mobility Assessment Supine to Sit Supine to Sit Maximum Assistance,1 Person Assistance,2 Person Assistance ,Head of Bed Elevated,Bedrails Scooting Scooting to Edge of Bed Maximum Assistance PT-Transfer Assessment Sit to and From Stand Sit to and from Stand Maximum Assistance,2 Person Assistance,Use of Upper Extremities Equipment Transfer Assistive Device Gait Belt,Front Wheeled Walker Orthotic/Prosthetic Devices or Brace: No Transfers Transfer Destination Chair Transfer Technique Stand Step Pivot Transfer Ability Level of Assist Maximum Assistance,2 Person Assistance,Use of Upper Extremities Comments Mobility Comments pt supine in bed and agreeable to do PT. pt's housemate in room. pt wanting to use her 4WW instead of a FWW. educated pt regarding safety and use of FWW vs 4WW. pt agreed to use the FWW at this time. pt completed heel slides and ankle pumps prior to mobility. pt completed supine to sit max a x 1-2 and max cues with HOB elevated and use of bed rail. max A for sitting balance and cues provided to correct retrolean. positioned pt on EOB and able to sit with min to mod A and cues. max A x 1-2 for scooting to EOB. completed sit to stand max A x 2 and max cues. continues to have increase retrolean max A x 2 to correct and max cues. completed step transfer to the chair using FWW max a x 2 and max cues. required max A for weight shifting to be able to move LE . max A x 2 for controlled descent to the chair. attempted to do more ambulation. completed sit to stand from the chair max A x 2 and max cues but with increase retrolean and pt c/o abdominal pain and unable to stand upright. assisted pt back on chair. positioned pt on the chair. call light and table placed within reach. Left pt with OT. M5 PT-IP Objective Assessments Start: 04/21/24 14:09 Freq: NEEDED Status: Active Protocol: Document 04/21/24 12:05 AB (Rec: 04/21/24 14:24 [id number]) Orientation Orientation/Cognition Level of Alertness Alert Orientation Name,Place,Situation Language Function Ability No Deficits Noted Safety Awareness Decreased Safety Awareness Memory Description No Deficits Noted Gross Range of Motion Lower Extremity ROM Impairments BLE increase tone/ spasticity mild Strength Lower Extremity Strength Assessment Bilaterally Impaired Hip 3-/5 Knee 3+/5 Ankle 3+/5 Coordination Assessment Gross Coordination Gross Coordination Impaired Sensation Assessment Sensation Gross Sensation Right UE Impaired,Left UE Impaired,Right LE Impaired, Left LE Impaired Sensation Description Numbness M6 PT-IP Treatment Start: 04/21/24 14:09 Freq: NEEDED Status: Active Protocol: Document 04/23/24 11:05 AB (Rec: 04/23/24 11:54 [id number]) Physical Therapy Treatment Education Education Provided Safety M7 PT-IP Assessment and Plan Start: 04/21/24 14:09 Freq: NEEDED Status: Active Protocol: Document 04/23/24 11:05 AB (Rec: 04/23/24 11:54 [id number]) PT Summary Assessment and Plan Potential Rehabilitation Potential Fair Summary Impairments Pain,ROM,Strength,Balance, Coordination,Sensation,Tone, Cognition,Bed Mobility, Transfers,Gait,Activity Tolerance Progress Towards Goals Slow Progress due to Pain,Slow Progress due to Medical Issues,Slow Progress due to Activity Tolerance,Slow Progress - Other Assessment Summary pt requiring max A x 2 for mobility using FWW and unable to ambulate at this time. pt will require SNF rehab to improve overall strength and function. Goals Bed Mobility Goal Minimal Assistance Transfer Goal Minimal Assistance,Front Wheeled Walker Gait Goal Minimal Assistance,Front Wheel Walker Gait Distance 20 Other Goals improve bed mobility, transfers, ambulation using FWW ~ 50 ft SBA up/down 5 steps B rails CGA Days to Meet Goals 10 Frequency of Treatment Frequency Of Treatment Once a Day Treatment Plan Physical Therapy Treatment Plan Bed Mobility Training,Transfer Training,Gait Training, Therapeutic Exercise,Balance Retraining,Discharge Planning, Hot or Cold Pack,Neuromuscular Re-ed,Coordination Retraining ,Manual Therapy Precautions Other Precautions falls Recommendations To Nursing Amount of Assist Needed Mechanical Lift Discharge Recommendations PT Discharge Recommendations SNF Rehab Transportation Needs at Discharge Wheelchair/Cabulance
--- NOTE | 2024-04-23 11:54 | OT.IP.EVAL ---
Current Diagnoses Tubulo-interstitial nephritis, not specified as acute or chronic (04/20/24) Calculus of ureter (04/20/24) Past Medical History (Last Reviewed 04/21/24 @ 09:16 by Brian Denis DO) Atrophic vaginitis Chicken pox Chronic lower urinary tract infection Colon polyps (2009) Constipation Fractures (~2005) Hydronephrosis of left kidney Measles Multiple sclerosis (1991) Osteopenia Parapelvic renal cyst Plantar warts (2004) Pyuria Recurrent urinary tract infection Surgical History (Last Reviewed 04/21/24 @ 09:16 by Brian Denis DO) Anesthesia History of cholecystectomy History of shoulder surgery (1973) History of third molar tooth extraction (1970) History of tubal ligation Status post rotator cuff repair (2011) Status post tubal ligation (1979) Occupational Therapy Inpatient Evaluation/Re-Eval M1 PT/OT-IP Prior Functional Status Start: 04/21/24 14:09 Freq: NEEDED Status: Active Protocol: Document 04/23/24 11:00 [facility] (Rec: 04/23/24 12:11 [facility] [id number]) Medical Review Prior Functional Status Medical History Reviewed Yes Communication able to make needs known Mobility and Gait pt stated that she was modified independent with all mobilities and ambulation using 2 walking sticks/4WW but with h/o falls Activities of Daily Living and IADL's Pt prior independent with all needs and working. Social History Household Members friend(s) Living Arrangements House Number of Floors (Floors) One Floor Number of Stairs To Enter/Railing? has 5 steps B rails to enter the house Home Environment Standard Height Toilet,Walk in Shower Home Equipment Four Wheel Walker,Raised Toilet Seat w/Armrests,Hand Held Shower,Grab Bars Near Toilet Additional Social History Comment pt lives with her house mate and stated that her house mate will be able to assist her has 2 walking sticks pt has an adjustable bed with R rail M2 OT-IP Current Condition Start: 04/23/24 11:55 Freq: Status: Active Protocol: Document 04/23/24 11:00 [facility] (Rec: 04/23/24 12:11 [facility] [id number]) Occupational Therapy Current Condition Current Condition Evaluation Date 04/23/24 Treatment Diagnosis Sepsis, UTI, pyelonephritis Diagnosis Onset Date 04/20/24 M3 OT- IP Subjective and Pain Start: 04/23/24 11:55 Freq: Status: Active Protocol: Document 04/23/24 11:00 [facility] (Rec: 04/23/24 12:11 [facility] [id number]) OT- Subjective Occupational Therapy Visit Type Type Initial Evaluation Visit Start Time 11:00 Visit Stop Time 11:54 Occupational Therapy Visit Comments Patient Comments Pt agreed to get up, PT and her house mate present. Patient/Caregiver Goals TO get better. OT Pain Assessment Pain When Pain Assessed During Mobility Pain Present Pain Present Pain Reported Location Abdomen Pain Behaviors Facial Grimacing,Holding Area M4 OT- IP ADL's Start: 04/23/24 11:55 Freq: Status: Active Protocol: Document 04/23/24 11:00 [facility] (Rec: 04/23/24 12:11 [facility] [id number]) OT [id number] Comments OT Self-Feeding Comments Not at meal time. OT ADL-Grooming Comments OT Grooming Comments Pt able to brush her hair. OT ADL-Oral Care Comments Oral Care Comments Pt states did earlier. OT ADL-Dressing General Eval Lower Body Dressing Ability Maximum Assistance Areas Needing Assistance Shoes Comments OT Dressing Comments Assist to get her slipper on. OT ADL-Toileting General Evaluation Toileting Ability Total Assistance Comments OT Toileting Comments Luo in place, use of nataly lift to help get pt on the BSC . OT ADL-Bathing Comments OT Bathing Comments Sponge bath more appropriate. M5 OT- IP IADL's Start: 04/23/24 11:55 Freq: Status: Active Protocol: Document 04/23/24 11:00 [facility] (Rec: 04/23/24 12:11 [facility] [id number]) OT-Instrumental Activities of Daily Living Home Safety Awareness Home Safety Comments At this time pt will need assist for all needs. Medication Management Medication Management Comments Pt able to do prior. Money Management Money Management Comments Pt was able to to prior. M6 OT- IP Functional Cognition Start: 04/23/24 11:55 Freq: Status: Active Protocol: Document 04/23/24 11:00 [facility] (Rec: 04/23/24 12:11 [facility] [id number]) Cognitive Factors Limiting Selfcare Function Cognitive Ability Level of Alertness Alert Patient Orientation Name,Place,Situation Attention Span Ability Capable of Focused Attention, Capable of Sustained Attention Cognitive Comments Cognitive Assessment Comments Pt needing cues for safety awareness and concrete cues to follow for bed mobility and transfer needs. Pt needing increased time to process and follow commands as well. Pt states that overall function has decline in the past 4 weeks. M7 OT- IP Mobility and Balance Start: 04/23/24 11:55 Freq: Status: Active Protocol: Document 04/23/24 11:00 [facility] (Rec: 04/23/24 12:11 [facility] [id number]) OT- Bed Mobility Assessment Supine to Sit Supine to Sit Assist Maximum Assistance,1 Person Assistance,2 Person Assistance OT-Transfer Assessment Sit to and From Stand Sit to and from Stand Maximum Assistance,2 Person Assistance Transfers Transfer Ability Maximum Assistance,2 Person Assistance Technique Transfer Destination Bed,Chair Comments Mobility Comments MAXA 1-2 with HOB to get to the edge of the bed with increased time and cues for hand placements and safety. MAX XA 2 to stand to FWW and pt tend to lean to the right and posteriorly. Pt needing heavy assist for balance, weight shifting, and assist to guide the FWW for the transfer. Pt at this time best to use nataly lift for safety for staff. OT- Balance Assessment Sitting Balance and Reactions Static Sitting Balance Ability Poor Dynamic Sitting Balance Ability Poor Standing Balance and Reactions Static Standing Balance Ability Poor Dynamic Standing Balance Ability Poor M8 OT- IP Objective Assessments Start: 04/23/24 11:55 Freq: Status: Active Protocol: Document 04/23/24 11:00 [facility] (Rec: 04/23/24 12:11 [facility] [id number]) OT Gross Range of Motion Upper Extremity Range of Motion Assessment Within Functional Limits OT Strength Upper Extremity Strength Assessment Bilaterally Impaired OT- Coordination Assessment Comments Coordination Comments Pt states has difficulty to use her hand and asked nursing to request large light weight utensils for pt to use. OT-Muscle Tone Assessment Comments Muscle Tone Comments BLE spasticity. OT Sensation Assessment Comments Summary Comments BUE decreased. M9 OT- IP Assessment and Plan Start: 04/23/24 11:55 Freq: Status: Active Protocol: Document 04/23/24 11:00 [facility] (Rec: 04/23/24 12:11 [facility] [id number]) OT Summary Assessment and Plan Potential Rehabilitation Potential Fair Analytic Complexity at Evaluation High Summary OT Impairments Pain,Range of Motion,Strength, Balance,Coordination,Sensation ,Tone,Functional Cognition, Functional Mobility,Self- Feeding,Grooming,Dressing, Toileting,Bathing,Toilet Transfers,Shower Transfers, Activity Tolerance Progress Towards Goals Slow Progress due to Pain,Slow Progress due to Medical Issues,Slow Progress due to Activity Tolerance,Slow Progress due to Cognition Assessment Summary Pt high complexity and main barriers are steps, weakness, decreased balance and now needing extensive assist for all needs. IN addition pt may also be having a MS flare. Pt is far from her baseline of working and able to care for herself 4 weeks ago. Pt will benefit from skilled rehab to maximize overall independence for ADL and mobility needs. Goals Self-Feeding Goal Standby Assistance Grooming Goal Standby Assistance Dressing Goal Minimal Assistance Toileting Goal Minimal Assistance Bathing Goal Moderate Assistance Toilet Transfer Goal Minimal Assistance Shower Transfer Goal Moderate Assistance Days to Meet Goals 30 Discharge Recommendations OT Discharge Recommendations SNF Rehab Transportation Needs at Discharge Wheelchair/Cabulance
--- NOTE | 2024-04-23 12:25 | CM.DPC ---
Spoke with Jeni to confirm plan, patient is accepted and there is a bed opening on Friday, possibly Friday. Spoke with [facility] and the SNF auth is given for when patient is ready to d/c, auth #[id number]. If [facility] needs to be reached for d/c plan over the weekend, please call [phone], otherwise Arelis the assigned CM will return Friday, her # is [phone]. I also faxed OT notes and clinical update for her review. DIANE Barreto
--- NOTE | 2024-04-23 12:59 | PM.CN ---
History of Present Illness Consult details Date Patient Seen: 04/23/24 Time Patient Seen: 12:59 Chief complaint: Weakness Narrative: 73 y/o F w/ h/o nephrolithiasis presented to ED on 20 Apr 2024 for evaluation of worsening urinary urgency/frequency, suprapubic pain, dysuria and subjective fevers/chills at home. Briefly, she was noted to have a urinary tract infection in the setting of a 7mm left proximal ureterolith in Feb and was treated with antibiotics and a cystoscopy with left ureteral stent placement. She developed the aforementioned symptoms over the weekend and noted that her typical MS symptoms were flaring up. Therefore, she was evaluated in the ED and treated for a urinary tract infection with Levaquin. Unfortunately, she noted continued symptoms and then developed weakness that she believed was secondary to the antibiotics and returned to the ED on 20 Apr 2024. Her evaluation was notable for a WBC of ~12, UA consistent with a stent and concern for yeast, and a CT Abd/Pel that demonstrated proper positioning of her left ureteral stent. She was subsequently admitted for management of pyelonephritis. Her WBC was noted to increase initially, however, it decreased slightly last night. That being said, she does admit that she feels slightly better today than she did yesterday. Unfortunately, she was attempting to urinate yesterday without success and had a bautista catheter placed with more than 500cc of clear yellow urine drained. Meds Home Medications and Allergies Home Medications Medication Instructions Recorded Confirmed Type CHOLECALCIFEROL (VITAMIN D3) 2,000 iu PO Q DAY ##0 02/19/11 04/20/24 History (Vitamin D) Calcium Carbonate/Vitamin D 1 sgl PO Q DAY ##0 02/19/11 04/20/24 History (#CALCIUM 1200 W/VITAMIN D 600 MG-100 IU) Cranberry (#CRANBERRY) 2,000 mg PO Q DAY ##0 02/19/11 04/20/24 History Fish Oil (#SUPER EPA 2000) 2,000 mg PO Q DAY ##0 02/19/11 04/20/24 History vitamin B complex 1 tab PO DAILY 02/10/19 04/20/24 History Disabled Parking Permit #1 ea 05/09/20 04/21/24 Rx One Touch Verio Glucose Monitor #1 ea 01/07/23 04/21/24 Rx amlodipine 5 mg tablet 5 mg PO DAILY #90 tabs 02/10/23 04/22/24 Rx One Touch Verio test strips and #300 ea 03/26/23 04/21/24 Rx lancets atorvastatin 10 mg tablet 10 mg PO DAILY #90 tabs 09/15/23 04/20/24 Rx metformin 500 mg tablet,extended 1,000 mg (2 x 500 mg) PO BID #360 10/30/23 04/20/24 Rx release 24 hr tabs magnesium citrate (OneLAX 300 ml PO DAILY PRN constipation 12/22/23 04/20/24 Rx Magnesium Citrate oral solution) #296 mL psyllium husk 2.6 gram/4.1 gram 1 tbsp PO DAILY 12/22/23 04/20/24 History oral powder phenazopyridine 100 mg tablet 100 mg PO TID PRN pain #6 tabs 02/06/24 04/20/24 Rx (Pyridium) trospium 20 mg tablet 20 mg PO BID #200 tabs 02/09/24 04/20/24 Rx estradiol 10 mcg vaginal tablet 10 mcg vaginal 2XW #24 tabs 02/24/24 04/20/24 Rx (Yuvafem) Disabled Parking Permit See Rx Instructions .Route 03/22/24 04/20/24 Rx .COMPLEX #1 ea Hand controls #1 ea 03/22/24 04/21/24 Rx hydrocodone 5 mg-acetaminophen 325 1 tab PO Q8H PRN Pain (Scale Score 03/22/24 04/20/24 Rx mg tablet 1-3) #30 tabs baclofen 10 mg tablet 15 mg PO TID 03/24/24 04/22/24 History mirabegron 50 mg tablet,extended 50 mg PO DAILY #30 tabs 03/26/24 04/20/24 Rx release 24 hr nitrofurantoin 100 mg PO BID #10 caps 04/09/24 04/20/24 Rx monohydrate/macrocrystals 100 mg capsule levofloxacin 750 mg tablet 750 mg PO DAILY 7 days #7 tabs 04/18/24 04/20/24 Rx blood sugar diagnostic (OneTouch #300 ea 04/19/24 04/21/24 Rx Verio test strips) Allergies Allergy/AdvReac Type Severity Reaction Status Date / Time Sulfa (Sulfonamide Allergy Severe ANAPHYLAXIS Verified 04/18/24 12:53 Antibiotics) [SULFA (SULFONAMIDE ANTIBIOTICS)] adhesive Allergy Mild TAPE; Verified 04/18/24 12:53 TOPICAL DERMATITIS FOR LONG PERIODS diphenhydramine Allergy Mild HIVES Verified 04/18/24 12:53 [DIPHENHYDRAMINE] Review of Systems Review of Systems Narrative: CONSTITUTIONAL: Denies weight loss, fevers, chills. HEENT: Denies change in vision, hearing. RESP: Denies SOB, cough. CV: Denies palpations, CP. GI: Denies abdominal pain, nausea, vomiting, diarrhea. : Denies dysuria, hematuria. MSK: Denies myalgia, joint pain. SKIN: Denies rash, pruritus. NEURO: Denies headache, syncope. PSYCH: Denies recent change in mood, anxiety, depression. Exam Vital Signs (past 8 hours): - 04/23/24 08:44 Temperature 97.7 F Pulse Rate 108 H Respiratory Rate 21 Blood Pressure 126/70 Pulse Oximetry 93 Oxygen Flow Rate 0 Oxygen Delivery Method Room Air Oxygen Flow Rate 0 Narrative Exam Narrative: GEN: Alert and oriented X3. No acute distress. Well-nourished. EYES: PERRLA, EOMI. HENT: Moist mucus membranes, no scleral icterus, normal neck ROM. RESP: Unlabored breathing, equal rise and fall of chest bilaterally, no cyanosis appreciated. CV: No peripheral edema, unremarkable heart rate. ABD: Soft, non-tender, non-distended, no palpable masses. : Bautista secured and draining clear yellow urine. EXT: No edema, clubbing or cyanosis. SKIN: No rashes or lesions. NEURO: No focal neurologic deficits, CN II-XII grossly intact. PSYCH: Cooperative, appropriate mood and affect. Objective Labs 04/23/24 06:03 04/23/24 06:03 Labs: Laboratory Results - last 24 hr 04/23/24 06:03 WBC 17.3 H RBC 3.35 L Hgb 9.9 L Hct 29.4 L MCV 87.7 MCH 29.5 MCHC 33.7 RDW 13.7 Plt Count 404 H Neut % (Auto) 81.2 H Lymph % (Auto) 10.2 L [place] % (Auto) 6.1 Eos % (Auto) 2.2 Baso % (Auto) 0.3 Neut # (Auto) 32566 H Lymph # (Auto) 1800 [place] # (Auto) 1100 H Eos # (Auto) 400 Baso # (Auto) 100 Sodium 138 Potassium 3.8 Chloride 106 Carbon Dioxide 26 BUN 17 Creatinine 0.95 Estimated GFR > 60 BUN/Creatinine Ratio 17.9 Glucose 127 H Calcium 8.6 Total Bilirubin 0.5 AST 45 H ALT 54 H Alkaline Phosphatase 212 H Total Protein 6.0 L Albumin 3.0 L Globulin 3.0 Albumin/Globulin Ratio 1.0 PFSH Medical History Pyuria Parapelvic renal cyst Constipation Atrophic vaginitis Hydronephrosis of left kidney Chronic lower urinary tract infection Recurrent urinary tract infection Colon polyps (2009) Chicken pox Measles Plantar warts (2004) Fractures (~2005) Osteopenia Multiple sclerosis (1991) Surgical History History of tubal ligation History of cholecystectomy Anesthesia History of shoulder surgery (1973) Status post rotator cuff repair (2011) History of third molar tooth extraction (1970) Status post tubal ligation (1979) Family History Brother Age: 67 Diabetes mellitus Hypertension High cholesterol Child Age: 28 Adopted Mother Heart disease Hypertension Stroke Cancer Father Alzheimer's disease Grandmother No problems noted. Social History marital status: number of children: 1 household members: friend(s) occupational status: employed Tobacco & Substance Use Smoking Status: Never smoker alcohol intake: current substance use type: does not use Diet and Exercise caffeine: Yes (tea-occasional ) Type(s) of exercise: other frequency: 5-6 times per week Assessment & Plan Assessment and plan (1) Pyelonephritis: Status: Acute Plan: 73 y/o F s/p a cystoscopy with left ureteral stent placement for management of a 7mm left proximal ureterolith in the setting of a UTI in Feb. She was noted to develop signs/symptoms concerning for a UTI over the weekend that persisted despite Levofloxacin. Her UA is difficult to interpret as it appears consistent with a ureteral stent, yet does have yeast present. Her UCx from a few days ago is positive for Marylou Albicans and Enterococcus Faecalis (resistant only to Tetracycline). Recommend culture directed antibiotics per her primary team with the addition of Fluconazole 400mg daily for the next two weeks. Discussed that her CT Abd/Pel demonstrates proper positioning of her left ureteral stent and that no urgent Urologic intervention is necessary at this point. Her left ureteroscopy with laser lithotripsy will stay scheduled for 30 Apr 2024 at the moment, can always push it back should her clinical scenario dictate that change. Will complete her preoperative evaluation and consent while she is in the hospital. Regarding her bautista catheter, once her ambulation and energy levels improve, may consider voiding trial. Discussed that she may require Urodynamics as an outpatient to evaluate how well her bladder functions. (2) Ureteral calculus: Status: Acute Plan: Please see above plan. Time-Based Coding :: [TOTAL MINUTES] spent with patient and on the chart (including review of chart, obtaining history, exam, reviewing outside data, placing orders, documenting exam and treatment plan, and counseling patient) on [DATE]. PROFEE Charge Codes Inpatient or Observation consultation: 36670
--- NOTE | 2024-04-23 14:52 | DIET.PN1 ---
Dietary Progress Note Assessment: RD consulted for low Twin and decreased appetite. RD consult note completed 04/21. F/u with pt at bedside. Reports improving appetite. Avg recorded PO intakes <50%. Reports tolerating glucerna, but open to trying a protein smoothie for better flavor. Will add protein supplementation BID to support intakes Ht: 152.4 cm Wt: 60 kg BMI: 25.0 Last BM: 04/21/24 (04/21/24 18:00) MNA: 11 Twin Score: 13 Diet: 04/21/24 Breakfast Carbohydrate Consistent Diet Diet Modifications: Carbohydrate level: Medium (3 CHO) Bedtime snack: Yes Reflex DM orders: No Food Texture: Level 7 - Regular Liquid Consistency: Level 0 - Thin Nutrition Percent Meal Consumed ate 75% Bob jello 04/22/24 22:00 Percent Meal Consumed 80 04/22/24 18:00 Percent Meal Consumed 25% 04/22/24 14:00 Percent Meal Consumed 25% 04/21/24 18:00 Labs: RBC 3.35 X10^6/uL (4.0-5.2) L 04/23/24 06:03 Hgb 9.9 g/dL (12.0-16.0) L 04/23/24 06:03 Hct 29.4 % (36-46) L 04/23/24 06:03 Creatinine 0.95 mg/dL (0.52-1.04) 04/23/24 06:03 Lactate 2.0 mmol/L (0.7-2.1) 04/20/24 21:05 Electronically Signed by: Sofía Lee 04/23/24 14:52 Clinical Dietitian [address] [id number]
[2024-04-23] MEDS: INSULIN LISPRO 100 UNIT/ML 3ML VIAL SUBCUT (18:06)
[2024-04-23 19:54] VITALS: BP 124/70; PULSE 113; RESP 20; TEMP 37.1; O2SAT 95
[2024-04-23 20:00] VITALS: O2SAT 95
[2024-04-23] MEDS: ATORVASTATIN 20 MG TABLET 10 MG PO (20:33)
[2024-04-23] MEDS: INSULIN GLARGINE 100 UNIT/ML 3ML PEN 30 UNIT SUBCUT (20:34)
[2024-04-23] MEDS: polyethylene glycoL 3350 17 GM POWD.PACK PO (20:35)
[2024-04-23] MEDS: cefTRIAXone 2,000 MG in SODIUM CHLORIDE 0.9% 100 ML 200 MG IV (21:42)
[2024-04-24] MEDS: AMPICILLIN 2,000 MG in SODIUM CHLORIDE 0.9% 100 ML 200 MG IV ×4 (04:56→22:03)
[2024-04-24 05:05] LABS: Add Manual Diff / Slide Review NO; Basophils Absolute Auto 0 /uL (0-100); Basophils Percent Auto 0.2 % (0-2); Eosinophils Absolute Auto 300 /uL (0-450); Eosinophils Percent Auto 1.6 % (2-4); Hematocrit 26.8 % (36-46); Lymphocytes Absolute Auto 1800 /uL (1100-4500); Lymphocytes Percent Auto 10.8 % (25-40); Mean Corpuscular HGB Conc 33.5 % (30-36); Mean Corpuscular Volume 86.8 fL (80-100); Monocytes Absolute Auto 1100 /uL (0-900); Monocytes Percent Auto 6.6 % (3-14); Neutrophils Absolute Auto 13700 /uL (1500-7000); Neutrophils Percent Auto 80.8 % (50-75); Platelet Count 421 X10^3/uL (150-400); Red Blood Cell Count 3.09 X10^6/uL (4.0-5.2); Red Cell Distribution Width 13.7 % (11.6-14.8)
[2024-04-24 05:14] LABS: Alanine Aminotransferase 89 IU/L (<35); Albumin 2.8 g/dL (3.5-5.0); Albumin Globulin Ratio 0.9 (1.0-2.8); Alkaline Phosphatase 299 U/L (38-126); Aspartate Aminotransferase 112 IU/L (14-36); Bilirubin Total 0.4 mg/dL (0.2-1.3); Blood Urea Nitrogen 12 mg/dL (7-17); Calcium 8.6 mg/dL (8.4-10.2); Carbon Dioxide 25 mmol/L (22-32); Chloride 106 mmol/L (98-107); Estimated Glomerular Filt Rate > 60 mL/min (>60); Glucose 101 mg/dL (80-110); HEMOLYSIS < 15 (0-50); Potassium 3.6 mmol/L (3.4-5.1); Sodium 137 mmol/L (137-145); Total Protein 5.8 g/dL (6.3-8.2)
[2024-04-24 08:00] VITALS: BP 134/70; PULSE 102; RESP 18; TEMP 36.7; O2SAT 92
--- NOTE | 2024-04-24 08:07 | P.CONS_ITS ---
History of Present Illness Consult details Date Patient Seen: 04/24/24 Time Patient Seen: 08:07 Chief complaint: Pyelonephritis Narrative: 73 y/o F w/ h/o nephrolithiasis presented to ED on 20 Apr 2024 for evaluation of worsening urinary urgency/frequency, suprapubic pain, dysuria and subjective fevers/chills at home. Briefly, she was noted to have a urinary tract infection in the setting of a 7mm left proximal ureterolith in Feb and was treated with antibiotics and a cystoscopy with left ureteral stent placement. She developed the aforementioned symptoms over the weekend and noted that her typical MS symptoms were flaring up. Therefore, she was evaluated in the ED and treated for a urinary tract infection with Levaquin. Unfortunately, she noted continued symptoms and then developed weakness that she believed was secondary to the antibiotics and returned to the ED on 20 Apr 2024. Her evaluation was notable for a WBC of ~12, UA consistent with a stent and concern for yeast, and a CT Abd/Pel that demonstrated proper positioning of her left ureteral stent. She was subsequently admitted for management of pyelonephritis. Her WBC was noted to increase initially, however, it has decreased slightly for the second consecutive day. That being said, she does admit that she feels slightly better today than she did yesterday. Unfortunately, she was attempting to urinate on the evening of 22 Apr 2024 without success and had a bautista catheter placed with more than 500cc of clear yellow urine drained. Meds Home Medications and Allergies Home Medications Medication Instructions Recorded Confirmed Type CHOLECALCIFEROL (VITAMIN D3) 2,000 iu PO Q DAY ##0 02/19/11 04/20/24 History (Vitamin D) Calcium Carbonate/Vitamin D 1 sgl PO Q DAY ##0 02/19/11 04/20/24 History (#CALCIUM 1200 W/VITAMIN D 600 MG-100 IU) Cranberry (#CRANBERRY) 2,000 mg PO Q DAY ##0 02/19/11 04/20/24 History Fish Oil (#SUPER EPA 2000) 2,000 mg PO Q DAY ##0 02/19/11 04/20/24 History vitamin B complex 1 tab PO DAILY 02/10/19 04/20/24 History Disabled Parking Permit #1 ea 05/09/20 04/21/24 Rx One Touch Verio Glucose Monitor #1 ea 01/07/23 04/21/24 Rx amlodipine 5 mg tablet 5 mg PO DAILY #90 tabs 02/10/23 04/22/24 Rx One Touch Verio test strips and #300 ea 03/26/23 04/21/24 Rx lancets atorvastatin 10 mg tablet 10 mg PO DAILY #90 tabs 09/15/23 04/20/24 Rx metformin 500 mg tablet,extended 1,000 mg (2 x 500 mg) PO BID #360 10/30/23 04/20/24 Rx release 24 hr tabs magnesium citrate (OneLAX 300 ml PO DAILY PRN constipation 12/22/23 04/20/24 Rx Magnesium Citrate oral solution) #296 mL psyllium husk 2.6 gram/4.1 gram 1 tbsp PO DAILY 12/22/23 04/20/24 History oral powder phenazopyridine 100 mg tablet 100 mg PO TID PRN pain #6 tabs 02/06/24 04/20/24 Rx (Pyridium) trospium 20 mg tablet 20 mg PO BID #200 tabs 02/09/24 04/20/24 Rx estradiol 10 mcg vaginal tablet 10 mcg vaginal 2XW #24 tabs 02/24/24 04/20/24 Rx (Yuvafem) Disabled Parking Permit See Rx Instructions .Route 03/22/24 04/20/24 Rx .COMPLEX #1 ea Hand controls #1 ea 03/22/24 04/21/24 Rx hydrocodone 5 mg-acetaminophen 325 1 tab PO Q8H PRN Pain (Scale Score 03/22/24 04/20/24 Rx mg tablet 1-3) #30 tabs baclofen 10 mg tablet 15 mg PO TID 03/24/24 04/22/24 History mirabegron 50 mg tablet,extended 50 mg PO DAILY #30 tabs 03/26/24 04/20/24 Rx release 24 hr nitrofurantoin 100 mg PO BID #10 caps 04/09/24 04/20/24 Rx monohydrate/macrocrystals 100 mg capsule levofloxacin 750 mg tablet 750 mg PO DAILY 7 days #7 tabs 04/18/24 04/20/24 Rx blood sugar diagnostic (OneTouch #300 ea 04/19/24 04/21/24 Rx Verio test strips) Allergies Allergy/AdvReac Type Severity Reaction Status Date / Time Sulfa (Sulfonamide Allergy Severe ANAPHYLAXIS Verified 04/18/24 12:53 Antibiotics) [SULFA (SULFONAMIDE ANTIBIOTICS)] adhesive tape Allergy Mild Verified 04/23/24 15:11 diphenhydramine Allergy Mild HIVES Verified 04/18/24 12:53 [DIPHENHYDRAMINE] Review of Systems Review of Systems Narrative: CONSTITUTIONAL: Denies weight loss, fevers, chills. HEENT: Denies change in vision, hearing. RESP: Denies SOB, cough. CV: Denies palpations, CP. GI: Denies abdominal pain, nausea, vomiting, diarrhea. : Denies dysuria, hematuria. MSK: Denies myalgia, joint pain. SKIN: Denies rash, pruritus. NEURO: Denies headache, syncope. PSYCH: Denies recent change in mood, anxiety, depression. Exam Vital Signs (past 8 hours): - 04/24/24 08:00 Temperature 98.0 F Pulse Rate 102 H Respiratory Rate 18 Blood Pressure 134/70 Pulse Oximetry 92 Oxygen Delivery Method Room Air Oxygen Flow Rate 0 Narrative Exam Narrative: GEN: Alert and oriented X3. No acute distress. Well-nourished. EYES: PERRLA, EOMI. HENT: Moist mucus membranes, no scleral icterus, normal neck ROM. RESP: Unlabored breathing, equal rise and fall of chest bilaterally, no cyanosis appreciated. CV: No peripheral edema, unremarkable heart rate. ABD: Soft, non-tender, non-distended, no palpable masses. : Bautista catheter secured and draining clear yellow urine. EXT: No edema, clubbing or cyanosis. SKIN: No rashes or lesions. NEURO: No focal neurologic deficits, CN II-XII grossly intact. PSYCH: Cooperative, appropriate mood and affect. Objective Labs 04/24/24 04:32 04/24/24 04:32 Labs: Laboratory Results - last 24 hr 04/24/24 04:32 WBC 17.0 H RBC 3.09 L Hgb 9.0 L Hct 26.8 L MCV 86.8 MCH 29.0 MCHC 33.5 RDW 13.7 Plt Count 421 H Neut % (Auto) 80.8 H Lymph % (Auto) 10.8 L [place] % (Auto) 6.6 Eos % (Auto) 1.6 L Baso % (Auto) 0.2 Neut # (Auto) 67671 H Lymph # (Auto) 1800 [place] # (Auto) 1100 H Eos # (Auto) 300 Baso # (Auto) 0 Sodium 137 Potassium 3.6 Chloride 106 Carbon Dioxide 25 BUN 12 Creatinine 0.80 Estimated GFR > 60 BUN/Creatinine Ratio 15.0 Glucose 101 Calcium 8.6 Total Bilirubin 0.4 AST 112 H ALT 89 H Alkaline Phosphatase 299 H Total Protein 5.8 L Albumin 2.8 L Globulin 3.0 Albumin/Globulin Ratio 0.9 L PFSH Medical History Pyuria Parapelvic renal cyst Constipation Atrophic vaginitis Hydronephrosis of left kidney Chronic lower urinary tract infection Recurrent urinary tract infection Colon polyps (2009) Chicken pox Measles Plantar warts (2004) Fractures (~2005) Osteopenia Multiple sclerosis (1991) Surgical History History of tubal ligation History of cholecystectomy Anesthesia History of shoulder surgery (1973) Status post rotator cuff repair (2011) History of third molar tooth extraction (1970) Status post tubal ligation (1979) Family History Brother Age: 67 Diabetes mellitus Hypertension High cholesterol Child Age: 28 Adopted Mother Heart disease Hypertension Stroke Cancer Father Alzheimer's disease Grandmother No problems noted. Social History marital status: number of children: 1 household members: friend(s) occupational status: employed Tobacco & Substance Use Smoking Status: Never smoker alcohol intake: current substance use type: does not use Diet and Exercise caffeine: Yes (tea-occasional ) Type(s) of exercise: other frequency: 5-6 times per week Assessment & Plan Assessment and plan (1) Pyelonephritis: Status: Acute Plan: 73 y/o F s/p a cystoscopy with left ureteral stent placement for management of a 7mm left proximal ureterolith in the setting of a UTI in Feb. She was noted to develop signs/symptoms concerning for a UTI over the weekend that persisted despite Levofloxacin. Her UA is difficult to interpret as it appears consistent with a ureteral stent, yet does have yeast present. Her UCx from a few days ago is positive for Marylou Albicans and Enterococcus Faecalis (resistant only to Tetracycline). Recommend culture directed antibiotics per her primary team with the addition of Fluconazole 400mg daily for the next two weeks (that being said, can consider transition to oral medications at this point and observe for any clinical deterioration). Discussed that her CT Abd/Pel demonstrates proper positioning of her left ureteral stent and that no urgent Urologic intervention is necessary at this point. Her left ureteroscopy with laser lithotripsy will stay scheduled for 30 Apr 2024 at the moment, can always push it back should her clinical scenario dictate that change. Regarding her bautista catheter, once her ambulation and energy levels improve, may consider voiding trial. Discussed that she may require Urodynamics as an outpatient to evaluate how well her bladder functions. (2) Ureteral calculus: Status: Acute Plan: Discussed the need for a cystoscopy, left ureteroscopy, laser lithotripsy and left ureteral stent exchange for definitive stone management due to her left proximal ureterolith and left lower pole calculus. Discussed risks of the procedure to include pain, bleeding, infection, injury to urethra/bladder/ureter, inability to access the ureter requiring discussion with Interventional Radiology regarding a possible ureteral stent placement in an antegrade fashion vs a possible nephroureteral stent and/or percutaneous nephrostomy tube, urinary tract infection, inability to remove all of the stone in one setting, need for emergent open repair of bladder and/or ureter, need for multiple ureteroscopic interventions necessary to render the patient stone free. Informed consent was obtained today. Time-Based Coding :: [TOTAL MINUTES] spent with patient and on the chart (including review of chart, obtaining history, exam, reviewing outside data, placing orders, documenting exam and treatment plan, and counseling patient) on [DATE]. PROFEE Charge Codes Inpatient or Observation consultation: [id number]
[2024-04-24 08:18] VITALS: O2SAT 92
[2024-04-24] MEDS: METFORMIN XR 500 MG TABLET 1000 MG PO ×2 (09:33→21:14)
[2024-04-24] MEDS: ENOXAPARIN 40 MG/0.4 ML SYRINGE SUBCUT (09:33)
[2024-04-24] MEDS: OXYBUTYNIN 5 MG ER TAB PO (09:33)
[2024-04-24] MEDS: PSYLLIUM HUSK 1 PACKET PO (09:33)
[2024-04-24] MEDS: BACLOFEN 10 MG TABLET PO ×2 (09:37→15:02)
[2024-04-24] MEDS: polyethylene glycoL 3350 17 GM POWD.PACK PO (09:45)
[2024-04-24] MEDS: SODIUM CHLORIDE 0.9% FLUSH 10 ML IV ×2 (11:01→21:16)
[2024-04-24] MEDS: FLUCONAZOLE 200 MG/100 ML PIGGYBACK 100 MG IV (11:01)
--- NOTE | 2024-04-24 11:21 | CM.DPNOTE ---
DCP Note [employer]ER [employer]ISHER reviewed EMR. per urology consult note, reg fluconazole 400mg for two weeks. plan for left ureteroscopy with laser lithotripsy on Apr 30 2024. per chart, no current [facility] at this time. Per [facility] at , can take pt likely Friday, pending bed availability. Per chart, PASRR previously completed, dimas auth obtained. [employer]ER met with pt and CG/friend Tahir in room. pt confirms that she would prefer to dc home but understands she cannot move her legs at this time and would need some rehab before going home. preference for placement remains [facility] at this time. Deny questions at this time. Per RN, anticipate dc on PO abx. if plan changes to IV, pt will need PICC. P: anticipate dc to [facility] when medically stable, [facility] unknown, Friday vs Friday? PASRR done. CM team will continue to follow closely FIGUEROA Wilson
[2024-04-24] MEDS: INSULIN LISPRO 100 UNIT/ML 3ML VIAL SUBCUT ×2 (12:28→17:39)
--- NOTE | 2024-04-24 13:14 | P.PN_ITS ---
Subjective Subjective Date Patient Seen: 04/24/24 Time Patient Seen: 13:14 Interval history: Reviewed chart and met with patient Patient feels tired. She is frustrated that she has not able to walk and previously prior to this illness has been able to walk. She previously saw Dr. Akhtar was her neurologist but she did not like him and is in the process for transferring to Dr. Schaefer. She has an appointment in July Reviewed note from Urology and appreciate input Patient with unremarkable night Exam Vital Signs (past 8 hours): - 04/24/24 08:00 04/24/24 08:18 Temperature 98.0 F Pulse Rate 102 H Respiratory Rate 18 Blood Pressure 134/70 Pulse Oximetry 92 92 Oxygen Delivery Method Room Air Oxygen Delivery Method Room Air Oxygen Flow Rate 0 Narrative Exam Narrative: Afebrile vital signs are stable HEENT is unremarkable patient is alert and oriented no apparent distress and a great historian Neck: Supple Chest: Clear to auscultation without wheezes rhonchi or crackles Cor: Regular rate and rhythm without murmur Abdomen positive slightly distended but no tenderness, guarding. Positive bowel sounds x4 Extremities pulses intact patient with weakness significant quadriceps but normal dorsiflexion plantar flexion Objective Labs 04/24/24 04:32 04/24/24 04:32 Labs: Laboratory Results - last 24 hr 04/24/24 04:32 WBC 17.0 H RBC 3.09 L Hgb 9.0 L Hct 26.8 L MCV 86.8 MCH 29.0 MCHC 33.5 RDW 13.7 Plt Count 421 H Neut % (Auto) 80.8 H Lymph % (Auto) 10.8 L [place] % (Auto) 6.6 Eos % (Auto) 1.6 L Baso % (Auto) 0.2 Neut # (Auto) 86765 H Lymph # (Auto) 1800 [place] # (Auto) 1100 H Eos # (Auto) 300 Baso # (Auto) 0 Sodium 137 Potassium 3.6 Chloride 106 Carbon Dioxide 25 BUN 12 Creatinine 0.80 Estimated GFR > 60 BUN/Creatinine Ratio 15.0 Glucose 101 Calcium 8.6 Total Bilirubin 0.4 AST 112 H ALT 89 H Alkaline Phosphatase 299 H Total Protein 5.8 L Albumin 2.8 L Globulin 3.0 Albumin/Globulin Ratio 0.9 L [facility] Medical History Pyuria Parapelvic renal cyst Constipation Atrophic vaginitis Hydronephrosis of left kidney Chronic lower urinary tract infection Recurrent urinary tract infection Colon polyps (2009) Chicken pox Measles Plantar warts (2004) Fractures (~2005) Osteopenia Multiple sclerosis (1991) Surgical History History of tubal ligation History of cholecystectomy Anesthesia History of shoulder surgery (1973) Status post rotator cuff repair (2011) History of third molar tooth extraction (1970) Status post tubal ligation (1979) Family History Brother Age: 67 Diabetes mellitus Hypertension High cholesterol Child Age: 28 Adopted Mother Heart disease Hypertension Stroke Cancer Father Alzheimer's disease Grandmother No problems noted. Social History marital status: number of children: 1 household members: friend(s) occupational status: employed Smoking Status: Never smoker alcohol intake: current substance use type: does not use caffeine: Yes (tea-occasional ) Type(s) of exercise: other frequency: 5-6 times per week Assessment & Plan Assessment & Plan narrative: (1) Ureteral calculus: Status: Acute Plan Sepsis patient with elevated white blood cell count tachycardic source of infection is urine. Patient on ampicillin ceftriaxone and fluconazole. Patient is no longer febrile. Still with elevated white blood cell count. It is stable. Patient continues to be afebrile for 24 hours. We will continue with IV ampicillin and ceftriaxone and if we see improvement with white blood cell count will switch to p.o. tomorrow. Will treat Marylou in urine with fluconazole but will continue the same dosing due to the significant increase in liver function tests. Will reassess tomorrow. Will likely switch tomorrow to oral pending how patient is doing. Will recheck procalcitonin and lactate is these were elevated on admit but not rechecked. 2. Left Pyelonephritis. Patient with CT scan showing probable pyelonephritis due to ongoing stent and infection in her urine. Continue with IV antibiotics with hopes that we can switch to oral tomorrow if WBC is decreasing.. Patient is not a significant pain and has no fever. 3. ANUPAM patient kidney function is better today after IV fluid. Now normal. Will continue to monitor 4. Kidney stone left with ureteral stent. Appreciate neurology's consultation. Patient has stent removal scheduled 5. Transaminitis elevation of liver enzymes due to possible underlying infection versus medication versus antibiotic. Liver enzymes are stable. Surgically absent gallbladder. No history of cirrhosis of the liver. Will increase fluconazole as per Urology but will watch liver function tests and recheck tomorrow. 6. Multiple sclerosis. With possible acute flare possibly this is related to infection and sepsis. Consider treatment with steroids pending how patient is doing tomorrow.. Patient has some ongoing neurological complaints of weakness etc.. Will need skilled care placement and currently at bed will be available at [facility] on Friday. 7. Diabetes type 2. Blood sugars are better today after increasing Lantus insulin to 30 continue with metformin and insulin sliding scale. Blood sugars have been good. Will continue with same treatment 8. Hyperlipidemia. On statin. Will hold atorvastatin while we treat with the fluconazole and see if LFTs improve 9. Osteoarthritis chronic and stable 10. Anemia. Suspect multifactorial due to chronic disease. Will continue to monitor. No ongoing evidence of acute blood loss at this time. DVT prophylaxis with Lovenox Code status full code 62 minutes spent with patient in reviewing her chart and meeting with patient and discussing with nursing and formulating a plan and documentation Disposition and plan. Unfortunately due to MS patients weakness and ongoing infection she is requiring significant amount of assistance with ambulation and getting out of bed. Will continue with physical therapy and plan for skilled care placement as outpatient. Time-Based Coding :: [TOTAL MINUTES] spent with patient and on the chart (including review of chart, obtaining history, exam, reviewing outside data, placing orders, documenting exam and treatment plan, and counseling patient) on [DATE].
[2024-04-24 15:01] LABS: Lactate (Lactic Acid) 1.6 mmol/L (0.7-2.1)
--- NOTE | 2024-04-24 15:16 | PT.IPTN ---
Current Diagnoses Tubulo-interstitial nephritis, not specified as acute or chronic (04/20/24) Calculus of ureter (04/20/24) Physical Therapy Treatment Note M2 PT-IP Current Condition Start: 04/21/24 14:09 Freq: NEEDED Status: Active Protocol: Document 04/21/24 12:05 AB (Rec: 04/21/24 14:24 AB [id number]) Physical Therapy Current Condition Current Condition Evaluation Date 04/21/24 Treatment Diagnosis UTI; pyelonephritis; MS; difficulty in walking Onset Date 04/20/24 M3 PT-IP Subjective Start: 04/21/24 14:09 Freq: NEEDED Status: Active Protocol: Document 04/24/24 15:16 AB (Rec: 04/24/24 17:54 AB [id number]) Subjective Physical Therapy Visit Type Type Treatment Note Visit Start Time 15:16 Visit Stop Time 15:40 Number of PAUNCH TRIMMER Visits 0 Physical Therapy Visit Comments Patient Comments agreeable to do PT Therapy Pain Assessment Location Abdomen Scale Used pain scale not stated M4 PT-IP Mobility and Gait Start: 04/21/24 14:09 Freq: NEEDED Status: Active Protocol: Document 04/24/24 15:16 AB (Rec: 04/24/24 17:54 AB [id number]) PT-Bed Mobility Assessment Supine to Sit Supine to Sit Maximum Assistance,1 Person Assistance,2 Person Assistance ,Head of Bed Elevated,Bedrails Scooting Scooting to Edge of Bed Maximum Assistance PT-Transfer Assessment Sit to and From Stand Sit to and from Stand Maximum Assistance,2 Person Assistance,Use of Upper Extremities Equipment Transfer Assistive Device Gait Belt,Front Wheeled Walker Orthotic/Prosthetic Devices or Brace: No Transfers Transfer Destination Chair Transfer Technique Stand Step Pivot Transfer Ability Level of Assist Maximum Assistance,2 Person Assistance,Use of Upper Extremities Comments Mobility Comments pt supine in bed and agreeable to do PT. completed supine to sit max A x1-2 and max cues . HOB elevated and pt used bed rail to assist. pt sat on EOB CGA. completed sit to stand max A x 2 and max cues to decrease posterior trunk lean and use of FWW for support. pt able to step transfer to chair using FWW max A x and max cues. pt needing assistance with weight shifting and moving FWW during transfers. pt sat on the chair. agreed to ambulated. sit to stand from the chair x 2 reps max A x 2 and max cues but with increase posterior trunk lean with increase LLE spasticity and unable to ambulate needing to sit back on chair. max A x 2 for controlled sitting. pt stated that she is just tired. positioned pt on the chair. call light and table placed within reach. Left pt with NAC . M5 PT-IP Objective Assessments Start: 04/21/24 14:09 Freq: NEEDED Status: Active Protocol: Document 04/21/24 12:05 AB (Rec: 04/21/24 14:24 AB [id number]) Orientation Orientation/Cognition Level of Alertness Alert Orientation Name,Place,Situation Language Function Ability No Deficits Noted Safety Awareness Decreased Safety Awareness Memory Description No Deficits Noted Gross Range of Motion Lower Extremity ROM Impairments BLE increase tone/ spasticity mild Strength Lower Extremity Strength Assessment Bilaterally Impaired Hip 3-/5 Knee 3+/5 Ankle 3+/5 Coordination Assessment Gross Coordination Gross Coordination Impaired Sensation Assessment Sensation Gross Sensation Right UE Impaired,Left UE Impaired,Right LE Impaired, Left LE Impaired Sensation Description Numbness M6 PT-IP Treatment Start: 04/21/24 14:09 Freq: NEEDED Status: Active Protocol: Document 04/24/24 15:16 AB (Rec: 04/24/24 17:54 AB [id number]) Physical Therapy Treatment Education Education Provided Safety M7 PT-IP Assessment and Plan Start: 04/21/24 14:09 Freq: NEEDED Status: Active Protocol: Document 04/24/24 15:16 AB (Rec: 04/24/24 17:54 AB [id number]) PT Summary Assessment and Plan Potential Rehabilitation Potential Fair Summary Impairments Pain,ROM,Strength,Balance, Coordination,Sensation,Tone, Cognition,Bed Mobility, Transfers,Gait,Activity Tolerance Progress Towards Goals Slow Progress due to Medical Issues,Slow Progress due to Activity Tolerance Assessment Summary pt continues to require max A x 2 for transfers using FWW and has decrease activity tolerance. pt with dx of MS contributing to current medical condition. pt will need SNF rehab to improve mobility. Goals Bed Mobility Goal Minimal Assistance Transfer Goal Minimal Assistance,Front Wheeled Walker Gait Goal Minimal Assistance,Front Wheel Walker Gait Distance 20 Other Goals improve bed mobility, transfers, ambulation using FWW ~ 50 ft SBA up/down 5 steps B rails CGA Days to Meet Goals 10 Frequency of Treatment Frequency Of Treatment Once a Day Treatment Plan Physical Therapy Treatment Plan Bed Mobility Training,Transfer Training,Gait Training, Therapeutic Exercise,Balance Retraining,Discharge Planning, Hot or Cold Pack,Neuromuscular Re-ed,Coordination Retraining ,Manual Therapy Precautions Other Precautions falls Recommendations To Nursing Amount of Assist Needed Mechanical Lift Discharge Recommendations PT Discharge Recommendations SNF Rehab Transportation Needs at Discharge Wheelchair/Cabulance
[2024-04-24 15:19] LABS: Procalcitonin 0.896 ng/mL (<0.5)
[2024-04-24] MEDS: SODIUM CHLORIDE 0.9% 1,000 ML 84 ML IV (16:06)
--- NOTE | 2024-04-24 17:26 | PC.NURSE ---
Day shift: Pt in chair for approx 2 hours after working with PT. TOlerated well. Original plan was to eat dinner in chair but she changed her mind. Back to bed via Elieser and she tolerated the lift well. Call light in reach and dinner tray in front. Bed alarm is on too for safety.
[2024-04-24] MEDS: INSULIN GLARGINE 100 UNIT/ML 3ML PEN 30 UNIT SUBCUT (21:13)
[2024-04-24] MEDS: HYDROCODONE/ACET 5/325 TABLET 1 TAB PO (21:14)
[2024-04-24] MEDS: BACLOFEN 10 MG TABLET 20 MG PO (21:15)
[2024-04-24] MEDS: cefTRIAXone 2,000 MG in SODIUM CHLORIDE 0.9% 100 ML 200 MG IV (21:16)
[2024-04-24 21:17] VITALS: BP 151/73; PULSE 107; RESP 18; TEMP 36.6; O2SAT 91
[2024-04-25] MEDS: ACETAMINOPHEN 325 MG TABLET 650 MG PO ×2 (04:32→14:18)
[2024-04-25] MEDS: AMPICILLIN 2,000 MG in SODIUM CHLORIDE 0.9% 100 ML 200 MG IV ×4 (04:33→22:04)
[2024-04-25] MEDS: SODIUM CHLORIDE 0.9% 1,000 ML 84 ML IV ×2 (04:36→20:15)
[2024-04-25 05:31] LABS: Add Manual Diff / Slide Review NO; Basophils Absolute Auto 0 /uL (0-100); Basophils Percent Auto 0.3 % (0-2); Eosinophils Absolute Auto 300 /uL (0-450); Eosinophils Percent Auto 1.9 % (2-4); Hematocrit 26.7 % (36-46); Hemoglobin 8.9 g/dL (12.0-16.0); Lymphocytes Absolute Auto 2300 /uL (1100-4500); Mean Corpuscular HGB Conc 33.3 % (30-36); Mean Corpuscular Hemoglobin 28.8 PG (26-34); Mean Corpuscular Volume 86.5 fL (80-100); Monocytes Absolute Auto 1400 /uL (0-900); Monocytes Percent Auto 8.8 % (3-14); Neutrophils Absolute Auto 12400 /uL (1500-7000); Platelet Count 448 X10^3/uL (150-400); Red Blood Cell Count 3.08 X10^6/uL (4.0-5.2); Red Cell Distribution Width 13.8 % (11.6-14.8); White Blood Cell Count 16.5 X10^3/uL (4.5-11.0)
[2024-04-25 05:34] LABS: Alanine Aminotransferase 108 IU/L (<35); Albumin 2.8 g/dL (3.5-5.0); Alkaline Phosphatase 347 U/L (38-126); Aspartate Aminotransferase 120 IU/L (14-36); BUN Creatinine Ratio 11.7 (6-22); Bilirubin Total 0.5 mg/dL (0.2-1.3); Blood Urea Nitrogen 9 mg/dL (7-17); Calcium 8.4 mg/dL (8.4-10.2); Carbon Dioxide 26 mmol/L (22-32); Chloride 107 mmol/L (98-107); Estimated Glomerular Filt Rate > 60 mL/min (>60); Globulin 2.9 g/dL (1.7-4.1); Glucose 90 mg/dL (80-110); HEMOLYSIS < 15 (0-50); Potassium 3.3 mmol/L (3.4-5.1); Sodium 140 mmol/L (137-145); Total Protein 5.7 g/dL (6.3-8.2)
[2024-04-25 07:00] VITALS: O2SAT 92
--- NOTE | 2024-04-25 08:38 | DI.US.S_ITS ---
PROCEDURE: US ABDOMEN COMPLETE INDICATIONS: elevated LFT TECHNIQUE: Real-time scanning was performed of the abdominal and retroperitoneal organs, with image documentation. COMPARISON: [facility], CT, CT ABDOMEN PELVIS W CON, 04/18/2024, 15:02. [facility], US, US ABDOMEN LIMITED, 11/11/2020, 15:58. FINDINGS: Liver: The liver demonstrates mildly enlarged size. The liver demonstrates generalized mildly increased echogenicity. This decreases ultrasound sensitivity for detection of hepatic masses. The main portal vein demonstrates normal size and demonstrates normal appearing, hepatopetal flow. Gallbladder: Removed. Biliary ducts: Intrahepatic bile ducts are non-dilated. Extrahepatic bile duct caliber measures 7 mm. Normal is 6-7 mm or less in diameter, or 10 mm or less post-cholecystectomy. Pancreas: Visualized portions of the pancreas are sonographically normal. Spleen: Spleen is normal in size and homogeneous in echotexture. Kidneys: Kidneys are normal in size and echotexture. Right kidney measures 8.9 cm long; left kidney measures 11 cm long. No solid masses. Moderate left-sided hydronephrosis is seen. There is spent dental debris within the left renal pelvis. A nonobstructing 1 cm stone can be seen at the inferior aspect of the left kidney. The previously seen left-sided ureteral stent is not well seen on these images. Aorta: Visualized aorta is normal in caliber at less than 3 cm. Iliacs: Proximal common iliac arteries are normal in caliber at less than 2.5 cm. IVC: Intrahepatic inferior vena cava is patent. Miscellaneous: No free abdominal fluid. Study is limited by patient immobility and nonfasting state. IMPRESSION: Left-sided hydronephrosis, with apparent debris within the renal pelvis. Nonobstructing left-sided kidney stone seen inferiorly. Status post cholecystectomy, without biliary dilatation. The liver demonstrates mildly increased echogenicity. This finding is nonspecific, yet it is most commonly attributed to fatty infiltration. Note: Concordant preliminary findings given by the community living specialist upon the completion of the examination to Dr. Beauchamp at 1:20 p.m. on April 25, 2024. Dictated by: Aron Manning M.D. on 04/25/2024 at 13:05 Approved by: Aron Manning M.D. on 04/25/2024 at 13:08
[2024-04-25] MEDS: BACLOFEN 10 MG TABLET 15 MG PO ×2 (09:45→16:38)
[2024-04-25] MEDS: PSYLLIUM HUSK 1 PACKET PO (09:46)
[2024-04-25] MEDS: METFORMIN XR 500 MG TABLET 1000 MG PO ×2 (09:46→20:16)
[2024-04-25] MEDS: OXYBUTYNIN 5 MG ER TAB PO (09:46)
[2024-04-25] MEDS: POTASSIUM CHLORIDE 20 MEQ TAB PO (09:46)
[2024-04-25] MEDS: ENOXAPARIN 40 MG/0.4 ML SYRINGE SUBCUT (09:46)
[2024-04-25] MEDS: SODIUM CHLORIDE 0.9% FLUSH 10 ML IV ×2 (09:47→20:17)
[2024-04-25] MEDS: FLUCONAZOLE 200 MG/100 ML PIGGYBACK 100 MG IV (10:42)
--- NOTE | 2024-04-25 12:20 | PT.IPTN ---
Current Diagnoses Tubulo-interstitial nephritis, not specified as acute or chronic (04/20/24) Calculus of ureter (04/20/24) Physical Therapy Treatment Note M2 PT-IP Current Condition Start: 04/21/24 14:09 Freq: NEEDED Status: Active Protocol: Document 04/21/24 12:05 AB (Rec: 04/21/24 14:24 AB [id number]) Physical Therapy Current Condition Current Condition Evaluation Date 04/21/24 Treatment Diagnosis UTI; pyelonephritis; MS; difficulty in walking Onset Date 04/20/24 M3 PT-IP Subjective Start: 04/21/24 14:09 Freq: NEEDED Status: Active Protocol: Document 04/25/24 12:41 KS (Rec: 04/25/24 12:47 KS [id number]) Subjective Physical Therapy Visit Type Type Treatment Note Visit Start Time 11:44 Visit Stop Time 12:20 Number of TENNIS COACH Visits 1 Physical Therapy Visit Comments Patient Comments agreeable to do PT M4 PT-IP Mobility and Gait Start: 04/21/24 14:09 Freq: NEEDED Status: Active Protocol: Document 04/25/24 12:41 KS (Rec: 04/25/24 12:47 KS [id number]) PT-Bed Mobility Assessment Supine to Sit Supine to Sit Moderate Assistance,1 Person Assistance Scooting Scooting to Edge of Bed Moderate Assistance PT-Transfer Assessment Sit to and From Stand Sit to and from Stand Moderate Assistance,Maximum Assistance,1 Person Assistance ,Use of Upper Extremities Equipment Transfer Assistive Device Gait Belt,Front Wheeled Walker Orthotic/Prosthetic Devices or Brace: No Transfers Transfer Destination Bed Transfer Technique lateral steps. Transfer Ability Level of Assist Maximum Assistance,1 Person Assistance Comments Mobility Comments Pt in bed upon arrival and eager to work w/ PT. Mod A for sup<>sit and scooting EOB. Pt fatigues quickly. Max A for first sit<>stand w/ FWW. Pt initially leaning backwards needing Mod A to maintain balance. She reports this is typical for her to have to gain her balance when first standing. She was able to perofrm 2x [address] with minimal elevation of feet. She then took a seated rest break before sit<>stand w/ FWW Mod A and taking ~4 steps laterally towards the HOB. Pt reports fatigue and requests to be done/lie back down. Mod A x2 for repositioning in bed. Pt left w/ all needs in reach. Gait Assessment Comments Gait Comments see mobility, lateral steps only. M5 PT-IP Objective Assessments Start: 04/21/24 14:09 Freq: NEEDED Status: Active Protocol: Document 04/21/24 12:05 AB (Rec: 04/21/24 14:24 AB [id number]) Orientation Orientation/Cognition Level of Alertness Alert Orientation Name,Place,Situation Language Function Ability No Deficits Noted Safety Awareness Decreased Safety Awareness Memory Description No Deficits Noted Gross Range of Motion Lower Extremity ROM Impairments BLE increase tone/ spasticity mild Strength Lower Extremity Strength Assessment Bilaterally Impaired Hip 3-/5 Knee 3+/5 Ankle 3+/5 Coordination Assessment Gross Coordination Gross Coordination Impaired Sensation Assessment Sensation Gross Sensation Right UE Impaired,Left UE Impaired,Right LE Impaired, Left LE Impaired Sensation Description Numbness M6 PT-IP Treatment Start: 04/21/24 14:09 Freq: NEEDED Status: Active Protocol: Document 04/25/24 12:41 KS (Rec: 04/25/24 12:47 KS [id number]) Physical Therapy Treatment Exercises Exercises Ankle Pumps,Gluteal Sets,Quad Sets Education Education Provided Safety M7 PT-IP Assessment and Plan Start: 04/21/24 14:09 Freq: NEEDED Status: Active Protocol: Document 04/25/24 12:41 KS (Rec: 04/25/24 12:47 KS [id number]) PT Summary Assessment and Plan Potential Rehabilitation Potential Fair Summary Impairments Pain,ROM,Strength,Balance, Coordination,Sensation,Tone, Cognition,Bed Mobility, Transfers,Gait,Activity Tolerance Progress Towards Goals Slow Progress due to Medical Issues,Slow Progress due to Activity Tolerance Assessment Summary Pt reqrired less assistance overall today, however still requires Mod A x1-2 for bed mobility and Mod-Max A for sit <>stand w/ FWW. She is very quick to fatigue at this time and can only tolerate short bouts of activity which is far rom her baseline of working out 1 hour every day. She will require SNF to improve functional mobility. Goals Bed Mobility Goal Minimal Assistance Transfer Goal Minimal Assistance,Front Wheeled Walker Gait Goal Minimal Assistance,Front Wheel Walker Gait Distance 20 Other Goals improve bed mobility, transfers, ambulation using FWW ~ 50 ft SBA up/down 5 steps B rails CGA Days to Meet Goals 10 Frequency of Treatment Frequency Of Treatment Once a Day Treatment Plan Physical Therapy Treatment Plan Bed Mobility Training,Transfer Training,Gait Training, Therapeutic Exercise,Balance Retraining,Discharge Planning, Hot or Cold Pack,Neuromuscular Re-ed,Coordination Retraining ,Manual Therapy Precautions Other Precautions falls Recommendations To Nursing Amount of Assist Needed 2 Person Assist Discharge Recommendations PT Discharge Recommendations SNF Rehab Transportation Needs at Discharge Wheelchair/Cabulance
--- NOTE | 2024-04-25 14:13 | PM.PN.1 ---
Subjective Subjective Date Patient Seen: 04/25/24 Time Patient Seen: 14:13 Interval history: Patient had unremarkable night. She states that she is feeling better today. She is feeling less tired and she is feeling stronger. She was able to get out of bed. She needed assistance but did not have to be pulled up completely. She did get up and stand and did brief sidestepping and then got back in the bed. This is a huge improvement. On review of her chart the last time she saw Neurology was in 2020. At that time she had not had any recurrent symptoms since she was 1st diagnosed with MS. Patient states that since COVID she has had worsening symptoms with decreased mobility. She has had more urinary symptoms as well as decreased ability for ambulation. Patient is not very hungry but she is forcing herself to eat. She has not having any nausea or vomiting. Luo catheters in place. She is receiving low dose of IV fluids and she feels that this is helpful as she has not been able to drink a lot of fluids. Patient denies any diarrhea. Denies any abdominal pain. Denies any nausea or vomiting. Patient denies any shortness a breath or chest pain. Patient denies any headaches. Twelve point review of systems otherwise negative Exam Vital Signs (past 8 hours): - 04/25/24 07:00 Pulse Oximetry 92 Oxygen Delivery Method Room Air Oxygen Flow Rate 0 Oxygen Delivery Method Room Air Oxygen Flow Rate 0 Narrative Exam Narrative: Patient is alert and oriented no apparent distress. Vital signs are stable so far last blood pressure was slightly increased. Patient remains afebrile for 48 hours. HEENT is unremarkable Neck is supple Chest: Clear to auscultation without wheezes rhonchi or crackles Cor: Regular rate and rhythm without murmur, distant S1-S2 Abdomen: Positive bowel sounds, soft, slight tenderness in her right upper quadrant right lateral ribcage but no guarding or rebound. No peritoneal signs. Extremities: No edema Neurologic exam improved strength in quadriceps bilaterally Objective Labs 04/25/24 04:55 04/25/24 04:55 Labs: Laboratory Results - last 24 hr 04/24/24 04/25/24 14:37 04:55 WBC 16.5 H RBC 3.08 L Hgb 8.9 L Hct 26.7 L MCV 86.5 MCH 28.8 MCHC 33.3 RDW 13.8 Plt Count 448 H Neut % (Auto) 75.0 Lymph % (Auto) 14.0 L [place] % (Auto) 8.8 Eos % (Auto) 1.9 L Baso % (Auto) 0.3 Neut # (Auto) 82988 H Lymph # (Auto) 2300 [place] # (Auto) 1400 H Eos # (Auto) 300 Baso # (Auto) 0 Sodium 140 Potassium 3.3 L Chloride 107 Carbon Dioxide 26 BUN 9 Creatinine 0.77 Estimated GFR > 60 BUN/Creatinine Ratio 11.7 Glucose 90 Lactate 1.6 Calcium 8.4 Total Bilirubin 0.5 AST 120 H ALT 108 H Alkaline Phosphatase 347 H Total Protein 5.7 L Albumin 2.8 L Globulin 2.9 Albumin/Globulin Ratio 1.0 Procalcitonin 0.896 H PFSH Medical History Pyuria Parapelvic renal cyst Constipation Atrophic vaginitis Hydronephrosis of left kidney Chronic lower urinary tract infection Recurrent urinary tract infection Colon polyps (2009) Chicken pox Measles Plantar warts (2004) Fractures (~2005) Osteopenia Multiple sclerosis (1991) Surgical History History of tubal ligation History of cholecystectomy Anesthesia History of shoulder surgery (1973) Status post rotator cuff repair (2011) History of third molar tooth extraction (1970) Status post tubal ligation (1979) Family History Brother Age: 67 Diabetes mellitus Hypertension High cholesterol Child Age: 28 Adopted Mother Heart disease Hypertension Stroke Cancer Father Alzheimer's disease Grandmother No problems noted. Social History marital status: number of children: 1 household members: friend(s) occupational status: employed Smoking Status: Never smoker alcohol intake: current substance use type: does not use caffeine: Yes (tea-occasional ) Type(s) of exercise: other frequency: 5-6 times per week Assessment & Plan Assessment & Plan narrative: Assessment & Plan narrative: (1) Ureteral calculus: Status: Acute Plan Sepsis patient with elevated white blood cell count tachycardic source of infection is urine. Patient on ampicillin ceftriaxone to treat the Enterococcus E faecalis that grew out for urine and she has had several of these cultures. Blood cultures were negative. Reviewed up-to-date literature and ampicillin and ceftriaxone either recommended treatment. Ceftriaxone maybe contributing to liver function abnormalities as well. Patient is improving but slowly. Patient is no longer febrile. Still with elevated white blood cell count. It is stable and slightly improving.. Patient continues to be afebrile for 48 hours. We will continue with IV ampicillin and ceftriaxone and if we see improvement with white blood cell count will switch to p.o. tomorrow. Will treat Marylou in urine with fluconazole and changed to oral and put her on 400 mg daily. We will watch liver function tests closely. Will reassess labs tomorrow 2. Left Pyelonephritis. Patient with CT scan showing probable pyelonephritis due to ongoing stent and infection in her urine. Reviewed ultrasound today showing the same. Continue with IV antibiotics, ampicillin and ceftriaxone. Patient is not a significant pain and has no fever. 3. ANUPAM patient kidney function is Now normal. Will continue to monitor. Continue with IV fluids. 4. Kidney stone left with ureteral stent. Appreciate neurology's consultation. Patient has stent removal scheduled. Question need to remove stone due to ongoing infection and we may need to do this sooner than scheduled time of April 30. However at this point patient seems to gradually be improving. 5. Transaminitis elevation of liver enzymes due to possible underlying infection versus medication versus antibiotic. Liver enzymes are increased slightly further. Abdominal ultrasound was done which shows evidence of fatty liver but no common bile duct dilatation or other abnormalities. Statin was discontinued yesterday. Fluconazole increased today to 400 mg daily we will watch carefully. She will be on this orally. If more significant increase in LFTs then will consider discontinuing this. 6. Multiple sclerosis. With possible acute flare versus worsening due to weakness associated with ongoing sepsis and infection and nephrolithiasis. Reviewed the notes from her neurologist previously. We will continue to follow closely. If she does not continue to improve will discuss with Neurology and consider a short course of IV steroids to treat the same. Will need skilled care placement and currently at bed will be available at [facility] on Friday. 7. Diabetes type 2. Blood sugars are better today after increasing Lantus insulin to 30 continue with metformin and insulin sliding scale. Blood sugars have been good. Will continue with same treatment 8. Hyperlipidemia. On statin. Will hold atorvastatin while we treat with the fluconazole and see if LFTs improve 9. Osteoarthritis chronic and stable 10. Anemia. Suspect multifactorial due to chronic disease. Will continue to monitor. No ongoing evidence of acute blood loss at this time. Slightly decreased today suspect dilutional from IV fluids 11. Hypokalemia Plan will replace DVT prophylaxis with Lovenox Code status full code 55 minutes spent with patient in reviewing her chart and meeting with patient and discussing with nursing and formulating a plan and documentation Disposition and plan. Unfortunately due to MS patients weakness and ongoing infection she is requiring significant amount of assistance with ambulation and getting out of bed. Will continue with physical therapy and plan for skilled care placement as outpatient. Time-Based Coding :: [TOTAL MINUTES] spent with patient and on the chart (including review of chart, obtaining history, exam, reviewing outside data, placing orders, documenting exam and treatment plan, and counseling patient) on [DATE].
[2024-04-25] MEDS: INSULIN LISPRO 100 UNIT/ML 3ML VIAL SUBCUT (14:14)
[2024-04-25 14:40] LABS: Procalcitonin 0.584 ng/mL (<0.5)
[2024-04-25 17:00] VITALS: BP 129/73; PULSE 89; RESP 16; TEMP 36.2; O2SAT 94
[2024-04-25 19:00] VITALS: O2SAT 95
[2024-04-25] MEDS: BACLOFEN 10 MG TABLET 20 MG PO (20:16)
[2024-04-25 20:35] VITALS: BP 151/82; PULSE 92; RESP 16; TEMP 35.9; O2SAT 95
[2024-04-25] MEDS: INSULIN GLARGINE 100 UNIT/ML 3ML PEN 30 UNIT SUBCUT (21:52)
[2024-04-25] MEDS: HYDROCODONE/ACET 5/325 TABLET 1 TAB PO (22:02)
[2024-04-25] MEDS: cefTRIAXone 2,000 MG in SODIUM CHLORIDE 0.9% 100 ML 200 MG IV (22:03)
[2024-04-26 00:33] VITALS: BP 126/72; PULSE 92; RESP 16; TEMP 35.9; O2SAT 93
[2024-04-26] MEDS: AMPICILLIN 2,000 MG in SODIUM CHLORIDE 0.9% 100 ML 200 MG IV ×2 (04:08→10:30)
[2024-04-26 04:17] VITALS: BP 155/80; PULSE 94; RESP 16; TEMP 36.2; O2SAT 98
[2024-04-26 05:38] LABS: Add Manual Diff / Slide Review NO; Basophils Absolute Auto 100 /uL (0-100); Basophils Percent Auto 0.7 % (0-2); Eosinophils Absolute Auto 400 /uL (0-450); Eosinophils Percent Auto 2.5 % (2-4); Hematocrit 26.8 % (36-46); Hemoglobin 9.1 g/dL (12.0-16.0); Lymphocytes Absolute Auto 1800 /uL (1100-4500); Lymphocytes Percent Auto 12.1 % (25-40); Mean Corpuscular HGB Conc 33.8 % (30-36); Mean Corpuscular Hemoglobin 29.3 PG (26-34); Mean Corpuscular Volume 86.9 fL (80-100); Monocytes Absolute Auto 1500 /uL (0-900); Monocytes Percent Auto 9.6 % (3-14); Neutrophils Absolute Auto 11500 /uL (1500-7000); Neutrophils Percent Auto 75.1 % (50-75); Platelet Count 504 X10^3/uL (150-400); Red Blood Cell Count 3.09 X10^6/uL (4.0-5.2); White Blood Cell Count 15.3 X10^3/uL (4.5-11.0)
[2024-04-26 05:49] LABS: Alanine Aminotransferase 121 IU/L (<35); Albumin 2.8 g/dL (3.5-5.0); Albumin Globulin Ratio 0.8 (1.0-2.8); Alkaline Phosphatase 438 U/L (38-126); Aspartate Aminotransferase 127 IU/L (14-36); BUN Creatinine Ratio 12.2 (6-22); Bilirubin Total 0.4 mg/dL (0.2-1.3); Blood Urea Nitrogen 9 mg/dL (7-17); Calcium 8.5 mg/dL (8.4-10.2); Carbon Dioxide 28 mmol/L (22-32); Chloride 106 mmol/L (98-107); Estimated Glomerular Filt Rate > 60 mL/min (>60); Globulin 3.4 g/dL (1.7-4.1); Glucose 84 mg/dL (80-110); HEMOLYSIS < 15 (0-50); Potassium 3.4 mmol/L (3.4-5.1); Sodium 138 mmol/L (137-145); Total Protein 6.2 g/dL (6.3-8.2)
[2024-04-26] MEDS: ACETAMINOPHEN 325 MG TABLET 650 MG PO (05:56)
--- NOTE | 2024-04-26 08:11 | P.PN_ITS ---
Subjective Subjective Date Patient Seen: 04/26/24 Interval history: Patient seen and evaluated this morning. discussed care with on-call physician over the weekend. Patient still has moderately elevated white blood cell count and procalcitonin. Ultrasound was done. Ultrasound shows hydronephrosis of left kidney with stent in place stone in place. Patient is still quite weak increase dose of baclofen which she thinks will be helpful. Discharge plan to senior living facility. Underlying MS certainly has inhibited ability to rehab. Under the best of circumstances patient ambulation is difficult. Patient has ongoing mild decreased appetite. Still little bit hypertensive and tachycardic. White blood cell count still quite elevated despite multiple days of IV antibiotics. Liver enzymes have increased. Have switched from IV antifungals to oral antifungals. Exam Vital Signs (past 8 hours): - 04/26/24 00:33 04/26/24 04:17 Temperature 96.6 F L 97.1 F L Pulse Rate 92 H 94 H Respiratory Rate 16 16 Blood Pressure 126/72 155/80 H Pulse Oximetry 93 98 Oxygen Flow Rate 0 0 Oxygen Delivery Method Room Air Oxygen Flow Rate 0 Narrative Exam Narrative: Gen.: Alert no apparent distress sleeping but arousable HEENT: Pupils equal round and reactive or mucosa is moist Cardio: S1-S2 regular rate and rhythm Respiratory: Lungs are clear no wheezes or crackles Abdomen: Soft mild distention no rebound or guarding. No significant tenderness Extremities: Full range of motion Objective Labs 04/26/24 05:30 04/26/24 05:30 Labs: Laboratory Results - last 24 hr 04/25/24 04/26/24 14:03 05:30 WBC 15.3 H RBC 3.09 L Hgb 9.1 L Hct 26.8 L MCV 86.9 MCH 29.3 MCHC 33.8 RDW 14.0 Plt Count 504 H Neut % (Auto) 75.1 H Lymph % (Auto) 12.1 L [place] % (Auto) 9.6 Eos % (Auto) 2.5 Baso % (Auto) 0.7 Neut # (Auto) 72986 H Lymph # (Auto) 1800 [place] # (Auto) 1500 H Eos # (Auto) 400 Baso # (Auto) 100 Sodium 138 Potassium 3.4 Chloride 106 Carbon Dioxide 28 BUN 9 Creatinine 0.74 Estimated GFR > 60 BUN/Creatinine Ratio 12.2 Glucose 84 Calcium 8.5 Total Bilirubin 0.4 AST 127 H ALT 121 H Alkaline Phosphatase 438 H Total Protein 6.2 L Albumin 2.8 L Globulin 3.4 Albumin/Globulin Ratio 0.8 L Procalcitonin 0.584 H PFSH Medical History Pyuria Parapelvic renal cyst Constipation Atrophic vaginitis Hydronephrosis of left kidney Chronic lower urinary tract infection Recurrent urinary tract infection Colon polyps (2009) Chicken pox Measles Plantar warts (2004) Fractures (~2005) Osteopenia Multiple sclerosis (1991) Surgical History History of tubal ligation History of cholecystectomy Anesthesia History of shoulder surgery (1973) Status post rotator cuff repair (2011) History of third molar tooth extraction (1970) Status post tubal ligation (1979) Family History Brother Age: 67 Diabetes mellitus Hypertension High cholesterol Child Age: 28 Adopted Mother Heart disease Hypertension Stroke Cancer Father Alzheimer's disease Grandmother No problems noted. Social History marital status: number of children: 1 household members: friend(s) occupational status: employed Smoking Status: Never smoker alcohol intake: current substance use type: does not use caffeine: Yes (tea-occasional ) Type(s) of exercise: other frequency: 5-6 times per week Assessment & Plan Assessment and plan (1) Pyelonephritis: Status: Acute (2) Ureteral calculus: Status: Acute Plan Sepsis. Patient's white blood cell count tachycardia improved albeit slowly. She is on ampicillin ceftriaxone and fluconazole. Urine grew out Enterococcus and Marylou. Patient continues to improve albeit slowly. Had an ultrasound done yesterday patient has a stent in place due to kidney stone pyelonephritis. Shows still some hydroureter. Nonetheless the ongoing source of infection is currently being treated appropriately. Will have Urology re-evaluate and discuss stent today. Patient has appointment scheduled to have it removed here next week. Left pyelonephritis hydronephrosis kidney stone with stent placement . Patient with CT scan on admission and recent ultrasound shows hydronephrosis.. Re- evaluate by Urology today. Acute kidney injury. Kidney functions now normal. Continue to monitor fluid and electrolyte status. She has not on IV fluids due to the current IV fluids she is tolerating oral fluids well. Urine output has been appropriate. Transaminitis. Elevation of liver enzymes underlying infection versus medication and antibiotics. They have continued to go up. Will go ahead and stop her fluconazole IV and provided orally. Continue with IV antibiotics. Will be able to be on oral antibiotics at discharge to senior living facility. Type 2 diabetes. Blood sugars stable. Continue with 30 mg of Lantus metformin and insulin sliding scale continue with diabetic diet. Anemia. Patient has new onset anemia due to underlying factors of infection and acute illness. Will monitor hemoglobin hematocrit. Do not suspect she is bleeding. MS. Patient with ongoing weakness. Which is normal for her. Continue with baclofen. Due to MS and current infection will need senior living facility for rehabilitation. DVT prophylaxis with Lovenox Code status full code Disposition and plan. Re-evaluate by Urology. If appropriate will discharge to senior living facility. Time-Based Coding :: [TOTAL MINUTES] spent with patient and on the chart (including review of chart, obtaining history, exam, reviewing outside data, placing orders, documenting exam and treatment plan, and counseling patient) on [DATE].
[2024-04-26 08:40] VITALS: BP 126/69; PULSE 89; RESP 16; TEMP 36; O2SAT 93
[2024-04-26] MEDS: FLUCONAZOLE 100 MG TABLET 200 MG PO (09:08)
[2024-04-26] MEDS: OXYBUTYNIN 5 MG ER TAB PO (09:08)
[2024-04-26] MEDS: ENOXAPARIN 40 MG/0.4 ML SYRINGE SUBCUT (09:08)
[2024-04-26] MEDS: METFORMIN XR 500 MG TABLET 1000 MG PO (09:08)
[2024-04-26] MEDS: SODIUM CHLORIDE 0.9% FLUSH 10 ML IV (09:09)
[2024-04-26] MEDS: polyethylene glycoL 3350 17 GM POWD.PACK PO (09:11)
[2024-04-26] MEDS: PSYLLIUM HUSK 1 PACKET PO (09:11)
[2024-04-26] MEDS: BACLOFEN 10 MG TABLET 15 MG PO (09:17)
--- NOTE | 2024-04-26 10:58 | P.CONS_ITS ---
History of Present Illness Consult details Date Patient Seen: 04/26/24 Time Patient Seen: 10:58 Chief complaint: Pyelonephritis Narrative: 73 y/o F w/ h/o nephrolithiasis presented to ED on 20 Apr 2024 for evaluation of worsening urinary urgency/frequency, suprapubic pain, dysuria and subjective fevers/chills at home. Briefly, she was noted to have a urinary tract infection in the setting of a 7mm left proximal ureterolith in Feb and was treated with antibiotics and a cystoscopy with left ureteral stent placement. She developed the aforementioned symptoms over the weekend and noted that her typical MS symptoms were flaring up. Therefore, she was evaluated in the ED and treated for a urinary tract infection with Levaquin. Unfortunately, she noted continued symptoms and then developed weakness that she believed was secondary to the antibiotics and returned to the ED on 20 Apr 2024. Her evaluation was notable for a WBC of ~12, UA consistent with a stent and concern for yeast, and a CT Abd/Pel that demonstrated proper positioning of her left ureteral stent. She was subsequently admitted for management of pyelonephritis. Her WBC was noted to increase initially, however, it has continued to decrease. That being said, she does admit that she feels slightly better today than she did yesterday. Unfortunately, she was attempting to urinate on the evening of 22 Apr 2024 without success and had a bautista catheter placed with more than 500cc of clear yellow urine drained. Meds Home Medications and Allergies Home Medications Medication Instructions Recorded Confirmed Type Disabled Parking Permit #1 ea 05/09/20 04/21/24 Rx One Touch Verio Glucose Monitor #1 ea 01/07/23 04/21/24 Rx amlodipine 5 mg tablet 5 mg PO DAILY #90 tabs 02/10/23 04/22/24 Rx One Touch Verio test strips and #300 ea 03/26/23 04/21/24 Rx lancets metformin 500 mg tablet,extended 1,000 mg (2 x 500 mg) PO BID #360 10/30/23 04/20/24 Rx release 24 hr tabs estradiol 10 mcg vaginal tablet 10 mcg vaginal 2XW #24 tabs 02/24/24 04/20/24 Rx (Yuvafem) Hand controls #1 ea 03/22/24 04/21/24 Rx baclofen 10 mg tablet 15 mg PO TID 03/24/24 04/22/24 History mirabegron 50 mg tablet,extended 50 mg PO DAILY #30 tabs 03/26/24 04/20/24 Rx release 24 hr blood sugar diagnostic (OneTouch #300 ea 04/19/24 04/21/24 Rx Verio test strips) acetaminophen 325 mg tablet 650 mg (2 x 325 mg) PO Q6H PRN 04/23/24 Rx Fever/Mild Pain (1-3) #30 tabs cefdinir 300 mg capsule 300 mg PO BID #20 caps 04/23/24 Rx fluconazole 200 mg tablet 400 mg (2 x 200 mg) PO DAILY #14 04/23/24 Rx tabs insulin lispro 100 unit/mL See Rx Instructions .Route 04/23/24 Rx subcutaneous solution (Admelog .COMPLEX #10 mL U-100 Insulin lispro) lisinopril 10 mg tablet 10 mg PO DAILY #30 tabs 04/23/24 Rx hydrocodone 5 mg-acetaminophen 325 1 tab PO Q8H PRN Pain (Scale Score 04/26/24 Rx mg tablet 1-3) #30 tabs Allergies Allergy/AdvReac Type Severity Reaction Status Date / Time Sulfa (Sulfonamide Allergy Severe ANAPHYLAXIS Verified 04/18/24 12:53 Antibiotics) [SULFA (SULFONAMIDE ANTIBIOTICS)] adhesive tape Allergy Mild Verified 04/23/24 15:11 diphenhydramine Allergy Mild HIVES Verified 04/18/24 12:53 [DIPHENHYDRAMINE] honeydew AdvReac Verified 04/24/24 12:40 Review of Systems Review of Systems Narrative: CONSTITUTIONAL: Denies weight loss, fevers, chills. HEENT: Denies change in vision, hearing. RESP: Denies SOB, cough. CV: Denies palpations, CP. GI: Denies abdominal pain, nausea, vomiting, diarrhea. MSK: Denies myalgia, joint pain. SKIN: Denies rash, pruritus. NEURO: Denies headache, syncope. PSYCH: Denies recent change in mood, anxiety, depression. Exam Vital Signs (past 8 hours): - 04/26/24 04:17 04/26/24 08:40 Temperature 97.1 F L 96.8 F L Pulse Rate 94 H 89 Respiratory Rate 16 16 Blood Pressure 155/80 H 126/69 Pulse Oximetry 98 93 Oxygen Flow Rate 0 0 Oxygen Delivery Method Room Air Oxygen Flow Rate 0 Narrative Exam Narrative: GEN: Alert and oriented X3. No acute distress. Well-nourished. EYES: PERRLA, EOMI. HENT: Moist mucus membranes, no scleral icterus, normal neck ROM. RESP: Unlabored breathing, equal rise and fall of chest bilaterally, no cyanosis appreciated. CV: No peripheral edema, unremarkable heart rate. ABD: Soft, non-tender, non-distended, no palpable masses. : Bautista secured and draining clear yellow urine. EXT: No edema, clubbing or cyanosis. SKIN: No rashes or lesions. NEURO: No focal neurologic deficits, CN II-XII grossly intact. PSYCH: Cooperative, appropriate mood and affect. Objective Labs 04/26/24 05:30 04/26/24 05:30 Labs: Laboratory Results - last 24 hr 04/25/24 04/26/24 14:03 05:30 WBC 15.3 H RBC 3.09 L Hgb 9.1 L Hct 26.8 L MCV 86.9 MCH 29.3 MCHC 33.8 RDW 14.0 Plt Count 504 H Neut % (Auto) 75.1 H Lymph % (Auto) 12.[address] [place] % (Auto) 9.6 Eos % (Auto) 2.5 Baso % (Auto) 0.7 Neut # (Auto) 34630 H Lymph # (Auto) 1800 [place] # (Auto) 1500 H Eos # (Auto) 400 Baso # (Auto) 100 Sodium 138 Potassium 3.4 Chloride 106 Carbon Dioxide 28 BUN 9 Creatinine 0.74 Estimated GFR > 60 BUN/Creatinine Ratio 12.2 Glucose 84 Calcium 8.5 Total Bilirubin 0.4 AST 127 H ALT 121 H Alkaline Phosphatase 438 H Total Protein 6.2 L Albumin 2.8 L Globulin 3.4 Albumin/Globulin Ratio 0.8 L Procalcitonin 0.584 H PFSH Medical History Pyuria Parapelvic renal cyst Constipation Atrophic vaginitis Hydronephrosis of left kidney Chronic lower urinary tract infection Recurrent urinary tract infection Colon polyps (2009) Chicken pox Measles Plantar warts (2004) Fractures (~2005) Osteopenia Multiple sclerosis (1991) Surgical History History of tubal ligation History of cholecystectomy Anesthesia History of shoulder surgery (1973) Status post rotator cuff repair (2011) History of third molar tooth extraction (1970) Status post tubal ligation (1979) Family History Brother Age: 67 Diabetes mellitus Hypertension High cholesterol Child Age: 28 Adopted Mother Heart disease Hypertension Stroke Cancer Father Alzheimer's disease Grandmother No problems noted. Social History marital status: number of children: 1 household members: friend(s) occupational status: employed Tobacco & Substance Use Smoking Status: Never smoker alcohol intake: current substance use type: does not use Diet and Exercise caffeine: Yes (tea-occasional ) Type(s) of exercise: other frequency: 5-6 times per week Assessment & Plan Assessment and plan (1) Pyelonephritis: Status: Acute Plan: 73 y/o F s/p a cystoscopy with left ureteral stent placement for management of a 7mm left proximal ureterolith in the setting of a UTI in Feb. She was noted to develop signs/symptoms concerning for a UTI over the weekend that persisted despite Levofloxacin. Her UA is difficult to interpret as it appears consistent with a ureteral stent, yet does have yeast present. Her UCx from last week is positive for Marylou Albicans and Enterococcus Faecalis (resistant only to Tetracycline). Discussed that her CT Abd/Pel demonstrates proper positioning of her left ureteral stent and that no urgent Urologic intervention is necessary at this point. Her RBUS was otherwise unremarkable yesterday. Her left ureteroscopy with laser lithotripsy will be rescheduled for 03 May 2024 at the moment, can always push it back should her clinical scenario dictate that change. Regarding her bautista catheter, feel free to remove prior to her discharge. Would recommend that her rehab facility perform PVR's for the next few days to ensure she is properly emptying her bladder. Should these be elevated, would recommend replacement of her bautista catheter and would consider Urodynamics as an outpatient to evaluate how well her bladder functions. (2) Ureteral calculus: Status: Acute Plan: Please see plan above. Informed consent already obtained on 24 Apr 2024. Time-Based Coding :: [TOTAL MINUTES] spent with patient and on the chart (including review of chart, obtaining history, exam, reviewing outside data, placing orders, documenting exam and treatment plan, and counseling patient) on [DATE]. PROFEE Charge Codes Inpatient or Observation consultation: [id number]
--- NOTE | 2024-04-26 11:36 | PM.DS.1 ---
History of Present Illness History of Present Illness Chief complaint: Pyelonephritis Narrative: 73-year-old female past medical history of MS type 2 diabetes osteoarthritis hyperlipidemia recent kidney stone with multiple urinary tract infection self catheterizes. Patient was found to have a kidney stone 1 month ago in her left kidney had a stent placed. She has had some problems on and off with infection. And has been on a number of antibiotics. She was in the emergency department on Friday because of concerns about urinary tract infection and was started on ciprofloxacin. She said she took 3 doses of the antibiotics she thinks the antibiotic made her worse. She said her MS got worse and the fact that she became more and more weak. Could not walk. Had difficulty with her balance and walking. She did not have any chest pain or shortness of breath. She felt a little flushed fevers and chilled. She was concerned enough by her increasing weakness and difficulty with movement that she came back to the emergency department. In the emergency department patient had repeat laboratory testing done which showed elevation white blood cell count elevation of her liver enzymes. She also had a repeat CT scan which showed stent in her left kidney with left kidney stone present and right kidney stone present. Her left kidney shows wedge-shaped hypoperfusion in the left kidney which raised the possibility of pyelonephritis or hypoperfusion. Patient's kidney function has remained stable throughout. Patient's glucose was also elevated. Discharge Providers Provider Date of admission: 04/20/24 22:23 Discharge Date: 04/26/24 Primary care physician: Isaac Farmer MD Consults: 04/20/24 22:09 Consult to Urology Stat Comment: Consulting Provider: Brian Denis Reason for consultation: UTI Has provider been notified: No 04/20/24 22:10 Consult to Urology Stat Comment: Consulting Provider: Jorge Dixon Reason for consultation: UTI Has provider been notified: Yes 04/20/24 22:11 Consult to Physician Stat Comment: Consulting Provider: Isaac Farmer Reason for consultation: UTI Has provider been notified: No 04/20/24 22:45 Consult to Physician Routine Comment: Consulting Provider: Brian Denis Reason for consultation: stone Has provider been notified: Yes 04/20/24 23:30 Consult to Dietitian, Adult Routine Comment: Reason For Exam: 10 lb weight loss 04/21/24 08:53 Consult to Physical Therapy Evaluate & Treat Comment: Physician Instructions: Evaluate and Treat 04/22/24 15:43 Consult to Occupational Therapy Evaluate & Treat Comment: Physician Instructions: Evaluate and treat 04/22/24 22:32 Consult to Dietitian, Adult Routine Comment: Reason For Exam: Twin score 14, decreased appetite Discharge provider: Isaac Farmer MD Summary Hospital Course Hospital Course: Sepsis present on admission. Jim roe was admitted hospital with elevated white blood cell count procalcitonin and tachycardia. Source of infection was pyelonephritis due to Enterococcus and Marylou. She was admitted the hospital started on IV antibiotics and antifungal medication during her hospital stay her white blood cell count procalcitonin increased and then gradually decreased. Time of discharge. Patient's white blood cell count was improving she was afebrile. She is still little bit tachycardic. But did respond to her antibiotics and will be transitioned to oral antibiotics at the skilled rehabilitation facility. Left pyelonephritis hydronephrosis kidney stone with stent placement . Patient had consultation by the urologist. Appreciate his visits. Patient will have his stent removal lithotripsy procedure on Friday. Acute kidney injury. Due to infection and pyelonephritis initially patient's kidney function increased during the hospital stay consistent with acute injury. She was placed on antibiotics and IV fluids in the time of discharge her kidney function was back to normal. Her ultrasound of her kidneys shows she has some hydronephrosis. Transaminitis. Elevation of her liver enzymes initially stable then increase thought maybe due to her antibiotics as well as her antifungals. Her antifungals will transition from IV to oral at a lower dose her statin medication was held. We will monitor these as an outpatient she will transition from IV antibiotics to oral antibiotics. Type 2 diabetes. Patient's home is normally on metformin this was continued during her hospital stay she was transitioned to Lantus insulin 30 units at night with insulin sliding scale coverage. Anemia. Patient had some mild anemia during her hospital stay thought to due to underlying infection no active bleeding her hemoglobin hematocrit was stable at discharge. MS. Patient with ongoing weakness. Which is normal for her. Continue with baclofen. Due to MS and current infection will need long-term facility for rehabilitation. DVT prophylaxis with Lovenox Code status full code Exam Vital Signs (past 8 hours): - 04/26/24 04:17 04/26/24 08:40 Temperature 97.1 F L 96.8 F L Pulse Rate 94 H 89 Respiratory Rate 16 16 Blood Pressure 155/80 H 126/69 Pulse Oximetry 98 93 Oxygen Flow Rate 0 0 Oxygen Delivery Method Room Air Oxygen Flow Rate 0 Objective Labs 04/26/24 05:30 04/26/24 05:30 Labs: Laboratory Results - last 24 hr 04/25/24 04/26/24 14:03 05:30 WBC 15.3 H RBC 3.09 L Hgb 9.1 L Hct 26.8 L MCV 86.9 MCH 29.3 MCHC 33.8 RDW 14.0 Plt Count 504 H Neut % (Auto) 75.1 H Lymph % (Auto) 12.1 L [place] % (Auto) 9.6 Eos % (Auto) 2.5 Baso % (Auto) 0.7 Neut # (Auto) 82520 H Lymph # (Auto) 1800 [place] # (Auto) 1500 H Eos # (Auto) 400 Baso # (Auto) 100 Sodium 138 Potassium 3.4 Chloride 106 Carbon Dioxide 28 BUN 9 Creatinine 0.74 Estimated GFR > 60 BUN/Creatinine Ratio 12.2 Glucose 84 Calcium 8.5 Total Bilirubin 0.4 AST 127 H ALT 121 H Alkaline Phosphatase 438 H Total Protein 6.2 L Albumin 2.8 L Globulin 3.4 Albumin/Globulin Ratio 0.8 L Procalcitonin 0.584 H PFSH Medical History Pyuria Parapelvic renal cyst Constipation Atrophic vaginitis Hydronephrosis of left kidney Chronic lower urinary tract infection Recurrent urinary tract infection Colon polyps (2009) Chicken pox Measles Plantar warts (2004) Fractures (~2005) Osteopenia Multiple sclerosis (1991) Surgical History History of tubal ligation History of cholecystectomy Anesthesia History of shoulder surgery (1973) Status post rotator cuff repair (2011) History of third molar tooth extraction (1970) Status post tubal ligation (1979) Family History Brother Age: 67 Diabetes mellitus Hypertension High cholesterol Child Age: 28 Adopted Mother Heart disease Hypertension Stroke Cancer Father Alzheimer's disease Grandmother No problems noted. Social History (Reviewed 04/20/24 @ 23:21 by SIERRA Uribe marital status: number of children: 1 household members: friend(s) occupational status: employed Smoking Status: Never smoker alcohol intake: current substance use type: does not use caffeine: Yes (tea-occasional ) Type(s) of exercise: other frequency: 5-6 times per week Discharge Plan Discharge Plan Patient Disposition: SNF Discharge orders & Medications Prescriptions: New acetaminophen 325 mg Tablet 650 mg PO Q6H PRN (Reason: Fever/Mild Pain (1-3)) Qty: 30 0RF insulin lispro [Admelog U-100 Insulin lispro] 100 unit/mL Solution See Rx Instructions .ROUTE .COMPLEX Qty: 10 0RF Rx Instructions: per protocol cefdinir 300 mg capsule 300 mg PO BID Qty: 20 0RF fluconazole 200 mg tablet 400 mg PO DAILY Qty: 14 0RF lisinopril 10 mg Tablet 10 mg PO DAILY Qty: 30 0RF Continued amlodipine 5 mg tablet 5 mg PO DAILY Qty: 90 3RF Patient Comments: no ttaking now (DME) Disabled Parking Permit Qty: 1 0RF Rx Instructions: I find this person to be disabled (DME) One Touch Verio Glucose Monitor See Rx Instructions .Route .MEDSUPPLY Qty: 1 0RF Rx Instructions: As directed twice daily for glucose monitoring (DME) One Touch Verio test strips and lancets See Rx Instructions .Route .MEDSUPPLY Qty: 300 3RF Rx Instructions: As directed three times daily for blood glucose monitoring metformin 500 mg tablet extended release 24 hr 1,000 mg PO BID Qty: 360 1RF estradiol [Yuvafem] 10 mcg tablet 10 mcg vaginal 2XW Qty: 24 3RF (DME) OneTouch Verio test strips Strip See Rx Instructions .ROUTE .COMPLEX Qty: 300 3RF Dose Instruction: Use to check blood glucose 3 times daily Rx Instructions: Use to check blood glucose 3 times daily (DME) Hand controls See Rx Instructions .Route .MEDSUPPLY Qty: 1 0RF Rx Instructions: Use for driving baclofen 10 mg tablet 15 mg PO TID Rx Instructions: 15 mg in morning and afternnon. 20mg at bedtime mirabegron 50 mg tablet extended release 24 hr 50 mg PO DAILY Qty: 30 0RF Discontinued phenazopyridine [Pyridium] 100 mg tablet 100 mg PO TID PRN (Reason: pain) Qty: 6 0RF Fish Oil (#SUPER EPA 2000) 2,000 mg PO Q DAY Qty: 0 CHOLECALCIFEROL (VITAMIN D3) (Vitamin D) 2,000 iu PO Q DAY Qty: 0 Calcium Carbonate/Vitamin D (#CALCIUM 1200 W/VITAMIN D 600 MG-100 IU) 1 sgl PO Q DAY Qty: 0 Cranberry (#CRANBERRY) 2,000 mg PO Q DAY Qty: 0 atorvastatin 10 mg tablet 10 mg PO DAILY Qty: 90 3RF trospium 20 mg tablet 20 mg PO BID Qty: 200 3RF nitrofurantoin monohyd/m-cryst 100 mg capsule 100 mg PO BID Qty: 10 0RF Rx Instructions: must administer with a meal/food vitamin B complex tablet 1 tab PO DAILY psyllium husk 2.6 gram/4.1 gram powder 1 tbsp PO DAILY Rx Instructions: mix into at least 8 oz of water or juice before administering magnesium citrate [OneLAX Magnesium Citrate] Solution 300 ml PO DAILY PRN (Reason: constipation) Qty: 296 1RF Disabled Parking Permit See Rx Instructions .ROUTE .COMPLEX Qty: 1 0RF Rx Instructions: I find this patient to be medically disabled and qualified for Disabled Parking as indicated, and signed, on the accompanying Disabled Parking Application for Individuals ; levofloxacin 750 mg tablet 750 mg PO DAILY 7 Days Qty: 7 0RF No Action hydrocodone-acetaminophen 5-325 mg tablet 1 tab PO Q8H PRN (Reason: Pain (Scale Score 1-3)) Qty: 30 0RF Follow up/Referrals: Isaac Farmer MD [Primary Care Provider] - Visit Report/Discharge Packet Stand Alone Forms: Patient Portal/API, Stroke Signs & Symptoms Discharge Data Primary Care Provider: Isaac Farmer
--- NOTE | 2024-04-26 12:17 | CM.DPNOTE ---
Addendum entered by FIGUEROA Miller 04/26/24 15:09: Updated Arelis Wood CM. Addendum entered by FIGUEROA Miller 04/26/24 13:03: PASRR updated to reflect No delirium, originally checked in error. Emailed updated PASRR to [facility] at [facility]. Original Note: DC Note Discharge to [facility] today via facility van scrap picker at 1400, orders completed by Dr Farmer. Patient remains aware and agreeable to plan. CYNTHIA [place], assisting with the coordination of this DC. EPI
--- NOTE | 2024-04-26 14:28 | PC.NURSE ---
Addendum entered by Tyree Rodarte R.N. 04/26/24 16:13: added from (as noted in previous update): Please do postvoid residuals once a day if urine greater than 300 please provide in and out catheter. Place and has a procedure at [facility] on Friday for stent removal and lithotripsy please keep patient NPO after midnight on Friday. Addendum entered by Tyree Rodarte R.N. 04/26/24 16:11: Update noted on discharge instructions from MD,this RN notified [facility] at [facility] and faxed updated copy to them. Original Note: Report given to [facility] [phone] prior to patient discharge and transfer. Patient's bautista was removed and brief in place, patient states she does have a history of incontinence. Patient picked up by facility transport with all her belongings. Patient to follow up for her procedure with urology on Friday (their office will call her to confirm arrangements).
== END 2024-04-26 14:10 | DRG 698 ==
LOC: ED 22:24 → AC 22:24
PROVIDERS: Family Medicine; Admitting Provider Family Medicine; Emergency Provider Emergency Medicine; PCP Family Medicine; Referring Provider Emergency Medicine; Visit Provider Family Medicine
DX: T83.592A Infection and inflammatory reaction due to indwelling ureteral stent, initial encounter (principal); A41.9 Sepsis, unspecified organism; N17.9 Acute kidney failure, unspecified; N13.6 Pyonephrosis; R74.01 Elevation of levels of liver transaminase levels; G35 Multiple sclerosis; N20.0 Calculus of kidney; E11.9 Type 2 diabetes mellitus without complications; E78.5 Hyperlipidemia, unspecified; M19.90 Unspecified osteoarthritis, unspecified site; R00.0 Tachycardia, unspecified; E87.6 Hypokalemia; B96.89 Other specified bacterial agents as the cause of diseases classified elsewhere; B95.2 Enterococcus as the cause of diseases classified elsewhere; D64.9 Anemia, unspecified; Y73.1 Therapeutic (nonsurgical) and rehabilitative gastroenterology and urology devices associated with adverse incidents; Z87.442 Personal history of urinary calculi; Z86.16 Personal history of COVID-19; Z87.440 Personal history of urinary (tract) infections; Z79.84 Long term (current) use of oral hypoglycemic drugs
CPT/HCPCS: 36415; 76700; 80053; 81001; 82962; 83605; 83690; 84145; 85025; 87086; 93005; 96365; 97162; 97167; 97530; 99284; 99285; J0290; J0696; J1450; J1650; J1815

== ENCOUNTER 2024-05-03 13:25 | Day surgery (SDC) | payer OTHER, MEDICARE, SELFPAY ==
[2021-10-01 16:44] VITALS: BMI 26.9
[2024-04-29 08:20] VITALS: BMI 27.1
--- NOTE | 2024-05-03 | DI.RAD.S_ITS ---
PROCEDURE: XR ABDOMEN 1V INDICATIONS: cystoscopy TECHNIQUE: 3 intraoperative view of the abdomen acquired. COMPARISON: [facility], CT, CT ABDOMEN PELVIS W CON, 04/18/2024, 15:02. [facility], CR, XR ABDOMEN MIN 2V, 07/14/2023, 14:00. FINDINGS: Left ureteral stent insertion. The stent is in the superior pole and bladder. Contrast fills the calices and bladder. Filling defect in the inferior calyx likely due to stones seen on prior CT. IMPRESSION: Intraoperative guidance provided. Left ureteral stent. Dictated by: Roscoe Mcleod M.D. on 05/03/2024 at 16:52 Approved by: Roscoe Mcleod M.D. on 05/03/2024 at 16:54
[2024-05-03] MEDS: LACTATED RINGERS 1,000 ML 21 ML IV (13:54)
[2024-05-03] MEDS: ACETAMINOPHEN 325 MG TABLET 975 MG PO (13:54)
[2024-05-03 14:07] VITALS: BP 123/76; PULSE 95; RESP 17; TEMP 37.7; O2SAT 98
[2024-05-03 14:08] VITALS: BMI 25.0
--- NOTE | 2024-05-03 14:23 | PM.PREOP ---
Pre-operative Note COVID-19 COVID-19 status: Not tested Interval Note History & Physical reviewed/Exam performed by Physician: Yes Changes to H&P: No
[2024-05-03] MEDS: cefTRIAXone 2,000 MG in SODIUM CHLORIDE 0.9% 100 ML 200 MG IV (14:51)
[2024-05-03] MEDS: FLUCONAZOLE 400 MG/200 ML PIGGYBACK 100 MG IV (15:00)
[2024-05-03] MEDS: iopamidoL 30 ML VIAL INJ (15:11)
--- NOTE | 2024-05-03 15:17 | SUR.OPER ---
Lithotomy on padded OR bed, head on pillow, arms secured on padded arm boards at <90 degrees abduction. Legs secured in padded yellow fins stirrups.
[2024-05-03 15:29] VITALS: BP 120/71; PULSE 82; RESP 16; TEMP 36.2; O2SAT 98
[2024-05-03 15:34] VITALS: BP 120/70; PULSE 88; RESP 16; TEMP 36.2; O2SAT 94
[2024-05-03 15:39] VITALS: BP 104/62; PULSE 80; RESP 16; O2SAT 91
[2024-05-03] MEDS: OXYCODONE IR 5 MG TABLET PO (15:43)
--- NOTE | 2024-05-03 15:44 | PM.OP.1 ---
Procedure & Clinicians Procedure: Cystoscopy Left retrograde ureteropyelogram Left ureteral stent exchange Bautista catheter exchange Same procedure as scheduled: Yes Indications: 73 y/o F s/p a cystoscopy w/ left ureteral stent placement for management of a 7mm left proximal ureterolith in the setting of a UTI in Feb. She subsequently developed left pyelonephritis in Mar and currently resides in a rehabilitation facility. Unfortunately, she has also had severe incomplete bladder emptying and has had a chronic indwelling bautista catheter for nearly two weeks. She returns today for a possible cystoscopy, left ureteroscopy, laser lithotripsy and left ureteral stent exchange. Surgeon: Brian Denis Click Yes if Unassisted: Yes Anesthesia Type: General Operative Notes Findings: Findings consistent with an active urinary tract infection upon inspection of bladder, white efflux from ureteral catheter within left renal pelvis. Closure Type: not applicable Specimen(s): none sent Applied: catheter Estimated Blood Loss (mL): 2 Blood products transfused: none Procedure in detail: Patient was identified in the preoperative holding area and consent confirmed. She was then brought to the operating room where general anesthesia was induced.? She was then placed in the low lithotomy position. She was then prepped and draped in the usual sterile fashion. A surgical timeout was conducted and all were in agreement. Access to the bladder was obtained via a 21Fr cystoscope.? Cloudy urine was immediately noted within the bladder as well as changes consistent with a urinary tract infection.? The previously placed left ureteral stent was easily visualized and externalized. A 0.035 sensor tip ureteral guidewire was advanced through the stent and into the left renal pelvis.? A 5Fr ureteral catheter was then advanced over the guidewire and into the proximal left ureter and drainage of thick white efflux was noted, consistent with an active urinary tract infection. The ureteral guidewire was removed and a retrograde pyelogram was performed which noted no left hydronephrosis.? The ureteral guidewire was readvanced through the ureteral catheter and into the left renal pelvis.? The ureteral catheter was then removed.? A 6Fr multi-length JJ ureteral stent without strings was then advanced over the ureteral guidewire and into the left renal collecting system.? Upon removal of the ureteral guidewire, a good curl was appreciated within the left renal pelvis upon fluoroscopy and visually within the bladder.? The bladder was then drained and the cystoscope was removed.? A 16Fr bautista catheter was then inserted into the bladder and 10cc of sterile water was utilized for balloon insufflation. Anesthesia was reversed, she was extubated in the OR and transferred to the PACU in stable condition for recovery. Complications: none Post-operative Condition: stable Disposition: PACU Plan for aftercare: Discharge home from PACU. Will have her contact the Urology clinic after she exits her rehabilitation facility. Will then focus on bautista catheter management and evaluating the health of her bladder prior to proceeding with definitive stone management via a left ureteroscopy with laser lithotripsy and left ureteral stent exchange.
[2024-05-03 15:46] VITALS: BP 119/67; PULSE 76; RESP 16; TEMP 36.2; O2SAT 98
== END 2024-05-03 16:35 | disposition home or self-care (01) ==
PROVIDERS: PCP Family Medicine; Referring Provider Urology; Visit Provider Urology
PROC: 0TF78ZZ Fragmentation in Left Ureter, Via Natural or Artificial Opening Endoscopic (ICD-10-PCS; CPT 52353; principal; 2024-05-03 15:00)
DX: N20.1 Calculus of ureter (principal); Z46.6 Encounter for fitting and adjustment of urinary device; N39.0 Urinary tract infection, site not specified; G35 Multiple sclerosis; R33.9 Retention of urine, unspecified
CPT/HCPCS: 52332; 52351; 74018; 76000; 82962; J0696; J1450; J2405; J2704; J3010; Q9967

== ENCOUNTER 2024-05-23 15:24 | Emergency (ER) | payer OTHER, MEDICARE, SELFPAY ==
[2024-05-23] VITALS (12 sets, daily range): BP systolic 130–131; BP diastolic 67–69; PULSE 77–101; RESP 14–18; TEMP 36.8; O2SAT 97–100; BMI 23.4
--- NOTE | 2024-05-23 15:45 | ED_ITS ---
HPI - Fall <Love Amezcua MD - Last Filed: 06/02/24 08:15> General Chief Complaint: Fall Stated Complaint: Mutiple GLFs, Lt knee pain Time Seen by Provider: 05/23/24 15:30 Source: patient and EMS Mode of arrival: EMS History of Present Illness HPI Narrative: 73-year-old woman with a history of multiple sclerosis, type 2 diabetes, osteoarthritis, hyperlipidemia, recent recurrent urinary tract infections with kidney stone, patient has an indwelling catheter, presents today with a burning pain in the left proximal hamstring and she is can concerned that she may have torn another hamstring as this is what it felt like with the 1st tear. The 1st tear was diagnosed with ultrasound imaging, she has not seen an orthopedist for this issue. There has been no loss of consciousness, she has not describing any head injuries. Patient has had recent hospital stay secondary to kidney stone that was stented, went to care home facility came back for treatment of this down and apparently had an adverse reaction to the anesthetic and was significantly weak and had difficulty walking for 3 days, ended up going back to care home and over 2 weeks has gained enough strength to return home. She is Related Data Previous Rx's Medication Instructions Recorded Disabled Parking Permit #1 ea 05/09/20 One Touch Verio Glucose Monitor #1 ea 01/07/23 One Touch Verio test strips and #300 ea 03/26/23 lancets estradiol 10 mcg vaginal tablet 10 mcg vaginal 2XW #24 tabs 02/24/24 (Yuvafem) Hand controls #1 ea 03/22/24 mirabegron 50 mg tablet,extended 50 mg PO DAILY #30 tabs 03/26/24 release 24 hr blood sugar diagnostic (OneTouch #300 ea 04/19/24 Verio test strips) acetaminophen 325 mg tablet 650 mg (2 x 325 mg) PO Q6H PRN 04/23/24 Fever/Mild Pain (1-3) #30 tabs metformin 500 mg tablet,extended 1,000 mg (2 x 500 mg) PO BID #360 05/06/24 release 24 hr tabs hydrocodone 5 mg-acetaminophen 325 1 tab PO Q8H PRN Pain (Scale Score 05/20/24 mg tablet 1-3) #30 tabs nystatin 100,000 unit/gram topical 1 applic topical BID #30 grams 05/20/24 cream baclofen 10 mg tablet 20 mg (2 x 10 mg) PO Q8H #600 tabs 05/26/24 Allergies Allergy/AdvReac Type Severity Reaction Status Date / Time Sulfa (Sulfonamide Allergy Severe ANAPHYLAXIS Verified 05/20/24 10:01 Antibiotics) [SULFA (SULFONAMIDE ANTIBIOTICS)] adhesive tape Allergy Mild Verified 05/20/24 10:01 diphenhydramine Allergy Mild HIVES Verified 05/20/24 10:01 [DIPHENHYDRAMINE] honeydew AdvReac Verified 05/20/24 10:01 Review of Systems <Love Amezcua MD - Last Filed: 06/02/24 08:15> Review of Systems Narrative: Pertinent positive and negative findings as per HPI Patient History <Love Amezcua MD - Last Filed: 06/02/24 08:15> Medical History (Updated 05/25/24 @ 10:18 by Armida Monroe PA-C) Pyuria Parapelvic renal cyst Constipation Atrophic vaginitis Hydronephrosis of left kidney Chronic lower urinary tract infection Recurrent urinary tract infection Colon polyps (2009) Chicken pox Measles Plantar warts (2004) Fractures (~2005) Osteopenia Multiple sclerosis (1991) Surgical History (Updated 04/29/24 @ 09:15 by Shelia Lee RN) History of urethral stent (03/2024) History of tubal ligation History of cholecystectomy Anesthesia History of shoulder surgery (1973) Status post rotator cuff repair (2011) History of third molar tooth extraction (1970) Status post tubal ligation (1979) Family History Brother Age: 67 Diabetes mellitus Hypertension High cholesterol Child Age: 28 Adopted Mother Heart disease Hypertension Stroke Cancer Father Alzheimer's disease Grandmother No problems noted. Social History marital status: number of children: 1 household members: other occupational status: employed Smoking Status: Never smoker alcohol intake: current substance use type: does not use caffeine: Yes (tea-occasional ) Type(s) of exercise: other frequency: 5-6 times per week Smoking Status: Never smoker alcohol intake frequency: holidays/special occasions only Substance Use Type: does not use Exam <Love Amezcua MD - Last Filed: 06/02/24 08:15> Initial Vital Signs Initial Vital Signs: Vital Signs Pulse Rate 96 H 05/23/24 15:28 Pulse Oximetry 99 05/23/24 15:28 General: Alert appropriate in no acute distress Respiratory: Able to speak in full sentences, no obvious respiratory distress Skin: No obvious rashes, warm and dry Extremity: Tenderness over the left ischial tuberosity, fullness over the distal hamstring. No obvious bruising. Neurologic: She is able to move all extremities Psych: appropriate insight and affect, cooperative <Nathalie Ramirez DO - Last Filed: 05/23/24 21:26> Initial Vital Signs Initial Vital Signs: Vital Signs Pulse Rate 96 H 05/23/24 15:28 Pulse Oximetry 99 05/23/24 15:28 <Akhil Serrano MD - Last Filed: 05/26/24 19:16> Initial Vital Signs Initial Vital Signs: Vital Signs Pulse Rate 96 H 05/23/24 15:28 Pulse Oximetry 99 05/23/24 15:28 Course <Love Amezcua MD - Last Filed: 06/02/24 08:15> Orders Ordered: ED Orders 05/23/24 15:58 Urinalysis and Microscopic Stat Urine Culture Stat 05/23/24 16:00 MR femur LT wo con Stat 05/23/24 19:40 Consult to LATHE MACHINE OPERATOR - Recessing Machine Operator Stat Vital Signs Vital signs: Vital Signs - 8 hr 05/23/24 15:28 05/23/24 15:29 05/23/24 15:29 Temperature Pulse Rate 96 H 101 H Respiratory Rate Blood Pressure 131/69 Pulse Oximetry 99 99 Oxygen Delivery Method 05/23/24 15:30 05/23/24 15:36 05/23/24 17:45 Temperature 98.3 F Pulse Rate 97 H 93 H 87 Respiratory Rate 18 Blood Pressure 131/69 Pulse Oximetry 99 99 100 Oxygen Delivery Method Room Air 05/23/24 17:46 05/23/24 17:46 05/23/24 18:00 Temperature Pulse Rate 86 90 Respiratory Rate Blood Pressure 130/67 Pulse Oximetry 100 99 Oxygen Delivery Method 05/23/24 18:30 05/23/24 19:00 05/23/24 19:30 Temperature Pulse Rate 77 81 88 Respiratory Rate Blood Pressure Pulse Oximetry 98 97 98 Oxygen Delivery Method 05/23/24 20:00 05/23/24 20:18 Temperature Pulse Rate 85 85 Respiratory Rate 18 14 Blood Pressure 130/67 Pulse Oximetry 98 99 Oxygen Delivery Method Room Air <Nathalie Ramirez DO - Last Filed: 05/23/24 21:26> Orders Ordered: ED Orders 05/23/24 15:58 Urinalysis and Microscopic Stat Urine Culture Stat 05/23/24 16:00 MR femur LT wo con Stat 05/23/24 19:40 Consult to [facility] Recessing Machine Operator Stat Vital Signs Vital signs: Vital Signs - 8 hr 05/23/24 15:28 05/23/24 15:29 05/23/24 15:29 Temperature Pulse Rate 96 H 101 H Respiratory Rate Blood Pressure 131/69 Pulse Oximetry 99 99 Oxygen Delivery Method 05/23/24 15:30 05/23/24 15:36 05/23/24 17:45 Temperature 98.3 F Pulse Rate 97 H 93 H 87 Respiratory Rate 18 Blood Pressure 131/69 Pulse Oximetry 99 99 100 Oxygen Delivery Method Room Air 05/23/24 17:46 05/23/24 17:46 05/23/24 18:00 Temperature Pulse Rate 86 90 Respiratory Rate Blood Pressure 130/67 Pulse Oximetry 100 99 Oxygen Delivery Method 05/23/24 18:30 05/23/24 19:00 05/23/24 19:30 Temperature Pulse Rate 77 81 88 Respiratory Rate Blood Pressure Pulse Oximetry 98 97 98 Oxygen Delivery Method 05/23/24 20:00 05/23/24 20:18 Temperature Pulse Rate 85 85 Respiratory Rate 18 14 Blood Pressure 130/67 Pulse Oximetry 98 99 Oxygen Delivery Method Room Air <Akhil Serrano MD - Last Filed: 05/26/24 19:16> Orders Ordered: ED Orders 05/23/24 15:58 Urinalysis and Microscopic Stat Urine Culture Stat 05/23/24 16:00 MR femur LT wo con Stat 05/23/24 19:40 Consult to [facility] Recessing Machine Operator Stat Vital Signs Vital signs: Vital Signs - 8 hr 05/23/24 15:28 05/23/24 15:29 05/23/24 15:29 Temperature Pulse Rate 96 H 101 H Respiratory Rate Blood Pressure 131/69 Pulse Oximetry 99 99 Oxygen Delivery Method 05/23/24 15:30 05/23/24 15:36 05/23/24 17:45 Temperature 98.3 F Pulse Rate 97 H 93 H 87 Respiratory Rate 18 Blood Pressure 131/69 Pulse Oximetry 99 99 100 Oxygen Delivery Method Room Air 05/23/24 17:46 05/23/24 17:46 05/23/24 18:00 Temperature Pulse Rate 86 90 Respiratory Rate Blood Pressure 130/67 Pulse Oximetry 100 99 Oxygen Delivery Method 05/23/24 18:30 05/23/24 19:00 05/23/24 19:30 Temperature Pulse Rate 77 81 88 Respiratory Rate Blood Pressure Pulse Oximetry 98 97 98 Oxygen Delivery Method 05/23/24 20:00 05/23/24 20:18 Temperature Pulse Rate 85 85 Respiratory Rate 18 14 Blood Pressure 130/67 Pulse Oximetry 98 99 Oxygen Delivery Method Room Air MDM - Fall <Love Amezcua MD - Last Filed: 06/02/24 08:15> Lab Data Labs: Lab Results 05/23/24 Range/Units 15:58 Urine Color Yellow Urine Appearance Cloudy Urine pH 5.5 (4.5-8.0) Ur Specific [place] 1.025 (1.000-1.035) Urine Protein 2+ H (Negative) Urine Glucose (UA) Negative (Negative) g/dL Urine Ketones Negative (NEGATIVE) Urine Occult Blood 2+ H (Negative) Urine Nitrate Positive H (Negative) Urine Bilirubin Negative (NEGATIVE) Urine Urobilinogen 0.2 (0.2) E.U./dL Ur Leukocyte Esterase 2+ H (NEGATIVE) Urine RBC 0-1/hpf (0-5/HPF) Urine WBC >100/hpf H (0-5/HPF) Ur Squamous Epith Cells None seen (0-5/HPF) Urine Bacteria Many (>30) H (None) Urine Mucus 1+ H (Negative) Ur Culture Indicated? Specimen cultured Vol Urine Centrifuged 10ml (spun) Imaging Data MR femur: Radiologist's Impression: PROCEDURE: MR FEMUR LT WO CON INDICATIONS: ? hamstring tear, significant limit to mobility TECHNIQUE: Noncontrast coronal and sagittal T1 spin echo and STIR; axial T1 spin echo and T2 fast spin echo with fat saturation through the left femur. COMPARISON: [facility], CT, CT ABDOMEN PELVIS W CON, 04/18/2024, 15:02. FINDINGS: Image quality: This examination is limited by involuntary motion artifact. Bones: The visualized bone marrow demonstrates normal signal on all sequences. The overlying cortex appears intact. No fractures lines or intra-osseous lesions. Soft tissues: Abnormal soft tissue edema can be seen involving the insertion of the hamstrings onto the ischial tuberosity. The scanned muscles demonstrate normal overall bulk and internal signal. Subcutaneous tissues appear normal as well. No soft tissue masses are present. A Luo catheter is seen, which decompresses the bladder. IMPRESSION: Significant edema seen involving the tendinous insertion of the ischial tuberosity, likely explaining the patient's presenting symptoms. Dictated by: Aron Manning M.D. on 05/23/2024 at 16:52 [facility] Narrative Medical decision making narrative: 73-year-old woman with MS, type 2 diabetes, recent hospitalizations for complications kidney stones urinary tract infections and ureteral stents presents concerned that she has now torn another portion of her left hamstring. When she walks her leg gives out on her she is fallen twice today. She is concerned that if she tears more of her hamstring that she will be permanently incapacitated. MRI does suggest that she in fact has caused more injury to her hamstring at the insertion site <Nathalie Ramirez, DO - Last Filed: 05/23/24 21:26> Lab Data Labs: Lab Results 05/23/24 Range/Units 15:58 Urine Color Yellow Urine Appearance Cloudy Urine pH 5.5 (4.5-8.0) Ur Specific [place] 1.025 (1.000-1.035) Urine Protein 2+ H (Negative) Urine Glucose (UA) Negative (Negative) g/dL Urine Ketones Negative (NEGATIVE) Urine Occult Blood 2+ H (Negative) Urine Nitrate Positive H (Negative) Urine Bilirubin Negative (NEGATIVE) Urine Urobilinogen 0.2 (0.2) E.U./dL Ur Leukocyte Esterase 2+ H (NEGATIVE) Urine RBC 0-1/hpf (0-5/HPF) Urine WBC >100/hpf H (0-5/HPF) Ur Squamous Epith Cells None seen (0-5/HPF) Urine Bacteria Many (>30) H (None) Urine Mucus 1+ H (Negative) Ur Culture Indicated? Specimen cultured Vol Urine Centrifuged 10ml (spun) [facility] Narrative Medical decision making narrative: 73-year-old woman with MS, type 2 diabetes, recent hospitalizations for complications kidney stones urinary tract infections and ureteral stents presents concerned that she has now torn another portion of her left hamstring. When she walks her leg gives out on her she is fallen twice today. She is concerned that if she tears more of her hamstring that she will be permanently incapacitated. MRI does suggest that she in fact has caused more injury to her hamstring at the insertion site. 05/23/2024: Patient signed out to myself. Seen and evaluated by myself. It does appear that she has an injury to her hamstring at the insertion site. Discussed with patient she prefers to return home, was discharged 2 days ago from a detention.. She did meet with our LATHE MACHINE OPERATOR who offered to assist her in returning to detention but she defers. We will also give follow up with the orthopedic surgery. Discussed toe-touch weight-bearing with follow up with Ort hopedic surgery. Patient UA is positive for nitrates but she would like to wait for her urine culture which I think is appropriate she has a chronic indwelling catheter and no signs of infection currently. <Akhil Serrano MD - Last Filed: 05/26/24 19:16> Lab Data Labs: Lab Results 05/23/24 Range/Units 15:58 Urine Color Yellow Urine Appearance Cloudy Urine pH 5.5 (4.5-8.0) Ur Specific Eden 1.025 (1.000-1.035) Urine Protein 2+ H (Negative) Urine Glucose (UA) Negative (Negative) g/dL Urine Ketones Negative (NEGATIVE) Urine Occult Blood 2+ H (Negative) Urine Nitrate Positive H (Negative) Urine Bilirubin Negative (NEGATIVE) Urine Urobilinogen 0.2 (0.2) E.U./dL Ur Leukocyte Esterase 2+ H (NEGATIVE) Urine RBC 0-1/hpf (0-5/HPF) Urine WBC >100/hpf H (0-5/HPF) Ur Squamous Epith Cells None seen (0-5/HPF) Urine Bacteria Many (>30) H (None) Urine Mucus 1+ H (Negative) Ur Culture Indicated? Specimen cultured Vol Urine Centrifuged 10ml (spun) MDM Narrative Medical decision making narrative: 73-year-old woman with MS, type 2 diabetes, recent hospitalizations for complications kidney stones urinary tract infections and ureteral stents presents concerned that she has now torn another portion of her left hamstring. When she walks her leg gives out on her she is fallen twice today. She is concerned that if she tears more of her hamstring that she will be permanently incapacitated. MRI does suggest that she in fact has caused more injury to her hamstring at the insertion site. 05/23/2024: Patient signed out to myself. Seen and evaluated by myself. It does appear that she has an injury to her hamstring at the insertion site. Discussed with patient she prefers to return home, was discharged 2 days ago from a detention.. She did meet with our LATHE MACHINE OPERATOR who offered to assist her in returning to detention but she defers. We will also give follow up with the orthopedic surgery. Discussed toe-touch weight-bearing with follow up with Orthopedic surgery. Patient UA is positive for nitrates but she would like to wait for her urine culture which I think is appropriate she has a chronic indwelling catheter and no signs of infection currently. 07/26/2023, 0815, Zach, late entry, urine culture follow up. Indwelling catheter noted, history of sulfa allergy noted. Patient with urine culture that grew E coli 100,000 colonies. Resistant to ciprofloxacin, nitrofurantoin. Sensitive to cephalosporins, also sensitive to ampicillin, sulfa. We will presc ribe amoxicillin 875 mg by mouth twice daily for 7 day course. ED charge nurse to contact patient regarding urinary tract infection diagnosis and antibiotic prescription. Discharge Plan Departure Patient Disposition: Home Clinical Impression: Hamstring tear Fall Qualifiers: Encounter type: subsequent encounter Qualified Code(s): W19.XXXD - Unspecified fall, subsequent encounter Activity Restrictions/Additional Instructions: Please follow-up with orthopedic surgery you do appear to have a tear to your hamstring the insertion of the ischial tuberosity on the left. Toe touch Weightbear as tolerated. Your urine does show potential signs of infection, a culture is pending and it takes approximately 48-72 hours to result if positive you would be contacted to start antibiotics. Please return for new or worsening pain, recurrent falls or any other new or concerning changes. Prescriptions: No Action (DME) Disabled Parking Permit Qty: 1 0RF Rx Instructions: I find this person to be disabled (DME) One Touch Verio Glucose Monitor See Rx Instructions .Route .[facility] Qty: 1 0RF Rx Instructions: As directed twice daily for glucose monitoring (DME) One Touch Verio test strips and lancets See Rx Instructions .Route .[employer] Qty: 300 3RF Rx Instructions: As directed three times daily for blood glucose monitoring estradiol [Yuvafem] 10 mcg tablet 10 mcg vaginal 2XW Qty: 24 3RF (DME) OneTouch Verio test strips Strip See Rx Instructions .ROUTE .COMPLEX Qty: 300 3RF Dose Instruction: Use to check blood glucose 3 times daily Rx Instructions: Use to check blood glucose 3 times daily metformin 500 mg tablet extended release 24 hr 1,000 mg PO BID Qty: 360 1RF baclofen 10 mg tablet 20 mg PO Q8H Qty: 600 3RF (DME) Hand controls See Rx Instructions .Route .[employer] Qty: 1 0RF Rx Instructions: Use for driving nystatin 100,000 unit/gram cream 1 applic topical BID Qty: 30 1RF hydrocodone-acetaminophen 5-325 mg tablet 1 tab PO Q8H PRN (Reason: Pain (Scale Score 1-3)) Qty: 30 0RF acetaminophen 325 mg Tablet 650 mg PO Q6H PRN (Reason: Fever/Mild Pain (1-3)) Qty: 30 0RF mirabegron 50 mg tablet extended release 24 hr 50 mg PO DAILY Qty: 30 0RF Referrals: Li Aponte MD [Physician] - Isaac Farmer MD [Primary Care Provider] - Stand Alone Forms: Patient Portal/API/Survey
--- NOTE | 2024-05-23 16:00 | DI.MRI.S_ITS ---
PROCEDURE: MR FEMUR LT WO CON INDICATIONS: ? hamstring tear, significant limit to mobility TECHNIQUE: Noncontrast coronal and sagittal T1 spin echo and STIR; axial T1 spin echo and T2 fast spin echo with fat saturation through the left femur. COMPARISON: [facility], CT, CT ABDOMEN PELVIS W CON, 04/18/2024, 15:02. FINDINGS: Image quality: This examination is limited by involuntary motion artifact. Bones: The visualized bone marrow demonstrates normal signal on all sequences. The overlying cortex appears intact. No fractures lines or intra-osseous lesions. Soft tissues: Abnormal soft tissue edema can be seen involving the insertion of the hamstrings onto the ischial tuberosity. The scanned muscles demonstrate normal overall bulk and internal signal. Subcutaneous tissues appear normal as well. No soft tissue masses are present. A Luo catheter is seen, which decompresses the bladder. IMPRESSION: Significant edema seen involving the tendinous insertion of the ischial tuberosity, likely explaining the patient's presenting symptoms. Dictated by: Aron Manning M.D. on 05/23/2024 at 16:52 Approved by: Aron Manning M.D. on 05/23/2024 at 16:55
[2024-05-23 16:08] LABS: Appearance Urine UA CLOUDY; Bilirubin Urine UA NEGATIVE (NEGATIVE); Color Urine UA YELLOW; Glucose Urine UA NEGATIVE (Negative); Ketones Urine UA NEGATIVE (NEGATIVE); Leukocyte Esterase Urine UA 2+ (NEGATIVE); Nitrite Urine UA POSITIVE (Negative); Occult Blood Urine UA 2+ (Negative); Protein Urine UA 2+ (Negative); Specific Gravity Urine UA 1.025 (1.000-1.035); Urobilinogen Urine UA 0.2 E.U./dL (0.2)
[2024-05-23 16:29] LABS: Bacteria Urine Many (>30); RBC Urine 0-1/HPF (0-5/HPF); Squamous Epithelial Cell Urine None Seen (0-5/HPF); Urine Volume 10mL (spun); WBC Urine >100/HPF (0-5/HPF); pH Urine UA 5.5 (4.5-8.0)
[2024-05-23 16:31] LABS: Culture Indicated Urine Specimen Cultured; Mucus Urine 1+ (Negative)
--- NOTE | 2024-05-23 20:01 | CM.SWNOTE ---
ED GASOLINE PUMP INSTALLER Brief Note Patient is 73 y/o female who presents to ED due to multiple falls and concern for left knee pain. Patient was discharged from [facility] rehab a few days ago, has [facility] services in place. Patient has concerns for UTI and torn hamstring. GASOLINE PUMP INSTALLER receives consult from ED provider to determine if patient has preference for home with HH vs. SNF rehab. GASOLINE PUMP INSTALLER enters room to meet with patient, patient presents as A/Ox4. Patient endorses preference to d/c to home with HH. Patient endorses she has a friend that can pick her up upon d/c, patient states that [facility] will come to her home on Friday and she has a PCP f/u appt on Friday. Patient endorses that she has FWWs and plans to get a wheelchair this week. Plan: patient to d/c to home upon medical clearance, [facility] to f/u with patient, patient to f/u with outpatient providers and patient to seek DME. HORTENSIA GauthierSW
== END 2024-05-23 20:20 | disposition home or self-care (01) ==
PROVIDERS: Emergency Provider Emergency Medicine; PCP Family Medicine
DX: S76.212A Strain of adductor muscle, fascia and tendon of left thigh, initial encounter (principal); R29.6 Repeated falls; R60.0 Localized edema
CPT/HCPCS: 73718; 81001; 87077; 87086; 87186; 99281; 99284

== ENCOUNTER → 2024-05-25 11:37 | Outpatient (CLI) | payer OTHER, SELFPAY | PROVIDERS: PCP Family Medicine; Referring Provider Urology; Visit Provider Urology | DX: N39.0 Urinary tract infection, site not specified (principal) | CPT/HCPCS: 87077; 87086; 87186 ==

== ENCOUNTER 2024-06-14 09:45 | Day surgery (SDC) | payer OTHER, MEDICARE, SELFPAY ==
[2024-06-09 11:33] VITALS: BMI 23.8
[2024-06-14] VITALS (8 sets, daily range): BP systolic 108–146; BP diastolic 65–80; PULSE 79–94; RESP 6–20; TEMP 36.2–37.7; O2SAT 91–100; BMI 23.8
[2024-06-14] MEDS: ACETAMINOPHEN 325 MG TABLET 650 MG PO (10:14)
[2024-06-14] MEDS: LACTATED RINGERS 1,000 ML 21 ML IV ×2 (10:14→10:21)
--- NOTE | 2024-06-14 11:04 | PM.PREOP ---
Pre-operative Note COVID-19 COVID-19 status: Not tested Interval Note History & Physical reviewed/Exam performed by Physician: Yes Changes to H&P: No
[2024-06-14] MEDS: cefTRIAXone 2,000 MG in SODIUM CHLORIDE 0.9% 100 ML 200 MG IV (11:53)
--- NOTE | 2024-06-14 12:07 | SUR.OPER ---
Lithotomy on padded OR bed, head on pillow, arms secured on padded arm boards at <90 degrees abduction. Legs secured in padded yellow fins stirrups.
[2024-06-14] MEDS: iopamidoL 30 ML VIAL INJ (12:31)
--- NOTE | 2024-06-14 13:04 | DI.RAD.S_ITS ---
PROCEDURE: XR ABDOMEN MIN 2V INDICATIONS: LEFT STENT PLACEMENT TECHNIQUE: 2 views of the abdomen were acquired. COMPARISON: [facility], CR, XR ABDOMEN 1V, 05/03/2024, 15:09. [facility], CR, XR ABDOMEN MIN 2V, 07/14/2023, 14:00. FINDINGS: Intraoperative images demonstrate opacification of the left renal collecting system and urinary bladder with the nephroureteral stent in place. IMPRESSION: Intraoperative images of left nephroureteral stent placement. Please see the operative report for further details. Dictated by: Guy Siddiqi M.D. on 06/14/2024 at 20:49 Approved by: Guy Siddiqi M.D. on 06/14/2024 at 20:50
--- NOTE | 2024-06-14 13:06 | PM.OP.1 ---
Procedure & Clinicians Procedure: Cystoscopy Left retrograde ureteropyelogram Left ureteroscopy, laser lithotripsy Left ureteral stent exchange Intraoperative interpretation of fluoroscopic images, total time < 1 hour Same procedure as scheduled: Yes Indications: 73 y/o F who underwent a cystoscopy with left ureteral stent placement for management of a left ureteral stone in the setting of a urinary tract infection in late Feb as well as a repeat left ureteral stent exchange in late Mar secondary to ongoing UTI during attempted left ureteroscopy. Discussed the need for a left ureteroscopy with laser lithotripsy and left ureteral stent exchange. Surgeon: Brian Denis Click Yes if Unassisted: Yes Anesthesia Type: General Operative Notes Findings: Two stones within left renal collecting system (one within the left lower pole calyx), white debris within left renal collecting system concerning for colonization Closure Type: not applicable Specimen(s): other (left kidney stone) Estimated Blood Loss (mL): 3 Blood products transfused: none Procedure in detail: Procedures: 1) Cystoscopy 2) Left retrograde ureteropyelogram 3) Left ureteroscopy, laser lithotripsy 4) Left ureteral stent exchange 5) Intraoperative interpretation of fluoroscopic images, < 1 hour, all images saved to PACS Indication: Patient was identified in the preoperative holding area and consent confirmed. She was then brought to the operating room where general anesthesia was induced.? She was placed in the low lithotomy position. She was then prepped and draped in the usual sterile fashion. A surgical timeout was conducted and all were in agreement. ?Access to the bladder was obtained via a 30 degree cystoscope.? Complete cystoscopy was then performed and no concerning bladder masses or lesions were appreciated.? Bilateral ureteral orifices were easily identified and noted to be orthotopic in nature.? The previously placed left ureteral stent was easily visualized and externalized using the stent grasper.? A 0.035 sensor tip ureteral guidewire was advanced through the stent and into the left renal pelvis.? A 12/14Fr ureteral access sheath was then advanced over the ureteral guidewire and into the proximal left ureter.? The ureteral guidewire and inner obturator were then removed.? The flexible ureteroscope was then advanced through the ureteral access sheath and to the level of the left renal pelvis where two large stone were noted, one within the left lower pole calyx. Complete pyeloscopy was then performed and no other stones were visualized, however, white debris was found within her left renal collecting system concerning for bacterial colonization despite 7 days worth of antibiotics preoperatively. Laser lithotripsy was then performed utilizing the 200 micron laser fiber.? All stone fragments >1mm in size were removed via the stone basket and sent for chemical analysis.? A retrograde pyelogram was then performed which noted no filling defects concerning for residual stone.? The ureteral guidewire was then readvanced through the ureteroscope and into the left renal pelvis.? The ureter was then directly visualized upon removal of the ureteroscope and ureteral access sheath and noted to be stone free.? The cystoscope was then backloaded over the ureteral guidewire and advanced into the bladder.? A 6Fr multi-length JJ ureteral stent with strings was then advanced over the ureteral guidewire.? Upon removal of the guidewire, a good curl was noted within the left renal pelvis upon fluoroscopy and visually within the bladder.? The bladder was then drained and the cystoscope was removed.? Anesthesia was reversed, she was extubated in the OR and transferred to the PACU in stable condition for recovery. Complications: none Post-operative Condition: stable Disposition: PACU Plan for aftercare: Discharge home from PACU. Will remove her left ureteral stent at home on the morning of 17 Jun 2024. Will have her return to Urology clinic in 10-12 weeks to review the analysis of her stone as well as review a RBUS that she will have performed roughly 8 weeks from now to evaluate for residual left hydronephrosis.
[2024-06-14] MEDS: PHENAZOPYRIDINE 100 MG TABLET 200 MG PO (13:43)
== END 2024-06-14 14:11 | disposition home or self-care (01) ==
PROVIDERS: PCP Family Medicine; Referring Provider Urology; Visit Provider Urology
PROC: (CPT 52356; principal; 2024-06-14 11:30)
DX: N20.1 Calculus of ureter (principal)
CPT/HCPCS: 52356; 74019; 76000; J0696; J2405; J2704; J3010; Q9967

== ENCOUNTER 2024-06-15 15:58 | Inpatient (IN) | payer OTHER, MEDICARE, SELFPAY ==
[2024-06-15] VITALS (13 sets, daily range): BP systolic 119–158; BP diastolic 57–80; PULSE 114–129; RESP 16–24; TEMP 36.8–38.1; O2SAT 93–97; BMI 23.8
--- NOTE | 2024-06-15 16:24 | DI.RAD.S_ITS ---
PROCEDURE: XR CHEST 1V INDICATIONS: suspected sepsis TECHNIQUE: One view of the chest was acquired. COMPARISON: [facility], , CHEST 2 VIEW, 02/13/2016, 8:31. FINDINGS: Surgical changes and devices: None. Lungs and pleura: Lungs are clear. No pleural effusions or pneumothorax. Mediastinum: Mediastinal contours appear normal. Heart size is prominent. Bones and chest wall: No suspicious bony lesions. Overlying soft tissues appear unremarkable. IMPRESSION: No acute pulmonary process. Dictated by: Megan Chan M.D. on 06/15/2024 at 16:50 Approved by: Megan Chan M.D. on 06/15/2024 at 16:50
--- NOTE | 2024-06-15 16:35 | EKG_ITS ---
[place] [id number] [place] [id number] Test Date: 2024-06-15 Pat Name: Harmeet Finn Department: 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
--- NOTE | 2024-06-15 17:21 | DI.US.S_ITS ---
PROCEDURE: US RENAL COMPLETE INDICATIONS: Rule out obstruction TECHNIQUE: Real-time scanning was performed of the kidneys and bladder, with image documentation. COMPARISON: [facility], CT, CT ABDOMEN PELVIS W CON, 04/18/2024, 15:02. [facility], US, US RENAL COMPLETE, 05/31/2022, 14:47. FINDINGS: Kidneys: Right kidney is small. Left kidney is normal in size. Right kidney measures 8.2 cm long; left kidney measures 9.6 cm long. Right renal cortical thickness is 1.6 cm; left renal cortical thickness is 1.5 cm. Renal cortical echotexture is normal. No hydronephrosis or nephrolithiasis. No suspicious solid mass lesions. A left double-J stent is in place. There is no hydronephrosis. Bladder: No pre and postvoid bladder measurements were obtained. There is a double-J stent present in the bladder. Pre-void images demonstrate no intraluminal masses or stones. On pre-void images, no ureteral jets are noted with color Doppler interrogation. (Of note, ureteral jets may not be detectable in up to 25% of cases due to insufficient differences in specific gravity between ureteral and bladder urine). Miscellaneous: No free pelvic fluid. IMPRESSION: 1. Right kidney is small. Left kidney is normal in size. There is no hydronephrosis. A left double-J ureteral stent is in place. Dictated by: Homer Villatoro M.D. on 06/15/2024 at 19:18 Approved by: Homer Villatoro M.D. on 06/15/2024 at 19:21
[2024-06-15 17:23] LABS: INR 1.2 (0.9-1.3); Prothrombin Time 13.2 SECONDS (9.4-12.5)
[2024-06-15 17:26] LABS: Lactate (Lactic Acid) 2.2 mmol/L (0.7-2.1); PTT Partial Thromboplastin Tim 29 SECONDS (25.1-36.5)
--- NOTE | 2024-06-15 17:27 | DI.RAD.S_ITS ---
PROCEDURE: XR KUB INDICATIONS: Pain TECHNIQUE: One view of the abdomen acquired. COMPARISON: [facility], CT, CT ABDOMEN PELVIS W CON, 04/18/2024, 15:02. FINDINGS: Surgical changes and devices: Double-J left ureteral stent. Bowel: Question focal ileus pattern involving jejunum. Soft tissues: No suspicious abdominal calcifications. Visualized solid organ contours appear normal in size. Bones: No suspicious bony lesions. IMPRESSION: Double-J ureteral stent. Question focal ileus pattern. Comment: Serial films may be helpful. Dictated by: Homer Villatoro M.D. on 06/15/2024 at 18:08 Approved by: Homer Villatoro M.D. on 06/15/2024 at 18:09
[2024-06-15 17:28] LABS: Add Manual Diff / Slide Review NO; Alanine Aminotransferase 34 IU/L (<35); Albumin 4.3 g/dL (3.5-5.0); Albumin Globulin Ratio 1.2 (1.0-2.8); Alkaline Phosphatase 86 U/L (38-126); Aspartate Aminotransferase 39 IU/L (14-36); BUN Creatinine Ratio 17.9 (6-22); Basophils Absolute Auto 0 /uL (0-100); Basophils Percent Auto 0.2 % (0-2); Bilirubin Total 0.9 mg/dL (0.2-1.3); Blood Urea Nitrogen 14 mg/dL (7-17); Calcium 9.5 mg/dL (8.4-10.2); Carbon Dioxide 24 mmol/L (22-32); Chloride 102 mmol/L (98-107); Eosinophils Absolute Auto 300 /uL (0-450); Eosinophils Percent Auto 1.6 % (2-4); Estimated Glomerular Filt Rate > 60 mL/min (>60); Globulin 3.7 g/dL (1.7-4.1); Glucose 212 mg/dL (80-110); HEMOLYSIS < 15 (0-50); Hematocrit 36.9 % (36-46); Lipase 74 U/L (23-300); Lymphocytes Absolute Auto 1300 /uL (1100-4500); Mean Corpuscular HGB Conc 32.4 % (30-36); Mean Corpuscular Hemoglobin 28.3 PG (26-34); Mean Corpuscular Volume 87.2 fL (80-100); Monocytes Absolute Auto 1100 /uL (0-900); Monocytes Percent Auto 6.1 % (3-14); Neutrophils Absolute Auto 15800 /uL (1500-7000); Neutrophils Percent Auto 85.1 % (50-75); Platelet Count 312 X10^3/uL (150-400); Potassium 3.4 mmol/L (3.4-5.1); Red Blood Cell Count 4.23 X10^6/uL (4.0-5.2); Red Cell Distribution Width 16.3 % (11.6-14.8); Sodium 135 mmol/L (137-145); White Blood Cell Count 18.6 X10^3/uL (4.5-11.0)
[2024-06-15] MEDS: SODIUM CHLORIDE 0.9% 1,000 ML 1000 ML IV (17:33)
[2024-06-15 17:38] LABS: Appearance Urine UA SL CLOUDY
--- NOTE | 2024-06-15 17:38 | ED_ITS ---
HPI - Female Genitourinary General Chief complaint: Urogenital-Female Stated complaint: procedure yesterday, fever, unable urinate Time Seen by Provider: 06/15/24 16:55 Source: EMS Mode of arrival: EMS History of Present Illness HPI Narrative: Patient here for chills and fever. Started this morning. Patient postop day 1 status post lithotripsy left ureteral stent yesterday here. Dr. Fragoso, with urology. Patient took ibuprofen around 3:00 p.m. today. Vital signs noted. Pain is controlled. Procedure & Clinicians Procedure: Cystoscopy Left retrograde ureteropyelogram Left ureteroscopy, laser lithotripsy Left ureteral stent exchange Intraoperative interpretation of fluoroscopic images, total time < 1 hour Same procedure as scheduled: Yes Indications: 73 y/o F who underwent a cystoscopy with left ureteral stent placement for management of a left ureteral stone in the setting of a urinary tract infection in late Feb as well as a repeat left ureteral stent exchange in late Mar secondary to ongoing UTI during attempted left ureteroscopy. Discussed the need for a left ureteroscopy with laser lithotripsy and left ureteral stent exchange. Surgeon: Brian Denis Related Data Home Medications Medication Instructions Recorded Confirmed atorvastatin 10 mg tablet 10 mg PO DAILY 06/14/24 06/15/24 oxycodone 5 mg tablet 5 mg PO Q8H PRN pain 06/15/24 06/15/24 Previous Rx's Medication Instructions Recorded Disabled Parking Permit #1 ea 05/09/20 One Touch Verio Glucose Monitor #1 ea 01/07/23 One Touch Verio test strips and #300 ea 03/26/23 lancets estradiol 10 mcg vaginal tablet 10 mcg vaginal 2XW #24 tabs 02/24/24 (Yuvafem) Hand controls #1 ea 03/22/24 blood sugar diagnostic (OneTouch #300 ea 04/19/24 Verio test strips) acetaminophen 325 mg tablet 650 mg (2 x 325 mg) PO Q6H PRN 04/23/24 Fever/Mild Pain (1-3) #30 tabs metformin 500 mg tablet,extended 1,000 mg (2 x 500 mg) PO BID #360 05/06/24 release 24 hr tabs hydrocodone 5 mg-acetaminophen 325 1 tab PO Q8H PRN Pain (Scale Score 05/20/24 mg tablet 1-3) #30 tabs baclofen 10 mg tablet 20 mg (2 x 10 mg) PO Q8H #600 tabs 05/26/24 fluconazole 150 mg tablet 150 mg PO .every other day #3 tabs 06/03/24 mirabegron 50 mg tablet,extended 50 mg PO DAILY #90 tabs 06/08/24 release 24 hr amoxicillin 875 mg-potassium 1 tab PO BID #14 tabs 06/14/24 clavulanate 125 mg tablet Allergies Allergy/AdvReac Type Severity Reaction Status Date / Time Sulfa (Sulfonamide Allergy Severe ANAPHYLAXIS Verified 06/15/24 16:19 Antibiotics) [SULFA (SULFONAMIDE ANTIBIOTICS)] diphenhydramine Allergy Mild HIVES Verified 06/15/24 16:19 [DIPHENHYDRAMINE] levofloxacin [From Levaquin] AdvReac Severe neurological Verified 06/15/24 16:19 effects - pt hospitalized honeydew AdvReac Verified 06/15/24 16:19 Review of Systems Review of Systems Narrative: GENERAL: Positive chills, fatigue, malaise, fever, sweats. HEENT: Negative sinus pain, ear pain, sore throat RESPIRATORY: Negative dyspnea, cough CARDIOVASCULAR: Negative chest pain, palpitations GASTROINTESTINAL: Negative nausea, vomiting, abdominal pain : Negative dysuria, frequency, hematuria MUSCULOSKELETAL: Negative muscle or bony pain SKIN: Negative rash, skin lesions NEUROLOGIC: Negative weakness, numbness ROS Unobtainable: All systems reviewed & are unremarkable except as noted in HPI and below Patient History Medical History Pyuria Parapelvic renal cyst Constipation Atrophic vaginitis Hydronephrosis of left kidney Chronic lower urinary tract infection Recurrent urinary tract infection Colon polyps (2009) Chicken pox Measles Plantar warts (2004) Fractures (~2005) Osteopenia Multiple sclerosis (1991) Surgical History History of urethral stent (03/2024) History of tubal ligation History of cholecystectomy Anesthesia History of shoulder surgery (1973) Status post rotator cuff repair (2011) History of third molar tooth extraction (1970) Status post tubal ligation (1979) Family History Brother Age: 67 Diabetes mellitus Hypertension High cholesterol Child Age: 28 Adopted Mother Heart disease Hypertension Stroke Cancer Father Alzheimer's disease Grandmother No problems noted. Exam Narrative Exam Narrative: GENERAL: in no distress, not toxic not dyspneic HEAD: Normocephalic. EYES: Pupils equal round ENT: Mucous membranes moist. NECK: Trachea midline. CARDIOVASCULAR: Regular rate and rhythm, tachycardia RESPIRATORY: Clear to auscultation. Breath sounds equal bilaterally. No wheezes, rales, or rhonchi. GASTROINTESTINAL: Abdomen soft, non-tender bowel sounds are present. EXTREMITIES: No gross deformities. BACK: No flank tenderness. NEURO: AOx4. SKIN: Warm and dry PSYCH: Not anxious, is cooperative Initial Vital Signs Initial Vital Signs: Vital Signs Temperature 100.3 F H 06/15/24 16:13 Pulse Rate 125 H 06/15/24 16:13 Respiratory Rate 16 06/15/24 16:13 Blood Pressure 136/74 06/15/24 16:13 Pulse Oximetry 95 06/15/24 16:13 Oxygen Delivery Method Room Air 06/15/24 16:13 Course Orders Ordered: ED Orders 06/16/24 04:38 Complete Blood Count AUTO DIFF Routine Comprehensive Metabolic Panel Routine Lactate (Lactic Acid) Stat Acetaminophen (Acetaminophen 325 Mg Tablet) 650 mg PO Q6H PRN PRN Reason: Fever/Mild Pain (1-3) Hydrocodone Bitart/Acetaminophen (Hydrocodone/Acet 5/325 Tablet) 1 tab PO Q4H PRN PRN Reason: Pain, Moderate (4-6) Last Admin: 06/16/24 04:46 Dose: 1 tab Documented By: SABINO Hydrocodone Bitart/Acetaminophen (Hydrocodone/Acet 5/325 Tablet) 2 tab PO Q4H PRN PRN Reason: Pain, Severe (7-10) Amlodipine Besylate (Amlodipine 5 Mg Tablet) 5 mg PO DAILY [facility] Last Admin: 06/16/24 08:35 Dose: Not Given Documented By: LAYLA Atorvastatin Calcium (Atorvastatin 20 Mg Tablet) 10 mg PO DAILY [facility] Last Admin: 06/16/24 08:36 Dose: 10 mg Documented By: LAYLA Baclofen (Baclofen 10 Mg Tablet) 20 mg PO Q8H [facility] Last Admin: 06/16/24 04:38 Dose: 20 mg Documented By: Admin: 06/15/24 21:32 Dose: 20 mg Documented By: SABINO Enoxaparin Sodium (Enoxaparin 40 Mg/0.4 Ml Syringe) 40 mg SUBCUT DAILY [facility] Last Admin: 06/16/24 08:36 Dose: 40 mg Documented By: LAYLA Sodium Chloride (Normal Saline 0.9%) 1,000 mls @ 125 mls/hr IV CONT [facility] Last Admin: 06/16/24 05:58 Dose: 125 mls/hr Documented By: Infusion: 06/16/24 05:34 Dose: Infused Documented By: Admin: 06/15/24 21:34 Dose: 125 mls/hr Documented By: SABINO Ceftriaxone Sodium 2,000 mg/ (Sodium Chloride) 100 mls @ 200 mls/hr IV Q24H [facility] Dextrose (D10w) 100 mls @ 999 mls/hr IV PRN PRN PRN Reason: Hypoglycemia Insulin Glargine (Insulin Glargine 100 Unit/Ml 3ml Pen) 20 unit SUBCUT 2100 [facility] Last Admin: 06/15/24 21:36 Dose: 20 unit Documented By: SABINO Co-signed By: AT Insulin Human Lispro (Insulin Lispro 100 Unit/Ml 3ml Vial) 0 unit SUBCUT ACHS [facility]; Protocol Last Admin: 06/15/24 21:34 Dose: Not Given Documented By: SABINO Naloxone HCl (Naloxone 0.4 Mg/Ml Vial) 0.2 mg IV Q2MIN PRN PRN Reason: Opiate Reversal Oxybutynin Chloride (Oxybutynin 5 Mg Er Tab) 10 mg PO DAILY [facility] Last Admin: 06/16/24 08:36 Dose: 10 mg Documented By: LAYLA Potassium Chloride (Potassium Chloride 20 Meq Tab) 40 meq PO BIDWM [facility] Stop: 06/17/24 16:00 Discontinued Medications Acetaminophen (Acetaminophen 325 Mg Tablet) 975 mg PO NOW ONE Stop: 06/15/24 17:38 Last Admin: 06/15/24 18:10 Dose: 975 mg Documented By: VIRAJ Sodium Chloride (Normal Saline 0.9%) 1,000 mls @ 1,000 mls/hr IV BOLUS ONE Stop: 06/15/24 17:23 Last Infusion: 06/15/24 19:46 Dose: Infused Documented By: Admin: 06/15/24 17:33 Dose: 1,000 mls/hr Documented By: COLLIN Ceftriaxone Sodium 2,000 mg/ (Sodium Chloride) 100 mls @ 200 mls/hr IV NOW ONE Stop: 06/15/24 17:23 Last Infusion: 06/15/24 18:41 Dose: Infused Documented By: Infusion: 06/15/24 18:11 Dose: 0 mls/hr Documented By: Admin: 06/15/24 18:11 Dose: 200 mls/hr Documented By: VIRAJ Non-Formulary Medication (Mirabegron) 50 mg PO DAILY [facility] Ondansetron HCl (Ondansetron 4 Mg/2 Ml Inj) 4 mg IV NOW PRN PRN Reason: Nausea And Vomiting Ondansetron HCl (Ondansetron 4 Mg Odt) 4 mg SL NOW PRN PRN Reason: Nausea And Vomiting Potassium Chloride (Potassium Chloride 20 Meq Tab) 40 meq PO Q6H [facility] Stop: 06/16/24 14:01 Last Admin: 06/16/24 08:40 Dose: 40 meq Documented By: LAYLA Vital Signs Vital signs: Vital Signs - 8 hr 06/15/24 17:30 06/15/24 17:30 06/15/24 18:00 Pulse Rate 121 H Respiratory Rate 24 Blood Pressure 145/75 H 147/80 H Pulse Oximetry 96 Oxygen Delivery Method Room Air MDM - Female Genitourinary Lab Data 06/16/24 04:38 06/16/24 04:38 Labs: Lab Results 06/15/24 06/15/24 Range/Units 17:02 17:22 WBC 18.6 H (4.5-11.0) X10^3/uL RBC 4.23 (4.0-5.2) X10^6/uL Hgb 12.0 (12.0-16.0) g/dL Hct 36.9 (36-46) % MCV 87.2 (80-100) fL MCH 28.3 (26-34) PG MCHC 32.4 (30-36) % RDW 16.3 H (11.6-14.8) % Plt Count 312 (150-400) X10^3/uL Neut % (Auto) 85.1 H (50-75) % Lymph % (Auto) 7.0 L (25-40) % [place] % (Auto) 6.1 (3-14) % Eos % (Auto) 1.6 L (2-4) % Baso % (Auto) 0.2 (0-2) % Neut # (Auto) 68096 H (7411-2693) /uL Lymph # (Auto) 1300 (1171-8959) /uL [place] # (Auto) 1100 H (0-900) /uL Eos # (Auto) 300 (0-450) /uL Baso # (Auto) 0 (0-100) /uL PT 13.2 H (9.4-12.5) SECONDS INR 1.2 (0.9-1.3) APTT 29 (25.1-36.5) SECONDS Sodium 135 L (137-145) mmol/L Potassium 3.4 (3.4-5.1) mmol/L Chloride 102 (98-107) mmol/L Carbon Dioxide 24 (22-32) mmol/L BUN 14 (7-17) mg/dL Creatinine 0.78 (0.52-1.04) mg/dL Estimated GFR > 60 (>60) mL/min BUN/Creatinine Ratio 17.9 (6-22) Glucose 212 H (80-110) mg/dL Lactate 2.2 H (0.7-2.1) mmol/L Calcium 9.5 (8.4-10.2) mg/dL Total Bilirubin 0.9 (0.2-1.3) mg/dL AST 39 H (14-36) IU/L ALT 34 (<35) IU/L Alkaline Phosphatase 86 (38-126) U/L Total Protein 8.0 (6.3-8.2) g/dL Albumin 4.3 (3.5-5.0) g/dL Globulin 3.7 (1.7-4.1) g/dL Albumin/Globulin Ratio 1.2 (1.0-2.8) Lipase 74 (23-300) U/L Procalcitonin 5.49 H (<0.5) ng/mL Urine Color [place] Urine Appearance Sl cloudy Urine pH TNP Ur Specific [facility] TNP Urine Protein TNP Urine Glucose (UA) TNP Urine Ketones TNP Urine Occult Blood TNP Urine Nitrate TNP Urine Bilirubin TNP Urine Urobilinogen TNP Ur Leukocyte Esterase TNP Urine RBC 10-30/hpf H (0-5/HPF) Urine WBC 10-30/hpf H (0-5/HPF) Ur Squamous Epith Cells 0-1 /hpf (0-5/HPF) Urine Bacteria Few (2-10) H (None) Ur Culture Indicated? Specimen cultured Vol Urine Centrifuged 10ml (spun) [facility] Narrative Medical decision making narrative: Patient here for chills and fever. Started this morning. Patient postop day 1 status post lithotripsy left ureteral stent yesterday here. Dr. Fragoso, with urology. Patient took ibuprofen around 3:00 p.m. today. Vital signs noted. Pain is controlled. After history and exam CBC CMP procalcitonin lactic acid ultrasound kidneys KUB chest x-ray blood cultures Rocephin normal saline Zofran Tylenol, urology consult primary care consult/admit, urinalysis [facility] Medical records reviewed: Procedure from yesterday here. Differential considered: Includes but not limited to sepsis UTI pyelonephritis Lab Test results independently reviewed as above. Pertinent findings: WBC 18.6 hemoglobin 12.0 sodium 135 potassium 3.4 BUN 14 creatinine 0.78 glucose 212 lactic acid 2.2 procalcitonin 5.4 Independently reviewed EKG EKG sinus tachycardia rate 123 Imaging studies independently reviewed: Chest x-ray abdominal x-ray renal ultrasound Consultations: 5:[address] Dixon, on-call for Urology. Admit to hospitalist/primary care, agrees with KUB ultrasound and Rocephin. They will see patient in the morning. 6:07 p.m.. Spoke with primary care Dr. Farmer, who will admit patient Treatments: Rocephin Tylenol normal saline Zofran Re-evaluations: 5:40 p.m.. Updated patient likely will need admission for IV antibiotics. She agrees. Discussion: Appropriate for admission for IV antibiotics and observation. Urology contacted. Primary care services consult for admission. Rocephin has been started. Diagnosis: Postoperative fever Discharge Plan Departure Patient Disposition: Admitted as Observation Clinical Impression: Fever postop Admit Date/Time: 06/15/24 18:07 Admit Provider: Isaac Farmer
[2024-06-15 17:43] LABS: Color Urine UA ORANGE
[2024-06-15 17:44] LABS: Procalcitonin 5.49 ng/mL (<0.5)
[2024-06-15 17:46] LABS: Bacteria Urine Few (2-10); Culture Indicated Urine Specimen Cultured; RBC Urine 10-30/HPF (0-5/HPF); Squamous Epithelial Cell Urine 0-1 /HPF (0-5/HPF); Urine Volume 10mL (spun); WBC Urine 10-30/HPF (0-5/HPF)
[2024-06-15] MEDS: ACETAMINOPHEN 325 MG TABLET 975 MG PO (18:10)
[2024-06-15] MEDS: cefTRIAXone 2,000 MG in SODIUM CHLORIDE 0.9% 100 ML 200 MG IV (18:11)
[2024-06-15 18:45] LABS: Reflexed Lactate in 2 Hours Y
[2024-06-15 20:10] LABS: Lactate 2HR (Lactic Acid Rflx) 0.9 mmol/L (0.7-2.1)
[2024-06-15] MEDS: BACLOFEN 10 MG TABLET 20 MG PO (21:32)
[2024-06-15] MEDS: SODIUM CHLORIDE 0.9% 1,000 ML 125 ML IV (21:34)
[2024-06-15] MEDS: INSULIN GLARGINE 100 UNIT/ML 3ML PEN 20 UNIT SUBCUT (21:36)
[2024-06-16] MEDS: BACLOFEN 10 MG TABLET 20 MG PO ×3 (04:38→20:27)
[2024-06-16] MEDS: HYDROCODONE/ACET 5/325 TABLET 1 TAB PO ×4 (04:46→17:41)
[2024-06-16 05:16] LABS: Add Manual Diff / Slide Review NO; Basophils Absolute Auto 100 /uL (0-100); Basophils Percent Auto 0.5 % (0-2); Eosinophils Absolute Auto 200 /uL (0-450); Eosinophils Percent Auto 1.3 % (2-4); Hematocrit 30.4 % (36-46); Lymphocytes Absolute Auto 1200 /uL (1100-4500); Lymphocytes Percent Auto 8.2 % (25-40); Mean Corpuscular Hemoglobin 28.6 PG (26-34); Mean Corpuscular Volume 86.6 fL (80-100); Monocytes Absolute Auto 1000 /uL (0-900); Monocytes Percent Auto 7.1 % (3-14); Neutrophils Absolute Auto 11700 /uL (1500-7000); Neutrophils Percent Auto 82.9 % (50-75); Platelet Count 268 X10^3/uL (150-400); Red Blood Cell Count 3.51 X10^6/uL (4.0-5.2); Red Cell Distribution Width 16.4 % (11.6-14.8); White Blood Cell Count 14.1 X10^3/uL (4.5-11.0)
[2024-06-16 05:27] LABS: Lactate (Lactic Acid) 0.7 mmol/L (0.7-2.1)
[2024-06-16 05:29] LABS: Alanine Aminotransferase 33 IU/L (<35); Albumin 3.1 g/dL (3.5-5.0); Albumin Globulin Ratio 1.1 (1.0-2.8); Alkaline Phosphatase 87 U/L (38-126); Aspartate Aminotransferase 38 IU/L (14-36); BUN Creatinine Ratio 16.2 (6-22); Bilirubin Total 0.6 mg/dL (0.2-1.3); Blood Urea Nitrogen 12 mg/dL (7-17); Calcium 8.5 mg/dL (8.4-10.2); Carbon Dioxide 23 mmol/L (22-32); Chloride 109 mmol/L (98-107); Estimated Glomerular Filt Rate > 60 mL/min (>60); Globulin 2.9 g/dL (1.7-4.1); Glucose 154 mg/dL (80-110); HEMOLYSIS < 15 (0-50); Sodium 138 mmol/L (137-145)
[2024-06-16] MEDS: SODIUM CHLORIDE 0.9% 1,000 ML 125 ML IV ×2 (05:58→19:05)
[2024-06-16 08:00] VITALS: BP 133/74; PULSE 89; RESP 15; TEMP 35.9; O2SAT 96
--- NOTE | 2024-06-16 08:09 | P.CONS_ITS ---
History of Present Illness Consult details Date Patient Seen: 06/16/24 Time Patient Seen: 08:10 Chief complaint: fever at home, lethargic Reason for consult: Postoperative management Narrative: 73 y/o F presented to ED for evaluation of abdominal pain and diarrhea on 24 Mar 2024. Briefly, she was noted to have a left ureteral stone in the setting of a UTI. She had a CT Abd/Pel performed that was notable for a 7mm left proximal ureterolith with resultant upstream moderate hydroureteronephrosis and an additional 7mm left lower pole calculus. Urology was consulted regarding the ureteral stone in the setting of a UTI. She underwent a cystoscopy with left retrograde ureteropyelogram and subsequent left ureteral stent placement. She tolerated the procedure without any immediate complications, however, was admitted in late Mar for management of left pyelonephritis and underwent a repeat left ureteral stent exchange as she had an ongoing infection at the time of the attempted left ureteroscopy and laser lithotripsy. Her recovery from that admission was slower than expected and she continued to suffer from urinary retention that was managed with a bautista catheter. She ultimately had the catheter removed on 07 Jun 2024 and the decision was made to proceed w/ a cystoscopy, left ureteroscopy, laser lithotripsy and left ureteral stent exchange on 14 Jun 2024 and have her on 7 days of antibiotics preoperatively. Her procedure was notable for white debris within her left renal collecting system concerning for colonization. She no longer has stones w/in her left renal collecting system and she was discharged home on antibiotics. Unfortunately, she developed a temp of 100.3 F yesterday at home and was very lethargic, therefore, she presented to ED for further evaluation. This was notable for a WBC of 18.6, sCr of 0.78 and a KUB and RBUS that demonstrated proper positioning of her left ureteral stent. She had a bautista catheter inserted as well (no documentation of how much urine output was noted upon insertion). She was started on IV Rocephin and admitted overnight. Meds Home Medications and Allergies Home Medications Medication Instructions Recorded Confirmed Type Disabled Parking Permit #1 ea 05/09/20 06/03/24 Rx One Touch Verio Glucose Monitor #1 ea 01/07/23 06/03/24 Rx One Touch Verio test strips and #300 ea 03/26/23 06/03/24 Rx lancets estradiol 10 mcg vaginal tablet 10 mcg vaginal 2XW #24 tabs 02/24/24 06/15/24 Rx (Yuvafem) Hand controls #1 ea 03/22/24 06/03/24 Rx blood sugar diagnostic (OneTouch #300 ea 04/19/24 06/03/24 Rx Verio test strips) acetaminophen 325 mg tablet 650 mg (2 x 325 mg) PO Q6H PRN 04/23/24 06/15/24 Rx Fever/Mild Pain (1-3) #30 tabs metformin 500 mg tablet,extended 1,000 mg (2 x 500 mg) PO BID #360 05/06/24 06/15/24 Rx release 24 hr tabs hydrocodone 5 mg-acetaminophen 325 1 tab PO Q8H PRN Pain (Scale Score 05/20/24 06/15/24 Rx mg tablet 1-3) #30 tabs baclofen 10 mg tablet 20 mg (2 x 10 mg) PO Q8H #600 tabs 05/26/24 06/15/24 Rx fluconazole 150 mg tablet 150 mg PO .every other day #3 tabs 06/03/24 06/15/24 Rx mirabegron 50 mg tablet,extended 50 mg PO DAILY #90 tabs 06/08/24 06/15/24 Rx release 24 hr amoxicillin 875 mg-potassium 1 tab PO BID #14 tabs 06/14/24 06/15/24 Rx clavulanate 125 mg tablet atorvastatin 10 mg tablet 10 mg PO DAILY 06/14/24 06/15/24 History oxycodone 5 mg tablet 5 mg PO Q8H PRN pain 06/15/24 06/15/24 History Allergies Allergy/AdvReac Type Severity Reaction Status Date / Time Sulfa (Sulfonamide Allergy Severe ANAPHYLAXIS Verified 06/15/24 16:19 Antibiotics) [SULFA (SULFONAMIDE ANTIBIOTICS)] diphenhydramine Allergy Mild HIVES Verified 06/15/24 16:19 [DIPHENHYDRAMINE] levofloxacin [From Levaquin] AdvReac Severe neurological Verified 06/15/24 16:19 effects - pt hospitalized honeydew AdvReac Verified 06/15/24 16:19 Review of Systems Review of Systems Narrative: CONSTITUTIONAL: Denies weight loss, fevers, chills. HEENT: Denies change in vision, hearing. RESP: Denies SOB, cough. CV: Denies palpations, CP. GI: Denies abdominal pain, nausea, vomiting, diarrhea. MSK: Denies myalgia, joint pain. SKIN: Denies rash, pruritus. NEURO: Denies headache, syncope. PSYCH: Denies recent change in mood, anxiety, depression. Exam Vital Signs (past 8 hours): Oxygen Delivery Method Room Air Oxygen Flow Rate 0 Narrative Exam Narrative: GEN: Alert and oriented X3. No acute distress. Well-nourished. EYES: PERRLA, EOMI. HENT: Moist mucus membranes, no scleral icterus, normal neck ROM. RESP: Unlabored breathing, equal rise and fall of chest bilaterally, no cyanosis appreciated. CV: No peripheral edema, unremarkable heart rate. ABD: Soft, non-tender, non-distended, no palpable masses. : Bautista secured and draining clear yellow urine. EXT: No edema, clubbing or cyanosis. SKIN: No rashes or lesions. NEURO: No focal neurologic deficits, CN II-XII grossly intact. PSYCH: Cooperative, appropriate mood and affect. Objective Labs 06/16/24 04:38 06/16/24 04:38 Labs: Laboratory Results - last 24 hr 06/15/24 06/15/24 06/15/24 17:02 17:22 19:19 WBC 18.6 H RBC 4.23 Hgb 12.0 Hct 36.9 MCV 87.2 MCH 28.3 MCHC 32.4 RDW 16.3 H Plt Count 312 Neut % (Auto) 85.1 H Lymph % (Auto) 7.0 L [place] % (Auto) 6.1 Eos % (Auto) 1.6 L Baso % (Auto) 0.2 Neut # (Auto) 99461 H Lymph # (Auto) 1300 [place] # (Auto) 1100 H Eos # (Auto) 300 Baso # (Auto) 0 PT 13.2 H INR 1.2 APTT 29 Sodium 135 L Potassium 3.4 Chloride 102 Carbon Dioxide 24 BUN 14 Creatinine 0.78 Estimated GFR > 60 BUN/Creatinine Ratio 17.9 Glucose 212 H Lactate 2.2 H 0.9 Calcium 9.5 Total Bilirubin 0.9 AST 39 H ALT 34 Alkaline Phosphatase 86 Total Protein 8.0 Albumin 4.3 Globulin 3.7 Albumin/Globulin Ratio 1.2 Lipase 74 Procalcitonin 5.49 H Urine Color [place] Urine Appearance Sl cloudy Urine pH TNP Ur Specific [place] TNP Urine Protein TNP Urine Glucose (UA) TNP Urine Ketones TNP Urine Occult Blood TNP Urine Nitrate TNP Urine Bilirubin TNP Urine Urobilinogen TNP Ur Leukocyte Esterase TNP Urine RBC 10-30/hpf H Urine WBC 10-30/hpf H Ur Squamous Epith Cells 0-1 /hpf Urine Bacteria Few (2-10) H Ur Culture Indicated? Specimen cultured Vol Urine Centrifuged 10ml (spun) 06/16/24 04:38 WBC 14.1 H RBC 3.51 L Hgb 10.0 L Hct 30.4 L MCV 86.6 MCH 28.6 MCHC 33.0 RDW 16.4 H Plt Count 268 Neut % (Auto) 82.9 H Lymph % (Auto) 8.2 L [place] % (Auto) 7.1 Eos % (Auto) 1.3 L Baso % (Auto) 0.5 Neut # (Auto) 25151 H Lymph # (Auto) 1200 [place] # (Auto) 1000 H Eos # (Auto) 200 Baso # (Auto) 100 PT INR APTT Sodium 138 Potassium 3.0 L Chloride 109 H Carbon Dioxide 23 BUN 12 Creatinine 0.74 Estimated GFR > 60 BUN/Creatinine Ratio 16.2 Glucose 154 H Lactate 0.7 Calcium 8.5 Total Bilirubin 0.6 AST 38 H ALT 33 Alkaline Phosphatase 87 Total Protein 6.0 L Albumin 3.1 L Globulin 2.9 Albumin/Globulin Ratio 1.1 Lipase Procalcitonin Urine Color Urine Appearance Urine pH Ur Specific [place] Urine Protein Urine Glucose (UA) Urine Ketones Urine Occult Blood Urine Nitrate Urine Bilirubin Urine Urobilinogen Ur Leukocyte Esterase Urine RBC Urine WBC Ur Squamous Epith Cells Urine Bacteria Ur Culture Indicated? Vol Urine Centrifuged [facility] Medical History Pyuria Parapelvic renal cyst Constipation Atrophic vaginitis Hydronephrosis of left kidney Chronic lower urinary tract infection Recurrent urinary tract infection Colon polyps (2009) Chicken pox Measles Plantar warts (2004) Fractures (~2005) Osteopenia Multiple sclerosis (1991) Surgical History History of urethral stent (03/2024) History of tubal ligation History of cholecystectomy Anesthesia History of shoulder surgery (1973) Status post rotator cuff repair (2011) History of third molar tooth extraction (1970) Status post tubal ligation (1979) Family History Brother Age: 67 Diabetes mellitus Hypertension High cholesterol Child Age: 28 Adopted Mother Heart disease Hypertension Stroke Cancer Father Alzheimer's disease Grandmother No problems noted. Social History marital status: number of children: 1 household members: friend(s) occupational status: employed Tobacco & Substance Use Smoking Status: Never smoker alcohol intake: current substance use type: does not use Diet and Exercise caffeine: Yes (tea-occasional ) Type(s) of exercise: other frequency: 5-6 times per week Assessment & Plan Assessment and plan (1) Pyelonephritis: Status: Acute Plan: 73 y/o F w/ who underwent a cystoscopy with left ureteral stent placement for management of a left ureteral stone in the setting of a urinary tract infection in late Feb as well as a repeat left ureteral stent exchange in late Mar secondary to ongoing UTI during attempted left ureteroscopy. She recently underwent a left ureteroscopy w/ laser lithotripsy and left ureteral stent exchange on 14 Jun 2024. Intraoperatively, she was noted to have white debris w/in her left renal collecting system concerning for colonization and was discharged home on antibiotics. Discussed that her two left renal stones are now gone, however, she was at high risk for pyelonephritis following her procedure (this was disclosed to her immediately postoperatively). - Appreciate assistance of medical team w/ admission - Unsure as to duration of bautista catheter as I am unsure if she was truly in urinary retention, however, agree w/ maximal urinary drainage at the moment - Would favor leaving left ureteral stent in place until 21 Jun 2024 - Will continue to follow along during admission Time-Based Coding :: [TOTAL MINUTES] spent with patient and on the chart (including review of chart, obtaining history, exam, reviewing outside data, placing orders, documenting exam and treatment plan, and counseling patient) on [DATE]. PROFEE Charge Codes Inpatient or Observation consultation: 36822
[2024-06-16] MEDS: OXYBUTYNIN 5 MG ER TAB 10 MG PO (08:36)
[2024-06-16] MEDS: ATORVASTATIN 20 MG TABLET 10 MG PO (08:36)
[2024-06-16] MEDS: ENOXAPARIN 40 MG/0.4 ML SYRINGE SUBCUT (08:36)
[2024-06-16] MEDS: POTASSIUM CHLORIDE 20 MEQ TAB 40 MEQ PO ×2 (08:40→17:35)
--- NOTE | 2024-06-16 09:13 | PM.DS.NB.1 ---
History of Present Illness History of Present Illness Date Patient Seen: 06/16/24 Time Patient Seen: 08:18 Chief complaint: fever at home, lethargic Discharge Providers Provider Date of admission: 06/15/24 18:07 Primary care physician: Isaac Farmer MD Consults: 06/15/24 20:36 Consult to Discharge Planning Routine Comment: Consult to Physical Therapy Evaluate & Treat Comment: Physician Instructions: Evaluate and Treat Discharge provider: Isaac Farmer MD Exam - Pediatric Vital Signs Vital Signs: Vital Signs Temp Pulse Resp BP Pulse Ox O2 Del Method 100.3 F H 125 H 16 136/74 95 Room Air 06/15/24 16:13 06/15/24 16:13 06/15/24 16:13 06/15/24 16:13 06/15/24 16:13 06/15/24 16:13 Objective Labs 06/16/24 04:38 06/16/24 04:38 Labs: Laboratory Results - last 24 hr 06/15/24 06/15/24 06/15/24 17:02 17:22 19:19 WBC 18.6 H RBC 4.23 Hgb 12.0 Hct 36.9 MCV 87.2 MCH 28.3 MCHC 32.4 RDW 16.3 H Plt Count 312 Neut % (Auto) 85.1 H Lymph % (Auto) 7.0 L [place] % (Auto) 6.1 Eos % (Auto) 1.6 L Baso % (Auto) 0.2 Neut # (Auto) 67964 H Lymph # (Auto) 1300 [place] # (Auto) 1100 H Eos # (Auto) 300 Baso # (Auto) 0 PT 13.2 H INR 1.2 APTT 29 Sodium 135 L Potassium 3.4 Chloride 102 Carbon Dioxide 24 BUN 14 Creatinine 0.78 Estimated GFR > 60 BUN/Creatinine Ratio 17.9 Glucose 212 H Lactate 2.2 H 0.9 Calcium 9.5 Total Bilirubin 0.9 AST 39 H ALT 34 Alkaline Phosphatase 86 Total Protein 8.0 Albumin 4.3 Globulin 3.7 Albumin/Globulin Ratio 1.2 Lipase 74 Procalcitonin 5.49 H Urine Color [place] Urine Appearance Sl cloudy Urine pH TNP Ur Specific [place] TNP Urine Protein TNP Urine Glucose (UA) TNP Urine Ketones TNP Urine Occult Blood TNP Urine Nitrate TNP Urine Bilirubin TNP Urine Urobilinogen TNP Ur Leukocyte Esterase TNP Urine RBC 10-30/hpf H Urine WBC 10-30/hpf H Ur Squamous Epith Cells 0-1 /hpf Urine Bacteria Few (2-10) H Ur Culture Indicated? Specimen cultured Vol Urine Centrifuged 10ml (spun) 06/16/24 04:38 WBC 14.1 H RBC 3.51 L Hgb 10.0 L Hct 30.4 L MCV 86.6 MCH 28.6 MCHC 33.0 RDW 16.4 H Plt Count 268 Neut % (Auto) 82.9 H Lymph % (Auto) 8.2 L [place] % (Auto) 7.1 Eos % (Auto) 1.3 L Baso % (Auto) 0.5 Neut # (Auto) 38834 H Lymph # (Auto) 1200 [place] # (Auto) 1000 H Eos # (Auto) 200 Baso # (Auto) 100 PT INR APTT Sodium 138 Potassium 3.0 L Chloride 109 H Carbon Dioxide 23 BUN 12 Creatinine 0.74 Estimated GFR > 60 BUN/Creatinine Ratio 16.2 Glucose 154 H Lactate 0.7 Calcium 8.5 Total Bilirubin 0.6 AST 38 H ALT 33 Alkaline Phosphatase 87 Total Protein 6.0 L Albumin 3.1 L Globulin 2.9 Albumin/Globulin Ratio 1.1 Lipase Procalcitonin Urine Color Urine Appearance Urine pH Ur Specific [place] Urine Protein Urine Glucose (UA) Urine Ketones Urine Occult Blood Urine Nitrate Urine Bilirubin Urine Urobilinogen Ur Leukocyte Esterase Urine RBC Urine WBC Ur Squamous Epith Cells Urine Bacteria Ur Culture Indicated? Vol Urine Centrifuged Discharge Plan Discharge Plan Patient Disposition: Home Discharge orders & Medications Prescriptions: No Action (DME) Disabled Parking Permit Qty: 1 0RF Rx Instructions: I find this person to be disabled (DME) One Touch Verio Glucose Monitor See Rx Instructions .Route .MEDSUPPLY Qty: 1 0RF Rx Instructions: As directed twice daily for glucose monitoring (DME) One Touch Verio test strips and lancets See Rx Instructions .Route .MEDSUPPLY Qty: 300 3RF Rx Instructions: As directed three times daily for blood glucose monitoring estradiol [Yuvafem] 10 mcg tablet 10 mcg vaginal 2XW Qty: 24 3RF (DME) OneTouch Verio test strips Strip See Rx Instructions .ROUTE .COMPLEX Qty: 300 3RF Dose Instruction: Use to check blood glucose 3 times daily Rx Instructions: Use to check blood glucose 3 times daily metformin 500 mg tablet extended release 24 hr 1,000 mg PO BID Qty: 360 1RF baclofen 10 mg tablet 20 mg PO Q8H Qty: 600 3RF mirabegron 50 mg tablet extended release 24 hr 50 mg PO DAILY Qty: 90 3RF atorvastatin 10 mg tablet 10 mg PO DAILY (DME) Hand controls See Rx Instructions .Route .MEDSUPPLY Qty: 1 0RF Rx Instructions: Use for driving hydrocodone-acetaminophen 5-325 mg tablet 1 tab PO Q8H PRN (Reason: Pain (Scale Score 1-3)) Qty: 30 0RF fluconazole 150 mg tablet 150 mg PO .every other day Qty: 3 0RF acetaminophen 325 mg Tablet 650 mg PO Q6H PRN (Reason: Fever/Mild Pain (1-3)) Qty: 30 0RF amoxicillin-pot clavulanate 875-125 mg tablet 1 tab PO BID Qty: 14 0RF oxycodone 5 mg tablet 5 mg PO Q8H PRN (Reason: pain) Follow up/Referrals: Isaac Farmer MD [Primary Care Provider] - Visit Report/Discharge Packet Stand Alone Forms: Patient Portal/API, Stroke Signs & Symptoms Discharge Data Primary Care Provider: Isaac Farmer Attending Provider: Isaac Farmer Admit Date/Time: 06/15/24 18:07
--- NOTE | 2024-06-16 09:20 | P.HP_ITS ---
History of Present Illness History of Present Illness Date Patient Seen: 06/16/24 Time Patient Seen: 08:21 Chief complaint: fever at home, lethargic Narrative: Patient is a 73-year-old female with a past medical history of multiple sclerosis with ambulatory dysfunction due to nerve damage from MS diabetes on oral medication hyperlipidemia osteoarthritis with recent difficulties with kidney stones urinary stent placement and pyelonephritis. patient went under general anesthesia on 06/14/2024. patient underwent cystoscopy left laser lithotripsy and left stent replacement. At the time of the procedure patient was noted to have infection in her stone and debris in her kidney consistent with colonization. Patient was started preoperatively on antibiotics and postoperatively given antibiotics to take at home. Patient was doing well until yesterday when yesterday morning her son who is now living with her noted that she was acting a little bit differently. Throughout the day she became a little bit more confused. She and her son looked at the discharge paperwork and said that this may be a reason for concern. They eventually went to the emergency department patient does not really remember much of yesterday afternoon although she does remember being much more weak difficult time with ambulation although she always has difficulty she reach required a wheelchair ultimately 911 was called to bring the patient to the hospital because she could not get into the car. Patient's symptoms included weakness difficulty with moving some mental status changes and sluggishness some confusion. She also had a fever. She was not complaining of the pain shortness of breath. No chest pain. She has some mild abdominal cramping. She says that is not a problem now. Patient states she has good appetite. In the emergency department she was found to have a fever she had change in her mental status elevated white blood cell count elevated procalcitonin all consistent with infection probably pyelonephritis. Patient had blood cultures done see. patient had imaging of her kidney done with a KUB and also an ultrasound stent was found to be in the normal place. In the emergency department a Luo catheter was placed in patient was admitted to the hospital for further evaluation and workup. This morning patient states she is feeling a little bit better she is still weak. She is mentally less disoriented and confused but not quite there. She is eating breakfast. Overnight she says she has no complaints of pain she has seen the Urology surgeon. [facility] Medical History Pyuria Parapelvic renal cyst Constipation Atrophic vaginitis Hydronephrosis of left kidney Chronic lower urinary tract infection Recurrent urinary tract infection Colon polyps (2009) Chicken pox Measles Plantar warts (2004) Fractures (~2005) Osteopenia Multiple sclerosis (1991) Surgical History History of urethral stent (03/2024) History of tubal ligation History of cholecystectomy Anesthesia History of shoulder surgery (1973) Status post rotator cuff repair (2011) History of third molar tooth extraction (1970) Status post tubal ligation (1979) Family History Brother Age: 67 Diabetes mellitus Hypertension High cholesterol Child Age: 28 Adopted Mother Heart disease Hypertension Stroke Cancer Father Alzheimer's disease Grandmother No problems noted. Social History marital status: number of children: 1 household members: friend(s) occupational status: employed Smoking Status: Never smoker alcohol intake: current substance use type: does not use caffeine: Yes (tea-occasional ) Type(s) of exercise: other frequency: 5-6 times per week Meds Home Medications and Allergies Home Medications Medication Instructions Recorded Confirmed Type Disabled Parking Permit #1 ea 05/09/20 06/03/24 Rx One Touch Verio Glucose Monitor #1 ea 01/07/23 06/03/24 Rx One Touch Verio test strips and #300 ea 03/26/23 06/03/24 Rx lancets estradiol 10 mcg vaginal tablet 10 mcg vaginal 2XW #24 tabs 02/24/24 06/15/24 Rx (Yuvafem) Hand controls #1 ea 03/22/24 06/03/24 Rx blood sugar diagnostic (OneTouch #300 ea 04/19/24 06/03/24 Rx Verio test strips) acetaminophen 325 mg tablet 650 mg (2 x 325 mg) PO Q6H PRN 04/23/24 06/15/24 Rx Fever/Mild Pain (1-3) #30 tabs metformin 500 mg tablet,extended 1,000 mg (2 x 500 mg) PO BID #360 05/06/24 06/15/24 Rx release 24 hr tabs hydrocodone 5 mg-acetaminophen 325 1 tab PO Q8H PRN Pain (Scale Score 05/20/24 06/15/24 Rx mg tablet 1-3) #30 tabs baclofen 10 mg tablet 20 mg (2 x 10 mg) PO Q8H #600 tabs 05/26/24 06/15/24 Rx fluconazole 150 mg tablet 150 mg PO .every other day #3 tabs 06/03/24 06/15/24 Rx mirabegron 50 mg tablet,extended 50 mg PO DAILY #90 tabs 06/08/24 06/15/24 Rx release 24 hr amoxicillin 875 mg-potassium 1 tab PO BID #14 tabs 06/14/24 06/15/24 Rx clavulanate 125 mg tablet atorvastatin 10 mg tablet 10 mg PO DAILY 06/14/24 06/15/24 History oxycodone 5 mg tablet 5 mg PO Q8H PRN pain 06/15/24 06/15/24 History Allergies Allergy/AdvReac Type Severity Reaction Status Date / Time Sulfa (Sulfonamide Allergy Severe ANAPHYLAXIS Verified 06/15/24 16:19 Antibiotics) [SULFA (SULFONAMIDE ANTIBIOTICS)] diphenhydramine Allergy Mild HIVES Verified 06/15/24 16:19 [DIPHENHYDRAMINE] levofloxacin [From Levaquin] AdvReac Severe neurological Verified 06/15/24 16:19 effects - pt hospitalized honeydew AdvReac Verified 06/15/24 16:19 Exam Vital Signs (past 8 hours): - 06/16/24 08:00 Temperature 96.7 F L Pulse Rate 89 Respiratory Rate 15 Blood Pressure 133/74 Pulse Oximetry 96 Oxygen Flow Rate 0 Oxygen Delivery Method Room Air Oxygen Flow Rate 0 Narrative Exam Narrative: Gen.: Alert and oriented x3 no apparent distress. HEENT: NCAT PERRLA tympanic membranes are clear nares are patent oral mucosa is moist no tonsillar hypertrophy neck is supple without lymphadenopathy no thyroid enlargement. Cardio: S1-S2 regular rate and rhythm Tachycardia Respiratory: Lungs are clear to auscultation no wheezes or crackles normal respiratory effort. Abdomen: Soft nontender no rebound or guarding no liver spleen enlargement no appreciable hernias Extremities: Full range of motion no appreciable weakness no cyanosis or edema. Neurologic: Generalized weakness with deficits of strength on the left side. Objective Labs 06/16/24 04:38 06/16/24 04:38 Labs: Laboratory Results - last 24 hr 06/15/24 06/15/24 06/15/24 17:02 17:22 19:19 WBC 18.6 H RBC 4.23 Hgb 12.0 Hct 36.9 MCV 87.2 MCH 28.3 MCHC 32.4 RDW 16.3 H Plt Count 312 Neut % (Auto) 85.1 H Lymph % (Auto) 7.0 L [place] % (Auto) 6.1 Eos % (Auto) 1.6 L Baso % (Auto) 0.2 Neut # (Auto) 76434 H Lymph # (Auto) 1300 [place] # (Auto) 1100 H Eos # (Auto) 300 Baso # (Auto) 0 PT 13.2 H INR 1.2 APTT 29 Sodium 135 L Potassium 3.4 Chloride 102 Carbon Dioxide 24 BUN 14 Creatinine 0.78 Estimated GFR > 60 BUN/Creatinine Ratio 17.9 Glucose 212 H Lactate 2.2 H 0.9 Calcium 9.5 Total Bilirubin 0.9 AST 39 H ALT 34 Alkaline Phosphatase 86 Total Protein 8.0 Albumin 4.3 Globulin 3.7 Albumin/Globulin Ratio 1.2 Lipase 74 Procalcitonin 5.49 H Urine Color [place] Urine Appearance Sl cloudy Urine pH TNP Ur Specific [place] TNP Urine Protein TNP Urine Glucose (UA) TNP Urine Ketones TNP Urine Occult Blood TNP Urine Nitrate TNP Urine Bilirubin TNP Urine Urobilinogen TNP Ur Leukocyte Esterase TNP Urine RBC 10-30/hpf H Urine WBC 10-30/hpf H Ur Squamous Epith Cells 0-1 /hpf Urine Bacteria Few (2-10) H Ur Culture Indicated? Specimen cultured Vol Urine Centrifuged 10ml (spun) 06/16/24 04:38 WBC 14.1 H RBC 3.51 L Hgb 10.0 L Hct 30.4 L MCV 86.6 MCH 28.6 MCHC 33.0 RDW 16.4 H Plt Count 268 Neut % (Auto) 82.9 H Lymph % (Auto) 8.2 L [place] % (Auto) 7.1 Eos % (Auto) 1.3 L Baso % (Auto) 0.5 Neut # (Auto) 48863 H Lymph # (Auto) 1200 [place] # (Auto) 1000 H Eos # (Auto) 200 Baso # (Auto) 100 PT INR APTT Sodium 138 Potassium 3.0 L Chloride 109 H Carbon Dioxide 23 BUN 12 Creatinine 0.74 Estimated GFR > 60 BUN/Creatinine Ratio 16.2 Glucose 154 H Lactate 0.7 Calcium 8.5 Total Bilirubin 0.6 AST 38 H ALT 33 Alkaline Phosphatase 87 Total Protein 6.0 L Albumin 3.1 L Globulin 2.9 Albumin/Globulin Ratio 1.1 Lipase Procalcitonin Urine Color Urine Appearance Urine pH Ur Specific [place] Urine Protein Urine Glucose (UA) Urine Ketones Urine Occult Blood Urine Nitrate Urine Bilirubin Urine Urobilinogen Ur Leukocyte Esterase Urine RBC Urine WBC Ur Squamous Epith Cells Urine Bacteria Ur Culture Indicated? Vol Urine Centrifuged Assessment & Plan Assessment and plan (1) Pyelonephritis: Status: Acute (2) Fever postop: Status: Acute Plan Sepsis patient with sepsis with elevated white blood cell count elevated procalcitonin elevated fever and tachycardia. Source of infection is urinary tract. Review patient cultures so recently E coli previously Enterococcus and other bacteria including chad. Patient will have a urine culture blood culture repeat lactic acid and was given IV fluids. Patient's blood pressure is stable at this point her tachycardic is improving. will go ahead and continue with Rocephin 2 g IV Q 24 hours. Based on recent culture results this should work. Patient will have monitoring of white blood cell count electrolytes heart rate and blood pressure. Will monitor closely for worsening condition of infection. We will follow culture results and treat appropriately based on cultures. Metabolic encephalopathy. Patient with mental status changes disorientation on arrival to the emergency department this was most likely due to her underlying infection. Patient is cleared this morning. She says she feels like she is more in her right mind understands where she is and what is going on. She says in the emergency department she does not remember a lot other than feeling sick and weak. Pyelonephritis patient has kidney infection status post recent urinary stent replacement and lithotripsy for kidney stones. Patient will be continued on ceftriaxone 2 g IV Q 24 hours we are follow culture results appreciate Urology consultation and advice. Multiple sclerosis. Patient with multiple sclerosis this is chronic and stable. Without acute exacerbation or flare at this time she has some difficulty with walking with weakness and requires a walker at home for ambulation. Patient will require physical therapy to help her get out of bed and walk. type 2 diabetes non-insulin dependent. Her metformin will be held during the hospital stay. She will be placed on Lantus insulin at night and insulin sliding scale coverage during the day for optimal blood sugar control will monitor her blood sugars a.c. HS and give her a diabetic diet. Hyperlipidemia. Patient on cholesterol medication. Code status patient is full code. DVT prophylaxis with Lovenox Disposition and plan. Patient will ambulate with physical therapy will continue IV antibiotics. Optimal discharge plan is home hopefully within 24 hours. Patient has a Luo catheter in place. We would like to help patient work with ambulation today Dr. Denis would like to be available when patient's Luo catheter is removed hopefully we can do that this afternoon possible discharge home tomorrow with home health home PT Time-Based Coding :: [TOTAL MINUTES] spent with patient and on the chart (including review of chart, obtaining history, exam, reviewing outside data, placing orders, documenting exam and treatment plan, and counseling patient) on [DATE]. Quality VTE Deep Vein Thrombosis/Pulmonary Embolism Present on Admission: No
--- NOTE | 2024-06-16 10:40 | PT.IIE ---
Current Diagnoses Tubulo-interstitial nephritis, not specified as acute or chronic (06/15/24) Postprocedural fever (06/15/24) Surgical History (Last Reviewed 06/16/24 @ 09:22 by Isaac Farmer MD) Anesthesia History of cholecystectomy History of shoulder surgery (1973) History of third molar tooth extraction (1970) History of tubal ligation History of urethral stent (03/2024) Status post rotator cuff repair (2011) Status post tubal ligation (1979) Medical History (Last Reviewed 06/16/24 @ 09:22 by Isaac Farmer MD) Atrophic vaginitis Chicken pox Chronic lower urinary tract infection Colon polyps (2009) Constipation Fractures (~2005) Hydronephrosis of left kidney Measles Multiple sclerosis (1991) Osteopenia Parapelvic renal cyst Plantar warts (2004) Pyuria Recurrent urinary tract infection Physical Therapy Inpatient Evaluation/Re-Eval M1 PT/OT-IP Prior Functional Status Start: 06/16/24 12:52 Freq: NEEDED Status: Active Protocol: Document 06/16/24 10:40 AB (Rec: 06/16/24 13:08 AB [id number]) Medical Review Prior Functional Status Medical History Reviewed Yes Communication able to make needs known Mobility and Gait pt stated that she started not feeling well ~ 2 weeks ago and needing more assistance at home and uses her manual w/c for mobility but still able to transfer with assist. prior to that, able to ambulate using a 4WW. pt's son was assisting pt at home. Social History Household Members children Living Arrangements House Number of Floors (Floors) One Floor Number of Stairs To Enter/Railing? 5 steps B rails to enter the house Home Environment Standard Height Toilet,Walk in Shower Home Equipment Four Wheel Walker,Manual Wheelchair,Shower Seat with Backrest,Hand Held Shower,Grab Bars Near Toilet,Grab Bars In Shower Additional Social History Comment pt stated that he son is staying with her until Jul 09. pt has an adjustable bed with R side bedcane M2 PT-IP Current Condition Start: 06/16/24 12:52 Freq: NEEDED Status: Active Protocol: Document 06/16/24 10:40 AB (Rec: 06/16/24 13:08 AB [id number]) Physical Therapy Current Condition Current Condition Evaluation Date 06/16/24 Treatment Diagnosis pyelonephritis; difficulty in walking Onset Date 06/15/24 M3 PT-IP Subjective Start: 06/16/24 12:52 Freq: NEEDED Status: Active Protocol: Document 06/16/24 10:40 AB (Rec: 06/16/24 13:08 AB [id number]) Subjective Physical Therapy Visit Type Type Initial Evaluation Visit Start Time 10:40 Visit Stop Time 11:05 Number of MEDICAL RECORDS RECEPTIONIST Visits 0 Physical Therapy Visit Comments Patient Comments wanting to get up M4 PT-IP Mobility and Gait Start: 06/16/24 12:52 Freq: NEEDED Status: Active Protocol: Document 06/16/24 10:40 AB (Rec: 06/16/24 13:08 AB [id number]) PT-Bed Mobility Assessment Supine to Sit Supine to Sit Maximum Assistance,Head of Bed Elevated,Bedrails Scooting Scooting to Edge of Bed Maximum Assistance PT-Transfer Assessment Sit to and From Stand Sit to and from Stand Maximum Assistance,2 Person Assistance,Use of Upper Extremities Equipment Transfer Assistive Device Gait Belt,Front Wheeled Walker Orthotic/Prosthetic Devices or Brace: No Transfers Transfer Destination Chair Transfer Technique Squat Pivot Transfer Ability Level of Assist Maximum Assistance,Total Assistance,2 Person Assistance ,Use of Upper Extremities Comments Mobility Comments pt supine in bed. NAC in room and needing assistance for pt. pt wanting to get up to the chair. pt completed supine to sit max A and cues. HOB elevated and pt used R bed rial to assist. pt with increase posterior trunk lean in sitting and extension of BLE. cued for posture. assisted pt with brief management. completed sit to stand from EOB max A x 2 and max cues. increase retrolean needing max A for positioning and standing balance using fWW for support. NAC assisted pt with brief management and hygiene care. pt sat back on EOB. completed squat pivot transfer max A x 2 to total A x 2 bed to chair. positioned pt on the chair. call light and table placed within reach. PT-Balance Assessment Sitting Balance and Reactions Static Sitting Balance Ability Fair Dynamic Sitting Balance Ability Poor Standing Balance and Reactions Static Standing Balance Ability Poor Dynamic Standing Balance Ability Poor Device Used FWW M5 PT-IP Objective Assessments Start: 06/16/24 12:52 Freq: NEEDED Status: Active Protocol: Document 06/16/24 10:40 AB (Rec: 06/16/24 13:08 AB [id number]) Orientation Orientation/Cognition Level of Alertness Alert Gross Range of Motion Lower Extremity ROM Assessment Within Functional Limits Strength Lower Extremity Strength Assessment Bilaterally Impaired Comments Strength Comments increase extensor tone affecting testing Muscle Tone Muscle Tone WNL No Muscle Tone Location Bilateral Lower Extremity Type of Tone Hypertonicity,Extensor Severity of Tone Moderate M6 PT-IP Treatment Start: 06/16/24 12:52 Freq: NEEDED Status: Active Protocol: Document 06/16/24 10:40 AB (Rec: 06/16/24 13:08 AB [id number]) Physical Therapy Treatment Education Education Provided Safety M7 PT-IP Assessment and Plan Start: 06/16/24 12:52 Freq: NEEDED Status: Active Protocol: Document 06/16/24 10:40 AB (Rec: 06/16/24 13:08 AB [id number]) PT Summary Assessment and Plan Potential Rehabilitation Potential Fair Status of Condition at Evaluation Evolving Summary Impairments Pain,ROM,Strength,Balance, Coordination,Sensation,Tone, Cognition,Bed Mobility, Transfers,Gait,Activity Tolerance Assessment Summary pt is a 73 y/o F who is admitted for pyelonephritis. pt with dx of MS affecting current functional mobility. pt requiring max A x 2 to total Ax 2 with bed mobility and transfers. Recommeding a mechanical lift transfers with nursing staff at this time. pt will benefit from SNF rehab to improve overall strength and function. Goals Bed Mobility Goal Minimal Assistance Transfer Goal Minimal Assistance,Front Wheeled Walker Gait Goal Minimal Assistance,Front Wheel Walker Gait Distance 25 Other Goals improve bed mobility, transfers, ambulation SBA using FWW 150 ft Days to Meet Goals 10 Frequency of Treatment Frequency Of Treatment Once a Day Treatment Plan Physical Therapy Treatment Plan Bed Mobility Training,Transfer Training,Gait Training, Therapeutic Exercise,Balance Retraining,Discharge Planning, Hot or Cold Pack,Neuromuscular Re-ed,Coordination Retraining ,Manual Therapy Precautions Other Precautions falls Recommendations To Nursing Amount of Assist Needed Mechanical Lift Discharge Recommendations PT Discharge Recommendations SNF Rehab Transportation Needs at Discharge Wheelchair/Cabulance
--- NOTE | 2024-06-16 12:13 | DIET.CONS ---
Dietary Consultation Note Admission Date: 06/15/2024 18:07 Assessment: 73 y F presented with fever and altered mental status. RD screened for low MNA. Met with pt at bedside. Reports good appetite. After last admission in March she went to SNF where she reports 10 lb weight loss d/t low appetite/not liking food options. Since leaving SNF, has gained 5 lb. Is now doing 3 meals a day provided by family member or friends. Pt provided examples of meals, which included protein, carb, veg (i.e. chicken, rice, veg). Is happy with the food here. PMH of diabetes with A1c% of 7.7% on 12/16/23. Ht: 152.4 cm Wt: 56 kg BMI: 23.8 (normal for age) UBW: 63.503 kg on 02/06/24 (-12% weight loss within 6 months, severe), 60.328 kg on 03/26/24 (-7% weight loss within 3 months, non-severe), 60 kg on 04/20/24 (-7% weight loss in 2 months, non-severe) Last BM: 06/15/24 (06/15/24 19:54) MNA: 8 Twin Score: 16 Diet: 06/16/24 Lunch Carbohydrate Consistent Diet Diet Modifications: May Advance Diet as Tolerated: Yes Safety Tray needed?: No Carbohydrate level: Medium (3 CHO) Bedtime snack: Yes Reflex DM orders: No Food Texture: Level 7 - Regular Liquid Consistency: Level 0 - Thin Labs: RBC 3.51 X10^6/uL (4.0-5.2) L 06/16/24 04:38 Hgb 10.0 g/dL (12.0-16.0) L 06/16/24 04:38 Hct 30.4 % (36-46) L 06/16/24 04:38 Creatinine 0.74 mg/dL (0.52-1.04) 06/16/24 04:38 Lactate 0.7 mmol/L (0.7-2.1) 06/16/24 04:38 Nutrition Diagnosis: Unintentional weight loss r/t previous inadequate oral intakes aeb -12% weight loss within 6 months, severe, <75% EER for 6 weeks prior to March hospitalization and 4 weeks during SNF stay Interventions: -Pt now reporting good intakes and appetite. Encouraged continuation with 3 balanced meals per day, snacks as needed. Per chart review, plan to d/c home Monitoring/Evaluations: PO intakes Electronically Signed by: Sofía Lee 06/16/24 12:13 Clinical Dietitian [address] [id number]
[2024-06-16] MEDS: INSULIN LISPRO 100 UNIT/ML 3ML VIAL SUBCUT ×2 (12:17→21:09)
--- NOTE | 2024-06-16 13:19 | CM.DANOTE ---
Patient is a 73yo F admitted INPT Status on 06/15/24 for Pyelonephritis. PCP Darian Wood and Medicare A only Per , pt with PMH of MS. Recent left ureteral stent placed at 03/24/[address] Denis. scheduled for left ureteroscopy with laser lithotripsy on 23 Apr 2024 when she became weak and was admitted last in Mar 2024 and had to discharge to SNF. Pt currently being treated for Sepsis from Pyelonephritis and getting IV-Abx and Urology consulted. Per PT, pt currently way below baseline and total assist with nataly and was able to stand and be assisted to bedside chair but could not ambulate yet today. Currently recommending SNF as she has 5 steps to enter her home. SW met bedside with pt and explained role and she confirms she lives at home in [place] and has a house-mate who is a caregiver for work as well as pet/house shorer and is currently staying at a house for house sitting. 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 Pt states her son/COLTEN Gonzales is currently staying with her until Jul 03, 2024 before he has to go back to [facility] for work. Pt states son has been very attentive and helpful and pt strongly prefers discharge home with [facility] and to add back RN/OT/RECORDS OFFICER. Pt states her underlying MS causes her to get de-conditioned quickly and she is very disappointed to be admitted to the hospital again and lost some of her ambulatory progress. Pt aware that if she discharges home and not ambulating well, may need BLS stretcher transport into the house and son would have to confirm he feels he can manage her needs. SW contacted [facility] and alerted them to pt's admit and waiting to confirm Resumption Orders vs new orders and that they can accept her back pending her care needs. Plan: SW to follow closely for further PT/OT to determine if pt safe for home with son and [facility] vs need for SNF although pt adamantly does not want SNF. FIGUEROA Major Discharge Planning/Care Management Advanced directive, confirm from FAMILY Start: 06/15/24 20:50 Freq: Q24H Status: Active Protocol: Document 06/15/24 20:50 AGW (Rec: 06/15/24 23:19 AGW [id number]) Advance Directive, confirm on record Time 21:15 Person contacted patient & son Copy received No CM Discharge Assessment Start: 06/16/24 13:15 Freq: Status: Active Protocol: Document 06/16/24 13:16 BF (Rec: 06/16/24 13:19 BF [id number]) Discharge Planning Assessment Assigned Legal Specialist FIGUEROA Tovar DPOA/Assigned Designee Name son Christian in [facility] Contact Information [phone] Advance Directives? Yes Advance Directives on File No History Provided By Patient,Medical Record Has Patient been admitted in last 30 No days? Comment Last admit in Mar 2024 couple months ago for similar and discharged to [facility] Prior Living Arrangements House Household Members none Type of transporation used prior to Drives own vehicle admit Independent with ADL's Yes Is patient alert and oriented? Yes Needs Assistance With Home Chores / Shopping Caregiver for Another No Community Services used prior to Physical Therapy admission: Comment Currently open with [facility] PT DME Already Rented / Owned Bath Bench,Wheelchair,Elevated Toilet Seat,FWW / Walker Patient/Family Preference Home with Home Health Comment PT recommending SNF but pt preference is home with [facility] and son Barriers to Discharge No Discharge Plan Home with Home Health Community Services Physical Therapy,Occupational Therapy,Home Health Aid,Home Health Nurse Transportation Arrangement If safe for home will have to determine son vs BLS due to 5 stairs to enter Referrals Initiated Home Health Additional Comment PT=SNF, but waiting to confirm if pt makes progress for home with [facility] Medicare Choice List Provided Yes Medicare choice list reviewed on patient electronic tablet with SNF/HH Preference [facility] Whiteboard Updated in Patient Room with Yes name and ext. # of Legal Specialist Review Status In Process Please Provide Date Initial DC 06/16/24 Assessment Was Performed Next Review Type Continued Stay Review
--- NOTE | 2024-06-16 14:08 | OT.IP.EVAL ---
Current Diagnoses Tubulo-interstitial nephritis, not specified as acute or chronic (06/15/24) Postprocedural fever (06/15/24) Past Medical History (Last Reviewed 06/16/24 @ 09:22 by Isaac Farmer MD) Atrophic vaginitis Chicken pox Chronic lower urinary tract infection Colon polyps (2009) Constipation Fractures (~2005) Hydronephrosis of left kidney Measles Multiple sclerosis (1991) Osteopenia Parapelvic renal cyst Plantar warts (2004) Pyuria Recurrent urinary tract infection Surgical History (Last Reviewed 06/16/24 @ 09:22 by Isaac Farmer MD) Anesthesia History of cholecystectomy History of shoulder surgery (1973) History of third molar tooth extraction (1970) History of tubal ligation History of urethral stent (03/2024) Status post rotator cuff repair (2011) Status post tubal ligation (1979) Occupational Therapy Inpatient Evaluation/Re-Eval M1 PT/OT-IP Prior Functional Status Start: 06/16/24 12:52 Freq: NEEDED Status: Active Protocol: Document 06/16/24 14:39 [facility] (Rec: 06/16/24 14:59 [facility] [id number]) Medical Review Prior Functional Status Medical History Reviewed Yes Communication able to make needs known Mobility and Gait pt stated that she started not feeling well ~ 2 weeks ago and needing more assistance at home and uses her manual w/c for mobility but still able to transfer with assist. prior to that, able to ambulate using a 4WW. pt's son was assisting pt at home. Activities of Daily Living and IADL's Pt state able to do all ADL and IADL needs. Social History Household Members none Living Arrangements House Number of Floors (Floors) One Floor Number of Stairs To Enter/Railing? 5 steps B rails to enter the house Home Environment Standard Height Toilet,Walk in Shower Home Equipment Four Wheel Walker,Manual Wheelchair,Shower Seat with Backrest,Hand Held Shower,Grab Bars Near Toilet,Grab Bars In Shower. Transfer pole by the shower Additional Social History Comment pt stated that he son is staying with her until Jul 09. pt has an adjustable bed with R side bedcane M2 OT-IP Current Condition Start: 06/16/24 14:37 Freq: Status: Active Protocol: Document 06/16/24 14:39 [facility] (Rec: 06/16/24 14:59 [facility] [id number]) Occupational Therapy Current Condition Current Condition Evaluation Date 06/16/24 Treatment Diagnosis Pyelonephritis, MS flare Diagnosis Onset Date 06/15/24 M3 OT- IP Subjective and Pain Start: 06/16/24 14:37 Freq: Status: Active Protocol: Document 06/16/24 14:39 [facility] (Rec: 06/16/24 14:59 [facility] [id number]) OT- Subjective Occupational Therapy Visit Type Type Initial Evaluation Visit Start Time 13:35 Visit Stop Time 14:08 Occupational Therapy Visit Comments Patient Comments Pt agreed to try to stand up. Patient/Caregiver Goals Pt is adamant to go home and not to skilled rehab. OT Pain Assessment Pain When Pain Assessed At Rest Pain Present Pain Present Pain Reported Location Ear Intensity 5 Scale Used Numeric (0 - 10) M4 OT- IP ADL's Start: 06/16/24 14:37 Freq: Status: Active Protocol: Document 06/16/24 14:39 [facility] (Rec: 06/16/24 14:59 [facility] [id number]) OT [id number] Comments OT Self-Feeding Comments assist for set-up OT ADL-Grooming General Evaluation Grooming Ability Standby Assistance Areas Needing Assistance Retrieving/Set-up of Grooming Items Comments OT Grooming Comments Assist for set-up while seated . OT ADL-Oral Care General Eval Oral Care Ability Independent OT ADL-Dressing Comments OT Dressing Comments Not performed. At this time pt will need assist due to decreased balance and overall strength. OT ADL-Toileting Comments OT Toileting Comments Not performed. OT ADL-Bathing Comments OT Bathing Comments Pt will need assist. M5 OT- IP IADL's Start: 06/16/24 14:37 Freq: Status: Active Protocol: Document 06/16/24 14:39 [facility] (Rec: 06/16/24 14:59 [facility] [id number]) OT-Instrumental Activities of Daily Living Home Safety Awareness Awareness of Need for Assistance at Home Good Awareness Home Safety Comments Pt states her son will be able to assist with her needs. However pt admits that her son had not had to give her extensive physical assist as she needs now. M6 OT- IP Functional Cognition Start: 06/16/24 14:37 Freq: Status: Active Protocol: Document 06/16/24 14:39 [facility] (Rec: 06/16/24 14:59 [facility] [id number]) Cognitive Factors Limiting Selfcare Function Cognitive Ability Level of Alertness Alert Patient Orientation Name,Age,Birthday,Month,Date, Year,Day of Week,Place, Situation Attention Span Ability Capable of Focused Attention, Capable of Sustained Attention Ability to Follow Commands Able to Follow One Step Commands Cognitive Comments Cognitive Assessment Comments Pt able to follow commands for ADL and mobility needs. OT- Vision and Hearing OT- Hearing Assessment OT- Hearing Assessment WFL OT- Vision Assessment Visual Acuity Glasses For Reading Visual Attentiveness WFL Occular Pursuits WFL M7 OT- IP Mobility and Balance Start: 06/16/24 14:37 Freq: Status: Active Protocol: Document 06/16/24 14:39 [facility] (Rec: 06/16/24 14:59 [facility] [id number]) OT-Transfer Assessment Sit to and From Stand Sit to and from Stand Maximum Assistance,Total Assistance,1 Person Assistance Comments Mobility Comments Pt able to scoot herself forwards in the recliner. MAX A to Total A x1 to stand to the FWW. At this time best to use the nataly lift. OT- Balance Assessment Sitting Balance and Reactions Static Sitting Balance Ability Good Dynamic Sitting Balance Ability Fair Standing Balance and Reactions Static Standing Balance Ability Poor Dynamic Standing Balance Ability Poor M8 OT- IP Objective Assessments Start: 06/16/24 14:37 Freq: Status: Active Protocol: Document 06/16/24 14:39 [facility] (Rec: 06/16/24 14:59 [facility] [id number]) OT Gross Range of Motion Upper Extremity Range of Motion ROM Impairments Decreased at end ROM OT Strength Comments Strength Comments BUE 4-/5 to 4/5 OT- Coordination Assessment Comments Coordination Comments Pt needing assist to help open packages, items for ADL needs . Pt also states having trouble to use her phone to push the buttons correctly. M9 OT- IP Assessment and Plan Start: 06/16/24 14:37 Freq: Status: Active Protocol: Document 06/16/24 14:39 [facility] (Rec: 06/16/24 14:59 [facility] [id number]) OT Summary Assessment and Plan Potential Rehabilitation Potential Good Analytic Complexity at Evaluation Moderate Summary OT Impairments Pain,Strength,Balance, Functional Mobility,Self- Feeding,Grooming,Dressing, Toileting,Bathing,Toilet Transfers,Shower Transfers, Activity Tolerance Progress Towards Goals Progressing Toward Goals,Slow Progress due to Pain,Slow Progress due to Medical Issues Assessment Summary Pt MOD complexity and main barriers are pain, steps, and now needing use of nataly lift for transfer at this time. At this current level, pt will benefit from skilled rehab. Pt refusing SNF, and prefers to go home with her son and home health. Goals Self-Feeding Goal Independent Grooming Goal Independent Dressing Goal Independent Toileting Goal Independent Bathing Goal Standby Assistance Toilet Transfer Goal Independent Shower Transfer Goal Standby Assistance Days to Meet Goals 20 Frequency of Treatment Other frequency 5x/week Treatment Plan OT Treatment Plan ADL Training,Functional Mobility,Patient/Family Education,Discharge Planning Other Treatment Recommendations and Next Transfer to [facility] with MODA X2 Treatment Focus with FWW. Discharge Recommendations OT Discharge Recommendations SNF Rehab Other Discharge Recommendations HOpefully pt will progress greatly and be able to go home with her son and have home health. Transportation Needs at Discharge Wheelchair/Cabulance
[2024-06-16] MEDS: cefTRIAXone 2,000 MG in SODIUM CHLORIDE 0.9% 100 ML 200 MG IV (17:37)
[2024-06-16 20:00] VITALS: BP 126/57; PULSE 110; RESP 20; TEMP 36.9; O2SAT 92
[2024-06-16] MEDS: INSULIN GLARGINE 100 UNIT/ML 3ML PEN 20 UNIT SUBCUT (21:09)
[2024-06-17] MEDS: HYDROCODONE/ACET 5/325 TABLET 1 TAB PO ×3 (00:36→13:58)
[2024-06-17] MEDS: SODIUM CHLORIDE 0.9% 1,000 ML 125 ML IV (03:30)
[2024-06-17] MEDS: BACLOFEN 10 MG TABLET 20 MG PO ×2 (04:34→13:59)
[2024-06-17 05:50] LABS: Add Manual Diff / Slide Review NO; Basophils Absolute Auto 0 /uL (0-100); Basophils Percent Auto 0.4 % (0-2); Eosinophils Absolute Auto 400 /uL (0-450); Eosinophils Percent Auto 3.9 % (2-4); Hematocrit 29.6 % (36-46); Hemoglobin 9.6 g/dL (12.0-16.0); Lymphocytes Absolute Auto 2300 /uL (1100-4500); Lymphocytes Percent Auto 21.4 % (25-40); Mean Corpuscular HGB Conc 32.5 % (30-36); Mean Corpuscular Hemoglobin 28.3 PG (26-34); Monocytes Absolute Auto 900 /uL (0-900); Monocytes Percent Auto 8.6 % (3-14); Neutrophils Absolute Auto 7200 /uL (1500-7000); Neutrophils Percent Auto 65.7 % (50-75); Platelet Count 246 X10^3/uL (150-400); Red Cell Distribution Width 16.6 % (11.6-14.8); White Blood Cell Count 10.9 X10^3/uL (4.5-11.0)
[2024-06-17 06:09] LABS: BUN Creatinine Ratio 17.5 (6-22); Blood Urea Nitrogen 14 mg/dL (7-17); Calcium 8.7 mg/dL (8.4-10.2); Carbon Dioxide 24 mmol/L (22-32); Chloride 111 mmol/L (98-107); Estimated Glomerular Filt Rate > 60 mL/min (>60); Glucose 151 mg/dL (80-110); HEMOLYSIS 20 (0-50); Sodium 138 mmol/L (137-145)
[2024-06-17 08:00] VITALS: BP 128/68; PULSE 85; RESP 18; TEMP 36.4; O2SAT 93
--- NOTE | 2024-06-17 08:20 | PM.CN ---
History of Present Illness Consult details Date Patient Seen: 06/17/24 Time Patient Seen: 08:20 Chief complaint: fever at home, lethargic Reason for consult: Managment of pyelonephritis Narrative: 73 y/o F w/ long history of a left ureteral stone that was managed w/ a cystoscopy and left ureteral stent placement in the setting of an active UTI that was complicated by an admission to the hospital for pyelonephritis in Mar and underwent a left ureteroscopy w/ laser lithotripsy on 14 Jun 2024 and is now readmitted for management of her left pyelonephritis. She has remained afebrile overnight and her labs continue to improve. She admits to worsening weakness (similar to prior admission when her MS would flare up). Bautista catheter draining clear yellow urine. Meds Home Medications and Allergies Home Medications Medication Instructions Recorded Confirmed Type Disabled Parking Permit #1 ea 05/09/20 06/16/24 Rx One Touch Verio Glucose Monitor #1 ea 01/07/23 06/16/24 Rx One Touch Verio test strips and #300 ea 03/26/23 06/16/24 Rx lancets estradiol 10 mcg vaginal tablet 10 mcg vaginal 2XW #24 tabs 02/24/24 06/15/24 Rx (Yuvafem) Hand controls #1 ea 03/22/24 06/16/24 Rx blood sugar diagnostic (OneTouch #300 ea 04/19/24 06/16/24 Rx Verio test strips) acetaminophen 325 mg tablet 650 mg (2 x 325 mg) PO Q6H PRN 04/23/24 06/15/24 Rx Fever/Mild Pain (1-3) #30 tabs metformin 500 mg tablet,extended 1,000 mg (2 x 500 mg) PO BID #360 05/06/24 06/15/24 Rx release 24 hr tabs hydrocodone 5 mg-acetaminophen 325 1 tab PO Q8H PRN Pain (Scale Score 05/20/24 06/15/24 Rx mg tablet 1-3) #30 tabs baclofen 10 mg tablet 20 mg (2 x 10 mg) PO Q8H #600 tabs 05/26/24 06/15/24 Rx fluconazole 150 mg tablet 150 mg PO .every other day #3 tabs 06/03/24 06/15/24 Rx mirabegron 50 mg tablet,extended 50 mg PO DAILY #90 tabs 06/08/24 06/15/24 Rx release 24 hr amoxicillin 875 mg-potassium 1 tab PO BID #14 tabs 06/14/24 06/15/24 Rx clavulanate 125 mg tablet atorvastatin 10 mg tablet 10 mg PO DAILY 06/14/24 06/15/24 History oxycodone 5 mg tablet 5 mg PO Q8H PRN pain 06/15/24 06/15/24 History Allergies Allergy/AdvReac Type Severity Reaction Status Date / Time Sulfa (Sulfonamide Allergy Severe ANAPHYLAXIS Verified 06/15/24 16:19 Antibiotics) [SULFA (SULFONAMIDE ANTIBIOTICS)] diphenhydramine Allergy Mild HIVES Verified 06/15/24 16:19 [DIPHENHYDRAMINE] levofloxacin [From Levaquin] AdvReac Severe neurological Verified 06/15/24 16:19 effects - pt hospitalized honeydew AdvReac Verified 06/15/24 16:19 Review of Systems Review of Systems Narrative: CONSTITUTIONAL: Denies weight loss, fevers, chills. HEENT: Denies change in vision, hearing. RESP: Denies SOB, cough. CV: Denies palpations, CP. GI: Denies abdominal pain, nausea, vomiting, diarrhea. MSK: Denies myalgia, joint pain. SKIN: Denies rash, pruritus. NEURO: Denies headache, syncope. PSYCH: Denies recent change in mood, anxiety, depression. Exam Vital Signs (past 8 hours): Oxygen Delivery Method Room Air Oxygen Flow Rate 0 Narrative Exam Narrative: GEN: Alert and oriented X3. No acute distress. Well-nourished. EYES: PERRLA, EOMI. HENT: Moist mucus membranes, no scleral icterus, normal neck ROM. RESP: Unlabored breathing, equal rise and fall of chest bilaterally, no cyanosis appreciated. CV: No peripheral edema, unremarkable heart rate. ABD: Soft, non-tender, non-distended, no palpable masses. : Bautista secured and draining clear yellow urine. EXT: No edema, clubbing or cyanosis. SKIN: No rashes or lesions. NEURO: No focal neurologic deficits, CN II-XII grossly intact. PSYCH: Cooperative, appropriate mood and affect. Objective Labs 06/17/24 04:45 06/17/24 04:45 Labs: Laboratory Results - last 24 hr 06/17/24 04:45 WBC 10.9 RBC 3.40 L Hgb 9.6 L Hct 29.6 L MCV 87.0 MCH 28.3 MCHC 32.5 RDW 16.6 H Plt Count 246 Neut % (Auto) 65.7 Lymph % (Auto) 21.4 L Boundary % (Auto) 8.6 Eos % (Auto) 3.9 Baso % (Auto) 0.4 Neut # (Auto) 7200 H Lymph # (Auto) 2300 Boundary # (Auto) 900 Eos # (Auto) 400 Baso # (Auto) 0 Sodium 138 Potassium 4.0 Chloride 111 H Carbon Dioxide 24 BUN 14 Creatinine 0.80 Estimated GFR > 60 BUN/Creatinine Ratio 17.5 Glucose 151 H Calcium 8.7 PFSH Medical History Pyuria Parapelvic renal cyst Constipation Atrophic vaginitis Hydronephrosis of left kidney Chronic lower urinary tract infection Recurrent urinary tract infection Colon polyps (2009) Chicken pox Measles Plantar warts (2004) Fractures (~2005) Osteopenia Multiple sclerosis (1991) Surgical History History of urethral stent (03/2024) History of tubal ligation History of cholecystectomy Anesthesia History of shoulder surgery (1973) Status post rotator cuff repair (2011) History of third molar tooth extraction (1970) Status post tubal ligation (1979) Family History Brother Age: 67 Diabetes mellitus Hypertension High cholesterol Child Age: 28 Adopted Mother Heart disease Hypertension Stroke Cancer Father Alzheimer's disease Grandmother No problems noted. Social History marital status: number of children: 1 household members: none occupational status: employed Tobacco & Substance Use Smoking Status: Never smoker alcohol intake: current substance use type: does not use Diet and Exercise caffeine: Yes (tea-occasional ) Type(s) of exercise: other frequency: 5-6 times per week Assessment & Plan Assessment and plan (1) Pyelonephritis: Status: Acute Plan: 73 y/o F w/ who underwent a cystoscopy with left ureteral stent placement for management of a left ureteral stone in the setting of a urinary tract infection in late Feb as well as a repeat left ureteral stent exchange in late Mar secondary to ongoing UTI during attempted left ureteroscopy. She recently underwent a left ureteroscopy w/ laser lithotripsy and left ureteral stent exchange on 14 Jun 2024. Intraoperatively, she was noted to have white debris w/in her left renal collecting system concerning for colonization and was discharged home on antibiotics. Discussed that her two left renal stones are now gone, however, she was at high risk for pyelonephritis following her procedure (this was disclosed to her immediately postoperatively). - Appreciate assistance of medical team w/ admission - Unsure as to duration of bautista catheter as I am unsure if she was truly in urinary retention, however, she would prefer to leave it in place at the moment to avoid any urinary retention due to her MS flaring up. This would also minimize the chances of her left ureteral stent being removed prior to 21 Jun 2024 - Will continue to follow along during admission Time-Based Coding :: [TOTAL MINUTES] spent with patient and on the chart (including review of chart, obtaining history, exam, reviewing outside data, placing orders, documenting exam and treatment plan, and counseling patient) on [DATE]. PROFEE Charge Codes Inpatient or Observation consultation: [id number]
--- NOTE | 2024-06-17 08:44 | PM.DS.1 ---
History of Present Illness History of Present Illness Chief complaint: fever at home, lethargic Narrative: Patient is a 73-year-old female with a past medical history of multiple sclerosis with ambulatory dysfunction due to nerve damage from MS diabetes on oral medication hyperlipidemia osteoarthritis with recent difficulties with kidney stones urinary stent placement and pyelonephritis. patient went under general anesthesia on 06/14/2024. patient underwent cystoscopy left laser lithotripsy and left stent replacement. At the time of the procedure patient was noted to have infection in her stone and debris in her kidney consistent with colonization. Patient was started preoperatively on antibiotics and postoperatively given antibiotics to take at home. Patient was doing well until yesterday when yesterday morning her son who is now living with her noted that she was acting a little bit differently. Throughout the day she became a little bit more confused. She and her son looked at the discharge paperwork and said that this may be a reason for concern. They eventually went to the emergency department patient does not really remember much of yesterday afternoon although she does remember being much more weak difficult time with ambulation although she always has difficulty she reach required a wheelchair ultimately 911 was called to bring the patient to the hospital because she could not get into the car. Patient's symptoms included weakness difficulty with moving some mental status changes and sluggishness some confusion. She also had a fever. She was not complaining of the pain shortness of breath. No chest pain. She has some mild abdominal cramping. She says that is not a problem now. Patient states she has good appetite. In the emergency department she was found to have a fever she had change in her mental status elevated white blood cell count elevated procalcitonin all consistent with infection probably pyelonephritis. Patient had blood cultures done see. patient had imaging of her kidney done with a KUB and also an ultrasound stent was found to be in the normal place. In the emergency department a Luo catheter was placed in patient was admitted to the hospital for further evaluation and workup. This morning patient states she is feeling a little bit better she is still weak. She is mentally less disoriented and confused but not quite there. She is eating breakfast. Overnight she says she has no complaints of pain she has seen the Urology surgeon. Discharge Providers Provider Date of admission: 06/15/24 18:07 Discharge Date: 06/17/24 Primary care physician: Isaac Farmer MD Consults: 12/17/24 20:36 Consult to Discharge Planning Routine Comment: Consult to Physical Therapy Evaluate & Treat Comment: Physician Instructions: Evaluate and Treat 06/16/24 13:10 Consult to Occupational Therapy Evaluate & Treat Comment: Physician Instructions: Evaluate and treat Discharge provider: Isaac Farmer MD Summary Hospital Course Discharge Diagnosis: Sepsis metabolic encephalopathy pyelonephritis left urinary stent left hypokalemia multiple sclerosis hyperlipidemia Hospital Course: patient was admitted to the hospital after urological procedure of stent replacement and lithotripsy. Patient came in with elevated fever temperature procalcitonin tachycardia. Patient had imaging done which showed proper placement of the stent. Patient's symptoms concerning for acute infection and sepsis due to underlying pyelonephritis. Patient was admitted to the hospital provided IV fluids IV antibiotics. Patient had initial mental status changes with confusion and not feeling there. Over the 24 hours her mental status returned to baseline. During the hospital stay with treatment of IV antibiotics her white blood cell count resumed back to normal. Patient had improvement of her temperature. Her blood pressure remained stable. Patient remained mildly tachycardic. Patient was treated with Rocephin. Urology evaluated the patient in the hospital. Patient had a Luo catheter placed and will go home with a Luo catheter. At the time of discharge patient was ambulating although weak back to baseline. She will be discharged home with her son. She will continue her home medication and be on oral antibiotics. She will follow up with Dr. Poe to have stent removal. Exam Vital Signs (past 8 hours): Oxygen Delivery Method Room Air Oxygen Flow Rate 0 Narrative Exam Narrative: Gen.: Alert no apparent distress HEENT: pupils equal round and reactive or mucosa is moist Cardio: regular rate and rhythm with tachycardia Respiratory: normal respiratory effort Abdomen: soft nontender no masses Extremities: full range of motion generalized weakness with some left-sided deficits Objective Labs 06/17/24 04:45 06/17/24 04:45 Labs: Laboratory Results - last 24 hr 06/17/24 04:45 WBC 10.9 RBC 3.40 L Hgb 9.6 L Hct 29.6 L MCV 87.0 MCH 28.3 MCHC 32.5 RDW 16.6 H Plt Count 246 Neut % (Auto) 65.7 Lymph % (Auto) 21.4 L Twiggs % (Auto) 8.6 Eos % (Auto) 3.9 Baso % (Auto) 0.4 Neut # (Auto) 7200 H Lymph # (Auto) 2300 Twiggs # (Auto) 900 Eos # (Auto) 400 Baso # (Auto) 0 Sodium 138 Potassium 4.0 Chloride 111 H Carbon Dioxide 24 BUN 14 Creatinine 0.80 Estimated GFR > 60 BUN/Creatinine Ratio 17.5 Glucose 151 H Calcium 8.7 PFSH Medical History Pyuria Parapelvic renal cyst Constipation Atrophic vaginitis Hydronephrosis of left kidney Chronic lower urinary tract infection Recurrent urinary tract infection Colon polyps (2009) Chicken pox Measles Plantar warts (2004) Fractures (~2005) Osteopenia Multiple sclerosis (1991) Surgical History History of urethral stent (03/2024) History of tubal ligation History of cholecystectomy Anesthesia History of shoulder surgery (1973) Status post rotator cuff repair (2011) History of third molar tooth extraction (1970) Status post tubal ligation (1979) Family History Brother Age: 67 Diabetes mellitus Hypertension High cholesterol Child Age: 28 Adopted Mother Heart disease Hypertension Stroke Cancer Father Alzheimer's disease Grandmother No problems noted. Social History marital status: number of children: 1 household members: none occupational status: employed Smoking Status: Never smoker alcohol intake: current substance use type: does not use caffeine: Yes (tea-occasional ) Type(s) of exercise: other frequency: 5-6 times per week Discharge Plan Discharge Plan Patient Disposition: Home Discharge orders & Medications Prescriptions: New cefdinir 300 mg capsule 300 mg PO BID Qty: 14 0RF Continued (DME) Disabled Parking Permit Qty: 1 0RF Rx Instructions: I find this person to be disabled (DME) One Touch Verio Glucose Monitor See Rx Instructions .Route .MEDSUPPLY Qty: 1 0RF Rx Instructions: As directed twice daily for glucose monitoring (DME) One Touch Verio test strips and lancets See Rx Instructions .Route .MEDSUPPLY Qty: 300 3RF Rx Instructions: As directed three times daily for blood glucose monitoring estradiol [Yuvafem] 10 mcg tablet 10 mcg vaginal 2XW Qty: 24 3RF (DME) OneTouch Verio test strips Strip See Rx Instructions .ROUTE .COMPLEX Qty: 300 3RF Dose Instruction: Use to check blood glucose 3 times daily Rx Instructions: Use to check blood glucose 3 times daily metformin 500 mg tablet extended release 24 hr 1,000 mg PO BID Qty: 360 1RF baclofen 10 mg tablet 20 mg PO Q8H Qty: 600 3RF mirabegron 50 mg tablet extended release 24 hr 50 mg PO DAILY Qty: 90 3RF atorvastatin 10 mg tablet 10 mg PO DAILY (DME) Hand controls See Rx Instructions .Route .MEDSUPPLY Qty: 1 0RF Rx Instructions: Use for driving hydrocodone-acetaminophen 5-325 mg tablet 1 tab PO Q8H PRN (Reason: Pain (Scale Score 1-3)) Qty: 30 0RF fluconazole 150 mg tablet 150 mg PO .every other day Qty: 3 0RF acetaminophen 325 mg Tablet 650 mg PO Q6H PRN (Reason: Fever/Mild Pain (1-3)) Qty: 30 0RF oxycodone 5 mg tablet 5 mg PO Q8H PRN (Reason: pain) Discontinued amoxicillin-pot clavulanate 875-125 mg tablet 1 tab PO BID Qty: 14 0RF Follow up/Referrals: Isaac Farmer MD [Primary Care Provider] - Visit Report/Discharge Packet Stand Alone Forms: Patient Portal/API, Stroke Signs & Symptoms Discharge Data Primary Care Provider: Isaac Farmer Quality VTE Deep Vein Thrombosis/Pulmonary Embolism Present on Admission: No IH PROFEE Charge Codes Discharge inpatient/observation: [id number]
[2024-06-17] MEDS: AMLODIPINE 5 MG TABLET PO (09:28)
[2024-06-17] MEDS: POTASSIUM CHLORIDE 20 MEQ TAB 40 MEQ PO (09:28)
[2024-06-17] MEDS: OXYBUTYNIN 5 MG ER TAB 10 MG PO (09:28)
[2024-06-17] MEDS: ENOXAPARIN 40 MG/0.4 ML SYRINGE SUBCUT (09:29)
[2024-06-17] MEDS: ATORVASTATIN 20 MG TABLET 10 MG PO (09:29)
[2024-06-17] MEDS: INSULIN LISPRO 100 UNIT/ML 3ML VIAL SUBCUT ×2 (09:30→12:15)
--- NOTE | 2024-06-17 10:16 | PC.NURSE ---
Assess- Patient is alert and oriented x4, initially patient was going to use the bedpan as she has been weak and unsteady. She is able to get up with a one person assist, walker, and gaitbelt and has been up to the commode and voided and had an xl soft bowel movement. is aware that patients bautista catheter is leaking and states that patient can wear a brief for this. She is ok with this as long as urine is flowing in to the bautista bag as well. She has stents in place and denies pain at this time.
--- NOTE | 2024-06-17 10:21 | CM.DPC ---
DCP Discharge home with HH Per MD, pt has made progress and less confused and mobilizing a little better and stable for discharge home today with son and HH. SW confirmed with [facility] that new orders needed and they can Resume services with added disciplines and F2F and HH orders completed and CC Nan scanned into chart and [facility] notified. SW attempted to meet bedside with pt but working with OT and son for CG training and RN confirms plan is discharge around 1300 today after PT and updated RN on HH. Plan: Patient to discharge home this afternoon via son POV and [facility] RN/PT/OT/BRICK LOADER. FIGUEROA Major
--- NOTE | 2024-06-17 10:31 | OT.IP.TRT ---
Current Diagnoses Tubulo-interstitial nephritis, not specified as acute or chronic (06/15/24) Postprocedural fever (06/15/24) Occupational Therapy Treatment Note M2 OT-IP Current Condition Start: 06/16/24 14:37 Freq: Status: Active Protocol: Document 06/16/24 14:39 [facility] (Rec: 06/16/24 14:59 [facility] [id number]) Occupational Therapy Current Condition Current Condition Evaluation Date 06/16/24 Treatment Diagnosis Pyelonephritis, MS flare Diagnosis Onset Date 06/15/24 M3 OT- IP Subjective and Pain Start: 06/16/24 14:37 Freq: Status: Active Protocol: Document 06/17/24 10:32 [facility] (Rec: 06/17/24 10:40 [facility] [id number]) OT- Subjective Occupational Therapy Visit Type Type Treatment Note Visit Start Time 10:05 Visit Stop Time 10:31 Occupational Therapy Visit Comments Patient Comments Able to go over caregiver training with pt and her son for ADL and transfer needs. Patient/Caregiver Goals To go home and resume home health. OT Pain Assessment Pain When Pain Assessed At Rest Pain Present Pain Present Denied Pain M4 OT- IP ADL's Start: 06/16/24 14:37 Freq: Status: Active Protocol: Document 06/17/24 10:32 [facility] (Rec: 06/17/24 10:40 [facility] [id number]) OT ADL-Dressing General Eval Lower Body Dressing Ability Maximum Assistance Comments OT Dressing Comments Assist from her son to don her shoes. Educated pt to focus on standing while son assist with clothing needs. Educated pt's son on havin good body mechanics while assist his mom. OT ADL-Toileting Comments OT Toileting Comments Suggested pt get a BSC for home use or to place over the toilet. OT ADL-Bathing Comments OT Bathing Comments Pt will need assist. M5 OT- IP IADL's Start: 06/16/24 14:37 Freq: Status: Active Protocol: Document 06/16/24 14:39 [facility] (Rec: 06/16/24 14:59 [facility] [id number]) OT-Instrumental Activities of Daily Living Home Safety Awareness Awareness of Need for Assistance at Home Good Awareness Home Safety Comments Pt states her son will be able to assist with her needs. However pt admits that her son had not had to give her extensive physical assist as she needs now. M6 OT- IP Functional Cognition Start: 06/16/24 14:37 Freq: Status: Active Protocol: Document 06/16/24 14:39 [facility] (Rec: 06/16/24 14:59 [facility] [id number]) Cognitive Factors Limiting Selfcare Function Cognitive Ability Level of Alertness Alert Patient Orientation Name,Age,Birthday,Month,Date, Year,Day of Week,Place, Situation Attention Span Ability Capable of Focused Attention, Capable of Sustained Attention Ability to Follow Commands Able to Follow One Step Commands Cognitive Comments Cognitive Assessment Comments Pt able to follow commands for ADL and mobility needs. OT- Vision and Hearing OT- Hearing Assessment OT- Hearing Assessment WFL OT- Vision Assessment Visual Acuity Glasses For Reading Visual Attentiveness WFL Occular Pursuits WFL M7 OT- IP Mobility and Balance Start: 06/16/24 14:37 Freq: Status: Active Protocol: Document 06/17/24 10:32 [facility] (Rec: 06/17/24 10:40 [facility] [id number]) OT-Transfer Assessment Sit to and From Stand Sit to and from Stand Moderate Assistance Transfers Transfer Ability Moderate Assistance,1 Person Assistance Technique Transfer Destination Bed,Chair Transfer Technique Stand Step Pivot Devices Transfer Assistive Devices Gait Belt,Front Wheeled Walker ,4 Wheeled Walker Comments Mobility Comments Able to practice transfer with the FWW and 4ww and best for pt to get the FWW. Pt to call her friend and get items from [employer]. MODA to stand and assist to balance, guiding the walker and vc for hand and feet placement. Suggested at this time , best to just transfer to her wc and roll closer to the bathroom or use fo the BSC. OT- Balance Assessment Sitting Balance and Reactions Static Sitting Balance Ability Good Dynamic Sitting Balance Ability Fair Standing Balance and Reactions Static Standing Balance Ability Poor Dynamic Standing Balance Ability Poor M8 OT- IP Objective Assessments Start: 06/16/24 14:37 Freq: Status: Active Protocol: Document 06/16/24 14:39 [facility] (Rec: 06/16/24 14:59 [facility] [id number]) OT Gross Range of Motion Upper Extremity Range of Motion ROM Impairments Decreased at end ROM OT Strength Comments Strength Comments BUE 4-/5 to 4/5 OT- Coordination Assessment Comments Coordination Comments Pt needing assist to help open packages, items for ADL needs . Pt also states having trouble to use her phone to push the buttons correctly. M9 OT- IP Assessment and Plan Start: 06/16/24 14:37 Freq: Status: Active Protocol: Document 06/17/24 10:32 [facility] (Rec: 06/17/24 10:40 [facility] [id number]) OT Summary Assessment and Plan Potential Rehabilitation Potential Good Analytic Complexity at Evaluation Moderate Summary OT Impairments Pain,Strength,Balance, Functional Mobility,Self- Feeding,Grooming,Dressing, Toileting,Bathing,Toilet Transfers,Shower Transfers, Activity Tolerance Progress Towards Goals Progressing Toward Goals Assessment Summary At this time pt's son trained to be able to assist his mom for ADL and mobility needs. Pt feels comfortable to be able to assist with all her needs. Pt refuses skilled rehab at this time.Pt looking to go home with 24/7 assist and home health. Goals Self-Feeding Goal Independent Grooming Goal Independent Dressing Goal Independent Toileting Goal Independent Bathing Goal Standby Assistance Toilet Transfer Goal Independent Shower Transfer Goal Standby Assistance Days to Meet Goals 19 Frequency of Treatment Other frequency 5x/week Treatment Plan OT Treatment Plan ADL Training,Functional Mobility,Patient/Family Education,Discharge Planning Discharge Recommendations OT Discharge Recommendations Home with 24/7 Assist Available,Home Health,Home vs SNF Other Discharge Recommendations Pt refused SNF, and pt's son able to assist her for ADL and transfers. Transportation Needs at Discharge Private Vehicle,Wheelchair/ Cabulance
--- NOTE | 2024-06-17 10:35 | PT.IPTN ---
Current Diagnoses Tubulo-interstitial nephritis, not specified as acute or chronic (06/15/24) Postprocedural fever (06/15/24) Physical Therapy Treatment Note M2 PT-IP Current Condition Start: 06/16/24 12:52 Freq: NEEDED Status: Active Protocol: Document 06/16/24 10:40 AB (Rec: 06/16/24 13:08 AB [id number]) Physical Therapy Current Condition Current Condition Evaluation Date 06/16/24 Treatment Diagnosis pyelonephritis; difficulty in walking Onset Date 06/15/24 M3 PT-IP Subjective Start: 06/16/24 12:52 Freq: NEEDED Status: Active Protocol: Document 06/17/24 12:24 TS (Rec: 06/17/24 12:40 TS [id number]) Subjective Physical Therapy Visit Type Type Treatment Note Visit Start Time 10:35 Visit Stop Time 11:00 Number of DEPUTY CHIEF MAGISTRATE Visits 1 Physical Therapy Visit Comments Patient Comments Pt found resting in the chiar, son in the room. She is agreeable to try stairs. M4 PT-IP Mobility and Gait Start: 06/16/24 12:52 Freq: NEEDED Status: Active Protocol: Document 06/17/24 12:24 TS (Rec: 06/17/24 12:40 TS [id number]) PT-Transfer Assessment Sit to and From Stand Sit to and from Stand Moderate Assistance,1 Person Assistance Equipment Transfer Assistive Device Gait Belt,Front Wheeled Walker Orthotic/Prosthetic Devices or Brace: No Comments Mobility Comments STS from the chair ModA x1 with assist from son. She ambulates with FWW with a slow step to gait ~20' to the w/c. Pt was brought to the stairs. She performs steps x3 with Abril/ModA from son and mayito of BUE support on handrails, pt has some buckling descending steps. Pt was brought back to the room, was left in the chair, all needs met. Gait Assessment Gait Gait Assistance Required: Minimum Assistance Distance (Feet) 20 Assistive Devices Assistive Device Gait Belt,Front Wheeled Walker Gait Deviations General Gait Pattern Decreased Stride Length, Decreased Feet Clearance,Step- to Gait Factors Limiting Gait Function Factors Limiting Gait Function Decreased Activity Tolerance, Decreased Strength,Poor Balance Stair Climbing Assessment Evaluation Level of Assist On Stairs Minimal Assistance,Moderate Assistance,1 Person Assistance Devices Stair Climbing Assistive Devices Left Railing,Right Railing Technique/Endurance Stair Climbing Direction Ascend and Descend Stair Climbing Technique Step to Step Number of Steps Climbed 3 PT-Balance Assessment Sitting Balance and Reactions Static Sitting Balance Ability Good Dynamic Sitting Balance Ability Fair Standing Balance and Reactions Static Standing Balance Ability Poor Dynamic Standing Balance Ability Poor Device Used FWW M5 PT-IP Objective Assessments Start: 06/16/24 12:52 Freq: NEEDED Status: Active Protocol: Document 06/16/24 10:40 AB (Rec: 06/16/24 13:08 AB [id number]) Orientation Orientation/Cognition Level of Alertness Alert Gross Range of Motion Lower Extremity ROM Assessment Within Functional Limits Strength Lower Extremity Strength Assessment Bilaterally Impaired Comments Strength Comments increase extensor tone affecting testing Muscle Tone Muscle Tone WNL No Muscle Tone Location Bilateral Lower Extremity Type of Tone Hypertonicity,Extensor Severity of Tone Moderate M6 PT-IP Treatment Start: 06/16/24 12:52 Freq: NEEDED Status: Active Protocol: Document 06/17/24 12:24 TS (Rec: 06/17/24 12:40 TS [id number]) Physical Therapy Treatment Education Education Provided Safety M7 PT-IP Assessment and Plan Start: 06/16/24 12:52 Freq: NEEDED Status: Active Protocol: Document 06/17/24 12:24 TS (Rec: 06/17/24 12:40 TS [id number]) PT Summary Assessment and Plan Potential Rehabilitation Potential Fair Summary Impairments Pain,ROM,Strength,Balance, Coordination,Sensation,Tone, Cognition,Bed Mobility, Transfers,Gait,Activity Tolerance Progress Towards Goals Progressing Toward Goals Assessment Summary Pt is making progress with her mobility. She progressed her gait ot ~20. She performed stairs x3 with Min/ModA with rails. Son was instructed in and performed STS, gait and stair training. PT is recommending home with 24/7 assist and HHPT. Goals Bed Mobility Goal Minimal Assistance Transfer Goal Minimal Assistance,Front Wheeled Walker Gait Goal Minimal Assistance,Front Wheel Walker Gait Distance 25 Other Goals improve bed mobility, transfers, ambulation SBA using FWW 150 ft Days to Meet Goals 10 Frequency of Treatment Frequency Of Treatment Once a Day Treatment Plan Physical Therapy Treatment Plan Bed Mobility Training,Transfer Training,Gait Training, Therapeutic Exercise,Balance Retraining,Discharge Planning, Hot or Cold Pack,Neuromuscular Re-ed,Coordination Retraining ,Manual Therapy Precautions Other Precautions falls Recommendations To Nursing Amount of Assist Needed 1 Person Assist Discharge Recommendations PT Discharge Recommendations SNF Rehab Transportation Needs at Discharge Wheelchair/Cabulance
[2024-06-17] MEDS: cefTRIAXone 2,000 MG VIAL 1000 MG IM (11:07)
== END 2024-06-17 14:55 | disposition home health service (06) | DRG 871 ==
LOC: ED 17:54 → AC 06-16 07:59
PROVIDERS: Admitting Provider Family Medicine; Emergency Provider Emergency Medicine; PCP Family Medicine; Referring Provider Emergency Medicine; Visit Provider Family Medicine
DX: A41.9 Sepsis, unspecified organism (principal); G93.41 Metabolic encephalopathy; N10 Acute pyelonephritis; G35 Multiple sclerosis; E11.9 Type 2 diabetes mellitus without complications; R00.0 Tachycardia, unspecified; E87.6 Hypokalemia; E78.5 Hyperlipidemia, unspecified; Z96.0 Presence of urogenital implants; Z79.84 Long term (current) use of oral hypoglycemic drugs; Z87.442 Personal history of urinary calculi
CPT/HCPCS: 36415; 51702; 51798; 71045; 74018; 76770; 80048; 80053; 81001; 82962; 83605; 83690; 84145; 85025; 85610; 85730; 87040; 87086; 93005; 96360; 96361; 97116; 97163; 97166; 97530; 99233; 99238; 99284; 99285; J0696; J1650; J1815

== ENCOUNTER → 2024-07-07 10:56 | Outpatient (CLI) | payer OTHER, MEDICARE, SELFPAY ==
[2024-06-17 09:54] VITALS: BMI 23.8
[2024-07-07 13:57] LABS: Urine Volume 10mL (spun)
[2024-07-07 13:59] LABS: Bacteria Urine None Seen; RBC Urine 1-5/HPF (0-5/HPF); Squamous Epithelial Cell Urine 0-1 /HPF (0-5/HPF); WBC Urine 5-10/HPF (0-5/HPF)
== END ==
PROVIDERS: PCP Family Medicine; Visit Provider Urology
DX: R35.0 Frequency of micturition (principal)
CPT/HCPCS: 81015; 87077; 87086

== ENCOUNTER → 2024-07-15 09:30 | Outpatient (CLI) | payer OTHER, SELFPAY ==
[2024-06-17 09:54] VITALS: BMI 23.8
[2024-07-15 10:27] LABS: Hemoglobin A1C% w Est Avg Glu 6.9 % (4.0-6.0)
== END ==
PROVIDERS: PCP Family Medicine; Referring Provider Family Medicine; Visit Provider Family Medicine
DX: E11.9 Type 2 diabetes mellitus without complications (principal)
CPT/HCPCS: 36415; 83036

== ENCOUNTER → 2024-08-04 14:00 | Outpatient (CLI) | payer OTHER, SELFPAY ==
[2024-06-17 09:54] VITALS: BMI 23.8
[2024-08-04 15:51] LABS: Appearance Urine UA CLEAR; Bilirubin Urine UA NEGATIVE (NEGATIVE); Color Urine UA YELLOW; Glucose Urine UA NEGATIVE (Negative); Ketones Urine UA NEGATIVE (NEGATIVE); Leukocyte Esterase Urine UA 1+ (NEGATIVE); Nitrite Urine UA NEGATIVE (Negative); Occult Blood Urine UA NEGATIVE (Negative); Protein Urine UA NEGATIVE (Negative); Specific Gravity Urine UA 1.015 (1.000-1.035); Urobilinogen Urine UA 0.2 E.U./dL (0.2)
[2024-08-04 16:10] LABS: Bacteria Urine Few (2-10); Culture Indicated Urine Specimen Cultured; RBC Urine 0-1/HPF (0-5/HPF); Squamous Epithelial Cell Urine 5-10 /HPF (0-5/HPF); Urine Volume 10mL (spun); WBC Urine 10-30/HPF (0-5/HPF)
== END ==
PROVIDERS: PCP Family Medicine; Referring Provider Urology; Visit Provider Urology
DX: R35.0 Frequency of micturition (principal); N39.0 Urinary tract infection, site not specified; R31.9 Hematuria, unspecified
CPT/HCPCS: 81001; 87077; 87086; 87186

== ENCOUNTER → 2024-08-10 09:20 | Outpatient (CLI) | payer OTHER, SELFPAY ==
[2024-06-17 09:54] VITALS: BMI 23.8
--- NOTE | 2024-08-10 09:21 | DI.US.S_ITS ---
PROCEDURE: US RENAL COMPLETE INDICATIONS: POST LEFT URETEROSCOPY FOR STONE ?HYDRONEPHROSIS TECHNIQUE: Real-time scanning was performed of the kidneys and bladder, with image documentation. COMPARISON: [facility], CT, CT ABDOMEN PELVIS W CON, 04/18/2024, 15:02. [facility], US, US RENAL COMPLETE, 06/15/2024, 17:35. FINDINGS: Technically limited exam due to overlying bowel gas. Only prone images of the kidneys were obtained. Kidneys: Kidneys are normal in size. Right kidney measures 8.4 cm long; left kidney measures 8.8 cm long. Right renal cortical thickness is 1.4 cm; left renal cortical thickness is 1.5 cm. Renal cortical echotexture is normal. No suspicious solid mass lesions. 4 mm echogenic lesion in the inferior pole of the left kidney is suspicious for small calculus. Hypoechoic structure in the sinus fat at the interpolar region of the left kidney is not well evaluated and may represent a small peripelvic cyst versus trace caliectasis. This lesion measures approximately the 7 x 7 x 9 mm. Bladder: Pre-void bladder volume is 664 mL. Post-void residual is 0 mL. Pre-void images demonstrate no intraluminal masses or stones. On pre-void images, bilateral ureteral jets are noted with color Doppler interrogation. (Of note, ureteral jets may not be detectable in up to 25% of cases due to insufficient differences in specific gravity between ureteral and bladder urine). Miscellaneous: No free pelvic fluid. IMPRESSION: 1. Peripelvic cyst versus trace caliectasis at the interpolar region of the left kidney. 2. Suspected 4 mm nonobstructing left renal calculus. Approved by: Keven Son M.D. on 08/10/2024 at 15:29
[2024-08-10 10:57] LABS: Add Manual Diff / Slide Review NO; Basophils Absolute Auto 100 /uL (0-100); Basophils Percent Auto 0.8 % (0-2); Eosinophils Absolute Auto 400 /uL (0-450); Eosinophils Percent Auto 5.2 % (2-4); Hemoglobin 12.7 g/dL (12.0-16.0); Lymphocytes Absolute Auto 2400 /uL (1100-4500); Lymphocytes Percent Auto 29.3 % (25-40); Mean Corpuscular HGB Conc 33.4 % (30-36); Mean Corpuscular Hemoglobin 28.8 PG (26-34); Mean Corpuscular Volume 86.3 fL (80-100); Monocytes Absolute Auto 600 /uL (0-900); Monocytes Percent Auto 7.4 % (3-14); Neutrophils Absolute Auto 4700 /uL (1500-7000); Neutrophils Percent Auto 57.3 % (50-75); Platelet Count 254 X10^3/uL (150-400); Red Cell Distribution Width 14.8 % (11.6-14.8); White Blood Cell Count 8.2 X10^3/uL (4.5-11.0)
[2024-08-10 11:19] LABS: HEMOLYSIS < 15 (0-50); Iron 77 ug/dL (37-170)
[2024-08-10 11:24] LABS: Alanine Aminotransferase 20 IU/L (<35); Albumin 4.7 g/dL (3.5-5.0); Albumin Globulin Ratio 1.7 (1.0-2.8); Alkaline Phosphatase 72 U/L (38-126); Aspartate Aminotransferase 26 IU/L (14-36); BUN Creatinine Ratio 19.5 (6-22); Bilirubin Total 0.6 mg/dL (0.2-1.3); Blood Urea Nitrogen 16 mg/dL (7-17); Calcium 10.3 mg/dL (8.4-10.2); Carbon Dioxide 27 mmol/L (22-32); Chloride 101 mmol/L (98-107); Estimated Glomerular Filt Rate > 60 mL/min (>60); Globulin 2.8 g/dL (1.7-4.1); Glucose 129 mg/dL (80-110); HEMOLYSIS < 15 (0-50); Potassium 5.1 mmol/L (3.4-5.1); Sodium 138 mmol/L (137-145); Total Protein 7.5 g/dL (6.3-8.2)
[2024-08-10 11:30] LABS: Percent Iron Saturation 29 % (15-50); Total Iron Binding Capacity 268 ug/dL (265-497); Transferrin 253 mg/dL (206-381)
[2024-08-10 11:55] LABS: Ferritin 41 ng/mL (11-264)
== END ==
PROVIDERS: PCP Family Medicine; Referring Provider Urology; Visit Provider Urology
DX: N20.1 Calculus of ureter (principal); N28.9 Disorder of kidney and ureter, unspecified; R35.0 Frequency of micturition; R50.82 Postprocedural fever; E78.5 Hyperlipidemia, unspecified; E11.9 Type 2 diabetes mellitus without complications; D64.9 Anemia, unspecified
CPT/HCPCS: 36415; 76770; 80053; 82728; 83540; 83550; 85025

== ENCOUNTER → 2024-08-13 12:23 | Outpatient (CLI) | payer OTHER, SELFPAY ==
[2024-06-17 09:54] VITALS: BMI 23.8
[2024-08-13 17:09] LABS: Bilirubin Urine UA NEGATIVE (NEGATIVE); Color Urine UA YELLOW; Glucose Urine UA NEGATIVE (Negative); Ketones Urine UA NEGATIVE (NEGATIVE); Leukocyte Esterase Urine UA 2+ (NEGATIVE); Nitrite Urine UA NEGATIVE (Negative); Occult Blood Urine UA NEGATIVE (Negative); Protein Urine UA NEGATIVE (Negative); Urobilinogen Urine UA 0.2 E.U./dL (0.2)
[2024-08-13 17:14] LABS: Appearance Urine UA SL CLOUDY
[2024-08-13 17:15] LABS: Bacteria Urine Many (>30); Culture Indicated Urine Specimen Cultured; RBC Urine None Seen (0-5/HPF); Squamous Epithelial Cell Urine 1-5 /HPF (0-5/HPF); Urine Volume 10mL (spun); WBC Urine 5-10/HPF (0-5/HPF)
== END ==
PROVIDERS: PCP Family Medicine; Visit Provider Urology
DX: N39.0 Urinary tract infection, site not specified (principal); R31.9 Hematuria, unspecified
CPT/HCPCS: 81001; 87086

== ENCOUNTER → 2024-10-07 12:47 | Outpatient (CLI) | payer OTHER, SELFPAY ==
[2024-06-17 09:54] VITALS: BMI 23.8
--- NOTE | 2024-10-07 12:49 | DI.MG.S_ITS ---
MM screening mammo BI: 10/07/2024. BI-RADS: 2 CLINICAL: 74-year old female for bilateral screening mammogram. Tyrer-Cuzick lifetime risk of 3.3%. No personal or first-degree family history of breast cancer. Current reported family history of breast cancer: paternal aunt. PRIOR EXAMS 10/07/2023, 10/03/2022, 08/20/2021, 06/28/2020, 06/25/2019, 06/22/2018, 04/30/2017, 07/17/2015. MAMMOGRAPHY TECHNIQUE: 2D and 3D (tomosynthesis) digital mammographic views obtained, with additional images as needed for full coverage. Current study was also evaluated with a Computer Aided Detection (CAD) system. DENSITY B. There are scattered areas of fibroglandular density. MAMMOGRAPHY FINDINGS Bilateral: Benign-appearing calcifications noted. There are no suspicious masses, calcifications, or other findings in the breast. No significant change from comparison. IMPRESSION: * No evidence of malignancy with benign findings. RECOMMENDATIONS Bilateral * Annual screening mammography. OVERALL ASSESSMENT CATEGORY BI-RADS-2: Benign. The [employer] recommends annual screening mammography beginning at age 40 for women with average risk of breast cancer. ELECTRONICALLY SIGNED: Devika Miller M.D. on 10/07/2024 at 01:50:39 PM PT Interpreting Station ID: [id number]
--- NOTE | 2024-10-07 12:49 | DI.RAD.S_ITS ---
PROCEDURE: XR DEXA AXIAL SKELETON INDICATIONS: Screening for osteoporosis COMPARISON: [facility], , XR DEXA AXIAL SKELETON, 09/19/2021, 11:17. [facility], CR, DEXA AXIAL SKELETON, 12/11/2016, 14:25. FINDINGS: Lumbar Spine: Bone mineral density 1.007 g/cm2, T score -0.5, decreased by 3%. Left Femoral Neck: Bone mineral density 0.541 g/cm2, T score -2.8. Left Hip: Bone mineral density 0.689 g/cm2, T score -2.1, decreased by 2%. Fracture Risk Calculation (when applicable): 10-year fracture risk of a major osteoporotic fracture 25 percent and of a hip fracture 7.8 percent. (T score greater or equal to -1.0 to: NORMAL) (T score from -1.1 to -2.4: OSTEOPENIA) (T score less than or equal to -2.5: OSTEOPOROSIS) IMPRESSION: Osteoporosis by WHO classification peer Follow-up guidelines as follows: Osteoporosis: Consider a repeat DEXA and Vertebral Fracture Assessment (VFA) exam in 2 years or sooner if medically necessary, to reassess this patient's status. Osteopenia: Consider a repeat DEXA in 2-3 years to reassess this patient's status, or if there is a new clinical indication. Normal: Consider a repeat DEXA in 5 years or sooner, or if there is a new clinical indication. All treatment decisions require clinical judgment and consideration of individual patient factors, including patient preferences, comorbidities, previous drug use, risk factors not captured in the FRAX model (e.g., frailty, falls, vitamin D deficiency, increased bone turnover, interval significant decline in bone density ) and possible under- or over-estimation of fracture risk by FRAX. In addition, the NOF Guide recommends that FDA-approved medical therapies be considered in postmenopausal women and men age >= 50 years with a: * Hip or vertebral (clinical or morphometric) fracture * T-score of <=-2.5 at the spine or hip * Ten-year fracture probability by FRAX of >= 3% for hip fracture or >=20% for major osteoporotic fracture. Dictated by: Keo Richter M.D. on 10/07/2024 at 15:43 Approved by: Keo Richter M.D. on 10/07/2024 at 15:45
== END ==
PROVIDERS: PCP Family Medicine; Referring Provider Obstetrics & Gynecology; Visit Provider Obstetrics & Gynecology
DX: Z12.31 Encounter for screening mammogram for malignant neoplasm of breast (principal); Z80.3 Family history of malignant neoplasm of breast; M81.0 Age-related osteoporosis without current pathological fracture
CPT/HCPCS: 77063; 77067; 77080

== ENCOUNTER 2024-10-26 11:30 | Outpatient (RCR) | payer OTHER, SELFPAY ==
[2024-06-17 09:54] VITALS: BMI 23.8
--- NOTE | 2024-10-26 13:49 | ST.OPIE ---
Visit Care Team Role Provider Type Isaac Farmer MD Family Provider Physician Primary Care Provider Specialty: Family Practice Address: [address] [place] [address], [address], [place], [address] Email: [email or web address] Kameron Schaefer MD Attending Provider Non-Staff Referring Provider Specialty: Neurology Address: [address] [place] [address], [place], [address] Email: Speech-Language Pathology Initial Evaluation RN BIRTHING Clinical Swallow Evaluation Start: 10/26/24 13:21 Freq: Status: Active Protocol: Document 10/26/24 13:21 SS (Rec: 10/26/24 13:49 SS Desktop) Clinical Swallow Evaluation Session Time Visit Start Time 11:35 Visit Stop Time 12:10 Total Visit Minutes 35 Visit Information Visit Number Initial evaluation Plan of Care Dates 10/26/24-02/25/25 Insurance Information [facility] (39 visits remaining) Referral Referring Provider Dr. Kameron Schaefer (neurologist) Reason for Referral Dysphagia Setting Assessment Location Outpatient Care Visit Type Note Type Initial evaluation Next Note Type Next Note Type Treatment Note Patient Information Identification Type Name History Harmeet Finn is a 74-year-old female, referred for a clinical swallow evaluation by Dr. Kameron Schaefer due to swallowing concerns in the setting of MS. No other pertinent medical history reported by pt, other than frequent falls due to balance issues. She does have PND and sleeps partially elevated to relieve this. She denied GERD, esophageal issues, changes to voice, though did report hitting her head multiple times during falls. She denied history of PNA. Pt endorses changes in swallowing around two years ago, which have gradually become worse. She describes swallowing as feeling food stuck in her throat. She occasionally feels that food becomes trapped in her throat and this causes a choking sensation. She is not restricting any foods at this time. She reports occasional sensation of pills becoming stuck. This sensation clears with a drink of water. She denies unintentional weight loss. She reports coughing/ choking with solids and liquids, primarily late in the day when she is tired. This occurs about once a day. Subjective Observations Pt arrived to the evaluation on time and attended independently. Pt was motivated and engaged throughout the evaluation. Memory/New Learning Potential: WNL, no overt concerns Articulation: 100% in conversation Voice: Perceptually WNL Reported by Patient/Caregiver Pain/Discomfort No Other Symptoms Choking,Coughing,Difficulty swallowing liquids,Difficulty swallowing pills,Difficulty swallowing solids,Food gets stuck Current Diet Regular (IDDSI 7) Baseline Feeding Method Independent in self-feeding The IDDSI Framework Protocol: IDDSI.1 Objective Assessment Mental Status Alert,Responsive,Cooperative Oral Integrity WFL Dentition Within normal limits Lip Function Mild impairment Observation of Lips at Rest Left sided weakness/Drooping Pucker Within normal limits Lip Retraction Within normal limits Alternating Pucker/Lip Retraction Incoordination Tongue Function Within normal limits Observations of Tongue at Rest Within normal limits Tongue Protrusion Within normal limits Tongue Retraction Within normal limits Tongue Lateralization Within normal limits Jaw Function Within normal limits Observation of Jaw at Rest Within normal limits Jaw Opening Within normal limits Jaw Closing Within normal limits Jaw Lateralization Within normal limits Jaw Protrusion Within normal limits Jaw Retraction Within normal limits Hard/Soft Palate Function Within normal limits Observations of Hard/Soft Palate Within normal limits Nasality Within normal limits Respiratory Sufficiency Within normal limits Comment CN V (Trigeminal): intact b/l CN VII (Facial): intact b/l CN IX/X (Glossopharyngeal/ Vagus): intact b/l CN XII (Hypoglossal): intact b /l Food and Liquid Trials Position During Assessment Upright (90 degrees) Liquids Trialed Thin (IDDSI 0) Solid Trials Purred (IDDSI 4),Soft & Bite- sized (IDDSI 6),Regular (IDDSI 7) Administration Type Tea spoon,Cup single sip,Cup consecutive sips,Straw,Self- feeding Oral Impairment Within normal limits Oral Phase Comments Good oral acceptance and adequate labial closure throughout trials. Mastication appeared organized and timely . No significant oral residue was observed post-swallows. Pharyngeal Impairment Mildly impaired Pharyngeal Phase Comments No overt s/sx aspiration noted . No change to voice was noted . Pt did report sticking sensation across trials of liquids and solids, which cleared with spontaneous use of liquid wash. Further trials deferred for instrumentation. Fatigue/Endurance Endurance WNL The IDDSI Framework Protocol: IDDSI.1 Findings Swallowing Function Pharyngeal phase dysphagia Severity of Swallow Impairment Mildly-moderately impaired Prognosis Good Based on Cognitive status,Age, Comorbidities Comment Signs and symptoms of pharyngeal dysphagia, likely related to the pt's dx of multiple sclerosis and age- related weakness. Based on pt? s good oral health status and overall immune function, pt currently remains at a low risk of pulmonary compromise associated with aspiration at this time. However, as her disease progresses, this risk factor may increase. Anticipate to obtain further information re: swallow pathophysiology from MBSS report once it is available in order to determine the safest diet, effective compensatory strategies, and potential rehabilitation exercises for therapy. The plan is for the pt to complete a modified barium swallow study to further assess swallowing pathophysiology in order to determine treatment plan. Further goals will be established based on MBSS results. Impact on Safety and Functioning Risk for aspiration Recommendations Instrumental Assessment Yes Swallowing Treatment Yes Frequency 1x/week Duration 3 months Recommended Solids Regular (IDDSI 7) Recommended Liquids Thin (IDDSI 0) Other Recommendations RN BIRTHING provided education re: swallowing anatomy and physiology with use of a visual diagram to improve the pt?s understanding. Provided education re: recommendation for MBSS and pt agreeable. Educational handout provided. RN BIRTHING messaged pt's PCP, Dr. Isaac Farmer requesting MBSS order. Safety Precautions/Swallowing Reduce distractions,Remain Recommendations upright (90 degrees) during all oral intake,Upright position at least 30 minutes after meals,Small bites and sips when eating,Slow rate; swallow between bites,Multiple swallows,Alternate liquids and solids Medication Recommendations As Tolerated Education Patient/Caregiver Education Described results of evaluation,Patient expressed understanding of evaluation, Patient expressed agreement with goals & treatment plans Goals Short-term Goals 1. Patient will complete MBSS to further evaluate swallowing pathophysiology and determine next steps in POC. 2. Patient will complete pharyngeal swallowing exercises as instructed by the RN BIRTHING with the use of written supports and verbal cueing in order to improve swallow function and efficiency; including, but not limited to, effortful swallow, CTAR, and Jessa. Long-term Goals Patient will safely tolerate least restrictive diet consistency to allow for safe consumption of PO intake without s/sx of aspiration.
--- NOTE | 2024-10-26 13:50 | ST.OPPOC ---
Physical, Occupational & Speech Therapy At [facility] Visit Care Team Role Provider Type Isaac Farmer MD Family Provider Physician Primary Care Provider Address: [address] [place] [address], [address], [place], [address] Kameron Schaefer MD Attending Provider Non-Staff Referring Provider Address: [address] [place] [address], [place], [address] Speech Pathology Plan of Care Plan of Care Dates 10/26/24-02/25/[address] Kameron Schaefer (neurologist) Patient History Harmeet Finn is a 74-year-old female, referred for a clinical swallow evaluation by Dr. Kameron Schaefer due to swallowing concerns in the setting of MS. No other pertinent medical history reported by pt, other than frequent falls due to balance issues. She does have PND and sleeps partially elevated to relieve this. She denied GERD, esophageal issues, changes to voice, though did report hitting her head multiple times during falls. She denied history of PNA. Pt endorses changes in swallowing around two years ago, which have gradually become worse. She describes swallowing as feeling food stuck in her throat. She occasionally feels that food becomes trapped in her throat and this causes a choking sensation. She is not restricting any foods at this time. She reports occasional sensation of pills becoming stuck. This sensation clears with a drink of water. She denies unintentional weight loss. She reports coughing/choking with solids and liquids, primarily late in the day when she is tired. This occurs about once a day. Short-term Goals 1. Patient will complete MBSS to further evaluate swallowing pathophysiology and determine next steps in POC. 2. Patient will complete pharyngeal swallowing exercises as instructed by the PRINTED [employer] LAYOUT TAPER with the use of written supports and verbal cueing in order to improve swallow function and efficiency; including, but not limited to, effortful swallow , CTAR, and Jessa. Long-term Goals Patient will safely tolerate least restrictive diet consistency to allow for safe consumption of PO intake without s/sx of aspiration. Comment: Electronically Signed by: MERARY Linares 10/26/24 1350 If you are in agreement with this Plan of Care, please return a signed and dated copy. I have reviewed this Plan of Care and certify that the skilled therapy services above are required to meet the patient?s needs. Physician Signature Date Printed Name and Credentials Clinical Instructor Signature Printed Name and Credentials
== END 2025-04-21 10:26 | disposition home or self-care (01) ==
LOC: SP 11:30
PROVIDERS: Family Provider Family Medicine; PCP Family Medicine; Referring Provider Psychiatry & Neurology Neurology; Visit Provider Psychiatry & Neurology Neurology
DX: G35 Multiple sclerosis (principal); R13.12 Dysphagia, oropharyngeal phase
CPT/HCPCS: 92610

== ENCOUNTER → 2024-11-02 09:48 | Outpatient (CLI) | payer OTHER, SELFPAY ==
[2024-06-17 09:54] VITALS: BMI 23.8
--- NOTE | 2024-11-02 13:16 | ST.SWALLOW ---
Visit Care Team Role Provider Type Isaac Farmer MD Attending Provider Physician Family Provider Primary Care Provider Referring Provider Specialty: Family Practice Address: [address] [place] [address], [address], [address] Email: [email or web address] Modified Barium Swallow Study HAND ETCHER HELPER Modified Barium Swallow Study Start: 11/02/24 12:28 Freq: Status: Active Protocol: Document 11/02/24 12:28 LNK (Rec: 11/02/24 13:15 LNK Desktop) Modified Barium Swallow Study Total Time Visit Start Time 10:00 Visit Stop Time 10:45 Total Visit Minutes [address] Farmer Setting Setting Outpatient Care Patient Information Identification Type Name,Date of Patient History Pt was seen for a Modified Barium Swallow with c/o coughing with liquids, solids several times per day. She also noted that pills/capsules stick in her throat near her sternal notch. Subjective Observations Pt was seated in the fluoroscopy chair with directions and procedures described for her. She indicated she understood and agreed to proceed. Patient Positioning Position View Lat-A/P Imaging Lateral View Textures Administered Trials Presented Thin Liquid via Spoon (IDDSI 0 ),Thin Liquid via Cup (IDDSI 0 ),Extremely Thick Liquid via Spoon (IDDSI 4),Regular (IDDSI 7) Barium Tablet Yes The IDDSI Framework Protocol: IDDSI.1 Oral Impairment Source: The Modified Barium Swallow Impairment Profile (MBSImP??) Lip Closure No labial escape Tongue Control During Bolus Hold Cohesive bolus between tongue to palatal seal Bolus Preparation/Mastication Slow prolonged chewing/mashing with complete re-collection Oral Residue Complete oral clearance Initiation of Pharyngeal Swallow Bolus head in valleculae Additional Oral Impairment Observations Oral phase of swallow WNL *OME and DKS were observed to be WNL. *Dentition natural and in good hygiene *Mastication observed with rotary chew pattern. *Good bolus formation, control and AP transition. *Velopharyngeal closure was WNL. Pharyngeal Impairment Source: The Modified Barium Swallow Impairment Profile (MBSImP??) Soft Palate Elevation No bolus between soft palate & pharyngeal wall Laryngeal Elevation Part.sup.move.thyroid cart/ part.approx.arytenoids to epiglot.petiole Anterior Hyoid Excursion Partial anterior movement Epiglottic Movement Complete inversion Laryngeal Vestibular Closure Complete; no air/contrast in laryngeal vestibule Pharyngeal Stripping Wave Present - complete Pharyngoesophageal Segment Opening Complete distention & complete duration; no obstruction of flow Tongue Base Retraction Trace column of contrast/air betwn tongue base & post. pharyngeal wall Pharyngeal Residue Trace residue within/on pharyngeal structures Location Tongue base Additional Pharyngeal Impairment *Pharyngeal phase WFL Observations *Hyoid/laryngeal elevation and epiglottic inversion were judged to be WNL. *Tongue base retraction and hyolaryngeal elevation were mildly weak. Epiglottic inversion was complete *Pharyngeal stripping wave and cricopharyngeal opening WNL *Post-swallow residue was minimal*No laryngeal penetration or aspiration was observed. A/P View Textures Administered Trials Presented Thin Liquid via Cup (IDDSI 0) The IDDSI Framework Protocol: IDDSI.1 A/P View Observations Pharyngeal Contraction Complete Esophageal Clearance Upright Position Complete clearance; esophageal coating Vocal Fold Function Good Esophageal Function WFL Additional A-P Observations * Esophageal phase of swallow WFL * Slight retention of contrast mid-chest following previous trials. * Distal esophagus narrowed, slowing complete emptying, stopping calibrated barium tablet with mild delay to the stomach Clinical Impressions Dysphagia Type WNL Findings *Pt's swallow observed to be WFL. *Mild reduction in mastication strength/speed as well as hyolaryngeal elevation movement. Distal esophagus narrow and mildly slow to empty *No diet changes recommended *ST recommended for base of tongue exercises/strengthening This MBSS may serve as a good baseline for pt's swallowing Re: progressive nature of MS Rehabilitation Potential Excellent Patient Appropriate for Therapy Yes: Base of tongue exercises; safe swallow strategies
== END ==
LOC: RAD 09:48
PROVIDERS: Family Provider Family Medicine; PCP Family Medicine; Referring Provider Family Medicine; Visit Provider Family Medicine
DX: R13.10 Dysphagia, unspecified (principal)
CPT/HCPCS: 74230; 92611

== ENCOUNTER → 2024-11-19 13:54 | Outpatient (CLI) | payer OTHER, SELFPAY ==
[2024-06-17 09:54] VITALS: BMI 23.8
== END ==
PROVIDERS: Family Provider Family Medicine; PCP Family Medicine; Visit Provider Urology
DX: N39.0 Urinary tract infection, site not specified (principal)
CPT/HCPCS: 87077; 87086; 87186

== ENCOUNTER → 2024-12-07 09:40 | Outpatient (CLI) | payer OTHER, SELFPAY ==
[2024-06-17 09:54] VITALS: BMI 23.8
[2024-12-07 10:41] LABS: Hemoglobin A1C% w Est Avg Glu 6.4 % (4.0-6.0)
== END ==
PROVIDERS: Family Provider Family Medicine; PCP Family Medicine; Referring Provider Family Medicine; Visit Provider Family Medicine
DX: E11.9 Type 2 diabetes mellitus without complications (principal)
CPT/HCPCS: 36415; 83036

== ENCOUNTER → 2025-01-06 12:19 | Outpatient (CLI) | payer MEDICARE, SELFPAY ==
[2024-06-17 09:54] VITALS: BMI 23.8
[2025-01-07 17:36] LABS: SS A Ro Sjogrens Antibody < 0.2 AI (0.0-0.9); SS B La Sjogrens Antibody < 0.2 AI (0.0-0.9)
[2025-01-11 10:41] LABS: Acetylcholine Rec Blocking AB 17 % (0-25)
[2025-01-11 11:11] LABS: ANA Screen, IFA Negative (.)
[2025-01-12 13:41] LABS: Interleukin-6, Serum <2.5 pg/mL (0.0-13.0)
[2025-01-19 07:37] LABS: MuSK Antibodies <1.0 U/mL (.)
== END ==
PROVIDERS: PCP Family Medicine
DX: G35 Multiple sclerosis (principal); R13.12 Dysphagia, oropharyngeal phase
CPT/HCPCS: 36415; 83519; 83520; 83529; 85651; 86038; 86140; 86235

== ENCOUNTER 2025-01-19 12:45 | Emergency (ER) | payer MEDICARE, SELFPAY ==
[2024-06-17 09:54] VITALS: BMI 23.8
[2025-01-19 12:49] VITALS: BP 138/63; PULSE 87; RESP 16; TEMP 36.6; O2SAT 98; BMI 25.7
--- NOTE | 2025-01-19 13:35 | ED.FALL ---
HPI - Fall General Chief Complaint: Fall Stated Complaint: Fall; R Side Rib Pain, No Thinners Time Seen by Provider: 01/19/25 13:10 Source: patient Mode of arrival: Ambulatory History of Present Illness HPI Narrative: Ms. Finn is a very pleasant 74-year-old female with a past medical history multiple sclerosis, [id number] type 2 diabetes, recurrent urinary tract infections who presents to the emergency department for right rib pain after a fall yesterday. Patient is with her son, Christian. Patient states because of her history of MS she has an unsteady gait and walks with a walker and has frequent falls. However she had 2 falls in the last week both that injured her right ribs. Two days ago she was in her closet, reaching for clothes when she started to fall backwards and attempted to sit down onto a chair but slightly missed the chair and hit her right ribcage on a box in the closet. Then yesterday a similar fall happened where she attempted to grab onto her walker but instead hit her right ribcage on the chair of the walker. She did not hit her head with any of the falls. She is now experiencing focal pain of the right anterior/lateral ribcage and has bruising in this area. She has pain with a very deep breath and with range of motion. She took ibuprofen and Tylenol which helped with the pain significantly. She is also reporting some urgency and frequency and is concerned that she could possibly have a UTI. She is also having itchiness of both of her ears. She denies headache, dizziness, lightheadedness, visual disturbance, chest pain, shortness of breath, abdominal pain, nausea, vomiting, diarrhea constipation. She ambulates with her walker. Related Data Previous Rx's ?Medication ?Instructions ?Recorded Disabled Parking Permit #1 ea 05/09/20 One Touch Verio Glucose Monitor #1 ea 01/07/23 One Touch Verio test strips and #300 ea 03/26/23 lancets estradiol 10 mcg vaginal tablet 10 mcg vaginal 2XW #24 tabs 02/24/24 (Yuvafem) Hand controls #1 ea 03/22/24 acetaminophen 325 mg tablet 650 mg (2 x 325 mg) PO Q6H PRN 04/23/24 Fever/Mild Pain (1-3) #30 tabs lisinopril 10 mg tablet 10 mg PO DAILY #90 tabs 08/02/24 nystatin 100,000 unit/gram topical 1 applic topical BID #30 grams 08/26/24 powder mirabegron 50 mg tablet,extended 50 mg PO DAILY #90 tabs 08/30/24 release 24 hr atorvastatin 10 mg tablet 10 mg PO DAILY #90 tabs 09/07/24 metformin 500 mg tablet,extended See Rx Instructions .Route 11/02/24 release 24 hr .COMPLEX #360 tabs trimethoprim 100 mg tablet 100 mg PO DAILY #90 tabs 11/11/24 hydrochlorothiazide 12.5 mg tablet 12.5 mg PO DAILY #90 tabs 11/24/24 blood sugar diagnostic (Contour #200 ea 12/21/24 Next Test Strips) baclofen 5 mg tablet 5 mg PO Q8H #290 tabs 12/23/24 hydrocodone 5 mg-acetaminophen 325 1 tab PO Q8H PRN Pain (Scale Score 12/27/24 mg tablet 1-3) #30 tabs hydrocodone 5 mg-acetaminophen 325 1 tab PO Q4-6H PRN pain #12 tabs 01/19/25 mg tablet Allergies Allergy/AdvReac Type Severity Reaction Status Date / Time Sulfa (Sulfonamide Allergy Severe ANAPHYLAXIS Verified 12/09/24 13:37 Antibiotics) (SULFA (SULFONAMIDE ANTIBIOTICS)) diphenhydramine Allergy Mild HIVES Verified 12/09/24 13:37 (DIPHENHYDRAMINE) levofloxacin (From Levaquin) AdvReac Severe neurological Verified 12/09/24 13:37 effects - pt hospitalized honeydew AdvReac Verified 12/09/24 13:37 Review of Systems Review of Systems ROS Unobtainable: All systems reviewed & are unremarkable except as noted in HPI and below Patient History Medical History Pyuria Parapelvic renal cyst Constipation Atrophic vaginitis Hydronephrosis of left kidney Chronic lower urinary tract infection Recurrent urinary tract infection Colon polyps (2009) Chicken pox Measles Plantar warts (2004) Fractures (~2005) Osteopenia Multiple sclerosis (1991) Surgical History History of urethral stent (03/2024) History of tubal ligation History of cholecystectomy Anesthesia History of shoulder surgery (1973) Status post rotator cuff repair (2011) History of third molar tooth extraction (1970) Status post tubal ligation (1979) Family History Brother Age: 67 Diabetes mellitus Hypertension High cholesterol Child Age: 28 Adopted Mother Heart disease Hypertension Stroke Cancer Father Alzheimer's disease Grandmother No problems noted. Social History marital status: number of children: 1 household members: none occupational status: employed alcohol intake: current substance use type: does not use caffeine: Yes (tea-occasional ) Type(s) of exercise: other frequency: 5-6 times per week Smoking Status: Never smoker alcohol intake frequency: holidays/special occasions only Exam Narrative Exam Narrative: GENERAL: 74 year old patient appears stated age. Well-developed patient, in no acute distress. HEAD: Atraumatic. Normocephalic. EYES: PERRL. Extraocular motions intact. No scleral icterus. No injection or drainage. ENT: Scant dried cerumen in right canal. Left ear canal clear but with dry skin. Normal TMs bilaterally. Nose without bleeding, purulent drainage. Throat without erythema, tonsillar hypertrophy or exudate. Airway patent. NECK: Trachea midline. Cervical ROM intact. CARDIOVASCULAR: Regular rate and rhythm. RESPIRATORY: ?Nonlabored respirations. ?Speaking in clear, full sentences. ?Clear to auscultation. Breath sounds equal bilaterally. No wheezes, rales, or rhonchi. ? GASTROINTESTINAL: Ecchymoses on right anterior lateral ribcage with tenderness in this area. Abdomen soft, non-tender, nondistended. EXTREMITIES: No edema or joint tenderness. Patient does have left ankle brace in place. BACK: Nontender without deformity or crepitance. No flank tenderness. NEURO: AOx3. ?Clear speech. No facial asymmetry. ?Moves all 4 extremities appropriately. Ambulates with a Rollator walker. SKIN: No rash or erythema of visible areas. Bruising R ribs. No wounds. Initial Vital Signs Initial Vital Signs: Vital Signs Temperature 98 F 01/19/25 12:49 Pulse Rate 87 01/19/25 12:49 Respiratory Rate 16 01/19/25 12:49 Blood Pressure 138/63 01/19/25 12:49 Pulse Oximetry 98 07/23/25 12:49 Oxygen Delivery Method Room Air 01/19/25 12:49 Procedures Ear Wax Removal Right Ear: Time of procedure: 14:55 Results: Re-examined: cerumen removed completely TM Examination: TM(s) intact, normal appearance Ear Canal Exam: atraumatic Patient Tolerated Procedure: Well Complications: no problems Technique: ear canal curetted Course Orders Ordered: Discontinued Medications Lidocaine (Lidocaine 5% Patch) 1 each TOP NOW ONE Stop: 01/19/25 13:54 Last Admin: 01/19/25 15:09 Dose: 1 each Documented By: CATHI Vital Signs Vital signs: Vital Signs - 8 hr 01/19/25 12:49 Temperature 98 F Pulse Rate 87 Respiratory Rate 16 Blood Pressure 138/63 Pulse Oximetry 98 Oxygen Delivery Method Room Air MDM - Fall Medical Records Attestation: I reviewed the patient's medical records. Lab Data Labs: Urine Dip Bedside Urine Glucose Negative Bedside Urine Bilirubin - Negative Bedside Urine Ketone - Negative Urine Specific [place] 1.010 Bedside Urine Occult Blood - Negative Bedside Urine pH 6.0 Bedside Urine Protein - Negative Bedside Urine Urobilinogen - Negative Bedside Urine Nitrite - Negative Bedside Urine Leukocytes - Negative Esterase Imaging Data CT scan - chest: Radiologist's Impression: PROCEDURE: CT CHEST WO CON INDICATIONS: fall; right rib pain TECHNIQUE: Noncontrast 5 mm thick sections acquired from the pulmonary apices to the posterior costophrenic angles. 1 mm lung window, 5 mm thick coronal and sagittal and 7 mm axial MIP reformats were then acquired. For radiation dose reduction, the following was used: automated exposure control, adjustment of mA and/or kV according to patient size. COMPARISON: [facility], CT, CT ABDOMEN PELVIS W CON, 04/18/2024, 15:02. FINDINGS: Image quality: Diagnostic. Lower Neck: No enlarged lymph nodes. Thyroid: No thyroid nodules which require sonographic follow up, per consensus guidelines. Axillae: No enlarged lymph nodes. Chest Wall: Unremarkable. Bones: In this patient with this given history, scrutiny is given to the right ribs. Mildly displaced fractures can be seen involving the right inferolateral 9th, 10th, and 11th ribs. Remote left-sided rib fractures are seen. There is moderate levoconvex thoracolumbar scoliosis. Accentuated thoracic kyphosis is seen. Lungs and Pleura: No pneumothorax or pleural effusions. No consolidation or suspicious nodules. Heart: Heart size is normal. No pericardial effusion. Thoracic Vessels: The aorta and pulmonary arteries demonstrate normal size. Mediastinum and Jannette: No enlarged lymph nodes. Esophagus: No wall thickening. No hiatal hernia. Upper Abdomen: Cholecystectomy clips are seen. Visualized upper abdomen solid organs and bowel loops appear normal. IMPRESSION: Mildly displaced rib fractures can be seen on the right inferiorly and laterally involving the 9th, 10th, and 11th ribs. No associated pneumothorax is seen. Additional findings: Cholecystectomy Dictated by: Aron Manning M.D. on 01/19/2025 at 13:37 Approved by: Aron Manning M.D. on 01/19/2025 at 13:40 MDM Narrative Medical decision making narrative: 74-year-old female with a past medical history multiple sclerosis, ufg-pagnoit-eaoqkalgn type 2 diabetes, recurrent urinary tract infections who presents to the emergency department for right rib pain after a fall yesterday. Fall was mechanical, not precipitated by any dizziness lightheadedness or other symptoms, no syncopal episode, no head trauma. Patient ambulated into the ED today. Differential diagnosis includes but isn't limited to right rib fracture, contusion, sprain, strain, costochondritis, fall, UTI, etc. On exam patient is in no acute distress, nontoxic-appearing, all vital signs within normal limits. She has no focal neurologic deficits and is ambulatory with a Rollator walker. She has focal tenderness to palpation of the right anterior lateral ribcage with bruising in this area. Lung sounds are clear throughout. No head trauma. No tenderness to palpation of any of the extremities, she does have a brace on the left ankle for prior injury. We will obtain CT chest to further evaluate for potential right-sided rib fracture. We will treat with Lidoderm. We will also obtain UA per patient request. CT chest reveals mildly displaced rib fractures on the right inferior and laterally involving the 9th 10th and 11th ribs. No associated pneumothorax is seen. UA negative for infection. R cerumen removed. Imaging findings were printed discussed with the patient and her son. RT came and discussed incentive spirometry with the patient and provided her with her own IS. Discussed pain control, importance of IS to prevent pneumonia, and follow up with PCP for further management. Patient is currently undergoing physical therapy and I recommended that she use her Rollator walker and PT as she is currently using walking stick at Pt but then using her rollator at home. Also discussed the importance of following up with Neurology for the patient's MS. A short course of hydrocodone-acetaminophen was sent to the patient's pharmacy of choice if needed for severe breakthrough pain, I did discuss the risks of narcotic pain medications. Discussed strict ED return precautions. Patient and her son verbalized understanding of all information agreeable to the plan, she is ambulatory and stable for discharge home. Discharge Plan Departure Patient Disposition: Home Clinical Impression: Fracture of right ninth rib, Fracture of right tenth rib, Fracture of right eleventh rib Fall Qualifiers: Encounter type: initial encounter Qualified Code(s): W19.XXXA - Unspecified fall, initial encounter Instructions: DI for Rib Fracture Activity Restrictions/Additional Instructions: Dear Ms. Finn, Thank you for coming to the emergency department. Today you were evaluated for right-sided rib pain after falling. CT scan of your chest revealed that you broke your right 9th, 10th, 11th ribs. Please rest, hydrate, use ibuprofen and tylenol for pain and hydrocodone if needed for severe breakthrough pain. It is very important to use your provided incentive spirometer to continue taking deep breaths to prevent the development of pneumonia. Please follow up with your physical therapist and work on walking with your walker, especially while recovering form your ribs fractures. It is very important to talk with your primary care doctor about placing a new referral to Neurology for further evaluation of your multiple sclerosis. Please follow up with your primary care doctor within the next 2-3 days for ER follow-up. (If you do not have a PCP you can call [phone]. ?to schedule an appointment with an [facility] Primary Care Provider) IF YOU DEVELOP ANY NEW OR WORSENING SYMPTOMS, RETURN TO THE ER! Please read the attached instructions, they highlight more specific treatments and interventions for you at home. Thank you for letting me participate in your care, Aminata Herron PA-C You have been prescribed a short course of narcotic medications. These are potentially dangerous and addictive medications that should be used carefully. While on these medications you cannot drive or operate heavy machinery. Additionally, you cannot sign legal documents or perform any duties such as this. Many people get constipated on narcotic medications so it would be advisable to discuss stool softeners with the pharmacist when you hand picker your prescription. Please understand that we cannot provide further refills of narcotics or controlled substances through the ED and your pain management will need to be through your Primary Care Provider Prescriptions: New hydrocodone-acetaminophen 5-325 mg tablet 1 tab PO Q4-6H PRN (Reason: pain) Qty: 12 0RF No Action (DME) Disabled Parking Permit Qty: 1 0RF Rx Instructions: I find this person to be disabled (DME) One Touch Verio Glucose Monitor See Rx Instructions .Route .MEDSUPPLY Qty: 1 0RF Rx Instructions: As directed twice daily for glucose monitoring (DME) One Touch Verio test strips and lancets See Rx Instructions .Route .MEDSUPPLY Qty: 300 3RF Rx Instructions: As directed three times daily for blood glucose monitoring estradiol [Yuvafem] 10 mcg tablet 10 mcg vaginal 2XW Qty: 24 3RF lisinopril 10 mg tablet 10 mg PO DAILY Qty: 90 3RF nystatin 100,000 unit/gram powder 1 applic topical BID Qty: 30 0RF mirabegron 50 mg tablet extended release 24 hr 50 mg PO DAILY Qty: 90 3RF atorvastatin 10 mg tablet 10 mg PO DAILY Qty: 90 3RF metformin 500 mg tablet extended release 24 hr See Rx Instructions .ROUTE .COMPLEX Qty: 360 3RF Dose Instruction: Take 2 tablets (1,000 mg) by mouth 2 times daily Rx Instructions: Take 2 tablets (1,000 mg) by mouth 2 times daily trimethoprim 100 mg tablet 100 mg PO DAILY Qty: 90 3RF hydrochlorothiazide 12.5 mg tablet 12.5 mg PO DAILY Qty: 90 1RF (DME) Contour Next Test Strips Strip See Rx Instructions .Route Qty: 200 11RF Rx Instructions: Use to check blood sugar three times daily as directed baclofen 5 mg tablet 5 mg PO Q8H Qty: 290 3RF hydrocodone-acetaminophen 5-325 mg tablet 1 tab PO Q8H PRN (Reason: Pain (Scale Score 1-3)) Qty: 30 0RF (DME) Hand controls See Rx Instructions .Route .MEDSUPPLY Qty: 1 0RF Rx Instructions: Use for driving acetaminophen 325 mg Tablet 650 mg PO Q6H PRN (Reason: Fever/Mild Pain (1-3)) Qty: 30 0RF Referrals: Isaac Farmer MD [Primary Care Provider, Family Practice] Stand Alone Forms: Patient Portal/API
--- NOTE | 2025-01-19 13:53 | DI.CT.S_ITS ---
PROCEDURE: CT CHEST WO CON INDICATIONS: fall; right rib pain TECHNIQUE: Noncontrast 5 mm thick sections acquired from the pulmonary apices to the posterior costophrenic angles. 1 mm lung window, 5 mm thick coronal and sagittal and 7 mm axial MIP reformats were then acquired. For radiation dose reduction, the following was used: automated exposure control, adjustment of mA and/or kV according to patient size. COMPARISON: [facility], CT, CT ABDOMEN PELVIS W CON, 04/18/2024, 15:02. FINDINGS: Image quality: Diagnostic. Lower Neck: No enlarged lymph nodes. Thyroid: No thyroid nodules which require sonographic follow up, per consensus guidelines. Axillae: No enlarged lymph nodes. Chest Wall: Unremarkable. Bones: In this patient with this given history, scrutiny is given to the right ribs. Mildly displaced fractures can be seen involving the right inferolateral 9th, 10th, and 11th ribs. Remote left-sided rib fractures are seen. There is moderate levoconvex thoracolumbar scoliosis. Accentuated thoracic kyphosis is seen. Lungs and Pleura: No pneumothorax or pleural effusions. No consolidation or suspicious nodules. Heart: Heart size is normal. No pericardial effusion. Thoracic Vessels: The aorta and pulmonary arteries demonstrate normal size. Mediastinum and Jannette: No enlarged lymph nodes. Esophagus: No wall thickening. No hiatal hernia. Upper Abdomen: Cholecystectomy clips are seen. Visualized upper abdomen solid organs and bowel loops appear normal. IMPRESSION: Mildly displaced rib fractures can be seen on the right inferiorly and laterally involving the 9th, 10th, and 11th ribs. No associated pneumothorax is seen. Additional findings: Cholecystectomy Dictated by: Aron Manning M.D. on 01/19/2025 at 13:37 Approved by: Aron Manning M.D. on 01/19/2025 at 13:40
[2025-01-19] MEDS: LIDOCAINE 5% PATCH 1 EACH TOP (15:09)
[2025-01-19 15:50] VITALS: BP 116/87; PULSE 87; RESP 16; O2SAT 98
== END 2025-01-19 15:55 | disposition home or self-care (01) ==
PROVIDERS: Emergency Provider Physician Assistant; PCP Family Medicine
DX: S22.41XA Multiple fractures of ribs, right side, initial encounter for closed fracture (principal); R29.6 Repeated falls; W18.30XA Fall on same level, unspecified, initial encounter
CPT/HCPCS: 69210; 71250; 81003; 99282; 99284

== ENCOUNTER 2025-01-21 12:08 | Emergency (ER) | payer MEDICARE, SELFPAY ==
[2024-06-17 09:54] VITALS: BMI 23.8
[2025-01-21 12:28] VITALS: BP 130/60; PULSE 86; RESP 16; TEMP 36.7; O2SAT 100; BMI 25.7
--- NOTE | 2025-01-21 12:32 | DI.RAD.S_ITS ---
PROCEDURE: XR HIP W PEL IF DONE RT 2V INDICATIONS: fall on Tuesday 01/16 and still having pain TECHNIQUE: AP pelvis with lateral view(s) of the right hip(s). COMPARISON: [facility], , XR HIP W PEL IF DONE LT 2V, 03/05/2022, 18:36. FINDINGS: Bones: No fractures or dislocations. Pelvic ring appears intact. No suspicious bony lesions. There is moderate superior joint space narrowing seen of both hips, with associated remodeling changes with subchondral sclerosis and osteophyte formation. Age-appropriate lower lumbar spine degenerative changes are noted. Soft tissues: The visualized bowel gas pattern is normal. No suspicious soft tissue calcifications. Pelvic phleboliths are incidentally noted. IMPRESSION: Moderate bilateral hip degenerative change, without an acute plain film abnormality seen. If there is point tenderness (or other clinical suspicion for a fracture not seen on these images) then a dedicated CT could be considered for further evaluation, if clinically appropriate. Dictated by: Aron Manning M.D. on 01/21/2025 at 12:40 Approved by: Aron Manning M.D. on 01/21/2025 at 12:40
--- NOTE | 2025-01-21 12:43 | ED.LOWEXIN ---
HPI - Extremity Injury (Lower) <Sarah Beth Mae PA-C - Last Filed: 01/21/25 20:20> General Chief Complaint: Extremity Injury, Lower Stated Complaint: right hip pain, here recently for broken ribs Time Seen by Provider: 01/21/25 12:37 Source: patient Mode of arrival: Ambulatory History of Present Illness HPI Narrative: This is a 74-year-old woman with a history of MS normally ambulates with a walker or walking sticks due to balance issues related to her MS who was seen in this ER 2 days ago due to rib pain from a fall. Presenting today with concern for right hip pain also 2nd to her recent fall. Patient falls somewhat frequently due to her MS and walks with a walker at baseline. She is here today because she was concerned that her right hip has been increasingly painful since her fall and believes it was not imaged during her visit. She states she had the pain at the time she came in but her rib pain was so severe that she lost over it and did not really think a whole lot of it. Since then her right hip has been somewhat painful but last night she says she woke up in the middle of the night with the excruciating pain? in the joint?. She says the hip pain is fairly constant it does not seem to be worse or better with movement or weight-bearing. She says last night when it 1st occurred around 3:00 a.m. it was incredibly intense and she says it does not feel at all like previous hip pain that she has had related to her MS, or arthritis. She does state she has been unable to use her walking sticks since she broke her ribs and has been using her walker to ambulate entirely. She takes hydrocodone at night only at baseline to help her sleep associated with her MS symptoms. And has taken a couple additional doses of her hydrocodone since her rib fractures occurred but has mostly been trying to use Tylenol and ibuprofen for pain. She notes she has osteoporosis and is concerned about a possible fracture. She has not had numbness or tingling of her extremity. She does note that since her fall her right foot has had a slightly toe inward affect with her walking which she has not remember being there previously. She sees OT/PT. Patient states she has been doing pretty well with the rib fractures. She has not feeling short of breath and denies coughing or fevers chills or other symptoms. Related Data Previous Rx's ?Medication ?Instructions ?Recorded Disabled Parking Permit #1 ea 05/09/20 One Touch Verio Glucose Monitor #1 ea 01/07/23 One Touch Verio test strips and #300 ea 03/26/23 lancets estradiol 10 mcg vaginal tablet 10 mcg vaginal 2XW #24 tabs 02/24/24 (Yuvafem) Hand controls #1 ea 03/22/24 acetaminophen 325 mg tablet 650 mg (2 x 325 mg) PO Q6H PRN 04/23/24 Fever/Mild Pain (1-3) #30 tabs lisinopril 10 mg tablet 10 mg PO DAILY #90 tabs 08/02/24 nystatin 100,000 unit/gram topical 1 applic topical BID #30 grams 08/26/24 powder mirabegron 50 mg tablet,extended 50 mg PO DAILY #90 tabs 08/30/24 release 24 hr atorvastatin 10 mg tablet 10 mg PO DAILY #90 tabs 09/07/24 metformin 500 mg tablet,extended See Rx Instructions .Route 11/02/24 release 24 hr .COMPLEX #360 tabs trimethoprim 100 mg tablet 100 mg PO DAILY #90 tabs 11/11/24 hydrochlorothiazide 12.5 mg tablet 12.5 mg PO DAILY #90 tabs 11/24/24 blood sugar diagnostic (Contour #200 ea 12/21/24 Next Test Strips) baclofen 5 mg tablet 5 mg PO Q8H #290 tabs 12/23/24 hydrocodone 5 mg-acetaminophen 325 1 tab PO Q8H PRN Pain (Scale Score 12/27/24 mg tablet 1-3) #30 tabs hydrocodone 5 mg-acetaminophen 325 1 tab PO Q4-6H PRN pain #12 tabs 01/19/25 mg tablet Allergies Allergy/AdvReac Type Severity Reaction Status Date / Time Sulfa (Sulfonamide Allergy Severe ANAPHYLAXIS Verified 01/21/25 12:28 Antibiotics) (SULFA (SULFONAMIDE ANTIBIOTICS)) diphenhydramine Allergy Mild HIVES Verified 01/21/25 12:28 (DIPHENHYDRAMINE) levofloxacin (From Levaquin) AdvReac Severe neurological Verified 01/21/25 12:28 effects - pt hospitalized honeydew AdvReac Verified 01/21/25 12:28 Review of Systems <Sarah Beth Mae PA-C - Last Filed: 01/21/25 20:20> Review of Systems Narrative: See HPI Patient History <Sarah Beth Mae PA-C - Last Filed: 01/21/25 20:20> Medical History Pyuria Parapelvic renal cyst Constipation Atrophic vaginitis Hydronephrosis of left kidney Chronic lower urinary tract infection Recurrent urinary tract infection Colon polyps (2009) Chicken pox Measles Plantar warts (2004) Fractures (~2005) Osteopenia Multiple sclerosis (1991) Surgical History History of urethral stent (03/2024) History of tubal ligation History of cholecystectomy Anesthesia History of shoulder surgery (1973) Status post rotator cuff repair (2011) History of third molar tooth extraction (1970) Status post tubal ligation (1979) Family History Brother Age: 67 Diabetes mellitus Hypertension High cholesterol Child Age: 28 Adopted Mother Heart disease Hypertension Stroke Cancer Father Alzheimer's disease Grandmother No problems noted. Social History marital status: number of children: 1 household members: none occupational status: employed Smoking Status: Never smoker alcohol intake: current substance use type: does not use caffeine: Yes (tea-occasional ) Type(s) of exercise: other frequency: 5-6 times per week Smoking Status: Never smoker alcohol intake frequency: holidays/special occasions only Exam <Sarah Beth Mae PA-C - Last Filed: 01/21/25 20:20> Narrative Exam Narrative: GENERAL: [74] year old patient appears stated age. Well-developed patient, in mild distress. HEAD: Atraumatic. Normocephalic. EYES: Pupils equal round and reactive. Extraocular motions intact. No scleral icterus. No injection or drainage. ENT: Nose without bleeding, purulent drainage. Airway patent. NECK: Trachea midline. Non tender CARDIOVASCULAR: Regular rate and rhythm without murmurs, gallops, or rubs. RESPIRATORY: Clear to auscultation. Breath sounds equal bilaterally. No wheezes, rales, or rhonchi. GASTROINTESTINAL: non-tender, nondistended. EXTREMITIES: Patient has increased right hip pain with active flexion of the knee and resisted extension at the hip. There is point tenderness over the lateral greater trochanter. There is muscle tightness of the gluteus muscles particularly notable on the right affected side. Patient ambulates slowly with a walker. No edema or joint tenderness. BACK/CHEST WALL: The anterolateral chest wall at approximately ribs 4 through 7 has moderate purplish/yellow bruising present with pronounced tenderness. Otherwise Nontender without deformity or crepitance. No flank tenderness. NEURO: AOx3. SKIN: No rash or erythema of visible areas Initial Vital Signs Initial Vital Signs: Vital Signs Temperature 98.1 F 01/21/25 12:28 Pulse Rate 86 01/21/25 12:28 Respiratory Rate 16 01/21/25 12:28 Blood Pressure 130/60 01/21/25 12:28 Pulse Oximetry 100 01/21/25 12:28 Oxygen Delivery Method Room Air 01/21/25 12:28 <Yamil Ang MD - Last Filed: 01/22/25 15:12> Initial Vital Signs Initial Vital Signs: Vital Signs Temperature 98.1 F 01/21/25 12:28 Pulse Rate 86 01/21/25 12:28 Respiratory Rate 16 01/21/25 12:28 Blood Pressure 130/60 01/21/25 12:28 Pulse Oximetry 100 01/21/25 12:28 Oxygen Delivery Method Room Air 01/21/25 12:28 Course <Sarah Beth Mae PA-C - Last Filed: 01/21/25 20:20> Orders Ordered: ED Orders 01/21/25 12:32 XR hip w pel RT 2V Stat 01/21/25 13:58 Ct Hip right without con Stat Consultations Consultation #1: Spoke with Dr. Chilel, on-call Orthopedics who advises the patient likely will need a repeat x-ray in about 1 week to re-evaluate changes related to this probable fracture. Also suggest she should be walking with a walker to minimize excess weight-bearing and decrease pain but this fracture type is typically nonsurgical. 1720 Vital Signs Vital signs: Vital Signs - 8 hr 01/21/25 12:28 01/21/25 18:16 Temperature 98.1 F 98.1 F Pulse Rate 86 78 Respiratory Rate 16 18 Blood Pressure 130/60 128/60 Pulse Oximetry 100 98 Oxygen Delivery Method Room Air Room Air <Yamil Ang MD - Last Filed: 01/22/25 15:12> Orders Ordered: ED Orders 01/21/25 12:32 XR hip w pel RT 2V Stat 01/21/25 13:58 Ct Hip right without con Stat Vital Signs Vital signs: Vital Signs - 8 hr 01/21/25 12:28 01/21/25 18:16 Temperature 98.1 F 98.1 F Pulse Rate 86 78 Respiratory Rate 16 18 Blood Pressure 130/60 128/60 Pulse Oximetry 100 98 Oxygen Delivery Method Room Air Room Air MDM - Extremity Injury (Lower) <Sarah Beth Mae PA-C - Last Filed: 01/21/25 20:20> Differential Diagnosis Differential diagnosis: Likely fracture of hip and other (muscle spasm, muscle strain, hip sprain) Medical Records Attestation: I reviewed the patient's medical records. Medical records narrative: Reviewed records including recent visit for fall/rib pain and imaging results obtained at that time. Imaging Data HR hip w/ pelvis: My Impression: Agree with Radiology interpretation Radiologist's Impression: [address] [address] XRay Report Signed Patient: Harmeet Finn MR#: [id number] : 1950 Acct:[id number] Age/Sex: 74 / F Date of Service: 01/21/25 Loc: ED Accession Number: [id number] Procedure: XR hip w pel RT 2V Ordering Provider: Yamil Ang MD PROCEDURE: XR HIP W PEL IF DONE RT 2V INDICATIONS: fall on Tuesday 01/16 and still having pain TECHNIQUE: AP pelvis with lateral view(s) of the right hip(s). COMPARISON: [facility], , XR HIP W PEL IF DONE LT 2V, 03/05/2022, 18:36. FINDINGS: Bones: No fractures or dislocations. Pelvic ring appears intact. No suspicious bony lesions. There is moderate superior joint space narrowing seen of both hips, with associated remodeling changes with subchondral sclerosis and osteophyte formation. Age-appropriate lower lumbar spine degenerative changes are noted. Soft tissues: The visualized bowel gas pattern is normal. No suspicious soft tissue calcifications. Pelvic phleboliths are incidentally noted. IMPRESSION: Moderate bilateral hip degenerative change, without an acute plain film abnormality seen. If there is point tenderness (or other clinical suspicion for a fracture not seen on these images) then a dedicated CT could be considered for further evaluation, if clinically appropriate. Dictated by: Aron Manning M.D. on 01/21/2025 at 12:40 Approved by: Aron Manning M.D. on 01/21/2025 at 12:40 CT hip: My Impression: Agree with Radiology interpretation Radiologist's Impression: [address] [address] [address] Scan Report Signed Patient: Harmeet Finn MR#: [id number] : 1950 Acct:[id number] Age/Sex: 74 / F Date of Service: 01/21/25 Loc: ED Accession Number: [id number] Procedure: Ct Hip right without con Ordering Provider: Sarah Beth Mae PA-C PROCEDURE: CT HIP RIGHT WITHOUT CON INDICATIONS: Right hip pain. TECHNIQUE: Noncontrast 3 mm axial sections acquired through the bony pelvis. Additional 3 mm axial sections acquired through the symptomatic hip joint, with coronal and sagittal reformats. COMPARISON: [facility], CT, CT CHEST WO CON, 01/19/2025, 14:00. [facility], CR, XR HIP W PEL RT 2V, 01/21/2025, 12:28. FINDINGS: Image quality: Excellent. Bones: Question microtrabecular fracture, involving greater trochanter, not definite. Reference sagittal reformat image 70 of series 4. Mild degenerative change. Soft tissues: No significant sequelae of acute trauma. Remote hysterectomy. Right inguinal hernia containing fat. Diverticulosis. IMPRESSION: Possible microtrabecular fracture involving the greater trochanter, not definite. Comment: Consider hip MRI. Dictated by: Homer Villatoro M.D. on 01/21/2025 at 14:33 Approved by: Homer Villatoro M.D. on 01/21/2025 at 14:39 MDM Narrative Medical decision making narrative: 74-year-old woman with MS who ambulates with a walker or walking sticks at baseline presenting with concern for right hip pain that acutely worsened last night in the setting of gradually worsening pain after she had a fall a few days ago for which she was seen in this ER and diagnosed with 3 mildly displaced rib fractures on the right. Patient presented today with concern that she could potentially have injury/fracture to this hip and is not sure if she had imaging of this done. Reviewed the patient's chart and imaging. She did not have imaging of the hip. X-ray obtained from triage returns negative for fracture however as patient has point tenderness and increasing pain with acute pain last night a CT is obtained for further evaluation which does show a probable/possible trabecular fracture of the greater trochanter. On-call orthopedics was contacted and reviewed the imaging. Recommends the patient reduced weight-bearing but can continue to ambulate with a walker for support and follow up in clinic. We discussed pain medication and patient will continue with her Tylenol ibuprofen regimen and use her hydrocodone only as needed. Return precautions provided, follow-up plan discussed, all questions answered. Discharge Plan Departure Patient Disposition: Home Clinical Impression: Closed right hip fracture Qualifiers: Encounter type: initial encounter Qualified Code(s): S72.001A - Fracture of unspecified part of neck of right femur, initial encounter for closed fracture Activity Restrictions/Additional Instructions: *You have been diagnosed with [ trabecular fracture of the right hip] *What to do: *Please continue to take your regular medications as directed. [ ] New medication prescriptions sent to your pharmacy: [ ] [ ] New medication written as a paper prescription [ ] No new medications given *Please follow up with your primary care provider in 2-3 days, call for an appointment. Let them know you were seen in the Emergency Department and that we ask that you be seen in follow up. We will electronically transmit a record of today's note if your PCP is in our system. You came in today with concern for persistent/new worsening right hip pain after you had a fall at home a few days ago at which time you did sustain rib fractures. We performed an x-ray of your hip which did not show a fracture but we did also do a CT scan of your hip concerning for a probable trabecular fracture of the hip. This is non displaced, after speaking with our on-call orthopedic provider they note this is typically not a surgical fracture. They do recommend minimizing excessive weight-bearing and ensuring that you are using a walker at all times. I know you already do use a walker much of the time but for the time being I would avoid using her walking sticks and make sure you are getting plenty of support with a walker and not putting a lot of weight on this leg until it has some time to heal. You should follow up with Orthopedics in clinic as an outpatient next week. I have put the doctors information below in your paperwork. You can call their office on Friday morning to get scheduled. Is likely you will want to have a repeat x-ray to re-evaluate as sometimes fractures like this can become more apparent over time on x-ray. You already have some pain medications you have been taking for your rib pain occasionally. *If you do not have a primary care provider please contact the [facility] Resource line at [phone]. They will ask some questions about your medical history and help get you set up with a doctor in the community. *Return to Emergency Department if you should have any new, worsening or concerning symptoms, such as [fever greater than 101 F, shaking chills, worsening pain, persistent vomiting or other bothersome symptoms] Prescriptions: No Action (DME) Disabled Parking Permit Qty: 1 0RF Rx Instructions: I find this person to be disabled (DME) One Touch Verio Glucose Monitor See Rx Instructions .Route .MEDSUPPLY Qty: 1 0RF Rx Instructions: As directed twice daily for glucose monitoring (DME) One Touch Verio test strips and lancets See Rx Instructions .Route .MEDSUPPLY Qty: 300 3RF Rx Instructions: As directed three times daily for blood glucose monitoring estradiol [Yuvafem] 10 mcg tablet 10 mcg vaginal 2XW Qty: 24 3RF lisinopril 10 mg tablet 10 mg PO DAILY Qty: 90 3RF nystatin 100,000 unit/gram powder 1 applic topical BID Qty: 30 0RF mirabegron 50 mg tablet extended release 24 hr 50 mg PO DAILY Qty: 90 3RF atorvastatin 10 mg tablet 10 mg PO DAILY Qty: 90 3RF metformin 500 mg tablet extended release 24 hr See Rx Instructions .ROUTE .COMPLEX Qty: 360 3RF Dose Instruction: Take 2 tablets (1,000 mg) by mouth 2 times daily Rx Instructions: Take 2 tablets (1,000 mg) by mouth 2 times daily trimethoprim 100 mg tablet 100 mg PO DAILY Qty: 90 3RF hydrochlorothiazide 12.5 mg tablet 12.5 mg PO DAILY Qty: 90 1RF (DME) Contour Next Test Strips Strip See Rx Instructions .Route Qty: 200 11RF Rx Instructions: Use to check blood sugar three times daily as directed baclofen 5 mg tablet 5 mg PO Q8H Qty: 290 3RF hydrocodone-acetaminophen 5-325 mg tablet 1 tab PO Q8H PRN (Reason: Pain (Scale Score 1-3)) Qty: 30 0RF (DME) Hand controls See Rx Instructions .Route .MEDSUPPLY Qty: 1 0RF Rx Instructions: Use for driving acetaminophen 325 mg Tablet 650 mg PO Q6H PRN (Reason: Fever/Mild Pain (1-3)) Qty: 30 0RF hydrocodone-acetaminophen 5-325 mg tablet 1 tab PO Q4-6H PRN (Reason: pain) Qty: 12 0RF Referrals: Isaac Farmer MD [Primary Care Provider, Family Practice] Sarah Chilel MD [Physician, Orthopedic Surgery] Clinical Impression: Closed right hip fracture Stand Alone Forms: Patient Portal/API ED Sign-out <Yamil Ang MD - Last Filed: 01/22/25 15:12> Cosign ED Attending Cosjonnieature Attestation: I was readily available for consultation at all times. I agree with assessment and plan of care
--- NOTE | 2025-01-21 13:58 | DI.CT.S_ITS ---
PROCEDURE: CT HIP RIGHT WITHOUT CON INDICATIONS: Right hip pain. TECHNIQUE: Noncontrast 3 mm axial sections acquired through the bony pelvis. Additional 3 mm axial sections acquired through the symptomatic hip joint, with coronal and sagittal reformats. COMPARISON: [facility], CT, CT CHEST WO CON, 01/19/2025, 14:00. [facility], CR, XR HIP W PEL RT 2V, 01/21/2025, 12:28. FINDINGS: Image quality: Excellent. Bones: Question microtrabecular fracture, involving greater trochanter, not definite. Reference sagittal reformat image 70 of series 4. Mild degenerative change. Soft tissues: No significant sequelae of acute trauma. Remote hysterectomy. Right inguinal hernia containing fat. Diverticulosis. IMPRESSION: Possible microtrabecular fracture involving the greater trochanter, not definite. Comment: Consider hip MRI. Dictated by: Homer Villatoro M.D. on 01/21/2025 at 14:33 Approved by: Homer Villatoro M.D. on 01/21/2025 at 14:39
[2025-01-21 18:16] VITALS: BP 128/60; PULSE 78; RESP 18; TEMP 36.7; O2SAT 98
== END 2025-01-21 18:18 | disposition home or self-care (01) ==
PROVIDERS: Emergency Provider Student in an Organized Health Care Education/Training Program; PCP Family Medicine
DX: S72.001A Fracture of unspecified part of neck of right femur, initial encounter for closed fracture (principal); W19.XXXA Unspecified fall, initial encounter; G35 Multiple sclerosis
CPT/HCPCS: 73502; 73700; 99283; 99284

== ENCOUNTER → 2025-01-31 15:32 | Outpatient (CLI) | payer MEDICARE, SELFPAY ==
[2025-01-24 10:01] VITALS: BMI 23.8
[2025-01-31 16:08] LABS: Appearance Urine UA SL CLOUDY; Bilirubin Urine UA NEGATIVE (NEGATIVE); Color Urine UA YELLOW; Glucose Urine UA NEGATIVE (Negative); Ketones Urine UA NEGATIVE (NEGATIVE); Leukocyte Esterase Urine UA 2+ (NEGATIVE); Nitrite Urine UA NEGATIVE (Negative); Occult Blood Urine UA NEGATIVE (Negative); Protein Urine UA NEGATIVE (Negative); Specific Gravity Urine UA <=1.005 (1.000-1.035); Urobilinogen Urine UA 0.2 E.U./dL (0.2)
[2025-01-31 16:15] LABS: Culture Indicated Urine Specimen Cultured; pH Urine UA 7.0 (4.5-8.0)
== END ==
PROVIDERS: PCP Family Medicine; Visit Provider Urology
DX: N39.0 Urinary tract infection, site not specified (principal); R31.9 Hematuria, unspecified
CPT/HCPCS: 81001; 87086

== ENCOUNTER → 2025-03-08 15:59 | Outpatient (CLI) | payer MEDICARE, SELFPAY ==
[2025-01-24 10:01] VITALS: BMI 23.8
[2025-03-09 17:28] LABS: Appearance Urine UA CLEAR; Bilirubin Urine UA NEGATIVE (NEGATIVE); Color Urine UA YELLOW; Glucose Urine UA NEGATIVE (Negative); Ketones Urine UA NEGATIVE (NEGATIVE); Leukocyte Esterase Urine UA NEGATIVE (NEGATIVE); Nitrite Urine UA NEGATIVE (Negative); Occult Blood Urine UA NEGATIVE (Negative); Protein Urine UA NEGATIVE (Negative); Specific Gravity Urine UA 1.010 (1.000-1.035); Urobilinogen Urine UA 0.2 E.U./dL (0.2)
[2025-03-09 17:29] LABS: pH Urine UA 7.5 (4.5-8.0)
[2025-03-09 17:47] LABS: Culture Indicated Urine Cult Not Indicated
== END ==
PROVIDERS: PCP Family Medicine; Visit Provider Urology
DX: N39.0 Urinary tract infection, site not specified (principal)
CPT/HCPCS: 81001

== ENCOUNTER 2025-04-20 11:30 | Outpatient (RCR) | payer MEDICARE, SELFPAY ==
[2025-01-24 10:01] VITALS: BMI 23.8
--- NOTE | 2025-03-02 13:44 | ST.OPIE ---
Visit Care Team Role Provider Type MERARY Jalloh Other Providers Speech Therapist Specialty: Speech Therapy Address: Phone: Fax: Email: Isaac Farmer MD Attending Provider Physician Family Provider Primary Care Provider Referring Provider Specialty: Family Practice Address: [address] [place] [address], [address], [address] Email: [email or web address] Speech-Language Pathology Initial Evaluation ETYMOLOGY PROFESSOR Clinical Swallow Evaluation Start: 03/02/25 11:42 Freq: Status: Active Protocol: Document 03/02/25 11:42 SS (Rec: 03/02/25 12:12 SS Desktop) Clinical Swallow Evaluation Session Time Visit Start Time 10:45 Visit Stop Time 11:30 Total Visit Minutes 45 Visit Information Visit Number 1 Plan of Care Dates 03/02/25-05/31/25 Insurance [facility] (no pre-auth eval only) Information Referral Referring Provider Dr. Isaac Farmer Reason for Referral Dysphagia Setting Assessment Location Outpatient Care Visit Type Note Type Initial evaluation Next Note Type Next Note Type Treatment Note Patient Information Identification Type Name History Pt was previously seen by this ETYMOLOGY PROFESSOR on 10/26/24 for a clinical swallowing evaluation. Per report, ?Harmeet Finn is a 74-year-old female, referred for a clinical swallow evaluation by Dr. Kameron Schaefer due to swallowing concerns in the setting of MS. No other pertinent medical history reported by pt, other than frequent falls due to balance issues. She does have PND and sleeps partially elevated to relieve this. She denied GERD, esophageal issues, changes to voice, though did report hitting her head multiple times during falls. She denied history of PNA. Pt endorses changes in swallowing around two years ago, which have gradually become worse. She describes swallowing as feeling food stuck in her throat. She occasionally feels that food becomes trapped in her throat and this causes a choking sensation. She is not restricting any foods at this time. She reports occasional sensation of pills becoming stuck. This sensation clears with a drink of water. She denies unintentional weight loss. She reports coughing/choking with solids and liquids, primarily late in the day when she is tired. This occurs about once a day.? Since evaluation, pt has noted increased possible reflux symptoms (burning sensation in throat) following intake and reduced vocal intensity. She has also had multiple kidney stone surgeries, and has noted exacerbation of dysphagia symptoms since. She has an appointment with ENT to discuss GERD symptoms, PND, and voice change. MBSS was completed on 11/02/24 with the following results: ?Pt's swallow observed to be WFL. Mild reduction in mastication strength/speed as well as hyolaryngeal elevation movement. Distal esophagus narrow and mildly slow to empty.? Penetration or aspiration were not observed during the study. Subjective Pt arrived to the evaluation on time and attended Observations independently. Pt was motivated and engaged throughout the evaluation. Memory/New Learning Potential: WNL, no overt concerns Articulation: 100% in conversation Voice: Perceptually WNL Reported by Patient/Caregiver Pain/Discomfort Yes Other Symptoms Coughing,Difficulty swallowing liquids,Difficulty swallowing solids,Food gets stuck Comment BASELINE LEVEL OF FUNCTION Solids: Regular Liquids: Thin Medications: One at a time with liquid wash Functional Oral Intake Scale (FOIS): FOIS level 7 FOIS Hanks: Level 1 = no oral intake, Level 2 = tube dependent with minimal/inconsistent oral intake, Level 3 = tube supplements with consistent oral intake, Level 4 = total oral intake of a single consistency, Level 5 = total oral intake of multiple consistencies requiring special preparation, Level 6 = total oral intake with no special preparation, but must avoid specific foods or liquid items, Level 7 = total oral intake with no restrictions Current Diet Regular (IDDSI 7) Baseline Feeding Independent in self-feeding Method Type of Patient EAT-10 Questionnaire (e.g., EAT-10, MDADI, etc. ) Results The Eating Assessment Tool (EAT-10) was administered. This tool is a symptom-specific outcome instrument for dysphagia. It consists of ten statements regarding the patient?s swallow and the patient scores each on a scale of 0-4, with 0 indicating no problem and 4 indicating a severe problem. A score of >3/40 could indicate a swallowing impairment that warrants further assessment/treatment. The patient scored a 9/40, indicating the need for further assessment. The IDDSI Framework Protocol: IDDSI.1 Objective Assessment Mental Status Alert,Responsive,Cooperative Oral Integrity WFL Dentition Within normal limits Lip Function Within normal limits Tongue Function Within normal limits Jaw Function Within normal limits Hard/Soft Palate Within normal limits Function Comment Patient?s oral health is good. Patient has her own dentition with dental work noted. The patient reports brushing her teeth 2x daily. CRANIAL NERVE EXAM CN V (Trigeminal): intact b/l CN VII (Facial): intact b/l CN IX/X (Glossopharyngeal/Vagus): intact b/l CN XII (Hypoglossal): intact b/l LARYNGEAL FUNCTION EXAM Secretion Management: WNL Voice Quality: Perceptually mildly reduced volume Pitch Range: Perceptually WNL Food and Liquid Trials Position During Upright (90 degrees) Assessment Liquids Trialed Thin (IDDSI 0) Solid Trials Purred (IDDSI 4),Soft & Bite-sized (IDDSI 6),Regular ( IDDSI 7) Administration Type Tea spoon,Cup single sip,Cup consecutive sips,Self- feeding Oral Impairment Within functional limits Oral Phase Comments Pt observed across trials of thin liquids via cup and straw, puree via tsp, soft/bite sized via tsp, and regular. Adequate bolus acceptance and containment. Mildly prolonged bolus manipulation and complete oral clearance. Oral residue not observed post-swallows. Per MBSS results: Lip Closure: No labial escape Tongue Control During Bolus Hold: Cohesive bolus between tongue to palatal seal Bolus Preparation/Mastication: Slow prolonged chewing/ mashing with complete re-collection Oral Residue: Complete oral clearance Initiation of Pharyngeal Swallow: Bolus head in valleculae Pharyngeal Mildly impaired Impairment Pharyngeal Phase No overt s/sx of aspiration were observed across trials Comments . Pt reported consistent globus sensation with solids which she cleared independently with multiple swallows and liquid wash. Per MBSS results: Soft Palate Elevation: No bolus between soft palate & pharyngeal wall Laryngeal Elevation: Partial superior movement of the thyroid cartilage and partial approximation of the arytenoids to the epiglottic petiole Anterior Hyoid Excursion: Partial anterior movement Epiglottic Movement: Complete inversion Laryngeal Vestibular Closure: Complete; no air/contrast in laryngeal vestibule Pharyngeal Stripping Wave: Present - complete Pharyngoesophageal Segment Opening: Complete distention & complete duration; no obstruction of flow Tongue Base Retraction: Trace column of contrast/air between tongue base & posterior pharyngeal wall Pharyngeal Residue: Trace residue within/on pharyngeal structures (tongue base) Additionally, the following was noted during the esophageal phase: ?Slight retention of contrast mid- chest following previous trials. Distal esophagus narrowed, slowing complete emptying, stopping calibrated barium tablet with mild delay to the stomach .? Fatigue/Endurance Endurance WNL [place] Swallow Yes Protocol Results The [place] Swallow Protocol is an evidence-based swallow screening protocol to determine aspiration risk. This tool has been validated across a number of different patient diagnoses and in a number of clinical settings. This is the only screening instrument that both identifies aspiration risk and, when passed, is able to recommend specific oral diets without the need for further instrumental dysphagia testing. Based upon research by Drs. Akhil Morris and Georgina Riddle, this is a reliable and validated swallow screening protocol. Cognitive Screen: PASS Results with 3oz water test: PASS Results with cracker: PASS The IDDSI Framework Protocol: IDDSI.1 Findings Swallowing Function Oropharyngeal phase dysphagia Severity of Swallow Mildly impaired Impairment Contributing Factors Mastication inefficiency,Reduced laryngeal excursion, to Swallow Excessive pharyngeal residue Impairment Prognosis Good Based on Cognitive status,Other (comment) Comment Pt presents with mild oropharyngeal dysphagia, likely related to pt?s Multiple Sclerosis diagnosis and possible age-related weakness of musculature. Based on pt?s current good oral health status and intact immune function, pt remains at a low risk of pulmonary compromise associated with aspiration at this time. Pt does not appear to be at risk for malnutrition/ dehydration. Diet modification/non-oral nutrition not indicated at this time. Recommend pt continue eating current diet of regular and thin to maintain nutrition and hydration. The plan is for the pt to participate in speech therapy services at a frequency of 1x every week for 12 weeks to improve pharyngeal contraction, reduce pharyngeal residue, and improve overall swallowing efficiency. Impact on Safety and No limitations Functioning Comments Reduced swallowing efficiency Recommendations Instrumental No Assessment Swallowing Treatment Yes Frequency 1x/week Duration 3 months Recommended Solids Regular (IDDSI 7) Recommended Liquids Thin (IDDSI 0) Other Use of below safe swallowing strategies. Refer to PCP Recommendations for potential GERD management and GI referral as deemed medically appropriate. ENT referral for hearing, PND, and voice changes. Safety Precautions/ Small bites and sips when eating,Slow rate; swallow Swallowing between bites,Multiple swallows,Alternate liquids and Recommendations solids Medication As Tolerated Recommendations Education Patient/Caregiver Described results of evaluation,Patient expressed Education understanding of evaluation,Patient expressed agreement with goals & treatment plans Goals Short-term Goals 1. Patient will complete pharyngeal swallowing exercises as instructed by the ETYMOLOGY PROFESSOR with the use of written supports and verbal cueing in order to improve swallow function and efficiency; including, but not limited to, effortful swallow, Jessa, Chin Tuck Against Resistance (CTAR), Shaker, and supraglottic swallow to improve pharyngeal contraction. 2. Patient will complete daily exercises as evidenced by patient report and/or HEP tracker in order to improve swallow function. Long-term Goals 1. Patient will safely tolerate least restrictive diet consistency to allow for safe consumption of PO intake without s/sx of aspiration and reduced sensation of pharyngeal residue. 2. Patient will improve self-perception of swallowing from a baseline of on the EAT-10 [facility]
--- NOTE | 2025-03-02 13:45 | ST.OPPOC ---
Addendum entered and electronically signed by Beny Jalloh 03/02/25 13:47: POC sent to PCP for eSignature if in agreement. Original Note: Physical, Occupational & Speech Therapy [facility] Visit Care Team Role Provider Type MERARY Jalloh Other Providers Speech Therapist Address: Phone: Fax: Isaac Farmer MD Attending Provider Physician Family Provider Primary Care Provider Referring Provider Address: [address] [place] [address], [address], [place], [address] Speech Pathology Plan of Care Plan of Care Dates 03/02/25-05/31/[address] Isaac Farmer Patient History Pt was previously seen by this CLINICAL LAB TECHNOLOGIST on 10/26/24 for a clinical swallowing evaluation. Per report , ?Harmeet Finn is a 74-year-old female, referred for a clinical swallow evaluation by Dr Evelia Schaefer due to swallowing concerns in the setting of MS. No other pertinent medical history reported by pt, other than frequent falls due to balance issues. She does have PND and sleeps partially elevated to relieve this. She denied GERD, esophageal issues, changes to voice, though did report hitting her head multiple times during falls. She denied history of PNA. Pt endorses changes in swallowing around two years ago, which have gradually become worse. She describes swallowing as feeling food stuck in her throat. She occasionally feels that food becomes trapped in her throat and this causes a choking sensation. She is not restricting any foods at this time. She reports occasional sensation of pills becoming stuck. This sensation clears with a drink of water. She denies unintentional weight loss. She reports coughing/choking with solids and liquids, primarily late in the day when she is tired. This occurs about once a day.? Since evaluation, pt has noted increased possible reflux symptoms (burning sensation in throat) following intake and reduced vocal intensity. She has also had multiple kidney stone surgeries, and has noted exacerbation of dysphagia symptoms since. She has an appointment with ENT to discuss GERD symptoms, PND, and voice change. MBSS was completed on 11/02/24 with the following results: ?Pt's swallow observed to be WFL. Mild reduction in mastication strength/speed as well as hyolaryngeal elevation movement. Distal esophagus narrow and mildly slow to empty.? Penetration or aspiration were not observed during the study. MBS Comments Pt's swallow observed to be WFL. Mild reduction in mastication strength/speed as well as hyolaryngeal elevation movement. Distal esophagus narrow and mildly slow to empty No diet changes recommended ST recommended for base of tongue exercises/ strengthening This MBSS may serve as a baseline for pt's swallowing Re: progressive nature of MS Short-term Goals 1. Patient will complete pharyngeal swallowing exercises as instructed by the CLINICAL LAB TECHNOLOGIST with the use of written supports and verbal cueing in order to improve swallow function and efficiency; including, but not limited to, effortful swallow , Jessa, Chin Tuck Against Resistance (CTAR ), Shaker, and supraglottic swallow to improve pharyngeal contraction. 2. Patient will complete daily exercises as evidenced by patient report and/or HEP tracker in order to improve swallow function. Long-term Goals 1. Patient will safely tolerate least restrictive diet consistency to allow for safe consumption of PO intake without s/sx of aspiration and reduced sensation of pharyngeal residue. 2. Patient will improve self-perception of swallowing from a baseline of on the EAT-10 following participation in skilled rehabilitative services Comment: Electronically Signed by: MERARY Linares 03/02/25 [id number] If you are in agreement with this Plan of Care, please return a signed and dated copy. I have reviewed this Plan of Care and certify that the skilled therapy services above are required to meet the patient?s needs. Physician Signature Date Printed Name and Credentials Clinical Instructor Signature Printed Name and Credentials
--- NOTE | 2025-03-16 13:27 | ST.IPDYTX ---
Visit Care Team Role Provider Type MERARY Jalloh Other Providers Speech Therapist Specialty: Speech Therapy Address: Phone: Fax: Email: Isaac Farmer MD Attending Provider Physician Family Provider Primary Care Provider Referring Provider Specialty: Family Practice Address: [address] [place] [address], [address], [address] Email: [email or web address] BATTERYMAN Dysphagia Treatment BATTERYMAN Dysphagia Treatment Start: 03/02/25 11:42 Freq: Status: Active Protocol: Document 03/16/25 13:15 SS (Rec: 03/16/25 13:27 SS Desktop) Dysphagia Treatment Session Time Visit Start Time 11:30 Visit Stop Time 12:10 Total Visit Minutes 40 Visit Information Visit Number 08/07 Plan of Care Dates 03/02/25-05/31/25 Insurance [facility] (x8 visit limit) Information Setting Assessment Location Outpatient Care Visit Type Note Type Treatment Note Next Note Type Next Note Type Treatment Note Patient Information Identification Type Name Subjective Pt arrived to the session on time and attended Observations independently. Pt was motivated and engaged throughout the session. Treatment Liquids Trialed Thin (IDDSI 0) Solids Trialed Purred (IDDSI 4) Pharyngeal Effortful Swallow Strategies Additional Dysphagia Chin Tuck Against Resistance Treatment Strategies Treatment Activities Education re: MBSS results and safe swallowing strategies. Introduced rehabilitative exercises on this date to target oropharyngeal dysphagia. Reviewed HEP at end of session and provided handouts for improved understanding and recall. The IDDSI Framework Protocol: IDDSI.1 Assessment Patient Response to Good Treatment Rehab Potential Good Assessment of BATTERYMAN provided education re: normal swallow anatomy and Improvement physiology and the results of the MBSS. Utilized a visual diagram to improve pt?s understanding. Pt expressed understanding re: results. Educated pt re: recommended safe swallow precautions to reduce the risk of aspiration, including small bites/ sips, slow rate, and alternating liquids and solids. Pt verbalized understanding. Initiated rehabilitative exercises on this date to target hyolaryngeal excursion, pharyngeal constriction, and BOT constriction for improved swallowing safety and efficiency. Implemented isometric and isokinetic Chin Tuck Against Resistance (CTAR) with the goal of strengthening suprahyoid and submental musculature for improved hyolaryngeal elevation and excursion (Tiara & Sarbjit, 2020). Provided education re: accurate form for completing the exercise. Provided pt with a ball to complete the exercises. Pt completed isometric CTAR for 20-seconds x 3 reps. She completed isokinetic CTAR 10 reps x 3 sets. One minute of rest completed between each set. Pt endorsed feeling appropriately challenged at the end of both exercises. She benefited from clinician cueing, modeling, and verbal instruction during the task. Pt with good form on this date. Instructed pt in the Effortful Swallow to improve tongue to palate contact, base of tongue retraction, hyolaryngeal elevation and excursion, pharyngeal constriction, and opening of the upper esophageal sphincter for improved swallowing safety and efficiency (Chuyita et al., 2005). Provided education re: form and goal of the exercise for decreased pharyngeal residue. Bolus-driven effortful swallows completed with the following consistencies: Thin: 10/10 successful swallows; average of 1 swallow per bolus. No post-swallow controlled throat clears or strong post-swallow cough. Puree: 17/17 successful swallows; average of 1-2 swallows per bolus. No post-swallow controlled throat clears or strong post-swallow cough. Pt benefited from clinician cueing and modeling during the exercise to slow rate and press tongue against the roof of mouth. BATTERYMAN provided education in utilizing 2 swallows if needed, however, pt completed most trials with 1 swallow, though she did express the feeling of residue occasionally. Utilized visual diagram on this date to explain how residue could build and the importance of clearing materials prior to taking another bite. BATTERYMAN to continue education re: utilizing multiple swallows to clear residue if needed in following sessions. Reviewed HEP at the conclusion of the session, with pt verbalizing understanding. HEP Recommendation: Isometric CTAR 20 seconds x 3 reps (1-minute rest between each), Isokinetic CTAR 10 reps x 3 sets (1-minute rest between each), effortful swallow 30-50 reps with thin liquid, NTL, and/or puree. Pt expressed understanding and motivation to participate in HEP. Plan for pt to implement HEP and report back progress in the following session. Plan to advance CTAR and Effortful Swallows if appropriate in following session. Continue targeting oropharyngeal dysphagia at a frequency of once a week given pt report and progress with HEP. Recommendations Recommendations Continue Current Diet Liquids Order Thin (IDDSI 0) Diet Order Regular (IDDSI 7) Medication As Tolerated Recommendations Treatment Plan Appropriate for Yes Continued Therapy Dysphagia Goals STG1. Patient will complete pharyngeal swallowing exercises as instructed by the BATTERYMAN with the use of written supports and verbal cueing in order to improve swallow function and efficiency; including, but not limited to, effortful swallow, Jessa, Chin Tuck Against Resistance (CTAR), Shaker, and supraglottic swallow to improve pharyngeal contraction. STG2. Patient will complete daily exercises as evidenced by patient report and/or HEP tracker in order to improve swallow function. LTG1. Patient will safely tolerate least restrictive diet consistency to allow for safe consumption of PO intake without s/sx of aspiration and reduced sensation of pharyngeal residue. LTG2. Patient will improve self-perception of swallowing from a baseline of on the EAT-10 following participation in [facility] rehabilitative services.
--- NOTE | 2025-03-23 15:14 | ST.IPDYTX ---
Visit Care Team Role Provider Type MERARY Jalloh Other Providers Speech Therapist Specialty: Speech Therapy Address: Phone: Fax: Email: Isaac Farmer MD Attending Provider Physician Family Provider Primary Care Provider Referring Provider Specialty: Family Practice Address: [address] [place] [address], [address], [address] Email: [email or web address] AIRCRAFT MAINTENANCE MANAGER Dysphagia Treatment AIRCRAFT MAINTENANCE MANAGER Dysphagia Treatment Start: 03/02/25 11:42 Freq: Status: Active Protocol: Document 03/23/25 15:07 SS (Rec: 03/23/25 15:14 SS Desktop) Dysphagia Treatment Session Time Visit Start Time 12:15 Visit Stop Time 12:50 Total Visit Minutes 35 Visit Information Visit Number 09/04 Plan of Care Dates 03/02/25-05/31/25 Insurance [facility] (x8 visit limit) Information Setting Assessment Location Outpatient Care Visit Type Note Type Treatment Note Next Note Type Next Note Type Treatment Note Patient Information Identification Type Name Subjective Pt arrived to the session on time and attended Observations independently. Pt was motivated and engaged throughout the session. Treatment Liquids Trialed Thin (IDDSI 0) Solids Trialed Purred (IDDSI 4) Pharyngeal Effortful Swallow Strategies Additional Dysphagia Chin Tuck Against Resistance Treatment Strategies Treatment Activities Discussed swallowing function since the last treatment session. Continued implementing rehabilitative exercises on this date to target oropharyngeal dysphagia and advanced exercises. Reviewed HEP at end of session and provided handouts for improved understanding and recall. The IDDSI Framework Protocol: IDDSI.1 Assessment Patient Response to Good Treatment Rehab Potential Good Assessment of Facilitated discussion re: swallowing function in past Improvement week. Pt expressed she has been implementing recommended swallowing strategies and using effortful swallows with pills and sometimes at meals to reduce globus sensation. She has been completing HEP daily and stated she has noticed an improvement in her swallowing efficiency. Implemented isometric and isokinetic Chin Tuck Against Resistance (CTAR) with the goal of strengthening suprahyoid and submental musculature for improved hyolaryngeal elevation and excursion. Advanced exercises today. Pt completed isometric CTAR for 30- seconds x 4 reps. She completed isokinetic CTAR 15 reps x 4 sets. One minute of rest completed between each set. Pt endorsed feeling appropriately challenged at the end of both exercises and demonstrated good form on this date. Instructed pt in the Effortful Swallow to improve tongue to palate contact, base of tongue retraction, hyolaryngeal elevation and excursion, pharyngeal constriction, and opening of the upper esophageal sphincter for improved swallowing safety and efficiency . Bolus-driven effortful swallows completed with the following consistencies: Thin: 17/17 successful swallows; average of 1-2 swallows per bolus. No post-swallow controlled throat clears or strong post-swallow cough. Puree (apple sauce): 20/20 successful swallows; average of 1-2 swallows per bolus. No post-swallow controlled throat clears or strong post-swallow cough. Soft and bite-sized (diced peaches): 14/14 successful swallows; average of 1-2 swallows per bolus. No post- swallow controlled throat clears or strong post-swallow cough. Pt with good use of multiple swallows to clear residue as needed across exercise. AIRCRAFT MAINTENANCE MANAGER recommended pt continue implementing two exercise and increase reps, sets, and duration as needed if she does not feel fatigued at the end. Reviewed HEP at the conclusion of the session, with pt verbalizing understanding. HEP Recommendation: Isometric CTAR 30 seconds x 4-5 reps (1-minute rest between each), Isokinetic CTAR 15 reps x 4-5 sets (1-minute rest between each), effortful swallow 30-50 reps with thin liquid and/or puree and soft and bite-sized textures. Pt expressed understanding and motivation to participate in HEP. Plan for pt to implement HEP and report back progress in the following session. Plan to advance CTAR and Effortful Swallows and introduce Jessa maneuver in following session. Continue targeting oropharyngeal dysphagia at a frequency of once a week given pt report and progress with HEP. Recommendations Recommendations Continue Current Diet Liquids Order Thin (IDDSI 0) Diet Order Regular (IDDSI 7) Medication As Tolerated Recommendations Treatment Plan Appropriate for Yes Continued Therapy Dysphagia Goals STG1. Patient will complete pharyngeal swallowing exercises as instructed by the AIRCRAFT MAINTENANCE MANAGER with the use of written supports and verbal cueing in order to improve swallow function and efficiency; including, but not limited to, effortful swallow, Jessa, Chin Tuck Against Resistance (CTAR), Shaker, and supraglottic swallow to improve pharyngeal contraction. STG2. Patient will complete daily exercises as evidenced by patient report and/or HEP tracker in order to improve swallow function. LTG1. Patient will safely tolerate least restrictive diet consistency to allow for safe consumption of PO intake without s/sx of aspiration and reduced sensation of pharyngeal residue. LTG2. Patient will improve self-perception of swallowing from a baseline of on the EAT-10 following participation in [facility] rehabilitative services.
--- NOTE | 2025-03-30 13:45 | ST.IPDYTX ---
Visit Care Team Role Provider Type MERARY Jalloh Other Providers Speech Therapist Specialty: Speech Therapy Address: Phone: Fax: Email: Isaac Farmer MD Attending Provider Physician Family Provider Primary Care Provider Referring Provider Specialty: Family Practice Address: [address] [place] [address], [address], [address] Email: [email or web address] MOTOR ANALYST Dysphagia Treatment MOTOR ANALYST Dysphagia Treatment Start: 03/02/25 11:42 Freq: Status: Active Protocol: Document 03/30/25 13:36 SS (Rec: 03/30/25 13:44 SS Desktop) Dysphagia Treatment Session Time Visit Start Time 11:30 Visit Stop Time 12:07 Total Visit Minutes 37 Visit Information Visit Number 10/05 Plan of Care Dates 03/02/25-05/31/25 Insurance [facility] (x8 visit limit) Information Setting Assessment Location Outpatient Care Visit Type Note Type Treatment Note Next Note Type Next Note Type Progress Note Patient Information Identification Type Name Subjective Pt arrived to the session on time and attended Observations independently. Pt was motivated and engaged throughout the session. Treatment Solids Trialed Regular (IDDSI 7) Pharyngeal Effortful Swallow,Mendelsonn Maneuver Strategies Additional Dysphagia Chin Tuck Against Resistance Treatment Strategies Treatment Activities Discussed swallowing function since the last treatment session. Continued implementing rehabilitative exercises on this date to target oropharyngeal dysphagia and advanced exercises. Introduced Jessa maneuver. Reviewed HEP at end of session and provided handouts for improved understanding and recall. The IDDSI Framework Protocol: IDDSI.1 Assessment Patient Response to Good Treatment Rehab Potential Good Assessment of Facilitated discussion re: swallowing function in past Improvement week. Pt expressed her swallowing has been ?much improved?. She has noted reduced coughing and choking with meals, stating ?I?m more intentional when I?m eating.? She has been completing HEP daily. Implemented isometric and isokinetic Chin Tuck Against Resistance (CTAR) with the goal of strengthening suprahyoid and submental musculature for improved hyolaryngeal elevation and excursion. Advanced exercises today. Pt completed isometric CTAR for 45- seconds x 5 reps. She completed isokinetic CTAR 20 reps x 5 sets. One minute of rest completed between each set. Pt expressed she felt fatigued towards the end of the exercise. Instructed pt in the Effortful Swallow to improve tongue to palate contact, base of tongue retraction, hyolaryngeal elevation and excursion, pharyngeal constriction, and opening of the upper esophageal sphincter for improved swallowing safety and efficiency . Bolus-driven effortful swallows completed with the following consistencies: Regular (saltine crackers and cheese): 22/22 successful swallows; average of 2 swallows per bolus. No post- swallow controlled throat clears or strong post-swallow cough. Pt utilized second effortful swallow and used liquid wash to clear pharyngeal residue independently. Initiated the Jessa Maneuver in order to improve hyolaryngeal movement, pharyngeal pressure, and UES opening. Pt was tasked with holding her swallow at the peak for 2-3 sec, which she was able to do x10, following initial explanation and MOTOR ANALYST model. Pt demonstrated good form throughout. Reviewed HEP at the conclusion of the session, with pt verbalizing understanding. HEP Recommendation: Isometric CTAR 45 seconds x 5 reps (1-minute rest between each), Isokinetic CTAR 20 reps x 5 sets (1-minute rest between each), effortful swallow 30-50 reps with regular textures, Jessa maneuver for 2-3 sec x10-15 reps daily. Pt expressed understanding and motivation to participate in HEP. Plan for pt to implement HEP and report back progress in the following session. Plan to advance CTAR, Effortful Swallows, and Jessa maneuver in following session. Continue targeting oropharyngeal dysphagia at a frequency of once a week given pt report and progress with HEP. Recommendations Recommendations Continue Current Diet Liquids Order Thin (IDDSI 0) Diet Order Regular (IDDSI 7) Medication As Tolerated Recommendations Treatment Plan Appropriate for Yes Continued Therapy Dysphagia Goals STG1. Patient will complete pharyngeal swallowing exercises as instructed by the MOTOR ANALYST with the use of written supports and verbal cueing in order to improve swallow function and efficiency; including, but not limited to, effortful swallow, Jessa, Chin Tuck Against Resistance (CTAR), Shaker, and supraglottic swallow to improve pharyngeal contraction. STG2. Patient will complete daily exercises as evidenced by patient report and/or HEP tracker in order to improve swallow function. LTG1. Patient will safely tolerate least restrictive diet consistency to allow for safe consumption of PO intake without s/sx of aspiration and reduced sensation of pharyngeal residue. LTG2. Patient will improve self-perception of swallowing from a baseline of on the EAT-10 following participation in [facility] rehabilitative services.
--- NOTE | 2025-04-06 12:13 | ST.PROG ---
Visit Care Team Role Provider Type MERARY Jalloh Other Providers Speech Therapist Address: Phone: Fax: Isaac Farmer MD Attending Provider Physician Family Provider Primary Care Provider Referring Provider Address: [address] [place] [address], [address] [address] Visit Care Team Role Provider Type MERARY Jalloh Other Providers Speech Therapist Specialty: Speech Therapy Address: Phone: Fax: Email: Isaac Farmer MD Attending Provider Physician Family Provider Primary Care Provider Referring Provider Specialty: Family Practice Address: [address] [place] [address], [facility] [address], [place], [address] Email: [email or web address] Dysphagia Treatment SALES TEAM RECRUITER Dysphagia Treatment Start: 03/02/25 11:42 Freq: Status: Active Protocol: Document 04/06/25 12:05 SS (Rec: 04/06/25 12:13 SS Desktop) Dysphagia Treatment Session Time Visit Start Time 11:33 Visit Stop Time 12:03 Total Visit Minutes 30 Visit Information Visit Number 5/8 Plan of Care Dates 03/02/25-05/31/25 Insurance [facility] (x8 visit limit) Information Setting Assessment Location Outpatient Care Visit Type Note Type Progress Note Next Note Type Next Note Type Treatment Note Patient Information Identification Type Name Subjective Pt arrived to the session on time and attended Observations independently. Pt was motivated and engaged throughout the session. Treatment Liquids Trialed Thin (IDDSI 0) Solids Trialed Regular (IDDSI 7) Pharyngeal Mendelsonn Maneuver Strategies Additional Dysphagia Chin Tuck Against Resistance Treatment Strategies Treatment Activities Discussed swallowing function since the last treatment session. Continued implementing rehabilitative exercises on this date to target oropharyngeal dysphagia including Chin Tuck Against Resistance and Jessa maneuver. Reviewed HEP at end of session and provided handouts for improved understanding and recall. Progress note completed. The IDDSI Framework Protocol: IDDSI.1 Assessment Patient Response to Good Treatment Rehab Potential Good Assessment of Facilitated discussion re: swallowing function in past Improvement week. Pt reported coughing with water when she was drinking ?too fast and not paying attention?. Reviewed importance of utilizing safe swallowing strategies with all intake, particularly if there are distractions in her environment. Pt has been completing HEP daily. Overall, she expressed improved swallowing function with minimal to no sticking sensation with intake. Implemented isometric and isokinetic Chin Tuck Against Resistance (CTAR) with the goal of strengthening suprahyoid and submental musculature for improved hyolaryngeal elevation and excursion. Advanced exercises today. Pt completed isometric CTAR for 1- minute x 5 reps. She completed isokinetic CTAR 30 reps x 5 sets. One minute of rest completed between each set . Pt expressed she felt fatigued towards the end of the exercise. Continued implementing the Jessa Maneuver in order to improve hyolaryngeal movement, pharyngeal pressure, and UES opening as pt had questions regarding form for exercise. Pt was tasked with holding her swallow at the peak for 2-3 sec, which she was able to do x10. She benefited from laryngeal palpation to ensure correct form. Reviewed HEP at the conclusion of the session, with pt verbalizing understanding. Treatment has included education re: normal swallowing anatomy and physiology, results of his MBSS, and training in safe swallow precautions to reduce the risk of aspiration. Additionally, treatment has included training in rehabilitative exercises to target oropharyngeal dysphagia including isometric and isokinetic Chin Tuck Against Resistance (CTAR), the Effortful Swallow, and Jessa maneuver. Since the start of care, pt has improved in self-perception of swallowing and endorses improvement in swallowing during meals. Pt has been diligent in daily HEP practice. Recommend continuation of current protocol to increase swallowing efficiency and safety given progress to date and motivation to participate in treatment. Pt is progressing towards goals and will benefit from additional 1-2 treatment sessions. Continue targeting oropharyngeal dysphagia at a frequency of once a week given pt report and progress with HEP. Recommendations Recommendations Continue Current Diet Liquids Order Thin (IDDSI 0) Diet Order Regular (IDDSI 7) Medication As Tolerated Recommendations Treatment Plan Appropriate for Yes Continued Therapy Dysphagia Goals STG1. Patient will complete pharyngeal swallowing exercises as instructed by the SALES TEAM RECRUITER with the use of written supports and verbal cueing in order to improve swallow function and efficiency; including, but not limited to, effortful swallow, Jessa, Chin Tuck Against Resistance (CTAR), Shaker, and supraglottic swallow to improve pharyngeal contraction. 04/06/25: Goal progressing. STG2. Patient will complete daily exercises as evidenced by patient report and/or HEP tracker in order to improve swallow function. 04/06/25: Goal progressing. LTG1. Patient will safely tolerate least restrictive diet consistency to allow for safe consumption of PO intake without s/sx of aspiration and reduced sensation of pharyngeal residue. 04/06/25: Goal progressing. LTG2. Patient will improve self-perception of swallowing from a baseline of on the EAT-10 following participation in [facility] rehabilitative services. 04/06/25: Goal progressing.
--- NOTE | 2025-04-13 11:39 | ST-OP ANOTE ---
Physical, Occupational & Speech Therapy At [facility] Speech Therapy Note HIGH SCHOOL COMPUTER SCIENCE TEACHER called pt as pt did not show to her 11:30 appointment. Pt reported she is having sudden health issues and unable to make it to appointment. HIGH SCHOOL COMPUTER SCIENCE TEACHER passed along message to schedulers.
--- NOTE | 2025-04-20 13:44 | ST.OPDC.SWTH ---
Visit Care Team Role Provider Type MERARY Jalloh Other Providers Speech Therapist Specialty: Speech Therapy Address: Phone: Fax: Email: Isaac Farmer MD Attending Provider Physician Family Provider Primary Care Provider Referring Provider Specialty: Family Practice Address: [address] [place] [address], [address], [address] Email: [email or web address] METAL MINER Dysphagia Treatment METAL MINER Dysphagia Treatment Start: 03/02/25 11:42 Freq: Status: Active Protocol: Document 04/20/25 13:34 SS (Rec: 04/20/25 13:43 SS [email or web address]) Dysphagia Treatment Session Time Visit Start Time 11:35 Visit Stop Time 11:55 Total Visit Minutes 20 Visit Information Visit Number 12/05 Plan of Care Dates 03/02/25-05/31/25 Insurance [facility] (x8 visit limit) Information Setting Assessment Location Outpatient Care Visit Type Note Type Discharge Summary Patient Information Identification Type Name Subjective Pt arrived to the session on time and attended Observations independently. Pt was motivated and engaged throughout the session. Treatment Treatment Activities Discussed swallowing function since the last treatment session. Reviewed rehabilitative exercises and implementation of recommended swallowing strategies. Discharge completed today as pt has met her short-term goals and is satisfied with her progress. The IDDSI Framework Protocol: IDDSI.1 Assessment Patient Response to Good Treatment Rehab Potential Good Assessment of Facilitated discussion re: swallowing function in past Improvement two weeks. Pt reported no overt s/sx of aspiration or sensation of pharyngeal residue post-swallows. She stated she has been careful to implement safe swallowing strategies. Pt has been completing HEP daily . Pt expressed her swallowing function ?is back to normal? and exercises and strategies have been very helpful. METAL MINER reviewed rationale and form for previously implemented exercises, including isometric and isokinetic Chin Tuck Against Resistance (CTAR), the Jessa, and effortful swallows. Pt reported no difficulty completing exercises at home with excellent recall of each exercise via teach-back. Treatment has included education re: normal swallowing anatomy and physiology, results of her MBSS, and training in safe swallow precautions to reduce the risk of aspiration. Additionally, treatment has included training in rehabilitative exercises to target oropharyngeal dysphagia including isometric and isokinetic Chin Tuck Against Resistance (CTAR), the Effortful Swallow, and Jessa maneuver. Since the start of care, pt has improved in self-perception of swallowing and endorses improvement in swallowing during meals. Today, she rated her self-perception as 2 /40 (baseline ), indicating increased satisfaction with her swallowing function. Pt has been diligent in daily HEP practice. Pt plans to continue competing her HEP a few times a week to maintain the gains she had made with speech therapy services. The plan is to discharge the pt from speech therapy services as she has met her LTG and STG goals targeting dysphagia. Recommend she request a referral from his PCP if she notes changes with her swallowing. Pt agreeable to plan . Recommendations Recommendations Continue Current Diet Liquids Order Thin (IDDSI 0) Diet Order Regular (IDDSI 7) Medication As Tolerated Recommendations Treatment Plan Appropriate for No: Discharge from services Continued Therapy Dysphagia Goals STG1. Patient will complete pharyngeal swallowing exercises as instructed by the METAL MINER with the use of written supports and verbal cueing in order to improve swallow function and efficiency; including, but not limited to, effortful swallow, Jessa, Chin Tuck Against Resistance (CTAR), Shaker, and supraglottic swallow to improve pharyngeal contraction. 04/06/25: Goal progressing. 04/20/25: Goal met. STG2. Patient will complete daily exercises as evidenced by patient report and/or HEP tracker in order to improve swallow function. 04/06/25: Goal progressing. 04/20/25: Goal met. LTG1. Patient will safely tolerate least restrictive diet consistency to allow for safe consumption of PO intake without s/sx of aspiration and reduced sensation of pharyngeal residue. 04/06/25: Goal progressing. 04/20/25: Goal met. LTG2. Patient will improve self-perception of swallowing from a baseline of on the EAT-10 following participation in [facility] rehabilitative services. 04/06/25: Goal progressing. 04/20/25: Goal met.
== END 2025-04-26 11:03 | disposition home or self-care (01) ==
LOC: SP 11:30
PROVIDERS: Family Provider Family Medicine; PCP Family Medicine; Referring Provider Family Medicine; Visit Provider Family Medicine
DX: R13.10 Dysphagia, unspecified (principal)
CPT/HCPCS: 92526; 92610

== ENCOUNTER → 2025-05-16 11:25 | Outpatient (CLI) | payer MEDICARE, SELFPAY ==
[2025-01-24 10:01] VITALS: BMI 23.8
--- NOTE | 2025-05-16 11:26 | DI.RAD.S_ITS ---
PROCEDURE: XR KUB INDICATIONS: 74 y/o F w/ h/o nephrolithiasis, please eval TECHNIQUE: One view of the abdomen acquired. COMPARISON: [facility], JINA, XR KUB, 06/15/2024, 17:23. FINDINGS AND IMPRESSION: No significant calculi by radiography, although evaluation is partially obscured by bowel gas and stool. Consider CT KUB if there is further concern. Diffuse degenerative osseous changes and spinal curvature Dictated by: Jhon Lopez M.D. on 05/16/2025 at 15:38 Approved by: Jhon Lopez M.D. on 05/16/2025 at 15:40
[2025-05-16 12:57] LABS: Add Manual Diff / Slide Review NO; Hematocrit 33.7 % (36-46); Hemoglobin 11.5 g/dL (12.0-16.0); Lymphocytes Absolute Auto 2100 /uL (1100-4500); Mean Corpuscular HGB Conc 34.1 % (30-36); Mean Corpuscular Hemoglobin 30.6 PG (26-34); Mean Corpuscular Volume 89.8 fL (80-100); Platelet Count 259 X10^3/uL (150-400)
[2025-05-16 13:37] LABS: Cholesterol 138 mg/dL (140-199); HDL Cholesterol 72 mg/dL (40-60); Triglycerides 104 mg/dL (35-150)
[2025-05-16 13:37] LABS: Alanine Aminotransferase 18 IU/L (<35); Albumin 4.4 g/dL (3.5-5.0); Albumin Globulin Ratio 1.8 (1.0-2.8); Alkaline Phosphatase 58 U/L (38-126); Blood Urea Nitrogen 21 mg/dL (7-17); Calcium 9.7 mg/dL (8.4-10.2); Carbon Dioxide 27 mmol/L (22-32); Chloride 103 mmol/L (98-107); Estimated Glomerular Filt Rate 54 mL/min (>60); Globulin 2.5 g/dL (1.7-4.1); Glucose 139 mg/dL (70-99); HEMOLYSIS < 15 (0-50); Potassium 4.9 mmol/L (3.4-5.1); Sodium 140 mmol/L (137-145); Total Protein 6.9 g/dL (6.3-8.2)
[2025-05-16 14:27] LABS: Hemoglobin A1C% w Est Avg Glu 6.4 % (4.0-6.0)
[2025-05-16 19:01] LABS: TSH w/ Reflex to FT4 1.09 uIU/mL (0.47-4.68)
== END ==
PROVIDERS: Physician Assistant; PCP Family Medicine; Referring Provider Family Medicine; Visit Provider Urology
DX: E11.9 Type 2 diabetes mellitus without complications (principal); E78.5 Hyperlipidemia, unspecified; G35.D Multiple sclerosis, unspecified; Z87.442 Personal history of urinary calculi
CPT/HCPCS: 36415; 74018; 80053; 80061; 83036; 84443; 85025

== ENCOUNTER → 2025-05-23 13:15 | Outpatient (CLI) | payer MEDICARE, SELFPAY ==
[2025-01-24 10:01] VITALS: BMI 23.8
== END ==
PROVIDERS: PCP Family Medicine; Visit Provider Urology
DX: R39.9 Unspecified symptoms and signs involving the genitourinary system (principal)
CPT/HCPCS: 87086

== ENCOUNTER → 2025-06-20 12:54 | Outpatient (CLI) | payer MEDICARE, SELFPAY ==
[2025-01-24 10:01] VITALS: BMI 23.8
--- NOTE | 2025-06-20 12:55 | DI.RAD.S_ITS ---
PROCEDURE: XR SHOULDER LT MIN 2V INDICATIONS: Fall, left shoulder pain TECHNIQUE: 3 views of the shoulder were acquired. COMPARISON: None. FINDINGS: Bones: No fractures or dislocations. Glenohumeral joint degenerative change. No suspicious bony lesions. Visualized ribs appear intact. Soft tissues: No suspicious soft tissue calcifications. IMPRESSION: No acute bony abnormality. Degenerative change. Dictated by: Homer Villatoro M.D. on 06/20/2025 at 14:12 Approved by: Homer Villatoro M.D. on 06/20/2025 at 14:12
== END ==
PROVIDERS: Family Provider Family Medicine; PCP Family Medicine; Referring Provider Nurse Practitioner Family; Visit Provider Nurse Practitioner Family
DX: S46.912A Strain of unspecified muscle, fascia and tendon at shoulder and upper arm level, left arm, initial encounter (principal); W19.XXXA Unspecified fall, initial encounter
CPT/HCPCS: 73030

== ENCOUNTER 2025-06-21 11:54 | Emergency (ER) | payer MEDICARE, SELFPAY ==
[2025-01-24 10:01] VITALS: BMI 23.8
--- OUTSIDE RECORDS SUMMARY | 2025-06-21 11:56 | XMS_ITS | Clinical Summary ---
Author Organization [facility] Address [address] [place] [id number] Care Team Providers Care Card Stripper Name Role Phone Isaac Farmer Primary Care Provider [phone] Allergies Active Allergy Reactions Criticality Noted Date Comments Adhesive Tape-Silicones Rash Low 04/22/2018 Some adhesive tapes Diphenhydramine Hcl Hives Low 02/17/2017 Mirabegron Medium 11/23/2019 Sulfa (Sulfonamide Antibiotics) Anaphylaxis High 02/17/2017 Medications baclofen (LIORESAL) 10 mg tablet Patient takes 15mg qam, 15mg mid day and 20mg qpm Active trospium (SANCTURA) 20 mg tablet Take 1 tablet (20 mg total) by mouth 2 (two) times a day Active cholecalciferol , vitamin D3, 5,000 unit capsule Take 1 capsule (5,000 Units total) by mouth daily Active DOCOSAHEXANOIC ACID/EPA (FISH OIL ORAL) Take by mouth Active b complex vitamins capsule Take 1 capsule by mouth daily Active TURMERIC ROOT EXTRACT ORAL Take by mouth Act yunior CRANBERRY FRUIT EXTRACT (CRANBERRY ORAL) Take by mouth Active UNABLE TO FIND Med Name: sphingolin Active HYDROcodone-ashley taminophen (NORCO) 5-325 mg 8 Active CONTOUR NEXT TEST STRIPS strip 8 Active metFORMIN XR (GLUCOPHATE-XR) 500 mg 24 hr tablet 9 Active estradioL 10 mcg tablet 0 Active triamcinolone (KENALOG) 0.1 % cream Apply topically 9 Active atorvastatin (LIPITOR) 10 mg tablet 2 Active cefdinir (OMNICEF) 300 mg capsule 5 Active lisinopriL (PRINIVIL) 10 mg tablet Take 1 tablet (10 mg total) by mouth daily 5 Active mirabegron (MYRBETRIQ) 50 mg ER tablet Take 1 tablet (50 mg total) by mouth daily 4 Active ipratropium (ATROVENT) 42 mcg (0.06 %) nasal sprayIndication s:Chronic rhinitis Administer 2 sprays into each nostril 3 (three) times a day Up to 3 times daily as needed. 15 mL 11 5 06/07/20 26 Active Active Problems Problem Noted Date Diagnosed Date History of colon polyps 10/31/2021 Overview (10/31/2021): Added automatically from request for surgery [id number] Constipation 10/31/2021 Overview (10/31/2021): Added automatically from request for surgery [id number] Primary osteoarthritis of right knee 05/03/2021 Urinary tract infection without hematuria 2017 Falls frequently 06/26/2017 Night muscle spasms 06/26/2017 Multiple sclerosis 07/15/2012 Encounters Date Type Department Care Team Description 06/07/2025 2:30 PM PST Clinical Support [facility] [address] [phone] 06/07/2025 1:30 PM PST Office Visit [facility] [address] [phone] Christian Nixon PA-C Sensorineural hearing loss (SNHL), bilateral (Primary Dx); Chronic rhinitis 06/07/2025 11:20 AM PST Procedure visit [facility] [address] [phone] Isidoro Nance CCC-A Sensorineural hearing loss (SNHL), bilateral (Primary Dx) 05/09/2025 9:50 AM PST Office Visit [facility] [address] [phone] Deja Corcoran, DPM Ankle instability, left (Primary Dx); Dystrophic nail 05/06/2025 Abstract [facility] [address] [phone] Deja Corcoran, DPM from Last 3 Months Immunizations Immunization Administration Dates Next Due FLU High Dose 65+ Trivalent, PF (FLUZONE) 2017,07/14/2017 FLU PF 6+Mos Trivalent 0.5ML (Fluzone, FluLaval, Fluarix) 04/12/2015,07/15/2012,05/31/2011 H1N1 All Forms 07/12/2009 Live Zoster (Zostavax) 09/30/2015 Rvaszp-[id number]-VxP-2 Trs-sucr Vaccine 12/19/2021 Wyfffe-UIHZ-XwO-2 Vaccine 06/15/2021,08/12/2020, 07/16/2020 Tdap (Boostrix,Adacel) 01/23/2012 Family History Medical History Relation Comments Colon polyps Brother 1 Colon polyps Brother 2 Alzheimer's disease Father Cause of awa th Cancer Father's Sister Heart disease Mother Other Mother Bowel disease- C ause of Cancer Mother's Brother Colon cancer Mother's Brother Relation Status Comments Brother 1 Brother 2 Alive Father Father's Sister Mother Mother's Brother Social History Tobacco Use Types Packs/Day Years Used Date Smoking Tobacco: Never Smokeless Tobacco: Never Tobacco Cessation:Counseling Given: Not Answered Alcohol Use Standard Drinks/Week Comments Not Currently 1 (1 standard drink = 0.6 oz pur e alcohol) Very occasional Comments No Sex and Gender Information Value Date Recorded Sex Assigned at Not on file Legal Sex Female 7:27 PM PDT Gender Identity Female 12/21/2020 9:01 PM PDT Sexual Orientation Straight 12/21/2020 9: 01 PM PDT Last Filed Vital Signs Vital Sign Reading Time Taken Comments Blood Pressure 122/71 06/07/2025 1:33 PM PST Pulse 101 06/07/2025 1:33 PM PST Temperature 36.5 C (97.7 F) 01/18/2022 8:41 AM PDT Respiratory Rate 16 01/18/2022 9:06 AM PDT Oxygen Saturation 99% 06/07/2025 1:33 PM PST Inhaled Oxygen Concentration - - Weight 57.6 kg (127 lb) 06/07/2025 1:33 PM PST Height 152.4 cm (5') 06/07/2025 1:33 PM PST Body Mass Index 24.8 06/07/2025 1:33 PM PST Plan of Treatment Upcoming Encounters Date Type Department Care Team (Late st Contact Info) Description 07/05/2025 8:40 AM PST Office Visit [facility] [place] [address] [place] [phone] Gaye Akhtar MD [address] [place] [address] Health Maintenance Due Date Last Done Comments Bone Density Scan 1950 Breast Cancer Screening 1950 Medicare Annual Wellness (AWV) 1950 Depression Screening (PHQ-2) 1962 Colorectal Cancer Screening (FOBT) 1995 Colorectal Cancer Screening (Fecal DNA) 1995 Fall Risk Screening 2015 RSV Patients Over 60 years OR qualifying ( Patients) (1 - 1-dose 75+ series) 2025 COVID-19 Vaccine ( season) 2025 04/13/2025, 09/16/2024, 05/17/2023, Additional history exists DTaP,Tdap,and Td Vaccines (3 - Td or Tdap) 01/03/2032 01/02/2022, 01/23/2012, 06/30/2011 Colorectal Cancer Screening (Colonoscopy) 01/19/2032 01/18/2022, 02/17/2017 Colorectal Cancer Screening Combined 01/19/2032 Varicella Vaccines Discontinued 09/30/2015 Zoster Vaccines Completed 12/21/2020, 12/0 01/2020, 09/30/2015 HM Pneumococcal Adult 50+ Completed 01/02/2022, 11/2020 HM Pneumococcal Combined Age 0-49 Discontinued 01/02/2022, 01/02/2021 Influenza Vaccine Completed 04/13/2025, , 09/16/2024, Additional history exists HPV Vaccines Aged Out No longer eligi ble based on patient's age to complete this topic Hepatitis A Vaccines Aged Out No long er eligible based on patient's age to complete this topic Hepatitis B Vaccines Aged Out No long er eligible based on patient's age to complete this topic IPV Vaccines Aged Out No longer eligi ble based on patient's age to complete this topic MMR Vaccines Aged Out No longer eligi ble based on patient's age to complete this topic Procedures Procedure Name Priority Date/Time Associated Diagnosis Comments PROCEDURE NOTE SCAN 06/07/2025 COLONOSCOPY Routine 02/17/2017 from Last 3 Months or Most Recently Relevant to Health Maintenance Results * PROCEDURE NOTE SCAN (06/07/2025) Narrative 06/07/2025 Ordered by an unspecified provider. Provider External MD IN CLINIC/BEDSIDE PERFORMAB LES Final Result * Colonoscopy (02/17/2017) External/Histor ica Colonoscopy Colonoscopy us Historical Provider MD HEALTH MAINTENANCE Final Result from Last 3 Months or Most Recently Relevant to Health Maintenance Insurance [facility] [employer] Advance Directives * Full Code (Latest Code Status on File) Date Activated Date Inactivated Comments 01/18/2022 7:28 AM 01/18/2022 11:33 AM Care Teams Card Stripper Relationship Specialty Start Date End Date Isaac Farmer [address] [place] [id number] PCP - General Family Medicine 05/09/25
[2025-06-21 12:05] VITALS: BP 147/73; PULSE 92; RESP 18; TEMP 36.6; O2SAT 99; BMI 24.7
--- NOTE | 2025-06-21 12:11 | DI.RAD.S_ITS ---
PROCEDURE: XR ELBOW LT MIN 3V INDICATIONS: fall/pain TECHNIQUE: 2 views of the elbow were acquired. COMPARISON: None. FINDINGS: Bones: No fractures or dislocations. No suspicious bony lesions. Soft tissues: No elbow joint effusion. No suspicious soft tissue calcifications. IMPRESSION: No acute bony abnormality or significant joint effusion. Dictated by: Homer Villatoro M.D. on 06/21/2025 at 12:56 Approved by: Homer Villatoro M.D. on 06/21/2025 at 12:56
--- NOTE | 2025-06-21 12:12 | DI.RAD.S_ITS ---
PROCEDURE: XR SHOULDER LT MIN 2V INDICATIONS: fall/pain TECHNIQUE: 3 views of the shoulder were acquired. COMPARISON: [facility], , XR SHOULDER LT 2+ VIEWS, 06/20/2025, 13:00. FINDINGS: Bones: No fractures or dislocations. Glenohumeral joint degenerative change. No suspicious bony lesions. Visualized ribs appear intact. Soft tissues: No suspicious soft tissue calcifications. IMPRESSION: No acute bony abnormality. Degenerative change. Dictated by: Homer Villatoro M.D. on 06/21/2025 at 12:56 Approved by: Homer Villatoro M.D. on 06/21/2025 at 12:57
--- NOTE | 2025-06-21 13:19 | ED_ITS ---
<Statement entered by Baljit Middleton, DO - 06/21/25 22:58> Co-sign statement: I was available for consultation during this patient's emergency department visit. This chart is being signed by myself for administrative purposes only. I do not have direct contact with this patient during this visit. They were seen independently by the APC. HPI - Extremity Injury (Upper) General Chief Complaint: Extremity Injury, Upper Stated Complaint: left shoulder injury Time Seen by Provider: 06/21/25 11:58 Source: patient Mode of arrival: Wheelchair History of Present Illness HPI narrative: 74-year-old female presents to the ED with left-sided shoulder pain for 1 month. Patient states that her injury 1st started due to an injury a month ago, she re-injured the shoulder by falling yesterday. No head strike or loss of consciousness. Patient is not on blood thinners. Patient has a history of multiple sclerosis. Numbness, tingling, weakness. Related Data Home Medications ?Medication ?Instructions ?Recorded ?Confirmed Calcium 500 mg PO BID 03/15/2506/20 Magnesium 850 mg PO DAILY 03/15/25 Spingholin 1 ea PO DAILY 03/15/2506/20 Vitamin C 750 mg PO DAILY 03/15/25 cholecalciferol (vitamin D3) 125 125 mcg PO DAILY 02/2806/20/25 mcg (5,000 unit) capsule Previous Rx's ?Medication ?Instructions ?Recorded acetaminophen 325 mg tablet 650 mg (2 x 325 mg) PO Q6H PRN 04/23/24 Fever/Mild Pain (1-3) #30 tabs nystatin 100,000 unit/gram topical 1 applic topical BI D #30 grams 08/26/24 powder denosumab 60 mg/mL subcutaneous 60 mg SUBCUT [id number] #1 mL 02/07/25 syringe (Prolia) metformin 1,000 mg tablet,extended 1,000 mg PO BID #18 0 tabs 02/07/25 release 24hr (osmotic) Myrbetriq 50 mg tablet,extended 50 mg PO DAILY #90 tab s 02/09/25 release (mirabegron) trimethoprim 100 mg tablet 100 mg PO DAILY #90 tabs meloxicam 7.5 mg tablet 7.5 mg PO DAILY #30 tabs 09/21 baclofen 15 mg tablet 15 mg PO TID #270 tabs 03/23 blood sugar diagnostic (Contour #200 ea 03/23/25 Next Test Strips) atorvastatin 10 mg tablet 10 mg PO DAILY #90 tabs 03/31 03/24 trospium 20 mg tablet 20 mg PO QAM AND QHS #180 ta bs 04/27/25 lisinopril 10 1 tab PO DAILY #90 tabs 11/1 025 mg-hydrochlorothiazide 12.5 mg tablet conjugated estrogens 0.625 mg/gram 0.625 mg vaginal 2X W #30 grams 05/30/25 vaginal cream amlodipine 5 mg tablet 5 mg PO DAILY #90 tabs 06/06 hydrocodone 5 mg-acetaminophen 325 1 tab PO Q8H PRN Pa in (Scale Score 06/14/25 mg tablet 1-3) #30 tabs ipratropium bromide 42 mcg (0.06 2 spray intranasal ON CE #15 mL 06/15/25 %) nasal spray cyclobenzaprine 10 mg tablet 10 mg PO TID PRN muscle s pasm #20 06/21/25 tabs Allergies Allergy/AdvReac Type Severity Reaction Status Date / Time Sulfa (Sulfonamide Allergy Severe ANAPHYLAXIS Verified 06/20/25 12:26 Antibiotics) (SULFA (SULFONAMIDE ANTIBIOTICS)) diphenhydramine Allergy Mild HIVES Verified 06/20/25 12:26 (DIPHENHYDRAMINE) levofloxacin (From Levaquin) AdvReac Severe neurological Verified 06/20/25 12:26 effects - pt hospitalized honeydew AdvReac Verified 06/20/25 12:26 Review of Systems Constitutional Constitutional: Denies chills, Denies fatigue, Denies fever(s), Denies frequent falls, Denies lethargy and Denies weakness Eyes Eyes: Denies change in vision, Denies eye discharge, Denies irritation and Denies loss of vision ENT Ears, Nose, Mouth, and Throat: Denies change in voice, Denies dizziness, Denies neck pain, Denies sore throat and Denies throat swelling Cardiovascular Cardiovascular: Denies chest pain, Denies irregular heart rhythm, Denies lightheadedness, Denies palpitations, Denies dyspnea, Denies dyspnea on exertion and Denies orthopnea Respiratory Respiratory: Denies cough, Denies dyspnea, Denies dyspnea on exertion and Denies wheezing Gastrointestinal Gastrointestinal: Denies abdominal pain, Denies change in bowel habits, Denies diarrhea, Denies nausea and Denies vomiting Musculoskeletal Musculoskeletal: Denies neck pain and Denies numbness Comments: L shoulder pain Integumentary/Breasts Skin/Breast: Denies pruritus, Denies erythema, Denies rash and Denies wounds Neurologic Neurologic: Denies behavioral changes, Denies confusion, Denies dizziness, Denies frequent falls, Denies loss of vision, Denies numbness and Denies weakness Psychiatric Psychiatric: Denies anxiety, Denies behavioral changes, Denies confusion, Denies depression, Denies homicidal ideation and Denies suicidal ideation Endocrine Endocrine: Denies fatigue, Denies flushing and Denies palpitations Hematologic/Lymphatic Hematologic/Lymphatic: Denies easy bruising Allergic/Immunologic Allergic/Immunologic: Denies urticaria, Denies throat swelling and Denies wheezing Patient History Medical History Pyuria Parapelvic renal cyst Constipation Atrophic vaginitis Hydronephrosis of left kidney Chronic lower urinary tract infection Recurrent urinary tract infection Colon polyps (2009) Chicken pox Measles Plantar warts (2004) Fractures (~2005) Osteopenia Multiple sclerosis (1991) Surgical History History of urethral stent (03/2024) History of tubal ligation History of cholecystectomy Anesthesia History of shoulder surgery (1973) Status post rotator cuff repair (2011) History of third molar tooth extraction (1970) Status post tubal ligation (1979) Family History Brother Age: 68 Diabetes mellitus Hypertension High cholesterol Child Age: 29 Adopted Mother Heart disease Hypertension Stroke Cancer Father Alzheimer's disease Grandmother No problems noted. Social History marital status: number of children: 1 household members: none occupational status: employed alcohol intake: current substance use type: does not use caffeine: Yes (tea-occasional ) Type(s) of exercise: other frequency: 5-6 times per week Smoking Status: Never smoker alcohol intake frequency: holidays/special occasions only Exam Narrative Exam Narrative: Const General:?cooperative, healthy appearing and comfortable [facility] Head:?normal to inspection Ears:?hearing grossly normal bilaterally Nose:?external nose normal Face and sinus:?normal facial exam and sinuses nontender Mouth:?oral mucosae normal Throat:?posterior oropharynx normal Eyes General:?appearance normal, both eyes and all related structures Neck Neck:?normal visual inspection and no lymphadenopathy noted Resp Effort & Inspection:?normal respiratory effort Auscultation:?clear to auscultation bilaterally Cardio Rate:?regular rate Rhythm:?regular rhythm Musculoskeletal Left shoulder tender on the anterior aspect. Range of motion is limited by pain. Neurovascularly intact. Neuro General:?patient alert, patient awake and patient oriented x3 Initial Vital Signs Initial Vital Signs: Vital Signs Temperature 98 F 06/21/25 12:05 Pulse Rate 92 H 06/21/25 12:05 Respiratory Rate 18 06/21/25 12:05 Blood Pressure 147/73 H 06/21/25 12:05 Pulse Oximetry 99 06/21/25 12:05 Oxygen Delivery Method Room Air 06/21/25 12:05 Course Orders Ordered: ED Orders 06/21/25 12:11 XR elbow LT min 3V Stat 06/21/25 12:12 XR shoulder LT 2+ views Stat Discontinued Medications Cyclobenzaprine HCl (Cyclobenzaprine 10 Mg Tablet) 10 mg PO NOW ONE Stop: 06/21/25 13:30 Last Admin: 06/21/25 13:38 Dose: 10 mg Documented By: TORREY Ketorolac Tromethamine (Ketorolac 30 Mg/Ml Vial) 30 mg IM NOW ONE Stop: 06/21/25 13:30 Last Admin: 06/21/25 13:37 Dose: 30 mg Documented By: TORREY Vital Signs Vital signs: Vital Signs - 8 hr 06/21/25 12:05 06/21/25 13:49 Temperature 98 F Pulse Rate 92 H 90 Respiratory Rate 18 16 Blood Pressure 147/73 H 132/73 Pulse Oximetry 99 95 Oxygen Delivery Method Room Air Room Air MDM - Extremity Injury (Upper) MDM Narrative Medical decision making narrative: 74-year-old female presents to the ED with left-sided shoulder pain for 1 month. X-ray of the shoulder and elbow were obtained which were without acute abnormalities. Patient's symptoms consistent with a musculoskeletal sprain/strain. Recommend follow-up with PCP, ortho as soon as possible for further evaluation. Patient was given Toradol and Flexeril in the ED with some relief. Flexeril prescribed to use along with ibuprofen and Tylenol. ED return precautions were discussed with patient. Patient verbalized understanding. Medical records reviewed: Yes Discharge Plan Departure Patient Disposition: Home Clinical Impression: Left shoulder pain Qualifiers: Chronicity: unspecified Qualified Code(s): M25.512 - Pain in left shoulder Instructions: DI for Shoulder Sprain Activity Restrictions/Additional Instructions: You were evaluated in the emergency department today for left-sided shoulder p ain. Your x-rays were normal. It appears that you have a musculoskeletal sprain/strain of your shoulder from the prior injury that is exacerbated from your fall yesterday. You were given an injection of Toradol and a muscle relaxant. You are being prescribed a muscle relaxant to continue taking at home along with Tylenol, ibuprofen. Please follow-up with your PCP, ortho specialist as soon as possible for further evaluation. Return to the ED if you have worsening symptoms, numbness, tingling, weakness. Prescriptions: New cyclobenzaprine 10 mg tablet 10 mg PO TID PRN (Reason: muscle spasm) Qty: 20 0RF No Action nystatin 100,000 unit/gram powder 1 applic topical BID Qty: 30 0RF mirabegron [Myrbetriq] 50 mg tablet extended release 24 hr 50 mg PO DAILY Qty: 90 3RF trimethoprim 100 mg tablet 100 mg PO DAILY Qty: 90 3RF baclofen 15 mg tablet 15 mg PO TID Qty: 270 3RF (DME) Contour Next Test Strips Strip See Rx Instructions .Route Qty: 200 11RF Rx Instructions: Use to check blood sugar three times daily as directed atorvastatin 10 mg tablet 10 mg PO DAILY Qty: 90 3RF lisinopril-hydrochlorothiazide 10-12.5 mg tablet 1 tab PO DAILY Qty: 90 3RF conjugated estrogens 0.625 mg/gram cream 0.625 mg vaginal 2XW Qty: 30 11RF Rx Instructions: apply twice weekly hydrocodone-acetaminophen 5-325 mg tablet 1 tab PO Q8H PRN (Reason: Pain (Scale Score 1-3)) Qty: 30 0RF amlodipine 5 mg tablet 5 mg PO DAILY Qty: 90 3RF cholecalciferol (vitamin D3) 125 mcg (5,000 unit) capsule 125 mcg PO DAILY Calcium 500 mg PO BID Magnesium 850 mg PO DAILY Rx Instructions: Takes TEN 85mg tabs daily Spingholin 1 ea PO DAILY Vitamin C 750 mg PO DAILY metformin 1,000 mg tablet extended release 24hr 1,000 mg PO BID Qty: 180 3RF Prolia 60 mg/mL syringe 60 mg SUBCUT [id number] Qty: 1 1RF ipratropium bromide 42 mcg (0.06 %) spray,non-aerosol 2 spray intranasal ONCE Qty: 15 0RF Rx Instructions: administer into Left nostril acetaminophen 325 mg Tablet 650 mg PO Q6H PRN (Reason: Fever/Mild Pain (1-3)) Qty: 30 0RF meloxicam 7.5 mg tablet 7.5 mg PO DAILY Qty: 30 0RF trospium 20 mg tablet 20 mg PO QAM AND QHS Qty: 180 3RF Rx Instructions: administer on an empty stomach Referrals: Isaac Farmer MD [Primary Care Provider, Family Practice] Stand Alone Forms: Patient Portal/API
--- NOTE | 2025-06-21 13:30 | PC.NURSE ---
This RNs first interaction with patient. Pt evaluated and assessed at triage by provider.
[2025-06-21] MEDS: KETOROLAC 30 MG/ML VIAL IM (13:37)
[2025-06-21] MEDS: CYCLOBENZAPRINE 10 MG TABLET PO (13:38)
[2025-06-21 13:49] VITALS: BP 132/73; PULSE 90; RESP 16; O2SAT 95
== END 2025-06-21 13:50 | disposition home or self-care (01) ==
PROVIDERS: Emergency Provider Student in an Organized Health Care Education/Training Program; Family Provider Family Medicine; PCP Family Medicine
DX: M25.512 Pain in left shoulder (principal); W19.XXXA Unspecified fall, initial encounter
CPT/HCPCS: 73030; 73080; 96372; 99283; J1885